=== PATIENT | male | born 1940 | race Caucasian/White ===

== ENCOUNTER → 2016-07-17 | Outpatient (CLI) | payer MEDICARE ==
[~2016-07-17] MED LIST: ALOG1TAB4 PO; AMLO10TA82 PO; ASPI-892 PO; ATEN100T88 PO; BETH25TA PO; CIPR500T78 PO; DOCU-143 PO; GLBR5T PO; GLIP10TA13 PO; INSU100I16 SQ; INSULIN; LEVO500T69 PO; LEVO500T80 PO; LINA1TAB3 PO; LISI10TA2 PO; LISI40TA PO; METF1000 PO; MTF500T PO; OMEG-12 PO; POLY17PO6 PO; SILO8CAP PO; SIMV20TA3 PO; SIMV40TA2 PO; TAMS0.4C2 PO; VIT C
--- NOTE | 2016-07-20 07:02 | ECHOCARDIOGRAPHY REPORT ---
DATE OF SERVICE: 07/17/2016 ORDERING PHYSICIAN: Mirtha Demarco APRN. PRIMARY CARE PHYSICIAN: Dr. Chavira. CLINICAL DIAGNOSES: Coronary artery disease, hyperlipidemia, hypertension, history of tobacco use. MEASUREMENTS: Left atrium 3.4. Aortic root 3.3. Left ventricular diameter diastolic 4.3 IVS thickness, diastolic 0.9. LVPW thickness 0.9. DESCRIPTION: Two-dimensional echocardiography shows normal global left ventricular systolic function with normal regional wall motion. Aortic, mitral and tricuspid valve leaflets show good leaflet excursion. There appears to be mild to moderate aortic valve sclerosis. Aortic valve leaflets are not very well visualized. There does not appear to be any significant pericardial effusion. Doppler imaging shows trivial mitral and tricuspid regurgitation. There is no Doppler evidence of any significant valvular stenosis. Mitral inflow is consistent with grade 1 diastolic dysfunction of the left ventricle. There is no evidence of any significant intracardiac shunt on this transthoracic echocardiographic study. Inferior vena cava is of normal size and is mostly collapsed during the study. Pulmonary artery systolic pressure is estimated at approximately 30 mmHg. CONCLUSIONS: 1. Normal global left ventricular systolic function with ejection fraction approximately 65%. 2. Trivial mitral and tricuspid regurgitation. 3. Aortic valve sclerosis without evidence of aortic stenosis. 4. Mild diastolic dysfunction, left ventricle. 5. Pulmonary artery systolic pressure is estimated to be approximately 30 mmHg. Job ID: [id number] DocumentID: [id number] Dictated Date: 07/19/2016 15:33:45 Retail Advertising Executive Date: 07/19/2016 20:15:54 Dictated By: IVY QUINTANA MD, MA, FACP, FACC,
== END ==
LOC: CARD 14:10
PROVIDERS: ATTEND Nurse Practitioner Family
DX: I25.10 Atherosclerotic heart disease of native coronary artery without angina pectoris (principal); I65.23 Occlusion and stenosis of bilateral carotid arteries; E78.4 Other hyperlipidemia; I10 Essential (primary) hypertension; Z72.0 Tobacco use
CPT/HCPCS: 93306

== ENCOUNTER → 2016-07-21 | Outpatient (CLI) | payer MEDICARE ==
[~2016-07-21] MED LIST changes: +CATHETER FLUSH 10 ML SYR IV PRN; +REGADENOSON 0.4 MG/5 ML SYR (LEXISCAN) IV ONE
[2016-07-21 14:42] VITALS: BP 179/77
--- NOTE | 2016-07-25 21:10 | STRESS TEST ---
DATE OF SERVICE: 07/21/2016 DATE OF SERVICE: 07/21/2016. ORDERING PHYSICIAN: Mirtha Demarco APRN. PRIMARY PHYSICIAN: Dr. Chavira OTHER PHYSICIAN: Dr. Quintana. CLINICAL DIAGNOSIS: Coronary artery disease, hypertension, tobacco use. Baseline images were carried out after injection of 10.91 mCi of technetium-99m Tetrofosmin. This was followed by 0.4 mg regadenoson and 30.9 mCi of technetium-99m Tetrofosmin for stress imaging. The electrocardiogram showed sinus rhythm during the study. There were a few isolated premature atrial contractions. The electrocardiogram did not change significantly with the regadenoson infusion. The patient tolerated the procedure well. Review of images at rest and following stress does not indicate any significant perfusion defects consistent with significant myocardial ischemia or infarction. Gated images show normal global left ventricular systolic function with normal regional wall motion. Left ventricular ejection fraction is calculated to be 65%. Left ventricular end-diastolic volume is 74 mL TID is absent (1.1). CONCLUSIONS: 1. No evidence of any significant myocardial ischemia or infarction on this study. 2. Normal regional wall motion. 3. Normal global left ventricular systolic function with a calculated ejection fraction of 65%. 4. Normal left ventricular cavity size. Job ID: [id number] DocumentID: [id number] Dictated Date: 07/25/2016 15:53:10 Power Tool Repairer Date: 07/25/2016 16:11:57 Dictated By: IVY QUINTANA MD, MA, FACP, FACC,
== END ==
LOC: CARD 13:28
PROVIDERS: ATTEND Nurse Practitioner Family
DX: I25.10 Atherosclerotic heart disease of native coronary artery without angina pectoris (principal); I65.23 Occlusion and stenosis of bilateral carotid arteries; E78.4 Other hyperlipidemia; I10 Essential (primary) hypertension; Z72.0 Tobacco use
CPT/HCPCS: 78452; 93017

== ENCOUNTER 2017-03-19 18:32 | Emergency (ER) | payer MEDICARE ==
[~2017-03-19] VITALS: Ht 172.7 cm; Wt 86.2 kg
[~2017-03-19 18:32] MED LIST changes: -CATHETER FLUSH 10 ML SYR IV PRN; -REGADENOSON 0.4 MG/5 ML SYR (LEXISCAN) IV ONE
--- OUTSIDE RECORDS SUMMARY | 2017-03-19 18:39 | XMS REPORT | Continuity of Care Document ---
Author Author [facility] Organization [facility] Address Unknown Phone Unavailable Allergies Active Description Code Type Severity Reaction Onset Reported/Identified Relationship to Patient Clinical Status Yes No Known Drug Allergies [id number] Drug Allergy Unknown N/A 09/15/2008 Medications There is no data. Problems Date Dx Coded Attending Type Code Diagnosis Diagnosed By 11/09/2009 Ot 185 11/09/2009 Ot 250.00 11/09/2009 Ot 596.54 11/09/2009 Ot 791.9 11/09/2009 Ot V58.69 12/22/2009 Ot 185 12/22/2009 Ot 250.00 12/22/2009 Ot 272.4 12/22/2009 Ot 401.9 12/22/2009 Ot 596.54 12/22/2009 Ot V44.50 12/22/2009 Ot V45.81 12/22/2009 Ot V58.66 12/22/2009 Ot V58.69 04/24/2010 Ot 185 04/24/2010 Ot 250.00 04/24/2010 Ot 272.4 04/24/2010 Ot 401.9 04/24/2010 Ot 596.54 04/24/2010 Ot V44.50 04/24/2010 Ot V45.81 04/24/2010 Ot V58.66 04/24/2010 Ot V58.69 07/21/2010 Ot 708.9 URTICARIA NOS 07/21/2010 Ot 782.1 NONSPECIF SKIN ERUPT NEC 08/28/2010 Ot 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 08/28/2010 Ot 250.00 DIAB ELEANOR WO COMPL, TYPE II OR UNSPEC TY 08/28/2010 Ot 272.4 HYPERLIPIDEMIA NEC/NOS 08/28/2010 Ot 401.9 HYPERTENSION NOS 08/28/2010 Ot 596.54 NEUROGENIC BLADDER, NOT OTHERWISE SPECIF 08/28/2010 Ot V44.50 CYSTOSTOMY STATUS, NOS 08/28/2010 Ot V45.81 AORTOCORONARY BYPASS 08/28/2010 Ot V58.66 LONG-TERM ( CURRENT) USE OF ASPIRIN 08/28/2010 Ot V58.69 OTH MED,LT, CURRENT USE 05/02/2011 Ot 595.9 CYSTITIS NOS 05/02/2011 Ot 599.70 HEMATURIA, UNSPECIFIED 08/15/2011 Ot 250.00 DIAB ELEANOR WO COMPL, TYPE II OR UNSPEC TY 08/15/2011 Ot 596.54 NEUROGENIC BLADDER, NOT OTHERWISE SPECIF 08/15/2011 Ot 788.20 RETENTION OF URINE NOS 03/10/2013 BERTA DELANEY GLOBAL PROGRAM DIRECTOR Ot V53.6 FITTING URINARY DEVICES 11/28/2013 BERTA DELANEY GLOBAL PROGRAM DIRECTOR Ot 599.0 URIN TRACT INFECTION NOS 11/28/2013 BERTA DELANEY GLOBAL PROGRAM DIRECTOR Ot 788.41 URINARY FREQUENCY 11/28/2013 BERTA DELANEY G[employer] PROGRAM DIRECTOR Ot 996.76 OTH COMP DUE TO GENITOURINARY DEVICE,IMP 03/20/2014 Ot 414.8 03/20/2014 Ot 185 03/20/2014 Ot V81.5 03/20/2014 Ot 185 03/20/2014 Ot 573.8 03/20/2014 Ot 591 03/20/2014 Ot V81.5 03/20/2014 Ot 185 03/20/2014 Ot 185 03/20/2014 Ot 788.30 03/20/2014 Ot V72.63 03/20/2014 Ot V72.81 03/20/2014 Ot V74.8 03/20/2014 Ot 185 03/20/2014 Ot 596.54 03/20/2014 Ot 788.30 03/20/2014 Ot 185 03/20/2014 Ot V72.63 03/20/2014 Ot V72.81 03/20/2014 Ot V74.8 03/20/2014 Ot 185 03/20/2014 Ot 250.00 03/20/2014 Ot 272.4 03/20/2014 Ot 401.9 03/20/2014 Ot 596.54 03/20/2014 Ot V44.50 03/20/2014 Ot V45.81 03/20/2014 Ot V58.66 03/20/2014 Ot V58.69 03/20/2014 Ot 433.10 03/20/2014 PARSAD TARIQ Ot 414.00 03/20/2014 PRASAD TARIQ Ot V45.81 03/23/2014 Ot 414.8 03/23/2014 Ot 185 03/23/2014 Ot V81.5 03/23/2014 Ot 185 03/23/2014 Ot 573.8 03/23/2014 Ot 591 03/23/2014 Ot V81.5 03/23/2014 Ot 185 03/23/2014 Ot 185 03/23/2014 Ot 788.30 03/23/2014 Ot V72.63 03/23/2014 Ot V72.81 03/23/2014 Ot V74.8 03/23/2014 Ot 185 03/23/2014 Ot 596.54 03/23/2014 Ot 788.30 03/23/2014 Ot 185 03/23/2014 Ot V72.63 03/23/2014 Ot V72.81 03/23/2014 Ot V74.8 03/23/2014 Ot 185 03/23/2014 Ot 250.00 03/23/2014 Ot 272.4 03/23/2014 Ot 401.9 03/23/2014 Ot 596.54 03/23/2014 Ot V44.50 03/23/2014 Ot V45.81 03/23/2014 Ot V58.66 03/23/2014 Ot V58.69 03/23/2014 Ot 433.10 03/23/2014 PRASAD TARIQ SLAT TWISTER Ot 414.00 03/23/2014 PRASAD TARIQ Ot V45.81 03/23/2014 Ot 414.8 03/23/2014 Ot 185 03/23/2014 Ot V81.5 03/23/2014 Ot 185 03/23/2014 Ot 573.8 03/23/2014 Ot 591 03/23/2014 Ot V81.5 03/23/2014 Ot 185 03/23/2014 Ot 185 03/23/2014 Ot 788.30 03/23/2014 Ot V72.63 03/23/2014 Ot V72.81 03/23/2014 Ot V74.8 03/23/2014 Ot 185 03/23/2014 Ot 596.54 03/23/2014 Ot 788.30 03/23/2014 Ot 185 03/23/2014 Ot V72.63 03/23/2014 Ot V72.81 03/23/2014 Ot V74.8 03/23/2014 Ot 185 03/23/2014 Ot 250.00 03/23/2014 Ot 272.4 03/23/2014 Ot 401.9 03/23/2014 Ot 596.54 03/23/2014 Ot V44.50 03/23/2014 Ot V45.81 03/23/2014 Ot V58.66 03/23/2014 Ot V58.69 03/23/2014 Ot 433.10 03/23/2014 PRASAD TARIQ SLAT TWISTER Ot 414.00 03/23/2014 PRASAD TARIQ SLAT TWISTER Ot V45.81 07/27/2014 Ot 414.8 07/27/2014 Ot 185 07/27/2014 Ot V81.5 07/27/2014 Ot 185 07/27/2014 Ot 573.8 07/27/2014 Ot 591 07/27/2014 Ot V81.5 07/27/2014 Ot 185 07/27/2014 Ot 185 07/27/2014 Ot 788.30 07/27/2014 Ot V72.63 07/27/2014 Ot V72.81 07/27/2014 Ot V74.8 07/27/2014 Ot 185 07/27/2014 Ot 596.54 07/27/2014 Ot 788.30 07/27/2014 Ot 185 07/27/2014 Ot V72.63 07/27/2014 Ot V72.81 07/27/2014 Ot V74.8 07/27/2014 Ot 185 07/27/2014 Ot 250.00 07/27/2014 Ot 272.4 07/27/2014 Ot 401.9 07/27/2014 Ot 596.54 07/27/2014 Ot V44.50 07/27/2014 Ot V45.81 07/27/2014 Ot V58.66 07/27/2014 Ot V58.69 07/27/2014 Ot 433.10 07/27/2014 PRASAD TARIQ SLAT TWISTER Ot 414.00 07/27/2014 PRASAD TARIQ SLAT TWISTER Ot V45.81 11/21/2015 Ot 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 11/21/2015 Ot 596.54 NEUROGENIC BLADDER, NOT OTHERWISE SPECIF 11/21/2015 Ot 788.30 UNSPECIFIED URINARY INCONTINENCE 11/21/2015 Ot 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 11/21/2015 Ot 250.00 DIAB ELEANOR WO COMPL, TYPE II OR UNSPEC TY 11/21/2015 Ot 272.4 HYPERLIPIDEMIA NEC/NOS 11/21/2015 Ot 401.9 HYPERTENSION NOS 11/21/2015 Ot 596.54 NEUROGENIC BLADDER, NOT OTHERWISE SPECIF 11/21/2015 Ot V44.50 CYSTOSTOMY STATUS, NOS 11/21/2015 Ot V45.81 AORTOCORONARY BYPASS 11/21/2015 Ot V58.66 LONG-TERM ( CURRENT) USE OF ASPIRIN 11/21/2015 Ot V58.69 OTH MED,LT, CURRENT USE 11/21/2015 Ot 433.10 CAROTID ARTERY OCCLUSION W O CEREBRAL IN 11/21/2015 PRASAD TARIQ L SLAT TWISTER Ot 414.00 CORON ATHEROSCLER NOS TYPE VESSEL, NATIV 11/21/2015 ZA TARIQHER L SLAT TWISTER Ot V45.81 AORTOCORONARY BYPASS 11/21/2015 Ot 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 11/21/2015 Ot 596.54 NEUROGENIC BLADDER, NOT OTHERWISE SPECIF 11/21/2015 Ot 788.30 UNSPECIFIED URINARY INCONTINENCE 11/21/2015 Ot 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 11/21/2015 Ot 250.00 DIAB ELEANOR WO COMPL, TYPE II OR UNSPEC TY 11/21/2015 Ot 272.4 HYPERLIPIDEMIA NEC/NOS 11/21/2015 Ot 401.9 HYPERTENSION NOS 11/21/2015 Ot 596.54 NEUROGENIC BLADDER, NOT OTHERWISE SPECIF 11/21/2015 Ot V44.50 CYSTOSTOMY STATUS, NOS 11/21/2015 Ot V45.81 AORTOCORONARY BYPASS 11/21/2015 Ot V58.66 LONG-TERM ( CURRENT) USE OF ASPIRIN 11/21/2015 Ot V58.69 OTH MED,LT, CURRENT USE 11/21/2015 Ot 433.10 CAROTID ARTERY OCCLUSION W O CEREBRAL IN 11/21/2015 PRASAD TARIQ SLAT TWISTER Ot 414.00 CORON ATHEROSCLER NOS TYPE VESSEL, NATIV 11/21/2015 PRASAD TARIQ SLAT TWISTER Ot V45.81 AORTOCORONARY BYPASS 11/24/2015 AIDEN BRITO, VIJAY R Ot A41.50 GRAM-NEGATIVE SEPSIS, UNSPECIFIED 11/24/2015 AIDEN BRITO, VIJAY R Ot A41.81 SEPSIS DUE TO ENTEROCOCCUS 11/24/2015 AIDEN BRITO, VIJAY Gamble Ot A41.89 OTHER SPECIFIED SEPSIS 11/24/2015 AIDEN BRITO, VIJAY Gamble Ot B96.4 PROTEUS (MIRABILIS) (MORGANII) CAUSING D 11/24/2015 VIJAY WOLFE MD Ot E11.9 TYPE 2 DIABETES MELLITUS WITHOUT COMPLIC 11/24/2015 VIJAY WOLFE MD Ot F17.210 NICOTINE DEPENDENCE, CIGARETTES, UNCOMPL 11/24/2015 VIJAY WOLFE MD Ot F17.290 NICOTINE DEPENDENCE, OTHER TOBACCO PRODU 11/24/2015 VIJAY WOLFE MD Ot H91.90 UNSPECIFIED HEARING LOSS, UNSPECIFIED EA 11/24/2015 VIJAY WOLFE MD Ot I10 ESSENTIAL (PRIMARY) HYPERTENSION 11/24/2015 VIJAY WOLFE MD, Ot I25.10 ATHSCL HEART DISEASE OF [place] CORONARY 11/24/2015 VIJAY WOLFE MD Ot N39.0 URINARY TRACT INFECTION, SITE NOT SPECIF 11/24/2015 VIJAY WOLFE MD Ot T83.51XA INFECT/INFLM REACTION DUE TO INDWELL URI 11/24/2015 VIJAY WOLFE MD Ot Z91.81 HISTORY OF FALLING 11/24/2015 VIJAY WOLFE MD Ot Z95.1 PRESENCE OF AORTOCORONARY BYPASS GRAFT 01/07/2016 Ot 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 01/07/2016 Ot 596.54 NEUROGENIC BLADDER, NOT OTHERWISE SPECIF 01/07/2016 Ot 788.30 UNSPECIFIED URINARY INCONTINENCE 01/07/2016 Ot 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 01/07/2016 Ot 250.00 DIAB ELEANOR WO COMPL, TYPE II OR UNSPEC TY 01/07/2016 Ot 272.4 HYPERLIPIDEMIA NEC/NOS 01/07/2016 Ot 401.9 HYPERTENSION NOS 01/07/2016 Ot 596.54 NEUROGENIC BLADDER, NOT OTHERWISE SPECIF 01/07/2016 Ot V44.50 CYSTOSTOMY STATUS, NOS 01/07/2016 Ot V45.81 AORTOCORONARY BYPASS 01/07/2016 Ot V58.66 LONG-TERM ( CURRENT) USE OF ASPIRIN 01/07/2016 Ot V58.69 OTH MED,LT, CURRENT USE 01/07/2016 Ot 433.10 CAROTID ARTERY OCCLUSION W O CEREBRAL IN 01/07/2016 PRASAD TARIQP Ot 414.00 CORON ATHEROSCLER NOS TYPE VESSEL, NATIV 01/07/2016 PRASAD TARIQP Ot V45.81 AORTOCORONARY BYPASS 07/06/2016 Ot 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 07/06/2016 Ot 596.54 NEUROGENIC BLADDER, NOT OTHERWISE SPECIF 07/06/2016 Ot 788.30 UNSPECIFIED URINARY INCONTINENCE 07/06/2016 BAIMA, PRASAD L SLAT TWISTER Ot 414.00 CORON ATHEROSCLER NOS TYPE VESSEL, NATIV 07/06/2016 BAIMA, PRASAD L SLAT TWISTER Ot V45.81 AORTOCORONARY BYPASS 07/11/2016 Ot 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 07/11/2016 Ot 596.54 NEUROGENIC BLADDER, NOT OTHERWISE SPECIF 07/11/2016 Ot 788.30 UNSPECIFIED URINARY INCONTINENCE 07/11/2016 BAIMA, PRASAD L SLAT TWISTER Ot 414.00 CORON ATHEROSCLER NOS TYPE VESSEL, NATIV 07/11/2016 BAIMA, PRASAD L SLAT TWISTER Ot V45.81 AORTOCORONARY BYPASS 07/12/2016 Ot 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 07/12/2016 Ot 596.54 NEUROGENIC BLADDER, NOT OTHERWISE SPECIF 07/12/2016 Ot 788.30 UNSPECIFIED URINARY INCONTINENCE 07/12/2016 BAIMA, PRASAD L SLAT TWISTER Ot 414.00 CORON ATHEROSCLER NOS TYPE VESSEL, NATIV 07/12/2016 BAIMA, PRASAD L SLAT TWISTER Ot V45.81 AORTOCORONARY BYPASS 07/17/2016 BAIMA, PRASAD L SLAT TWISTER Ot I25.10 ATHSCL HEART DISEASE OF [place] CORONARY 07/20/2016 BAIMA, PRASAD L SLAT TWISTER Ot I25.10 ATHSCL HEART DISEASE OF [place] CORONARY 07/24/2016 BAIMA, PRASAD L SLAT TWISTER Ot E78.4 OTHER HYPERLIPIDEMIA 07/24/2016 BAIMA, PRASAD L SLAT TWISTER Ot I10 ESSENTIAL (PRIMARY) HYPERTENSION 07/24/2016 BAIMA, PRASAD L SLAT TWISTER Ot I25.10 ATHSCL HEART DISEASE OF [place] CORONARY 07/24/2016 BAIMA, PRASAD L SLAT TWISTER Ot I65.23 OCCLUSION AND STENOSIS OF [place] 07/24/2016 BAIMA, PRASAD L SLAT TWISTER Ot Z72.0 TOBACCO USE 07/27/2016 BAIMA, PRASAD L SLAT TWISTER Ot E78.4 OTHER HYPERLIPIDEMIA 07/27/2016 BAIMA, PRASAD L SLAT TWISTER Ot I10 ESSENTIAL (PRIMARY) HYPERTENSION 07/27/2016 BAIMA, PRASAD L SLAT TWISTER Ot I25.10 ATHSCL HEART DISEASE OF [place] CORONARY 07/27/2016 BAIMA, PRASAD L SLAT TWISTER Ot I65.23 OCCLUSION AND STENOSIS OF [place] 07/27/2016 PRASAD TARIQ L SLAT TWISTER Ot Z72.0 TOBACCO USE 08/09/2016 BABAKMA PRASAD L SLAT TWISTER Ot E78.4 OTHER HYPERLIPIDEMIA 08/09/2016 BAIMA, PRASAD L SLAT TWISTER Ot I10 ESSENTIAL (PRIMARY) HYPERTENSION 08/09/2016 BABAKRYLAN PRASAD L SLAT TWISTER Ot I25.10 ATHSCL HEART DISEASE OF [place] CORONARY 08/09/2016 BAIMAZAPRASAD L SLAT TWISTER Ot I65.23 OCCLUSION AND STENOSIS OF [place] 08/09/2016 BAIMAPRASAD L SLAT TWISTER Ot Z72.0 TOBACCO USE 08/11/2016 BAIMAZAPRASAD L SLAT TWISTER Ot E78.4 OTHER HYPERLIPIDEMIA 08/11/2016 BAIMA, PRASAD L SLAT TWISTER Ot I10 ESSENTIAL (PRIMARY) HYPERTENSION 08/11/2016 BABAKMA PRASAD L SLAT TWISTER Ot I25.10 ATHSCL HEART DISEASE OF [place] CORONARY 08/11/2016 BABAKZA FAGANHER L SLAT TWISTER Ot I65.23 OCCLUSION AND STENOSIS OF [place] 08/11/2016 BABAKPRASAD FAGAN L SLAT TWISTER Ot Z72.0 TOBACCO USE 08/15/2016 Ot 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 08/15/2016 Ot 596.54 NEUROGENIC BLADDER, NOT OTHERWISE SPECIF 08/15/2016 Ot 788.30 UNSPECIFIED URINARY INCONTINENCE 08/15/2016 BABAKZA FAGANHER L SLAT TWISTER Ot 414.00 CORON ATHEROSCLER NOS TYPE VESSEL, NATIV 08/15/2016 BABAKPRASAD FAGAN L SLAT TWISTER Ot V45.81 AORTOCORONARY BYPASS 08/15/2016 BABAKZA FAGANHER L SLAT TWISTER Ot E78.4 OTHER HYPERLIPIDEMIA 08/15/2016 BABAKMA, PRASAD L SLAT TWISTER Ot I10 ESSENTIAL (PRIMARY) HYPERTENSION 08/15/2016 BABAKRYLAN PRASAD L SLAT TWISTER Ot I25.10 ATHSCL HEART DISEASE OF [place] CORONARY 08/15/2016 BABAKRYLAN PRASAD L SLAT TWISTER Ot I65.23 OCCLUSION AND STENOSIS OF [place] 08/15/2016 BABAKZA FAGANHER L SLAT TWISTER Ot Z72.0 TOBACCO USE 08/15/2016 BABAKMA PRASAD L SLAT TWISTER Ot E78.4 OTHER HYPERLIPIDEMIA 08/15/2016 BABAKMA, PRASAD L SLAT TWISTER Ot I10 ESSENTIAL (PRIMARY) HYPERTENSION 08/15/2016 PRASAD TARIQ Ot I25.10 ATHSCL HEART DISEASE OF [place] CORONARY 08/15/2016 PRASAD TARIQ Ot I65.23 OCCLUSION AND STENOSIS OF [place] 08/15/2016 PRASAD TARIQ Ot Z72.0 TOBACCO USE Procedures There is no data. Results Test Result Range Complete blood count (CBC) with automated white blood cell (WBC) differential - 11/21/15 09:12 Blood leukocytes automated count (number/volume) 14.2 10*3/uL 4.3-11.0 Blood erythrocytes automated count (number/volume) 5.33 10*6/uL 4.35-5.85 Venous blood hemoglobin measurement (mass/volume) 14.7 g/dL 13.3-17.7 Blood hematocrit (volume fraction) 44 % 40-54 Automated erythrocyte mean corpuscular volume 82 [foz_us] 80-99 Automated erythrocyte mean corpuscular hemoglobin (mass per erythrocyte) 28 pg 25-34 Automated erythrocyte mean corpuscular hemoglobin concentration measurement ( mass/volume) 34 g/dL 32-36 Automated erythrocyte distribution width ratio 14.4 % 10.0-14.5 Automated blood platelet count (count/volume) 148 10*3/uL 130-400 Automated blood platelet mean volume measurement 9.4 [foz_us] 7.4-10.4 Automated blood neutrophils/100 leukocytes 89 % 42-75 Automated blood lymphocytes/100 leukocytes 6 % 12-44 Blood monocytes/100 leukocytes 5 % 0-12 Automated blood eosinophils/100 leukocytes 0 % 0-10 Automated blood basophils/100 leukocytes 0 % 0-10 Blood neutrophils automated count (number/volume) 12.6 10*3 1.8-7.8 Blood lymphocytes automated count (number/volume) 0.9 10*3 1.0-4.0 Blood monocytes automated count (number/volume) 0.7 10*3 0.0-1.0 Automated eosinophil count 0.0 10*3/uL 0.0-0.3 Automated blood basophil count (count/volume) 0.1 10*3/uL 0.0-0.1 PT panel in platelet poor plasma by coagulation assay - 11/21/15 09:12 Prothrombin time (PT) in platelet poor plasma by coagulation assay 13.3 s 12.2-14.7 INR in platelet poor plasma or blood by coagulation assay 1.0 0.8-1.4 Activated partial thromboplastin time (aPTT) in platelet poor plasma bycoagulation assay - 11/21/15 09:12 Activated partial thromboplastin time (aPTT) in platelet poor plasma bycoagulation assay 21 s 24-35 Comprehensive metabolic panel - 11/21/15 09:12 Serum or plasma sodium measurement (moles/volume) 137 mmol/L 135-145 Serum or plasma potassium measurement (moles/volume) 4.3 mmol/L 3.6-5.0 Serum or plasma chloride measurement (moles/volume) 104 mmol/L 98-107 Carbon dioxide 20 mmol/L 21-32 Serum or plasma anion gap determination (moles/volume) 13 mmol/L 5-14 Serum or plasma urea nitrogen measurement (mass/volume) 14 mg/dL 7-18 Serum or plasma creatinine measurement (mass/volume) 1.46 mg/dL 0.60-1.30 Serum or plasma urea nitrogen/creatinine mass ratio 10 NRG Serum or plasma creatinine measurement with calculation of estimated glomerular filtration rate 47 NRG Serum or plasma glucose measurement (mass/volume) 192 mg/dL 70-105 Serum or plasma calcium measurement (mass/volume) 9.6 mg/dL 8.5-10.1 Serum or plasma total bilirubin measurement (mass/volume) 1.4 mg/dL 0.1-1.0 Serum or plasma alkaline phosphatase measurement (enzymatic activity/volume) 95 U/L 40-136 Serum or plasma aspartate aminotransferase measurement (enzymatic activity/ volume) 17 U/L 5-34 Serum or plasma alanine aminotransferase measurement (enzymatic activity/volume ) 20 U/L 0-55 Serum or plasma protein measurement (mass/volume) 7.1 g/dL 6.4-8.2 Serum or plasma albumin measurement (mass/volume) 3.9 g/dL 3.2-4.5 Serum or plasma troponin i.cardiac measurement (mass/volume) - 11/21/15 09:12 Serum or plasma troponin i.cardiac measurement (mass/volume) < ng/ mL <0.30 Blood manual differential performed detection - 11/21/15 09:12 Blood monocytes/100 leukocytes 8 % NRG Manual blood segmented neutrophils/100 leukocytes 79 % NRG Blood band neutrophils/100 leukocytes 2 % NRG Manual blood lymphocytes/100 leukocytes 11 % NRG Blood erythrocyte morphology finding identification NORMAL NRG Blood toxic granules detection by light microscopy 1+ NRG Serum or plasma C reactive protein measurement (mass/volume) - 11/21/15 09:12 Serum or plasma C reactive protein measurement (mass/volume) 11.22 mg/dL 0.00-0.50 Bacterial blood culture - 11/21/15 09:12 Bacterial blood culture NG NRG Influenza virus A and B antigen detection - 11/21/15 09:45 FLU RESULT NEGATIVE FOR INFLUENZA A AND B ANTIGENS BY IA NRG Blood lactic acid measurement (moles/volume) - 11/21/15 10:00 Blood lactic acid measurement (moles/volume) 1.6 mmol/L 0.5-2.0 Bacterial blood culture - 11/21/15 10:00 Bacterial blood culture NG NRG Complete urinalysis with reflex to culture - 11/21/15 11:10 Urine color determination YELLOW NRG Urine clarity determination SLIGHTLY CLOUDY NRG Urine pH measurement by test strip 8 5-9 Specific gravity of urine by test strip 1.010 1.016- 1.022 Urine protein assay by test strip, semi-quantitative 2+ NEGATIVE Urine glucose detection by automated test strip NEGATIVE NEGATIVE Erythrocytes detection in urine sediment by light microscopy 4+ NEGATIVE Urine ketones detection by automated test strip 2+ NEGATIVE Urine nitrite detection by test strip POSITIVE NEGATIVE Urine total bilirubin detection by test strip NEGATIVE NEGATIVE Urine urobilinogen measurement by automated test strip (mass/volume) 1 mg/dL NORMAL Urine leukocyte esterase detection by dipstick 3+ NEGATIVE Automated urine sediment erythrocyte count by microscopy (number/high power field) [HPF] NRG Automated urine sediment leukocyte count by microscopy (number/high power field ) [HPF] NRG Bacteria detection in urine sediment by light microscopy LARGE NRG Squamous epithelial cells detection in urine sediment by light microscopy NONE NRG Crystals detection in urine sediment by light microscopy PRESENT NRG Casts detection in urine sediment by light microscopy NONE NRG Mucus detection in urine sediment by light microscopy SMALL NRG Complete urinalysis with reflex to culture YES NRG Amorphous sediment detection in urine sediment by light microscopy MOD TAHIRA PHOSPHATE NRG Bacterial urine culture - 11/21/15 11:10 Bacterial urine culture [id number] NRG COLONY COUNT 10,000/ML - 100,000/ML NRG FTX;REPORTABLE SENSITIVITY REPORTED 11/23/15 8:00 NRG Bacterial susceptibility panel - 11/21/15 11:10 Gentamicin susceptibility test by minimum inhibitory concentration < = NRG Trimethoprim/sulfamethoxazole susceptibility test by minimum inhibitoryconcentration <= NRG Ampicillin susceptibility test by minimum inhibitory concentration R NRG Tobramycin susceptibility test by minimum inhibitory concentration < = NRG Cefazolin susceptibility test by minimum inhibitory concentration R NRG Ceftriaxone susceptibility test by minimum inhibitory concentration S NRG Ampicillin/sulbactam susceptibility test by minimum inhibitory concentration 8 NRG Piperacillin/tazobactam susceptibility test by minimum inhibitory concentration 64 NRG Ciprofloxacin susceptibility test by minimum inhibitory concentration <= NRG Meropenem susceptibility test by minimum inhibitory concentration 0.5 NRG Nitrofurantoin susceptibility test by minimum inhibitory concentration R NRG Aztreonam susceptibility test by minimum inhibitory concentration > = NRG Bacterial susceptibility panel - 11/21/15 11:10 Gentamicin susceptibility test by minimum inhibitory concentration S NRG Vancomycin susceptibility test by minimum inhibitory concentration 2 NRG Levofloxacin susceptibility test by minimum inhibitory concentration 1 NRG Tetracycline susceptibility test by minimum inhibitory concentration <= NRG Ampicillin susceptibility test by minimum inhibitory concentration < = NRG Nitrofurantoin susceptibility test by minimum inhibitory concentration <= NRG Linezolid susceptibility test by minimum inhibitory concentration 2 NRG Capillary blood glucose measurement by glucometer (mass/volume) - 11/21/15 16: 08 Capillary blood glucose measurement by glucometer (mass/volume) 180 mg/dL 70-110 Capillary blood glucose measurement by glucometer (mass/volume) - 11/21/15 21: 23 Capillary blood glucose measurement by glucometer (mass/volume) 123 mg/dL 70-110 Blood CBC with ordered manual differential panel - 11/22/15 05:05 Blood leukocytes automated count (number/volume) 9.8 10*3/uL 4.3-11.0 Blood erythrocytes automated count (number/volume) 5.06 10*6/uL 4.35-5.85 Venous blood hemoglobin measurement (mass/volume) 13.8 g/dL 13.3-17.7 Blood hematocrit (volume fraction) 42 % 40-54 Automated erythrocyte mean corpuscular volume 83 [foz_us] 80-99 Automated erythrocyte mean corpuscular hemoglobin (mass per erythrocyte) 27 pg 25-34 Automated erythrocyte mean corpuscular hemoglobin concentration measurement ( mass/volume) 33 g/dL 32-36 Automated erythrocyte distribution width ratio 14.6 % 10.0-14.5 Automated blood platelet count (count/volume) 122 10*3/uL 130-400 Automated blood platelet mean volume measurement 9.7 [foz_us] 7.4-10.4 Automated blood neutrophils/100 leukocytes 82 % 42-75 Automated blood lymphocytes/100 leukocytes 12 % 12-44 Blood monocytes/100 leukocytes 3 % NRG Automated blood eosinophils/100 leukocytes 0 % 0-10 Automated blood basophils/100 leukocytes 1 % 0-10 Blood neutrophils automated count (number/volume) 8.0 10*3 1.8-7.8 Blood lymphocytes automated count (number/volume) 1.2 10*3 1.0-4.0 Blood monocytes automated count (number/volume) 0.5 10*3 0.0-1.0 Automated eosinophil count 0.0 10*3/uL 0.0-0.3 Automated blood basophil count (count/volume) 0.1 10*3/uL 0.0-0.1 Manual blood segmented neutrophils/100 leukocytes 90 % NRG Blood band neutrophils/100 leukocytes 0 % NRG Manual blood lymphocytes/100 leukocytes 7 % NRG Manual eosinophils/100 leukocytes in nose 0 % NRG Manual blood basophils/100 leukocytes 0 % NRG Blood erythrocyte morphology finding identification NORMAL [facility] Comprehensive metabolic panel - 11/22/15 05:05 Serum or plasma sodium measurement (moles/volume) 139 mmol/L 135-145 Serum or plasma potassium measurement (moles/volume) 4.2 mmol/L 3.6-5.0 Serum or plasma chloride measurement (moles/volume) 106 mmol/L 98-107 Carbon dioxide 20 mmol/L 21-32 Serum or plasma anion gap determination (moles/volume) 13 mmol/L 5-14 Serum or plasma urea nitrogen measurement (mass/volume) 16 mg/dL 7-18 Serum or plasma creatinine measurement (mass/volume) 1.26 mg/dL 0.60-1.30 Serum or plasma urea nitrogen/creatinine mass ratio 13 NRG Serum or plasma creatinine measurement with calculation of estimated glomerular filtration rate 56 NRG Serum or plasma glucose measurement (mass/volume) 119 mg/dL 70-105 Serum or plasma calcium measurement (mass/volume) 9.0 mg/dL 8.5-10.1 Serum or plasma total bilirubin measurement (mass/volume) 1.1 mg/dL 0.1-1.0 Serum or plasma alkaline phosphatase measurement (enzymatic activity/volume) 84 U/L 40-136 Serum or plasma aspartate aminotransferase measurement (enzymatic activity/ volume) 24 U/L 5-34 Serum or plasma alanine aminotransferase measurement (enzymatic activity/volume ) 25 U/L 0-55 Serum or plasma protein measurement (mass/volume) 6.5 g/dL 6.4-8.2 Serum or plasma albumin measurement (mass/volume) 3.5 g/dL 3.2-4.5 Capillary blood glucose measurement by glucometer (mass/volume) - 11/22/15 10: 59 Capillary blood glucose measurement by glucometer (mass/volume) 109 mg/dL 70-110 Capillary blood glucose measurement by glucometer (mass/volume) - 11/22/15 16: 05 Capillary blood glucose measurement by glucometer (mass/volume) 93 mg/dL 70-110 Capillary blood glucose measurement by glucometer (mass/volume) - 11/22/15 20: 52 Capillary blood glucose measurement by glucometer (mass/volume) 130 mg/dL 70-110 Capillary blood glucose measurement by glucometer (mass/volume) - 11/23/15 05: 42 Capillary blood glucose measurement by glucometer (mass/volume) 95 mg/dL 70-110 Automated blood complete blood count (hemogram) panel - 11/23/15 05:47 Blood leukocytes automated count (number/volume) 6.3 10*3/uL 4.3-11.0 Blood erythrocytes automated count (number/volume) 4.54 10*6/uL 4.35-5.85 Venous blood hemoglobin measurement (mass/volume) 12.4 g/dL 13.3-17.7 Blood hematocrit (volume fraction) 37 % 40-54 Automated erythrocyte mean corpuscular volume 81 [foz_us] 80-99 Automated erythrocyte mean corpuscular hemoglobin (mass per erythrocyte) 27 pg 25-34 Automated erythrocyte mean corpuscular hemoglobin concentration measurement ( mass/volume) 34 g/dL 32-36 Automated erythrocyte distribution width ratio 14.4 % 10.0-14.5 Automated blood platelet count (count/volume) 110 10*3/uL 130-400 Automated blood platelet mean volume measurement 9.9 [foz_us] 7.4-10.4 Whole blood basic metabolic panel - 11/23/15 05:47 Serum or plasma sodium measurement (moles/volume) 137 mmol/L 135-145 Serum or plasma potassium measurement (moles/volume) 3.9 mmol/L 3.6-5.0 Serum or plasma chloride measurement (moles/volume) 110 mmol/L 98-107 Carbon dioxide 15 mmol/L 21-32 Serum or plasma anion gap determination (moles/volume) 12 mmol/L 5-14 Serum or plasma urea nitrogen measurement (mass/volume) 15 mg/dL 7-18 Serum or plasma creatinine measurement (mass/volume) 0.95 mg/dL 0.60-1.30 Serum or plasma urea nitrogen/creatinine mass ratio 16 NRG Serum or plasma creatinine measurement with calculation of estimated glomerular filtration rate > NRG Serum or plasma glucose measurement (mass/volume) 101 mg/dL 70-105 Serum or plasma calcium measurement (mass/volume) 8.7 mg/dL 8.5-10.1 Capillary blood glucose measurement by glucometer (mass/volume) - 11/23/15 10: 54 Capillary blood glucose measurement by glucometer (mass/volume) 141 mg/dL 70-110 Encounters ACCT No. Visit Date/Time Discharge Status Pt. Type Provider Facility Loc./Unit Complaint [id number] 07/21/2016 13:28:00 07/21/2016 23:59:59 CLS Outpatient PRASAD TARIQ SLAT TWISTER [facility] CARD I25.10, I65.23 [id number] 07/17/2016 14:10:00 07/17/2016 23:59:59 CLS Outpatient PRASAD TARIQ L SLAT TWISTER [facility] CARD I25.10,I65.23 [id number] 11/28/2013 16:31:00 11/28/2013 17:55:00 DIS Emergency BERTA DELANEY [employer] [facility] ER POSS UTI/CATHETER CONCERN [id number] 03/10/2013 20:22:00 03/10/2013 20:44:00 DIS Emergency BERTA DELANEY [employer] DIRECT[employer] [facility] ER CATHETER IS COMING OUT [id number] 11/14/2012 07:21:00 11/14/2012 23:59:59 CLS Outpatient ZA TARIQHER L SLAT TWISTER [facility] RAD CAD [id number] 11/21/2015 12:36:00 ACT Inpatient AIDEN BRITO, VIJAY Gamble [facility] 4TH SEPSIS,UTI,WEAKNESS [id number] 03/20/2014 20:58:00 Document Registration [id number] 03/20/2014 20:58:00 Document Registration [id number] 08/15/2011 07:42:00 Document Registration [id number] 05/02/2011 17:21:00 Document Registration [id number] 10/04/2010 14:29:00 Document Registration [id number] 08/29/2010 00:00:00 Document Registration [id number] 07/21/2010 11:07:00 Document Registration [id number] 05/30/2010 13:56:00 Document Registration [id number] 01/24/2010 12:24:00 Document Registration [id number] 12/20/2009 15:37:00 Document Registration [id number] 11/09/2009 05:45:00 Document Registration [id number] 11/03/2009 15:11:00 Document Registration [id number] 07/13/2009 05:42:00 Document Registration [id number] 07/06/2009 14:24:00 Document Registration [id number] 05/12/2009 12:13:00 Document Registration [id number] 04/26/2009 14:24:00 Document Registration [id number] 04/21/2009 14:34:00 Document Registration [id number] 02/24/2009 15:05:00 Document Registration
[2017-03-19] MEDS ORDERED: LACTATED RINGERS 1,000 ML IV ONE (18:40)
[2017-03-19] MEDS ORDERED: ACETAMINOPHEN 500 MG TAB (TYLENOL) PO PRN (18:45)
[2017-03-19] MEDS ORDERED: RT-ALBUTEROL/IPRATROPIUM 3 ML (DUONEB) VIAL INH ONE (18:45)
--- NOTE | 2017-03-19 18:47 | ED Respiratory ---
General Stated Complaint: COUGH,FEVER,WEAKNESS Source: patient, family Exam Limitations: no limitations History of Present Illness Time seen by provider: 18:35 Initial Comments Patient presents to ER by private conveyance with chief complaint that for past 2 days she's had a sore throat progressively into body aches, fevers, chills, weakness, cough, shortness of breath. He denies any nausea, vomiting, chest pain , wheezing, diarrhea. No recent travel or sick contacts. He does not wear oxygen at home. 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 Allergies and Home Medications Allergies Coded Allergies: No Known Drug Allergies (Verified , 09/15/08) Home Medications Alogliptin Yosef/Pioglitazone 1 Each Tablet, 1 TAB PO DAILY, (Reported) Amlodipine Besylate 10 Mg Tablet, 10 MG PO DAILY, (Reported) Aspirin 81 Mg Tablet.dr, 81 MG PO DAILY, (Reported) Bethanechol Chloride 25 Mg Tablet, 25 MG PO QID, (Reported) Docusate Sodium 100 Mg Capsule, 200 MG PO HS, (Reported) TAKES 2 (100MG) CAPSULES Glipizide 10 Mg Tablet, 10 MG PO DAILY, (Reported) Levofloxacin 500 Mg Tablet, 500 MG PO DAILY PRN, #7 Prescribed by: STEPHANIE CHAVIRA on 11/24/15 0719 Lisinopril 40 Mg Tablet, 40 MG PO DAILY, (Reported) Metformin HCl 1,000 Mg Tablet, 1,000 MG PO DAILY, (Reported) Norton-3/Dha/Epa/Fish Oil 1 Each Capsule.dr, 1,000 MG PO BID, (Reported) Polyethylene Glycol 3350 17 Gm Powd.pack, 17 GM PO DAILY PRN for CONSTIPATION, ( Reported) Simvastatin 40 Mg Tablet, 40 MG PO HS, (Reported) Tamsulosin Hcl 0.4 Mg Cap.sr.24h, 0.4 MG PO HS, (Reported) Constitutional: chills, fever, malaise EENTM: nose congestion, throat pain, No hearing loss, No ear pain, No eye pain Respiratory: cough, phlegm, short of breath, No wheezing Cardiovascular: No chest pain, No palpitations, No syncope Gastrointestinal: No abdominal pain, No constipation, No diarrhea, No nausea, No vomiting Genitourinary: No discharge, No dysuria Musculoskeletal: No back pain, No joint pain Skin: No pruritus, No rash Psychiatric/Neurological: Denies Headache, Denies Numbness, Denies Paresthesia Past Lvrdkhv-Jowtqw-Vxdazu Hx Patient Social History Alcohol Use: Denies Use Recreational Drug Use: No Smoking Status: Former Smoker Type Used: Cigars, Cigarettes Former Smoker, Quit: Apr 02, 2008 Recent Foreign Travel: No Contact w/Someone Who Travel: No Recent Hopitalizations: No Immunizations Up To Date Tetanus Booster (TDap): Unknown Seasonal Allergies Seasonal Allergies: No Surgeries Surgeries: Bladder Surgery, CABG Cardiovascular Cardiac Disorders: Coronary Artery Disease, Hypertension Reproductive System Hx Reproductive Disorders: No Sexually Transmitted Disease: No Genitourinary Genitourinary Disorders: Prostate Problems Endocrine Endocrine Disorders: Diabetes, Non-Insulin dep HEENT HEENT Disorders: Cataract Hearing Impairment: Hard of Hearing Cancer Cancer: Prostate Family Medical History Significant Family History: Cancer, Diabetes, Hypertension, Stroke Family Medial History: Diabetes mellitus 19 MOTHER FH: cataracts 19 MOTHER FH: stroke 19 MOTHER Oral cancer 19 FATHER Physical Exam Vital Signs Vital Sign - Last 12Hours 03/19/17 18:45 Temp 102.9 Pulse 102 Resp 20 B/P (MAP) 149/66 (93) Pulse Ox 94 O2 Delivery Nasal Cannula O2 Flow Rate 3.00 Capillary Refill : General Appearance: WD/WN, no apparent distress Eyes: Bilateral Eye Normal Inspection, Bilateral Eye PERRL, Bilateral Eye EOMI HEENT: PERRL/EOMI, normal ENT inspection, TMs normal, pharynx normal, other ( mild nasal congestion) Neck: non-tender, full range of motion, supple, normal inspection Respiratory: chest non-tender, no respiratory distress, no accessory muscle use , decreased breath sounds Cardiovascular: normal peripheral pulses, regular rate, rhythm, no edema Gastrointestinal: normal bowel sounds, non tender, soft Extremities: non-tender, normal inspection, no pedal edema, normal capillary refill Neurologic/Psychiatric: alert, normal mood/affect, oriented x 3 Skin: normal color, warm/dry Focused Exam Evaluation Lactate Level Laboratory Tests 03/19/17 18:45: Lactic Acid Level 1.37 Lactic Acid Level Laboratory Tests Test 03/19/17 18:45 Lactic Acid Level 1.37 MMOL/L (0.50-2.00) Progress/Results/Core Measures Suspected Sepsis SIRS Temperature: Pulse: Respiratory Rate: Laboratory Tests 03/19/17 18:45: White Blood Count 13.3H Blood Pressure / Mean: Laboratory Tests 03/19/17 18:45: Lactic Acid Level 1.37 Laboratory Tests 03/19/17 18:45: Creatinine 1.53H, INR Comment 1.0, Platelet Count 186, Total Bilirubin 0.7 Results/Orders Lab Results Laboratory Tests Test 03/19/17 18:45 Range/Units White Blood Count 13.3 H 4.3-11.0 10^3/uL Red Blood Count 5.60 4.35-5.85 10^6/uL Hemoglobin 14.9 13.3-17.7 G/DL Hematocrit 45 40-54 % Mean Corpuscular Volume 81 80-99 FL Mean Corpuscular Hemoglobin 27 25-34 PG Mean Corpuscular Hemoglobin Concent 33 32-36 G/DL Red Cell Distribution Width 14.4 10.0-14.5 % Platelet Count 186 130-400 10^3/uL Mean Platelet Volume 9.3 7.4-10.4 FL Neutrophils (%) (Auto) 85 H 42-75 % Lymphocytes (%) (Auto) 10 L 12-44 % Monocytes (%) (Auto) 4 0-12 % Eosinophils (%) (Auto) 1 0-10 % Basophils (%) (Auto) 0 0-10 % Neutrophils # (Auto) 11.4 H 1.8-7.8 X 10^3 Lymphocytes # (Auto) 1.3 1.0-4.0 X 10^3 Monocytes # (Auto) 0.5 0.0-1.0 X 10^3 Eosinophils # (Auto) 0.1 0.0-0.3 10^3/uL Basophils # (Auto) 0.1 0.0-0.1 10^3/uL Prothrombin Time 12.9 12.2-14.7 SEC INR Comment 1.0 0.8-1.4 Activated Partial Thromboplast Time 28 24-35 SEC Sodium Level 140 135-145 MMOL/L Potassium Level 4.5 3.6-5.0 MMOL/L Chloride Level 107 98-107 MMOL/L Carbon Dioxide Level 19 L 21-32 MMOL/L Anion Gap 14 5-14 MMOL/L Blood Urea Nitrogen 24 H 7-18 MG/DL Creatinine 1.53 H 0.60-1.30 MG/DL Estimat Glomerular Filtration Rate 45 BUN/Creatinine Ratio 16 Glucose Level 187 H 70-105 MG/DL Lactic Acid Level 1.37 0.50-2.00 MMOL/L Calcium Level 9.0 8.5-10.1 MG/DL Total Bilirubin 0.7 0.1-1.0 MG/DL Aspartate Amino Transf (AST/SGOT) 17 5-34 U/L Alanine Aminotransferase (ALT/SGPT) 20 0-55 U/L Alkaline Phosphatase 103 40-136 U/L C-Reactive Protein High Sensitivity 1.91 H 0.00-0.50 MG/DL Total Protein 7.4 6.4-8.2 GM/DL Albumin 3.9 3.2-4.5 GM/DL Micro Results Microbiology 03/19/17 Influenza Types A,B Antigen (AWILDA) - Final, Complete My Orders Orders - TIMOTHY BARNEY Cbc With Automated Diff (03/19/17 18:40) Comprehensive Metabolic Panel (03/19/17 18:40) Lactic Acid Analyzer (03/19/17 18:40) Blood Culture (03/19/17 18:40) Sputum Culture (03/19/17 18:40) Ua Culture If Indicated (03/19/17 18:40) Protime With Inr (03/19/17 18:40) Partial Thromboplastin Time (03/19/17 18:40) O2 (03/19/17 18:40) Acetaminophen Tablet (Tylenol Tablet) (03/19/17 18:45) Saline Lock/Iv-Start (03/19/17 18:40) Saline Lock/Iv-Start (03/19/17 18:40) Vital Signs Adult Sepsis Patie Q1H (03/19/17 18:40) Remove Rings In Anticipation O (03/19/17 18:40) Influenza A And B Antigens (03/19/17 18:40) Chest Pa/Lat (2 View) (03/19/17 18:40) Albuterol/Ipra Inhalation Soln (Duoneb I (03/19/17 18:45) Hs C Reactive Protein (03/19/17 18:40) Saline Lock/Iv-Start (03/19/17 18:40) Lactated Ringers (Lr 1000 Ml Iv Solution (03/19/17 18:40) Svn Sm Volume Nebulizer Rt-Rfs (03/19/17 18:40) Ceftriaxone Injection (Rocephin Injectio (03/19/17 19:00) Medications Given in ED Current Medications Medications Dose Ordered Sig/Melinda Route Start Time Stop Time Status Last Admin Dose Admin Acetaminophen 1,000 mg ONCE PRN PO 03/19/17 18:45 03/19/17 19:06 DC 03/19/17 19:06 1,000 MG Albuterol/ Ipratropium 3 ml ONCE ONCE INH 03/19/17 18:45 03/19/17 18:46 DC 03/19/17 19:13 3 ML Ceftriaxone Sodium 1000 mg/ Sodium Chloride 50 ml @ 100 mls/hr ONCE ONCE IV 03/19/17 19:00 03/19/17 19:29 DC 03/19/17 19:05 100 MLS/HR Lactated Ringer's 1,000 ml @ 0 mls/hr Q0M ONCE IV 03/19/17 18:40 03/19/17 18:43 DC 03/19/17 19:04 0 MLS/HR Vital Signs/I&O Vital Sign - Last 12Hours 03/19/17 03/19/17 03/19/17 03/19/17 18:45 18:45 18:45 19:14 Temp 102.9 Pulse 102 Resp 20 B/P (MAP) 149/66 (93) Pulse Ox 94 95 94 O2 Delivery Nasal Cannula Nasal Cannula Nasal Cannula Nasal Cannula O2 Flow Rate 3.00 3.00 3.00 3.00 Capillary Refill : Progress Note #1: Time: 18:45 Progress Note Fever 102.9 with some upper respiratory symptoms. Upper respiratory tract infection/bronchitis/pneumonia/Influenza versus less likely UTI. He is tachycardic and not maintaining his sats above 89% on room air so we will put him on some oxygen and get some x-rays do a sepsis workup. We'll start with Rocephin as this would cover both urine and community-acquired pneumonia. Progress Note #2: Time: 20:47 Progress Note Patient is septic with hypoxia and I have discussed admission for pneumonia treatment with IV antibiotics for at least a day but he is adamant that he does not want stay in the hospital. We discussed at length and he is not going to change his mind so we have come up with a fan be outpatient treatment plan to include Augmentin and azithromycin which she can case picker at the pharmacy tomorrow. I can't do anything for his hypoxia but he is at least assured me that he will stay indoors at the house under the care of his for the next week. I have also encouraged him to get an appointment Sunday, 2 days from now with his primary care physician Dr. Chavira and he says he will do that. I have also talked him about the warning signs that he would need to come back for and encouraged him strongly to get a thermometer. This is not a first choice for plan to treat a 76-year-old with pneumonia sepsis on the outpatient basis however since he is insistent we will give him the opportunity. His blood pressure is perfectly good now and his heart rate is back in the 80s. However soon as he goes off the oxygen he quickly drops from mid 90s down to 88-89% low with minimal effort. His temperature is 99.9 as of time of discharge. Diagnostic Imaging Diagonstic Imaging: Xray Plain Films/CT/US/NM/MRI: chest (2v) [facility] [place], [place] NAME: ELVA LEES Filiberto [facility] REC#: [id number] PT STATUS: REG ER : 1940 PHYSICIAN: TIMOTHY BARNEY MD ADMIT DATE: 03/19/17/ER Draft Date of Exam:03/19/17 CHEST PA/LAT (2 VIEW) INDICATION: Cough. COMPARISON: 11/21/2015. FINDINGS: Frontal and lateral views of the chest demonstrate new atelectasis and/or infiltrate in the left base. The right lung is clear. The heart is normal. There is no pneumothorax. Sternal wires are midline. IMPRESSION: New atelectasis and/or infiltrate in the left base Dictated on workstation # [id number] Dict: 03/19/172021 Trans: 03/19/172026 [facility] [id number] Interpreted by: TAN HICKMAN Electronically signed by: Reviewed: Reviewed by Me Departure Impression Impression: Primary Impression: Pneumonia Qualified Codes: J18.1 - Lobar pneumonia, unspecified organism Additional Impression: Sepsis due to pneumonia Disposition: HOME, SELF-CARE Condition: Improved Departure-Patient Inst. Decision time for Depature: 20:51 Referrals: VIJAY CHAVIRA MD (PCP/Family) Primary Care Physician Patient Instructions: Pneumonia, Adult (DC) Add. Discharge Instructions: Drink plenty of fluids stay in the house but keep moving around. Do not climb up on anything or do any kind of work where you're stressing your body or putting you're self at risk to pass out and fall. If you have fever above 100.3 take 1000 mg of Tylenol every 8 hours and or 800 mg of ibuprofen every 8 hours. If you're still having fevers after Sunday he should return to the ER for further evaluation and management. Tomorrow morning case picker your antibiotics and take the Augmentin twice a day with food as well as azithromycin 1 tablet daily until complete. Also tomorrow morning make an appointment with your primary care physician to be seen Sunday in 2 days. If you're feeling weak, tired or having new symptoms such as nausea vomiting or chest pain he should return to the ER immediately. Scripts Azithromycin (Azithromycin) 250 Mg Tablet 250 MG PO DAILY for 4 Days, #4 TAB 0 Refills Prov: TIMOTHY BARNEY 03/19/17 Amoxicillin/Potassium Clav (Augmentin 875-125 Tablet) 1 Each Tablet 1 EACH PO BID for 10 Days, #20 TAB 0 Refills Prov: TIMOTHY BARNEY 03/19/17 Copy Copies To 1: VIJAY CHAVIRA MD, TITUS J Mar 19, 2017 18:47
[2017-03-19] MEDS ORDERED: cefTRIAXone INJECTION 1,000 MG in NS (IVPB) 50 ML IV ONE (19:00)
[2017-03-19 19:01] LABS: BASOPHILS # (AUTO) 0.1 10^3/uL (0.0-0.1); BASOPHILS % (AUTO) 0 % (0-10); EOSINOPHILS # (AUTO) 0.1 10^3/uL (0.0-0.3); EOSINOPHILS % (AUTO) 1 % (0-10); HEMATOCRIT 45 % (40-54); HEMOGLOBIN 14.9 G/DL (13.3-17.7); LYMPHOCYTES # (AUTO) 1.3 X 10^3 (1.0-4.0); LYMPHOCYTES % (AUTO) 10 % (12-44); MEAN CORPUSCULAR HEMOGLOBIN 27 PG (25-34); MEAN CORPUSCULAR HGB CONC 33 G/DL (32-36); MEAN CORPUSCULAR VOLUME 81 FL (80-99); MEAN PLATELET VOLUME 9.3 FL (7.4-10.4); MONOCYTES # (AUTO) 0.5 X 10^3 (0.0-1.0); MONOCYTES % (AUTO) 4 % (0-12); NEUTROPHILS # (AUTO) 11.4 X 10^3 (1.8-7.8); NEUTROPHILS % (AUTO) 85 % (42-75); PLATELET COUNT 186 10^3/uL (130-400); RED CELL DISTRIBUTION WIDTH 14.4 % (10.0-14.5); WHITE BLOOD COUNT 13.3 10^3/uL (4.3-11.0)
[2017-03-19 19:09] LABS: PROTHROMBIN TIME PATIENT 12.9 SEC (12.2-14.7)
[2017-03-19 19:31] LABS: ALBUMIN 3.9 GM/DL (3.2-4.5); BILIRUBIN,TOTAL 0.7 MG/DL (0.1-1.0); CREATININE SERUM 1.53 MG/DL (0.60-1.30); POTASSIUM 4.5 MMOL/L (3.6-5.0); TOTAL PROTEIN 7.4 GM/DL (6.4-8.2)
--- NOTE | 2017-03-19 20:27 | Diagnostic Imaging Report ---
INDICATION: Cough. COMPARISON: 11/21/2015. FINDINGS: Frontal and lateral views of the chest demonstrate new atelectasis and/or infiltrate in the left base. The right lung is clear. The heart is normal. There is no pneumothorax. Sternal wires are midline. IMPRESSION: New atelectasis and/or infiltrate in the left base Dictated by: Dictated on workstation # [id number]
[2017-03-19] MEDS ORDERED: AMOX-358 PO (20:53)
[2017-03-19] MEDS ORDERED: AZIT250T12 PO (20:53)
[2017-03-19] MEDS ORDERED: AZITHROMYCIN 250 MG TAB (ZITHROMAX) PO ONE (21:00)
[2017-03-19 21:03] VITALS: BP 110/68
== END 2017-03-19 21:03 | disposition home or self-care (01) ==
LOC: EDUNIT# 18:32 → ER 18:33
DX: J18.9 Pneumonia, unspecified organism (principal); A40.3 Sepsis due to Streptococcus pneumoniae; I25.10 Atherosclerotic heart disease of native coronary artery without angina pectoris; I10 Essential (primary) hypertension; E11.9 Type 2 diabetes mellitus without complications; Z80.0 Family history of malignant neoplasm of digestive organs; Z79.82 Long term (current) use of aspirin; Z79.84 Long term (current) use of oral hypoglycemic drugs; Z87.891 Personal history of nicotine dependence; Z95.1 Presence of aortocoronary bypass graft
CPT/HCPCS: 36415; 71046; 80053; 83605; 85025; 85610; 85730; 86141; 87040; 87804; 94640

== ENCOUNTER 2017-03-31 05:18 | Inpatient (IN) | payer MEDICARE ==
[~2017-03-31] VITALS: Ht 172.7 cm; Wt 83.6 kg
[~2017-03-31 05:18] MED LIST changes: +AMOX-358 PO; +AZIT250T12 PO
--- OUTSIDE RECORDS SUMMARY | 2017-03-31 05:28 | XMS REPORT | Continuity of Care Document ---
Author Author [facility] Organization [facility] Address Unknown Phone Unavailable Allergies Active Description Code Type Severity Reaction Onset Reported/Identified Relationship to Patient Clinical Status Yes No Known Drug Allergies [id number] Drug Allergy Unknown N/A 09/15/2008 Medications There [...] RETENTION OF URINE NOS 03/10/2013 BERTA DELANEY ELECTRON BEAM WELDER Ot V53.6 FITTING URINARY DEVICES 11/28/2013 BERTA DELANEY ELECTRON BEAM WELDER Ot 599.0 URIN TRACT INFECTION NOS 11/28/2013 BERTA DELANEY ELECTRON BEAM WELDER Ot 788.41 URINARY FREQUENCY 11/28/2013 BERTA DELANEY ELECTRON BEAM WELDER Ot 996.76 OTH COMP DUE TO GENITOURINARY [...] 03/20/2014 Ot V58.69 03/20/2014 Ot 433.10 03/20/2014 PRASAD TARIQ Ot 414.00 03/20/2014 PRASAD TARIQ Ot [...] V58.69 03/23/2014 Ot 433.10 03/23/2014 PRASAD TARIQ GROUP TEACHER Ot 414.00 03/23/2014 PRASAD TARIQP Ot V45.81 03/23/2014 Ot 414.8 03/23/2014 Ot [...] V58.69 03/23/2014 Ot 433.10 03/23/2014 PRASAD TARIQ GROUP TEACHER Ot 414.00 03/23/2014 PRASAD TARIQ GROUP TEACHER Ot V45.81 07/27/2014 Ot 414.8 07/27/2014 Ot [...] V58.69 07/27/2014 Ot 433.10 07/27/2014 PRASAD TARIQ GROUP TEACHER Ot 414.00 07/27/2014 PRASAD TARIQ GROUP TEACHER Ot V45.81 11/21/2015 Ot 185 MALIGN NEOPL [...] O CEREBRAL IN 11/21/2015 PRASAD TARIQ L GROUP TEACHER Ot 414.00 CORON ATHEROSCLER NOS TYPE VESSEL, NATIV 11/21/2015 ZA TARIQHER L GROUP TEACHER Ot V45.81 AORTOCORONARY BYPASS 11/21/2015 Ot 185 [...] W O CEREBRAL IN 11/21/2015 PRASAD TARIQ GROUP TEACHER Ot 414.00 CORON ATHEROSCLER NOS TYPE VESSEL, NATIV 11/21/2015 PRASAD TARIQ GROUP TEACHER Ot V45.81 AORTOCORONARY BYPASS 11/24/2015 AIDEN BRITO, [...] MD, Ot I25.10 ATHSCL HEART DISEASE OF [place] CORONARY 11/24/2015 VIJAY WOLFE MD Ot N39.0 [...] UNSPECIFIED URINARY INCONTINENCE 07/06/2016 BAIMA, PRASAD L GROUP TEACHER Ot 414.00 CORON ATHEROSCLER NOS TYPE VESSEL, NATIV 07/06/2016 BAIMA, PRASAD L GROUP TEACHER Ot V45.81 AORTOCORONARY BYPASS 07/11/2016 Ot 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 07/11/2016 Ot 596.54 NEUROGENIC BLADDER, NOT OTHERWISE SPECIF 07/11/2016 Ot 788.30 UNSPECIFIED URINARY INCONTINENCE 07/11/2016 BAIMA, PRASAD L GROUP TEACHER Ot 414.00 CORON ATHEROSCLER NOS TYPE VESSEL, NATIV 07/11/2016 BAIMA, PRASAD L GROUP TEACHER Ot V45.81 AORTOCORONARY BYPASS 07/12/2016 Ot 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 07/12/2016 Ot 596.54 NEUROGENIC BLADDER, NOT OTHERWISE SPECIF 07/12/2016 Ot 788.30 UNSPECIFIED URINARY INCONTINENCE 07/12/2016 BAIMA, PRASAD L GROUP TEACHER Ot 414.00 CORON ATHEROSCLER NOS TYPE VESSEL, NATIV 07/12/2016 BAIMA, PRASAD L GROUP TEACHER Ot V45.81 AORTOCORONARY BYPASS 07/17/2016 BAIMA, PRASAD L GROUP TEACHER Ot I25.10 ATHSCL HEART DISEASE OF [place] CORONARY 07/20/2016 BAIMA, PRASAD L GROUP TEACHER Ot I25.10 ATHSCL HEART DISEASE OF [place] CORONARY 07/24/2016 BAIMA, PRASAD L GROUP TEACHER Ot E78.4 OTHER HYPERLIPIDEMIA 07/24/2016 BAIMA, PRASAD L GROUP TEACHER Ot I10 ESSENTIAL (PRIMARY) HYPERTENSION 07/24/2016 BAIMA, PRASAD L GROUP TEACHER Ot I25.10 ATHSCL HEART DISEASE OF [place] CORONARY 07/24/2016 BAIMA, PRASAD L GROUP TEACHER Ot I65.23 OCCLUSION AND STENOSIS OF [place] 07/24/2016 BAIMA, PRASAD L GROUP TEACHER Ot Z72.0 TOBACCO USE 07/27/2016 BAIMA, PRASAD L GROUP TEACHER Ot E78.4 OTHER HYPERLIPIDEMIA 07/27/2016 BAIMA, PRASAD L GROUP TEACHER Ot I10 ESSENTIAL (PRIMARY) HYPERTENSION 07/27/2016 BAIMA, PRASAD L GROUP TEACHER Ot I25.10 ATHSCL HEART DISEASE OF [place] CORONARY 07/27/2016 BAIMA, PRASAD L GROUP TEACHER Ot I65.23 OCCLUSION AND STENOSIS OF [place] 07/27/2016 PRASAD TARIQ L GROUP TEACHER Ot Z72.0 TOBACCO USE 08/09/2016 BAIMA PRASAD L GROUP TEACHER Ot E78.4 OTHER HYPERLIPIDEMIA 08/09/2016 BAIMA, PRASAD L GROUP TEACHER Ot I10 ESSENTIAL (PRIMARY) HYPERTENSION 08/09/2016 BAIMA, PRASAD L GROUP TEACHER Ot I25.10 ATHSCL HEART DISEASE OF [place] CORONARY 08/09/2016 BAIMAZAPRASAD L GROUP TEACHER Ot I65.23 OCCLUSION AND STENOSIS OF [place] 08/09/2016 BAIMAPRASAD L GROUP TEACHER Ot Z72.0 TOBACCO USE 08/11/2016 BAIMA PRASAD L GROUP TEACHER Ot E78.4 OTHER HYPERLIPIDEMIA 08/11/2016 BAIMA, PRASAD L GROUP TEACHER Ot I10 ESSENTIAL (PRIMARY) HYPERTENSION 08/11/2016 BAIMA, PRASAD L GROUP TEACHER Ot I25.10 ATHSCL HEART DISEASE OF [place] CORONARY 08/11/2016 BAIMAZAPRASAD L GROUP TEACHER Ot I65.23 OCCLUSION AND STENOSIS OF [place] 08/11/2016 BAIPRASAD FAGAN L GROUP TEACHER Ot Z72.0 TOBACCO USE 08/15/2016 Ot 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 08/15/2016 Ot 596.54 NEUROGENIC BLADDER, NOT OTHERWISE SPECIF 08/15/2016 Ot 788.30 UNSPECIFIED URINARY INCONTINENCE 08/15/2016 BABAKZA FAGANHER L GROUP TEACHER Ot 414.00 CORON ATHEROSCLER NOS TYPE VESSEL, NATIV 08/15/2016 BABAKZA FAGANHER L GROUP TEACHER Ot V45.81 AORTOCORONARY BYPASS 08/15/2016 BABAKZA FAGANHER L GROUP TEACHER Ot E78.4 OTHER HYPERLIPIDEMIA 08/15/2016 BAIMA, PRASAD L GROUP TEACHER Ot I10 ESSENTIAL (PRIMARY) HYPERTENSION 08/15/2016 BAIMA, PRASAD L GROUP TEACHER Ot I25.10 ATHSCL HEART DISEASE OF [place] CORONARY 08/15/2016 BABAKMA PRASAD L GROUP TEACHER Ot I65.23 OCCLUSION AND STENOSIS OF [place] 08/15/2016 BABAKMAZAPRASAD L GROUP TEACHER Ot Z72.0 TOBACCO USE 08/15/2016 BABAKMA, PRASAD L GROUP TEACHER Ot E78.4 OTHER HYPERLIPIDEMIA 08/15/2016 BABAKMA, PRASAD L GROUP TEACHER Ot I10 ESSENTIAL (PRIMARY) HYPERTENSION 08/15/2016 BAIPRASAD FAGAN L GROUP TEACHER Ot I25.10 ATHSCL HEART DISEASE OF [place] CORONARY 08/15/2016 BAIPRASAD FAGAN L GROUP TEACHER Ot I65.23 OCCLUSION AND STENOSIS OF [place] 08/15/2016 BAIMAPRASAD L GROUP TEACHER Ot Z72.0 TOBACCO USE 03/19/2017 Ot 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 03/19/2017 Ot 596.54 NEUROGENIC BLADDER, NOT OTHERWISE SPECIF 03/19/2017 Ot 788.30 UNSPECIFIED URINARY INCONTINENCE 03/19/2017 BABAKPRASAD FAGAN L GROUP TEACHER Ot 414.00 CORON ATHEROSCLER NOS TYPE VESSEL, NATIV 03/19/2017 BAIPRASAD FAGAN L GROUP TEACHER Ot V45.81 AORTOCORONARY BYPASS 03/19/2017 BAIZA FAGANHER L GROUP TEACHER Ot E78.4 OTHER HYPERLIPIDEMIA 03/19/2017 BAIMA, PRASAD L GROUP TEACHER Ot I10 ESSENTIAL (PRIMARY) HYPERTENSION 03/19/2017 BAIMAZAPRASAD L GROUP TEACHER Ot I25.10 ATHSCL HEART DISEASE OF [place] CORONARY 03/19/2017 BAIPRASAD FAGAN L GROUP TEACHER Ot I65.23 OCCLUSION AND STENOSIS OF [place] 03/19/2017 BAIMAPRASAD L GROUP TEACHER Ot Z72.0 TOBACCO USE 03/19/2017 BAIPRASAD FAGAN L GROUP TEACHER Ot E78.4 OTHER HYPERLIPIDEMIA 03/19/2017 BAIMA PRASAD L GROUP TEACHER Ot I10 ESSENTIAL (PRIMARY) HYPERTENSION 03/19/2017 PRASAD TARIQ L GROUP TEACHER Ot I25.10 ATHSCL HEART DISEASE OF [place] CORONARY 03/19/2017 BAIMAPRASAD L GROUP TEACHER Ot I65.23 OCCLUSION AND STENOSIS OF [place] 03/19/2017 BAIMAPRASAD L GROUP TEACHER Ot Z72.0 TOBACCO USE 03/28/2017 ECTOR BRITO, TIMOTHY De Los Santos Ot A40.3 SEPSIS DUE TO STREPTOCOCCUS PNEUMONIAE 03/28/2017 TIMOTHY ABRNEY MD Ot E11.9 TYPE 2 DIABETES MELLITUS WITHOUT COMPLIC 03/28/2017 TIMOTHY BARNEY MD Ot I10 ESSENTIAL (PRIMARY) HYPERTENSION 03/28/2017 TIMOTHY BARNEY MD Ot I25.10 ATHSCL HEART DISEASE OF [place] CORONARY 03/28/2017 TIMOTHY BARNEY MD Ot J02.9 ACUTE PHARYNGITIS, UNSPECIFIED 03/28/2017 TIMOTHY BARNEY MD, Ot J18.9 PNEUMONIA, UNSPECIFIED ORGANISM 03/28/2017 TIMOTHY BARNEY MD, Ot Z79.82 FDC (CURRENT) USE OF ASPIRIN 03/28/2017 TIMOTHY BARNEY MD, Ot 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 Results Test [...] culture - 11/21/15 11:10 Bacterial urine culture [id number] NRG COLONY COUNT 10,000/ML - 100,000/ML NRG [...] 40-54 Automated erythrocyte mean corpuscular volume 83 [[facility]] 80-99 Automated erythrocyte mean corpuscular hemoglobin (mass [...] NRG Blood erythrocyte morphology finding identification [facility] Comprehensive metabolic panel - 11/22/15 05:05 Serum [...] measurement by glucometer (mass/volume) 141 mg/dL 70-110 Complete blood count (CBC) with automated white blood cell (WBC) differential - 03/19/17 18:45 Blood leukocytes automated count (number/volume) 13.3 10*3/uL 4.3-11.0 Blood erythrocytes automated count (number/volume) 5.60 10*6/uL 4.35-5.85 Venous blood hemoglobin measurement (mass/volume) 14.9 g/dL 13.3-17.7 Blood hematocrit (volume fraction) 45 % 40-54 Automated erythrocyte mean corpuscular volume 81 [foz_us] 80-99 Automated erythrocyte mean corpuscular hemoglobin (mass per erythrocyte) 27 pg 25-34 Automated erythrocyte mean corpuscular hemoglobin concentration measurement ( mass/volume) 33 g/dL 32-36 Automated erythrocyte distribution width ratio 14.4 % 10.0-14.5 Automated blood platelet count (count/volume) 186 10*3/uL 130-400 Automated blood platelet mean volume measurement 9.3 [foz_us] 7.4-10.4 Automated blood neutrophils/100 leukocytes 85 % 42-75 Automated blood lymphocytes/100 leukocytes 10 % 12-44 Blood monocytes/100 leukocytes 4 % 0-12 Automated blood eosinophils/100 leukocytes 1 % 0-10 Automated blood basophils/100 leukocytes 0 % 0-10 Blood neutrophils automated count (number/volume) 11.4 10*3 1.8-7.8 Blood lymphocytes automated count (number/volume) 1.3 10*3 1.0-4.0 Blood monocytes automated count (number/volume) 0.5 10*3 0.0-1.0 Automated eosinophil count 0.1 10*3/uL 0.0-0.3 Automated blood basophil count (count/volume) 0.1 10*3/uL 0.0-0.1 PT panel in platelet poor plasma by coagulation assay - 03/19/17 18:45 Prothrombin time (PT) in platelet poor plasma by coagulation assay 12.9 s 12.2-14.7 INR in platelet poor plasma or blood by coagulation assay 1.0 0.8-1.4 Activated partial thromboplastin time (aPTT) in platelet poor plasma bycoagulation assay - 03/19/17 18:45 Activated partial thromboplastin time (aPTT) in platelet poor plasma bycoagulation assay 28 s 24-35 Blood lactic acid measurement (moles/volume) - 03/19/17 18:45 Blood lactic acid measurement (moles/volume) 1.37 mmol/L 0.50-2.00 Comprehensive metabolic panel - 03/19/17 18:45 Serum or plasma sodium measurement (moles/volume) 140 mmol/L 135-145 Serum or plasma potassium measurement (moles/volume) 4.5 mmol/L 3.6-5.0 Serum or plasma chloride measurement (moles/volume) 107 mmol/L 98-107 Carbon dioxide 19 mmol/L 21-32 Serum or plasma anion gap determination (moles/volume) 14 mmol/L 5-14 Serum or plasma urea nitrogen measurement (mass/volume) 24 mg/dL 7-18 Serum or plasma creatinine measurement (mass/volume) 1.53 mg/dL 0.60-1.30 Serum or plasma urea nitrogen/creatinine mass ratio 16 NRG Serum or plasma creatinine measurement with calculation of estimated glomerular filtration rate 45 NRG Serum or plasma glucose measurement (mass/volume) 187 mg/dL 70-105 Serum or plasma calcium measurement (mass/volume) 9.0 mg/dL 8.5-10.1 Serum or plasma total bilirubin measurement (mass/volume) 0.7 mg/dL 0.1-1.0 Serum or plasma alkaline phosphatase measurement (enzymatic activity/volume) 103 U/L 40-136 Serum or plasma aspartate aminotransferase measurement (enzymatic activity/ volume) 17 U/L 5-34 Serum or plasma alanine aminotransferase measurement (enzymatic activity/volume ) 20 U/L 0-55 Serum or plasma protein measurement (mass/volume) 7.4 g/dL 6.4-8.2 Serum or plasma albumin measurement (mass/volume) 3.9 g/dL 3.2-4.5 Serum or plasma C reactive protein measurement (mass/volume) - 03/19/17 18:45 Serum or plasma C reactive protein measurement (mass/volume) 1.91 mg /dL 0.00-0.50 Bacterial blood culture - 03/19/17 18:45 Bacterial blood culture NG NRG Influenza virus A and B antigen detection - 03/19/17 18:46 FLU RESULT NEGATIVE FOR INFLUENZA A AND B ANTIGENS BY IA NRG Bacterial blood culture - 03/19/17 19:16 Bacterial blood culture NG NRG Encounters ACCT No. Visit Date/Time Discharge Status Pt. Type Provider Facility Loc./Unit Complaint [id number] 03/19/2017 18:33:00 03/19/2017 21:03:00 DIS Outpatient TIMOTHY BARNEY MD [facility] ER COUGH,FEVER,WEAKNESS [id number] 07/21/2016 13:28:00 07/21/2016 23:59:59 CLS Outpatient PRASAD TARIQ [facility] CARD I25.10, I65.23 [id number] 07/17/2016 14:10:00 07/17/2016 23:59:59 CLS Outpatient PRASAD TARIQ [facility] CARD I25.10,I65.23 [id number] 11/28/2013 16:31:00 11/28/2013 17:55:00 DIS Emergency BERTA DELANEY APRN [facility] ER POSS UTI/CATHETER CONCERN [id number] 03/10/2013 20:22:00 03/10/2013 20:44:00 DIS Emergency DELANEYBERTA APRN [facility] ER CATHETER IS COMING OUT [id number] 11/14/2012 07:21:00 11/14/2012 23:59:59 CLS Outpatient PRASAD TARIQ GROUP TEACHER [facility] RAD CAD [id number] 03/31/2017 05:22:00 ACT Emergency DIVYA JASMINE DO [facility] ER CAN'T GET UP OR DOWN [id number] 11/21/2015 12:36:00 ACT Inpatient AIDEN BRITO, VIJAY Gamble [facility] 4TH SEPSIS,UTI,WEAKNESS [id number] 03/20/2014 20:58:00 Document Registration [id number] 03/20/2014 20:58:00 Document Registration [id number] 08/15/2011 07:42:00 Document Registration [id number] 05/02/2011 17:21:00 Document Registration [id number] 10/04/2010 14:29:00 Document Registration [id number] 08/29/2010 00:00:00 Document Registration [id number] 07/21/2010 11:07:00 Document Registration [id number] 05/30/2010 13:56:00 Document Registration [id number] 01/24/2010 12:24:00 Document Registration [id number] 12/20/2009 15:37:00 Document Registration [id number] 11/09/2009 05:45:00 Document Registration [id number] 11/03/2009 15:11:00 Document Registration [id number] 07/13/2009 05:42:00 Document Registration [id number] 07/06/2009 14:24:00 Document Registration [id number] 05/12/2009 12:13:00 Document Registration [id number] 04/26/2009 14:24:00 Document Registration [id number] 04/21/2009 14:34:00 Document Registration [id number] 02/24/2009 15:05:00 Document Registration
[2017-03-31 06:01] LABS: BASOPHILS # (AUTO) 0.1 10^3/uL (0.0-0.1); BASOPHILS % (AUTO) 1 % (0-10); EOSINOPHILS % (AUTO) 0 % (0-10); HEMATOCRIT 42 % (40-54); LYMPHOCYTES % (AUTO) 10 % (12-44); MEAN CORPUSCULAR HEMOGLOBIN 27 PG (25-34); MEAN CORPUSCULAR HGB CONC 33 G/DL (32-36); MEAN CORPUSCULAR VOLUME 81 FL (80-99); MEAN PLATELET VOLUME 9.2 FL (7.4-10.4); MONOCYTES # (AUTO) 0.5 X 10^3 (0.0-1.0); MONOCYTES % (AUTO) 5 % (0-12); NEUTROPHILS # (AUTO) 8.1 X 10^3 (1.8-7.8); NEUTROPHILS % (AUTO) 84 % (42-75); PLATELET COUNT 242 10^3/uL (130-400); RED CELL DISTRIBUTION WIDTH 14.1 % (10.0-14.5); WHITE BLOOD COUNT 9.6 10^3/uL (4.3-11.0)
[2017-03-31 06:18] LABS: ALBUMIN 3.6 GM/DL (3.2-4.5); BILIRUBIN,TOTAL 0.6 MG/DL (0.1-1.0); CREATININE SERUM 1.65 MG/DL (0.60-1.30); POTASSIUM 5.1 MMOL/L (3.6-5.0); TOTAL PROTEIN 7.3 GM/DL (6.4-8.2)
[2017-03-31 06:24] LABS: BILIRUBIN,URINE NEGATIVE (NEGATIVE); CLARITY,URINE SLIGHTLY CLOUDY; COLOR,URINE YELLOW; GLUCOSE, URINE (UA) 4+ (NEGATIVE); KETONES,URINE NEGATIVE (NEGATIVE); LEUKOCYTE ESTERASE ,URINE 3+ (NEGATIVE); NITRITE,URINE POSITIVE (NEGATIVE); PH,URINE 7 (5-9); PROTEIN,URINE 2+ (NEGATIVE); UROBILINOGEN,URINE NORMAL (NORMAL)
--- NOTE | 2017-03-31 06:30 | ED Cough/URI ---
General Chief Complaint: Fever-Adult/Adol Stated Complaint: CAN'T GET UP OR DOWN Nursing Triage Note: pt presents to er with complaint of weakness and confusion. family states that pt was in here x1 week and diagnosed with pneumonia, pt refused to be admitted and was sent home on antibiotics. Source: patient, old records, spouse Exam Limitations: other (PT AND ARE LIMITED HISTORIANS. ) History of Present Illness Time seen by provider: 05:35 Initial Comments PT ARRIVES VIA POV FROM HOME PT HAS HAD PRODUCTIVE COUGH WITH CLEAR SPUTUM FOR A COUPLE OF WEEKS PT HAS HAD FEVER UP TO 102--HAD TYLENOL AT 1900, NOTHING ELSE FOR FEVER PT SEEN HERE 03/19/17 WITH 2 DAY HISTORY OF COUGH, FEVER, BODY ACHES AND WAS DX WITH PNEUMONIA AND STARTED ON AUGMENTIN AND ZITHROMAX. PT WAS HYPOXIC AT THAT TIME AND DESPITE STRONG ADVISEMENT FROM ER PHYSICIAN, PT ADAMANTLY REFUSED ADMISSION PT STATES HE HAS NOT FOLLOWED UP WITH ANYONE SINCE ER VISIT. PT STATES HE WAS DOING BETTER UNTIL HE FINISHED HIS ANTIBIOTICS 2 DAYS AGO, AND THEN SYMPTOMS RETURNED. NO CHEST PAIN OR SHORTNESS OF BREATH DOES NOT WEAR HOME O2 AND DENIES HISTORY OF COPD, BUT IS FORMER SMOKER 1/2 PPD, QUIT 9 YEARS AGO C/O GENERALIZED WEAKNESS FAMILY REPORTS SOME CONFUSION PT DENIES PAIN ANYWHERE PCP:DR. WOLFE Allergies and Home Medications Allergies Coded Allergies: No Known Drug Allergies (Verified , 09/15/08) Home Medications Alogliptin Yosef/Pioglitazone 1 Each Tablet, 1 TAB PO DAILY, (Reported) Amlodipine Besylate 10 Mg Tablet, 10 MG PO DAILY, (Reported) Amoxicillin/Potassium Clav 1 Each Tablet, 1 EACH PO BID for 10 Days, #20 Ref 0 Prescribed by: TIMOTHY BARNEY on 03/19/172052 Aspirin 81 Mg Tablet.dr, 81 MG PO DAILY, (Reported) Azithromycin 250 Mg Tablet, 250 MG PO DAILY for 4 Days, #4 Ref 0 Prescribed by: TIMOTHY BARNEY on 03/19/172052 Bethanechol Chloride 25 Mg Tablet, 25 MG PO QID, (Reported) Docusate Sodium 100 Mg Capsule, 200 MG PO HS, (Reported) TAKES 2 (100MG) CAPSULES Glipizide 10 Mg Tablet, 10 MG PO DAILY, (Reported) Levofloxacin 500 Mg Tablet, 500 MG PO DAILY PRN, #7 Prescribed by: STEPHANIE WOLFE on 11/24/15 0719 Lisinopril 40 Mg Tablet, 40 MG PO DAILY, (Reported) Metformin HCl 1,000 Mg Tablet, 1,000 MG PO DAILY, (Reported) [place]-3/Dha/Epa/Fish Oil 1 Each Capsule.dr, 1,000 MG PO BID, (Reported) Polyethylene Glycol 3350 17 Gm Powd.pack, 17 GM PO DAILY PRN for CONSTIPATION, ( Reported) Simvastatin 40 Mg Tablet, 40 MG PO HS, (Reported) Tamsulosin Hcl 0.4 Mg Cap.sr.24h, 0.4 MG PO HS, (Reported) Constitutional: see HPI, fever, malaise, weakness EENTM: nose congestion Respiratory: see HPI, cough, phlegm, No short of breath, No wheezing Cardiovascular: no symptoms reported Gastrointestinal: no symptoms reported Genitourinary: no symptoms reported Musculoskeletal: no symptoms reported Skin: no symptoms reported Psychiatric/Neurological: See HPI Hematologic/Lymphatic: No Symptoms Reported Immunological/Allergic: no symptoms reported Past Vofpons-Umwykb-Ivudni Hx Patient Social History Alcohol Use: Denies Use Recreational Drug Use: No Smoking Status: Former Smoker (1/2 PPD, QUIT IN 2008) Type Used: Cigars, Cigarettes (/2 PPD) Former Smoker, Quit: Apr 02, 2008 Recent Foreign Travel: No Contact w/Someone Who Travel: No Recent Infectious Disease Expo: No Recent Hopitalizations: No Physical Abuse: No Sexual Abuse: No Immunizations Up To Date Tetanus Booster (TDap): Unknown Seasonal Allergies Seasonal Allergies: No Surgeries History of Surgeries: Yes (HERNIA REPAIR, TRIPLE BYPASS; SUPRAPUBIC CATHETER; C -SPINE FUSION) Surgeries: Bladder Surgery, Cardiac, CABG, Orthopedic Respiratory History of Respiratory Disorde: Yes (PNEUMONIA 03/19/17) Respiratory Disorders: Pneumonia Cardiovascular History of Cardiac Disorders: Yes (CABG) Cardiac Disorders: Coronary Artery Disease, Hypertension Neurological History of Neurological Disord: No Reproductive System Hx Reproductive Disorders: No Sexually Transmitted Disease: No Genitourinary History of Genitourinary Disor: Yes (SUPRAPUBIC CATHETER) Genitourinary Disorders: Prostate Problems, Neurogenic Bladder Gastrointestinal History of Gastrointestinal Di: No Musculoskeletal History of Musculoskeletal Dis: Yes (NECK PAIN--C-SPINE SURGERY) Endocrine History of Endocrine Disorders: Yes Endocrine Disorders: Diabetes, Non-Insulin dep HEENT History of HEENT Disorders: Yes HEENT Disorders: Cataract Hearing Impairment: Hard of Hearing Cancer History of Cancer: Yes Cancer: Prostate Did You Recieve Any Treatments: Yes Type of Tx Receive: Surgical Intervention Psychosocial History of Psychiatric Problem: No Suicide Risk Score: 0 Integumentary History of Skin or Integumenta: No Blood Transfusions History of Blood Disorders: No Family Medical History Significant Family History: Cancer, Diabetes, Hypertension, Stroke Family Medial History: Diabetes mellitus 19 MOTHER FH: cataracts 19 MOTHER FH: stroke 19 MOTHER Oral cancer 19 FATHER Physical Exam Vital Signs Vital Sign - Last 12Hours 03/31/17 05:34 Temp 102.3 Pulse 88 Resp 20 B/P (MAP) 139/67 (91) Pulse Ox 91 O2 Delivery Room Air Capillary Refill : Less Than 3 Seconds General Appearance: WD/WN, no apparent distress, other (PT REQUIRED ASSIST TO GET BACK INTO BED ON RETURN FROM XRAY) HEENT: PERRL/EOMI Neck: normal inspection Respiratory: normal breath sounds, no respiratory distress, no accessory muscle use Cardiovascular: regular rate, rhythm, no murmur Gastrointestinal: non tender, soft Extremities: normal inspection, no pedal edema, no calf tenderness, normal capillary refill Neurologic/Psychiatric: bearing maker II-XII nml as tested, no motor/sensory deficits, alert, oriented x 3, other (SLOW MENTATION) Skin: normal color, warm/dry Focused Exam Evaluation Lactate Level Laboratory Tests 03/31/17 05:49: Lactic Acid Level 1.06 Lactic Acid Level Laboratory Tests Test 03/31/17 05:49 Lactic Acid Level 1.06 MMOL/L (0.50-2.00) Progress/Results/Core Measures Suspected Sepsis Recent Fever Within 48 Hours: No Infection Criteria Present: None New/Unexplained Altered Menta: Yes Sepsis Screen: No Definite Risk Sepsis Diagnosis: SIRS Temperature:102.3 Pulse: 88 Respiratory Rate: 20 Laboratory Tests 03/31/17 05:49: White Blood Count 9.6 Blood Pressure 139 /67 Mean: 91 Laboratory Tests 03/31/17 05:49: Lactic Acid Level 1.06 Laboratory Tests 03/31/17 05:49: Creatinine 1.65H, Platelet Count 242, Total Bilirubin 0.6 Results/Orders Lab Results Laboratory Tests Test 03/31/17 05:49 03/31/17 06:07 Range/Units White Blood Count 9.6 4.3-11.0 10^3/uL Red Blood Count 5.20 4.35-5.85 10^6/uL Hemoglobin 14.0 13.3-17.7 G/DL Hematocrit 42 40-54 % Mean Corpuscular Volume 81 80-99 FL Mean Corpuscular Hemoglobin 27 25-34 PG Mean Corpuscular Hemoglobin Concent 33 32-36 G/DL Red Cell Distribution Width 14.1 10.0-14.5 % Platelet Count 242 130-400 10^3/uL Mean Platelet Volume 9.2 7.4-10.4 FL Neutrophils (%) (Auto) 84 H 42-75 % Lymphocytes (%) (Auto) 10 L 12-44 % Monocytes (%) (Auto) 5 0-12 % Eosinophils (%) (Auto) 0 0-10 % Basophils (%) (Auto) 1 0-10 % Neutrophils # (Auto) 8.1 H 1.8-7.8 X 10^3 Lymphocytes # (Auto) 1.0 1.0-4.0 X 10^3 Monocytes # (Auto) 0.5 0.0-1.0 X 10^3 Eosinophils # (Auto) 0.0 0.0-0.3 10^3/uL Basophils # (Auto) 0.1 0.0-0.1 10^3/uL Sodium Level 136 135-145 MMOL/L Potassium Level 5.1 H 3.6-5.0 MMOL/L Chloride Level 105 98-107 MMOL/L Carbon Dioxide Level 20 L 21-32 MMOL/L Anion Gap 11 5-14 MMOL/L Blood Urea Nitrogen 12 7-18 MG/DL Creatinine 1.65 H 0.60-1.30 MG/DL Estimat Glomerular Filtration Rate 41 BUN/Creatinine Ratio 7 Glucose Level 205 H 70-105 MG/DL Lactic Acid Level 1.06 0.50-2.00 MMOL/L Calcium Level 9.0 8.5-10.1 MG/DL Total Bilirubin 0.6 0.1-1.0 MG/DL Aspartate Amino Transf (AST/SGOT) 15 5-34 U/L Alanine Aminotransferase (ALT/SGPT) 14 0-55 U/L Alkaline Phosphatase 91 40-136 U/L Total Protein 7.3 6.4-8.2 GM/DL Albumin 3.6 3.2-4.5 GM/DL Urine Color YELLOW Urine Clarity SLIGHTLY CLOUDY Urine pH 7 5-9 Urine Specific [place] 1.010 L 1.016-1.022 Urine Protein 2+ H NEGATIVE Urine Glucose (UA) 4+ H NEGATIVE Urine Ketones NEGATIVE NEGATIVE Urine Nitrite POSITIVE H NEGATIVE Urine Bilirubin NEGATIVE NEGATIVE Urine Urobilinogen NORMAL NORMAL MG/DL Urine Leukocyte Esterase 3+ H NEGATIVE Urine RBC (Auto) 4+ H NEGATIVE Urine RBC 10-25 H /HPF Urine WBC 50-100 H /HPF Urine Crystals NONE /LPF Urine Bacteria FEW H /HPF Urine Casts NONE /LPF Urine Mucus MODERATE H /LPF Urine Culture Indicated YES Micro Results Microbiology 03/31/17 Influenza Types A,B Antigen (AWILDA) - Final, Complete My Orders Orders - DIVYA JASMINE DO Saline Lock/Iv-Start (03/31/17 05:35) Monitor-Rhythm Ecg Trace Only (03/31/17 05:35) Cbc With Automated Diff (03/31/17 05:35) Comprehensive Metabolic Panel (03/31/17 05:35) Lactic Acid Analyzer (03/31/17 05:35) Ua Culture If Indicated (03/31/17 05:35) Blood Culture (03/31/17 05:35) Influenza A And B Antigens (03/31/17 05:35) Chest Pa/Lat (2 View) (03/31/17 05:56) Urine Culture (03/31/17 06:07) Methylprednisolone Sod Succ (Solu-Medrol (03/31/17 06:45) Cefepime Injection (Maxipime Injection) (03/31/17 06:45) Oseltamivir 75 Mg (10's) Caps (Tamiflu 7 (03/31/17 09:00) Acetaminophen Tablet (Tylenol Tablet) (03/31/17 06:45) Ibuprofen Tablet (Motrin Tablet) (03/31/17 06:45) Rx-Oseltamivir Caps (Rx-Tamiflu Caps) (03/31/17 06:46) Vital Signs/I&O Vital Sign - Last 12Hours 03/31/17 05:34 Temp 102.3 Pulse 88 Resp 20 B/P (MAP) 139/67 (91) Pulse Ox 91 O2 Delivery Room Air Capillary Refill : Less Than 3 Seconds Blood Pressure Mean: 91 Progress Note : Progress Note O2 SATS UP TO 96% ON 2L/NC Diagnostic Imaging Comments CXR--RML AND RLL INFILTRATES, INCREASED FROM 03/19/17--PENDING RADIOLOGIST REVIEW Reviewed: Reviewed by Me Departure Communication (Admissions) Progress Notes [id number]--SPOKE WITH DR. MONTAÑO, ACCEPTS PT FOR ADMIT. ORDERS NOTED. Impression Impression: Primary Impression: Pneumonia Additional Impressions: Failure of outpatient treatment Hypoxia Influenza A Generalized weakness Mild dehydration Disposition: ADMITTED INPATIENT Condition: Improved Admissions Decision to Admit Reason: Admit from ER (General) Decision to Admit/Date: Mar 31, 2017 Time/Decision to Admit Time: 06:45 Departure-Patient Inst. Referrals: VIJAY WOLFE MD (PCP/Family) Primary Care Physician DIVYA JASMINE DO Mar 31, 2017 06:30
[2017-03-31 06:35] LABS: BACTERIA,URINE FEW /HPF; WBC,URINE 50-100 /HPF
[2017-03-31] MEDS ORDERED: methylPREDNISolone 125 MG (Solu-MEDROL) VIAL IVP ONE (06:45)
[2017-03-31] MEDS ORDERED: IBUPROFEN 800 MG (MOTRIN) TAB PO ONE (06:45)
[2017-03-31] MEDS ORDERED: CEFEPIME INJECTION 2,000 MG in NS (IVPB) 50 ML IV ONE (06:45)
[2017-03-31] MEDS ORDERED: ACETAMINOPHEN 500 MG TAB (TYLENOL) PO ONE (06:45)
[2017-03-31] MEDS ORDERED: RX-OSELTAMIVIR 75 MG (TAMIFLU) BOX OF 10 PO ONE (06:46)
--- OUTSIDE RECORDS SUMMARY | 2017-03-31 07:18 | XMS REPORT | Continuity of Care Document ---
Author Author [facility] Organization [facility] Address Unknown Phone Unavailable Allergies Active Description Code Type Severity Reaction Onset Reported/Identified Relationship to Patient Clinical Status Yes No Known Drug Allergies [id number] Drug Allergy Unknown N/A 09/15/2008 Medications There [...] RETENTION OF URINE NOS 03/10/2013 BERTA DELANEY SMOKING PIPE COATER Ot V53.6 FITTING URINARY DEVICES 11/28/2013 BERTA DELANEY SMOKING PIPE COATER Ot 599.0 URIN TRACT INFECTION NOS 11/28/2013 BERTA DELANEY SMOKING PIPE COATER Ot 788.41 URINARY FREQUENCY 11/28/2013 BERTA DELANEY SMOKING PIPE COATER Ot 996.76 OTH COMP DUE TO GENITOURINARY [...] V58.69 03/23/2014 Ot 433.10 03/23/2014 PRASAD TARIQ MYSQL DBA Ot 414.00 03/23/2014 PRASAD TARIQP Ot V45.81 [...] V58.69 03/23/2014 Ot 433.10 03/23/2014 PRASAD TARIQ MYSQL DBA Ot 414.00 03/23/2014 PRASAD TARIQ MYSQL DBA Ot V45.81 07/27/2014 Ot 414.8 07/27/2014 Ot [...] V58.69 07/27/2014 Ot 433.10 07/27/2014 PRASAD TARIQ MYSQL DBA Ot 414.00 07/27/2014 PRASAD TARIQ MYSQL DBA Ot V45.81 11/21/2015 Ot 185 MALIGN NEOPL [...] O CEREBRAL IN 11/21/2015 PRASAD TARIQ L MYSQL DBA Ot 414.00 CORON ATHEROSCLER NOS TYPE VESSEL, NATIV 11/21/2015 ZA TARIQHER L MYSQL DBA Ot V45.81 AORTOCORONARY BYPASS 11/21/2015 Ot 185 [...] W O CEREBRAL IN 11/21/2015 PRASAD TARIQ MYSQL DBA Ot 414.00 CORON ATHEROSCLER NOS TYPE VESSEL, NATIV 11/21/2015 PRASAD TARIQ MYSQL DBA Ot V45.81 AORTOCORONARY BYPASS 11/24/2015 AIDEN BRITO, [...] MD, Ot I25.10 ATHSCL HEART DISEASE OF [place] CORONARY 11/24/2015 VIJAY WOLFE MD Ot N39.0 [...] UNSPECIFIED URINARY INCONTINENCE 07/06/2016 BAIMA, PRASAD L MYSQL DBA Ot 414.00 CORON ATHEROSCLER NOS TYPE VESSEL, NATIV 07/06/2016 BAIMA, PRASAD L MYSQL DBA Ot V45.81 AORTOCORONARY BYPASS 07/11/2016 Ot 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 07/11/2016 Ot 596.54 NEUROGENIC BLADDER, NOT OTHERWISE SPECIF 07/11/2016 Ot 788.30 UNSPECIFIED URINARY INCONTINENCE 07/11/2016 BAIMA, PRASAD L MYSQL DBA Ot 414.00 CORON ATHEROSCLER NOS TYPE VESSEL, NATIV 07/11/2016 BAIMA, PRASAD L MYSQL DBA Ot V45.81 AORTOCORONARY BYPASS 07/12/2016 Ot 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 07/12/2016 Ot 596.54 NEUROGENIC BLADDER, NOT OTHERWISE SPECIF 07/12/2016 Ot 788.30 UNSPECIFIED URINARY INCONTINENCE 07/12/2016 BAIMA, PRASAD L MYSQL DBA Ot 414.00 CORON ATHEROSCLER NOS TYPE VESSEL, NATIV 07/12/2016 BAIMA, PRASAD L MYSQL DBA Ot V45.81 AORTOCORONARY BYPASS 07/17/2016 BAIMA, PRASAD L MYSQL DBA Ot I25.10 ATHSCL HEART DISEASE OF [place] CORONARY 07/20/2016 BAIMA, PRASAD L MYSQL DBA Ot I25.10 ATHSCL HEART DISEASE OF [place] CORONARY 07/24/2016 BAIMA, PRASAD L MYSQL DBA Ot E78.4 OTHER HYPERLIPIDEMIA 07/24/2016 BAIMA, PRASAD L MYSQL DBA Ot I10 ESSENTIAL (PRIMARY) HYPERTENSION 07/24/2016 BAIMA, PRASAD L MYSQL DBA Ot I25.10 ATHSCL HEART DISEASE OF [place] CORONARY 07/24/2016 BAIMA, PRASAD L MYSQL DBA Ot I65.23 OCCLUSION AND STENOSIS OF [place] 07/24/2016 BAIMA, PRASAD L MYSQL DBA Ot Z72.0 TOBACCO USE 07/27/2016 BAIMA, PRASAD L MYSQL DBA Ot E78.4 OTHER HYPERLIPIDEMIA 07/27/2016 BAIMA, PRASAD L MYSQL DBA Ot I10 ESSENTIAL (PRIMARY) HYPERTENSION 07/27/2016 BAIMA, PRASAD L MYSQL DBA Ot I25.10 ATHSCL HEART DISEASE OF [place] CORONARY 07/27/2016 BAIMA, PRASAD L MYSQL DBA Ot I65.23 OCCLUSION AND STENOSIS OF [place] 07/27/2016 PRASAD TARIQ L MYSQL DBA Ot Z72.0 TOBACCO USE 08/09/2016 BAIMA PRASAD L MYSQL DBA Ot E78.4 OTHER HYPERLIPIDEMIA 08/09/2016 BAIMA, PRASAD L MYSQL DBA Ot I10 ESSENTIAL (PRIMARY) HYPERTENSION 08/09/2016 BAIMA, PRASAD L MYSQL DBA Ot I25.10 ATHSCL HEART DISEASE OF [place] CORONARY 08/09/2016 BAIMAZAPRASAD L MYSQL DBA Ot I65.23 OCCLUSION AND STENOSIS OF [place] 08/09/2016 BAIMAPRASAD L MYSQL DBA Ot Z72.0 TOBACCO USE 08/11/2016 BAIMA PRASAD L MYSQL DBA Ot E78.4 OTHER HYPERLIPIDEMIA 08/11/2016 BAIMA, PRASAD L MYSQL DBA Ot I10 ESSENTIAL (PRIMARY) HYPERTENSION 08/11/2016 BAIMA, PRASAD L MYSQL DBA Ot I25.10 ATHSCL HEART DISEASE OF [place] CORONARY 08/11/2016 BAIMAZAPRASAD L MYSQL DBA Ot I65.23 OCCLUSION AND STENOSIS OF [place] 08/11/2016 BAIPRASAD FAGAN L MYSQL DBA Ot Z72.0 TOBACCO USE 08/15/2016 Ot 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 08/15/2016 Ot 596.54 NEUROGENIC BLADDER, NOT OTHERWISE SPECIF 08/15/2016 Ot 788.30 UNSPECIFIED URINARY INCONTINENCE 08/15/2016 BABAKZA FAGANHER L MYSQL DBA Ot 414.00 CORON ATHEROSCLER NOS TYPE VESSEL, NATIV 08/15/2016 BABAKZA FAGANHER L MYSQL DBA Ot V45.81 AORTOCORONARY BYPASS 08/15/2016 BABAKZA FAGANHER L MYSQL DBA Ot E78.4 OTHER HYPERLIPIDEMIA 08/15/2016 BAIMA, PRASAD L MYSQL DBA Ot I10 ESSENTIAL (PRIMARY) HYPERTENSION 08/15/2016 BAIMA, PRASAD L MYSQL DBA Ot I25.10 ATHSCL HEART DISEASE OF [place] CORONARY 08/15/2016 BABAKMA PRASAD L MYSQL DBA Ot I65.23 OCCLUSION AND STENOSIS OF [place] 08/15/2016 BABAKMAZAPRASAD L MYSQL DBA Ot Z72.0 TOBACCO USE 08/15/2016 BABAKMA, PRASAD L MYSQL DBA Ot E78.4 OTHER HYPERLIPIDEMIA 08/15/2016 BABAKMA, PRASAD L MYSQL DBA Ot I10 ESSENTIAL (PRIMARY) HYPERTENSION 08/15/2016 BAIPRASAD FAGAN L MYSQL DBA Ot I25.10 ATHSCL HEART DISEASE OF [place] CORONARY 08/15/2016 BAIPRASAD FAGAN L MYSQL DBA Ot I65.23 OCCLUSION AND STENOSIS OF [place] 08/15/2016 BAIMAPRASAD L MYSQL DBA Ot Z72.0 TOBACCO USE 03/19/2017 Ot 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 03/19/2017 Ot 596.54 NEUROGENIC BLADDER, NOT OTHERWISE SPECIF 03/19/2017 Ot 788.30 UNSPECIFIED URINARY INCONTINENCE 03/19/2017 BABAKPRASAD FAGAN L MYSQL DBA Ot 414.00 CORON ATHEROSCLER NOS TYPE VESSEL, NATIV 03/19/2017 BAIPRASAD FAGAN L MYSQL DBA Ot V45.81 AORTOCORONARY BYPASS 03/19/2017 BAIZA FAGANHER L MYSQL DBA Ot E78.4 OTHER HYPERLIPIDEMIA 03/19/2017 BAIMA, PRASAD L MYSQL DBA Ot I10 ESSENTIAL (PRIMARY) HYPERTENSION 03/19/2017 BAIMAZAPRASAD L MYSQL DBA Ot I25.10 ATHSCL HEART DISEASE OF [place] CORONARY 03/19/2017 BAIPRASAD FAGAN L MYSQL DBA Ot I65.23 OCCLUSION AND STENOSIS OF [place] 03/19/2017 BAIMAPRASAD L MYSQL DBA Ot Z72.0 TOBACCO USE 03/19/2017 BAIPRASAD FAGAN L MYSQL DBA Ot E78.4 OTHER HYPERLIPIDEMIA 03/19/2017 BAIMA PRASAD L MYSQL DBA Ot I10 ESSENTIAL (PRIMARY) HYPERTENSION 03/19/2017 PRASAD TARIQ L MYSQL DBA Ot I25.10 ATHSCL HEART DISEASE OF [place] CORONARY 03/19/2017 BAIMAPRASAD L MYSQL DBA Ot I65.23 OCCLUSION AND STENOSIS OF [place] 03/19/2017 BAIMAPRASAD L MYSQL DBA Ot Z72.0 TOBACCO USE 03/28/2017 ECTOR BRITO, TIMOTHY De Los Santos Ot A40.3 SEPSIS DUE TO STREPTOCOCCUS PNEUMONIAE 03/28/2017 TIMOTHY BARNEY MD Ot E11.9 TYPE 2 DIABETES MELLITUS WITHOUT COMPLIC 03/28/2017 TIMOTHY BARNEY MD Ot I10 ESSENTIAL (PRIMARY) HYPERTENSION 03/28/2017 TIMOTHY BARNEY MD Ot I25.10 ATHSCL HEART DISEASE OF [place] CORONARY 03/28/2017 TIMOTHY BARNEY MD Ot J02.9 ACUTE PHARYNGITIS, UNSPECIFIED 03/28/2017 TIMOTHY BARNEY MD, Ot J18.9 PNEUMONIA, UNSPECIFIED ORGANISM 03/28/2017 TIMOTHY BARNEY MD, Ot Z79.82 RETIREMENT (CURRENT) USE OF ASPIRIN 03/28/2017 TIMOTHY BARNEY MD, Ot Z79.84 COUNTER MANAGER (CURRENT) USE OF ORAL HYPOGLYC 03/28/2017 TIMOTHY [...] culture - 11/21/15 11:10 Bacterial urine culture [id number] NRG COLONY COUNT 10,000/ML - 100,000/ML NRG [...] 40-54 Automated erythrocyte mean corpuscular volume 83 [chi [facility]] 80-99 Automated erythrocyte mean corpuscular hemoglobin [...] NRG Blood erythrocyte morphology finding identification NORMAL [facility] Comprehensive metabolic panel - 11/22/15 [...] - 03/19/17 18:45 Bacterial blood culture NG [facility] Influenza virus A and B antigen detection - 03/19/17 18:46 FLU RESULT NEGATIVE FOR INFLUENZA A AND B ANTIGENS BY IA [facility] Bacterial blood culture - 03/19/17 19:16 Bacterial blood culture [facility] Complete blood count (CBC) with automated white blood cell (WBC) differential - 03/31/17 05:49 Blood leukocytes automated count (number/volume) 9.6 10*3/uL 4.3-11.0 Blood erythrocytes automated count (number/volume) 5.20 10*6/uL 4.35-5.85 Venous blood hemoglobin measurement (mass/volume) 14.0 g/dL 13.3-17.7 Blood hematocrit (volume fraction) 42 % 40-54 Automated erythrocyte mean corpuscular volume 81 [foz_us] 80-99 Automated erythrocyte mean corpuscular hemoglobin (mass per erythrocyte) 27 pg 25-34 Automated erythrocyte mean corpuscular hemoglobin concentration measurement ( mass/volume) 33 g/dL 32-36 Automated erythrocyte distribution width ratio 14.1 % 10.0-14.5 Automated blood platelet count (count/volume) 242 10*3/uL 130-400 Automated blood platelet mean volume measurement 9.2 [foz_us] 7.4-10.4 Automated blood neutrophils/100 leukocytes 84 % 42-75 Automated blood lymphocytes/100 leukocytes 10 % 12-44 Blood monocytes/100 leukocytes 5 % 0-12 Automated blood eosinophils/100 leukocytes 0 % 0-10 Automated blood basophils/100 leukocytes 1 % 0-10 Blood neutrophils automated count (number/volume) 8.1 10*3 1.8-7.8 Blood lymphocytes automated count (number/volume) 1.0 10*3 1.0-4.0 Blood monocytes automated count (number/volume) 0.5 10*3 0.0-1.0 Automated eosinophil count 0.0 10*3/uL 0.0-0.3 Automated blood basophil count (count/volume) 0.1 10*3/uL 0.0-0.1 Blood lactic acid measurement (moles/volume) - 03/31/17 05:49 Blood lactic acid measurement (moles/volume) 1.06 mmol/L 0.50-2.00 Influenza virus A and B antigen detection - 03/31/17 05:49 CALL POSITIVES (F1 HELP) CALLED TO FRANCIA IN ED@[phone] [facility] FLU RESULT POSITIVE FOR INFLUENZA A ANTIGEN, NEG FOR B ANTIGEN, BY [facility] Comprehensive metabolic panel - 03/31/17 05:49 Serum or plasma sodium measurement (moles/volume) 136 mmol/L 135-145 Serum or plasma potassium measurement (moles/volume) 5.1 mmol/L 3.6-5.0 Serum or plasma chloride measurement (moles/volume) 105 mmol/L 98-107 Carbon dioxide 20 mmol/L 21-32 Serum or plasma anion gap determination (moles/volume) 11 mmol/L 5-14 Serum or plasma urea nitrogen measurement (mass/volume) 12 mg/dL 7-18 Serum or plasma creatinine measurement (mass/volume) 1.65 mg/dL 0.60-1.30 Serum or plasma urea nitrogen/creatinine mass ratio 7 [facility] Serum or plasma creatinine measurement with calculation of estimated glomerular filtration rate 41 [facility] Serum or plasma glucose measurement (mass/volume) 205 mg/dL 70-105 Serum or plasma calcium measurement (mass/volume) 9.0 mg/dL 8.5-10.1 Serum or plasma total bilirubin measurement (mass/volume) 0.6 mg/dL 0.1-1.0 Serum or plasma alkaline phosphatase measurement (enzymatic activity/volume) 91 U/L 40-136 Serum or plasma aspartate aminotransferase measurement (enzymatic activity/ volume) 15 U/L 5-34 Serum or plasma alanine aminotransferase measurement (enzymatic activity/volume ) 14 U/L 0-55 Serum or plasma protein measurement (mass/volume) 7.3 g/dL 6.4-8.2 Serum or plasma albumin measurement (mass/volume) 3.6 g/dL 3.2-4.5 Complete urinalysis with reflex to culture - 03/31/17 06:07 Urine color determination YELLOW NRG Urine clarity determination SLIGHTLY CLOUDY NRG Urine pH measurement by test strip 7 5-9 Specific gravity of urine by test strip 1.010 1.016- 1.022 Urine protein assay by test strip, semi-quantitative 2+ NEGATIVE Urine glucose detection by automated test strip 4+ NEGATIVE Erythrocytes detection in urine sediment by light microscopy 4+ NEGATIVE Urine ketones detection by automated test strip NEGATIVE NEGATIVE Urine nitrite detection by test strip POSITIVE NEGATIVE Urine total bilirubin detection by test strip NEGATIVE NEGATIVE Urine urobilinogen measurement by automated test strip (mass/volume) NORMAL NORMAL Urine leukocyte esterase detection by dipstick 3+ NEGATIVE Automated urine sediment erythrocyte count by microscopy (number/high power field) [HPF] NRG Automated urine sediment leukocyte count by microscopy (number/high power field ) [HPF] NRG Bacteria detection in urine sediment by light microscopy FEW NRG Crystals detection in urine sediment by light microscopy NONE NRG Casts detection in urine sediment by light microscopy NONE NRG Mucus detection in urine sediment by light microscopy MODERATE NRG Complete urinalysis with reflex to culture YES NRG Encounters ACCT No. Visit Date/Time Discharge Status Pt. Type Provider Facility Loc./Unit Complaint [id number] 03/19/2017 18:33:00 03/19/2017 21:03:00 DIS Outpatient ECTOR BRITO, TIMOTHY De Los Santos [facility] ER COUGH,FEVER,WEAKNESS [id number] 07/21/2016 13:28:00 07/21/2016 23:59:59 CLS Outpatient PRASAD TARIQ [facility] CARD I25.10, I65.23 [id number] 07/17/2016 14:10:00 07/17/2016 23:59:59 CLS Outpatient PRASAD TARIQ [facility] CARD I25.10,I65.23 [id number] 11/28/2013 16:31:00 11/28/2013 17:55:00 DIS Emergency BERTA DELANEY SMOKING PIPE [employer]ATER [facility] ER POSS UTI/CATHETER CONCERN [id number] 03/10/2013 20:22:00 03/10/2013 20:44:00 DIS Emergency BERTA DELANEY SMOKING PIPE COATER [facility] ER CATHETER IS COMING OUT [id number] 11/14/2012 07:21:00 11/14/2012 23:59:59 CLS Outpatient BABAKRYLAN PRASADHER Asael FERGUSON [facility] RAD CAD [id number] 03/31/2017 07:12:00 ACT Inpatient VIJAY WOLFE MD [facility] 4TH PNUEMONIA-FAILURE TO OUTPUT THERAPY [id number] 11/21/2015 12:36:00 ACT Inpatient VIJAY WOLFE MD [facility] 4TH SEPSIS,UTI,WEAKNESS [id number] 03/20/2014 20:58:00 Document Registration [id number] 03/20/2014 20:58:00 Document Registration [id number] 08/15/2011 07:42:00 Document Registration [id number] 05/02/2011 17:21:00 Document Registration [id number] 10/04/2010 14:29:00 Document Registration [id number] 08/29/2010 00:00:00 Document Registration [id number] 07/21/2010 11:07:00 Document Registration [id number] 05/30/2010 13:56:00 Document Registration [id number] 01/24/2010 12:24:00 Document Registration [id number] 12/20/2009 15:37:00 Document Registration [id number] 11/09/2009 05:45:00 Document Registration [id number] 11/03/2009 15:11:00 Document Registration [id number] 07/13/2009 05:42:00 Document Registration [id number] 07/06/2009 14:24:00 Document Registration [id number] 05/12/2009 12:13:00 Document Registration [id number] 04/26/2009 14:24:00 Document Registration [id number] 04/21/2009 14:34:00 Document Registration [id number] 02/24/2009 15:05:00 Document Registration
[2017-03-31 07:40] VITALS: BP 137/63
[2017-03-31] MEDS ORDERED: 1/2 NS IV SOLUTION 1,000 ML IV ONE (07:59)
--- NOTE | 2017-03-31 08:20 | Diagnostic Imaging Report ---
INDICATION: Short of breath EXAMINATION: Two-view chest 03/31/2017 COMPARISON: 03/19/2017 FINDINGS: Density in the periphery of the left upper lobe stable likely calcified nodules. The remaining lungs demonstrate other chronic findings including bibasilar atelectasis or scar. No infiltrates or effusions. No pneumothorax. Mediastinal structures stable. Sternotomy wires and postoperative change cervical region unchanged. IMPRESSION: 1. Chronic change as noted above. No acute abnormality. Dictated by: Dictated on workstation # [id number]
[2017-03-31] MEDS ORDERED: ACETAMINOPHEN 500 MG TAB (TYLENOL) PO PRN (09:00)
[2017-03-31] MEDS ORDERED: OSELTAMIVIR 75 MG (TAMIFLU) BOX OF 10 PO SCH (09:00)
[2017-03-31] MEDS ORDERED: CATHETER FLUSH 10 ML SYR IV PRN (09:00)
[2017-03-31] MEDS ORDERED: IBUPROFEN 800 MG (MOTRIN) TAB PO PRN (09:00)
[2017-03-31] MEDS ORDERED: VANCOMYCIN 2000 MG/NS 500 ML IVPB IV NR ×2 (09:04)
[2017-03-31] MEDS: PANTOPRAZOLE 40 MG (PROTONIX) TAB PO SCH (11:04)
[2017-03-31] MEDS: 1/2 NS IV SOLUTION 1,000 ML IV SCH ×3 (11:05→22:23)
[2017-03-31] MEDS: inSUlin (REGULAR) HUMAN 1 UNIT/0.01 ML (CHARGE PER UNIT) SC SCH ×3 (11:06→21:26)
[2017-03-31] MEDS ORDERED: OMEG-33 PO (11:18)
[2017-03-31 12:00] VITALS: BP 142/65
[2017-03-31] MEDS: methylPREDNISolone 125 MG (Solu-MEDROL) VIAL IV SCH ×3 (13:28→23:26)
--- NOTE | 2017-03-31 14:00 | History & Physical-Hospitalist ---
HPI History of Present Illness: HPI/Chief Complaint The patient is a 76-year-old white male who reports that he is being in sick now for a couple of weeks. He was here at the emergency room on 03/19/17 with a complaint of cough, fever, body aches. He was diagnosed with pneumonia and started on Augmentin and Zithromax. He was noted to be hypoxic at that time. He was advised for admission however he declined. He reported that while he was taking the antibiotics he had gotten progressively better. He then stated that about 2 days ago after he been off antibiotics he began to feel worse again. He had a fever to 102 this morning. He attempted to get out of bed and could not stand. His insisted that he come to the emergency room again. 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 He presently has a suprapubic catheter as a result of neurogenic bladder Date Seen 03/31/17 Time Seen by Provider: 13:55 Attending Physician Marin Chavira MD PCP Marin Chavira MD Referring Physician Date of Admission Mar 31, 2017 at 07:12 Home Medications & Allergies Home Medications Reviewed patient Home Medication Reconciliation Form Allergies Allergies Coded Allergies No Known Drug Allergies (Verified09/15/08) Past Pancevk-Brmfyw-Dezqno Hx Patient Social History Alcohol Use: Denies Use Recreational Drug Use: No Smoking Status: Current Someday Smoker Former Smoker, Quit: Apr 02, 2008 Type Used: Cigars Physical Abuse Screen: No Sexual Abuse: No Recent Foreign Travel: No Contact w/other who traveled: No Recent Hopitalizations: No Recent Infectious Disease Expo: No Immunizations Up To Date Tetanus Booster (TDap): Unknown Seasonal Allergies Seasonal Allergies: No Surgeries Yes (HERNIA REPAIR, TRIPLE BYPASS; SUPRAPUBIC CATHETER; C-SPINE FUSION) Bladder Surgery, Cardiac, CABG, Orthopedic Respiratory Yes (PNEUMONIA 03/19/17) Currently Using CPAP: No Currently Using BIPAP: No Cardiovascular Yes (CABG) Coronary Artery Disease, Hypertension Neurological No Reproductive System Hx Reproductive Disorders: No Sexually Transmitted Disease: No Genitourinary Yes (SUPRAPUBIC CATHETER) Prostate Problems, Neurogenic Bladder Gastrointestinal No Musculoskeletal Yes (NECK PAIN--C-SPINE SURGERY) Endocrine History of Endocrine Disorders: Yes Endocrine Disorders: Diabetes, Non-Insulin dep Are Your Blood Sugars Over 250: No HEENT History of HEENT Disorders: Yes HEENT Disorders: Cataract Hearing Impairment: Hard of Hearing Cancer Yes Prostate Did You Recieve Any Treatments: Yes Type of Treatment: Surgical Intervention Psychosocial History of Psychiatric Problem: No Integumentary History of Skin or Integumenta: No Blood Transfusions History of Blood Disorders: No Family Medical History Significant Family History: Cancer, Diabetes, Hypertension, Stroke Family Hx: Diabetes mellitus 19 MOTHER FH: cataracts 19 MOTHER FH: stroke 19 MOTHER Oral cancer 19 FATHER Review of Systems Constitutional: see HPI EENTM: no symptoms reported Respiratory: cough, dyspnea on exertion, phlegm, short of breath Cardiovascular: no symptoms reported Gastrointestinal: diarrhea (diarrhea earlier in the illness) Genitourinary: see HPI Musculoskeletal: muscle pain Skin: no symptoms reported Psychiatric/Neurological: No Symptoms Reported Physical Exam Physical Exam Vital Signs Vital Sign - Last 12Hours 03/31/17 03/31/17 05:34 07:35 Temp 102.3 Pulse 88 Resp 20 B/P (MAP) 139/67 (91) Pulse Ox 91 O2 Delivery Room Air O2 Flow Rate 2.00 Capillary Refill : Less Than 3 Seconds General Appearance: Mild Distress Eyes: Bilateral Eye Normal Inspection HEENT: Normal ENT Inspection Neck: Normal Inspection Respiratory: Decreased Breath Sounds (distant but clear) Cardiovascular: Regular Rate, Rhythm, No Edema, No Gallop, No JVD, No Murmur, Normal Peripheral Pulses Gastrointestinal: Normal Bowel Sounds, No Organomegaly, No Pulsatile Mass, Non Tender, Soft, Other (suprapubic catheter) Back: Normal Inspection, No CVA Tenderness, No Vertebral Tenderness Extremity: Normal Capillary Refill, Normal Inspection, Normal Range of Motion, Non Tender, No Calf Tenderness, No Pedal Edema Neurologic/Psychiatric: Alert, Oriented x3, No Motor/Sensory Deficits, Normal Mood/Affect Skin: Normal Color, Warm/Dry Lymphatic: No Adenopathy Results Results/Procedures Lab Laboratory Tests 04/01/17 05:12 Assessment/Plan Admission Diagnosis 2+ week symptom complex suggesting the flu A that has been epidemic here. 2.urine suggestive of UTI. 3.underlying lung disease consistent with COPD. 4.past history of coronary artery disease and intervention. 5.diabetes mellitus type II mcl-yrnjopy-fhqcxsesy Clinical Quality Measures DVT/VTE Risk/Contraindication: Risk Factor Score Per Nursin RFS Level Per Nursing on Admit: 4+=Very High COLT CHING MD Mar 31, 2017 14:00
[2017-03-31] MEDS ORDERED: INFLUENZA TRIvalent 2017-2018 0.5 ML/45 MCG SYR IM ONE (15:30)
[2017-03-31 16:00] VITALS: BP 140/65
[2017-03-31] MEDS: BETHANECHOL 25 MG (URECHOLINE) TAB PO SCH ×2 (16:30→20:25)
[2017-03-31 20:00] VITALS: BP 139/63
[2017-03-31] MEDS: TAMSULOSIN 0.4 MG (FLOMAX) CAP PO SCH (20:25)
[2017-03-31] MEDS: OSELTAMIVIR 30 MG (TAMIFLU) BOX OF 10 PO SCH (20:25)
[2017-03-31] MEDS: SIMvastatin 40 MG (ZOCOR) TAB PO SCH (20:25)
[2017-03-31 23:27] VITALS: BP_SYST 139; BP_SYST 160; BP_DIAS 63; BP_DIAS 70
[2017-04-01] MEDS: 1/2 NS IV SOLUTION 1,000 ML IV SCH ×4 (00:45→22:56)
[2017-04-01 04:35] VITALS: BP 167/75
[2017-04-01 05:43] LABS: BASOPHILS % (AUTO) 0 % (0-10); EOSINOPHILS % (AUTO) 0 % (0-10); HEMATOCRIT 39 % (40-54); HEMOGLOBIN 13.2 G/DL (13.3-17.7); LYMPHOCYTES # (AUTO) 0.9 X 10^3 (1.0-4.0); LYMPHOCYTES % (AUTO) 8 % (12-44); MEAN CORPUSCULAR HEMOGLOBIN 27 PG (25-34); MEAN CORPUSCULAR HGB CONC 34 G/DL (32-36); MEAN CORPUSCULAR VOLUME 81 FL (80-99); MEAN PLATELET VOLUME 9.3 FL (7.4-10.4); MONOCYTES # (AUTO) 0.3 X 10^3 (0.0-1.0); MONOCYTES % (AUTO) 2 % (0-12); NEUTROPHILS % (AUTO) 90 % (42-75); PLATELET COUNT 192 10^3/uL (130-400); RED BLOOD COUNT 4.87 10^6/uL (4.35-5.85); RED CELL DISTRIBUTION WIDTH 13.9 % (10.0-14.5); WHITE BLOOD COUNT 12.3 10^3/uL (4.3-11.0)
[2017-04-01 06:11] LABS: BILIRUBIN,TOTAL 0.3 MG/DL (0.1-1.0); CALCIUM 8.7 MG/DL (8.5-10.1); CREATININE SERUM 1.28 MG/DL (0.60-1.30); POTASSIUM 4.5 MMOL/L (3.6-5.0); TOTAL PROTEIN 6.1 GM/DL (6.4-8.2)
[2017-04-01] MEDS: PANTOPRAZOLE 40 MG (PROTONIX) TAB PO SCH (06:21)
[2017-04-01] MEDS: methylPREDNISolone 125 MG (Solu-MEDROL) VIAL IV SCH ×4 (06:21→23:30)
[2017-04-01] MEDS: inSUlin (REGULAR) HUMAN 1 UNIT/0.01 ML (CHARGE PER UNIT) SC SCH ×4 (06:21→20:42)
[2017-04-01] MEDS: glipiZIDE 5 MG (GLUCOTROL) TAB PO SCH (06:21)
[2017-04-01] MEDS: BETHANECHOL 25 MG (URECHOLINE) TAB PO SCH ×4 (06:21→20:42)
[2017-04-01 08:00] VITALS: BP 148/66
[2017-04-01] MEDS ORDERED: VANCOMYCIN 1250 MG/NS 250 ML IVPB IV SCH ×2 (09:00)
[2017-04-01] MEDS: OSELTAMIVIR 30 MG (TAMIFLU) BOX OF 10 PO SCH ×2 (10:03→20:42)
[2017-04-01] MEDS: amLODIPine 10 MG (NORVASC) TAB PO SCH (10:03)
[2017-04-01] MEDS: ASPIRIN E.C. 81 MG (ECOTRIN) TAB PO SCH (10:03)
[2017-04-01] MEDS: CEFEPIME 2 GM/NS 50 ML IVPB IV SCH ×2 (11:08)
--- NOTE | 2017-04-01 11:29 | Progress Note-Hospitalist ---
Standard Progress Note Progress Notes/Assess & Plan Date Seen 04/01/17 Time Seen by Provider: 11:26 Diagnosis 2+ week symptom complex suggesting the flu A that has been epidemic here. 2.urine suggestive of UTI. 3.underlying lung disease consistent with COPD. 4.past history of coronary artery disease and intervention. Assess & Plan/Chief Complaint The patient reports he is feeling much better today. The last recorded fever was 101.0 on 03/31 at 07 40. Microbiology reports a preliminary ID of the urine culture as Pseudomonas. Based on our antibiogram the cefepime which she is receiving would be an 88 percent gas. As he is afebrile I will leave it at this and discontinue the vancomycin. Further adjustments will come when sensitivities are available. Physical exam: He is alert and interactive. Lungs are clear to auscultation. CV is regular without murmur. There is no pedal edema. Impression: Urinary tract infection, probably Pseudomonas. Plan: Continue cefepime. Discontinue vancomycin. Await sensitivities. Labs Laboratory Tests 03/31/17 05:49 04/01/17 05:12 COLT CHING MD Apr 01, 2017 11:29
[2017-04-01] MEDS ORDERED: TAMS0.4C2 PO (11:46)
[2017-04-01] MEDS ORDERED: SIMV40TA4 PO (11:46)
[2017-04-01] MEDS ORDERED: AMLO10TA2 PO (11:46)
[2017-04-01] MEDS ORDERED: BETH25TA PO (11:46)
[2017-04-01] MEDS ORDERED: GLIP10TA13 PO (11:47)
[2017-04-01 12:00] VITALS: BP 170/72
[2017-04-01] MEDS ORDERED: ASPI-983 PO (15:05)
[2017-04-01] MEDS ORDERED: OMEG-160 PO (15:05)
[2017-04-01 15:55] VITALS: BP 156/67
[2017-04-01 20:00] VITALS: BP 138/82
[2017-04-01] MEDS: SIMvastatin 40 MG (ZOCOR) TAB PO SCH (20:42)
[2017-04-01] MEDS: TAMSULOSIN 0.4 MG (FLOMAX) CAP PO SCH (20:42)
[2017-04-02] VITALS: BP 156/70
[2017-04-02 03:27] VITALS: BP 134/90
[2017-04-02] MEDS: 1/2 NS IV SOLUTION 1,000 ML IV SCH ×3 (05:37→19:50)
[2017-04-02] MEDS: methylPREDNISolone 125 MG (Solu-MEDROL) VIAL IV SCH ×4 (06:15→23:02)
[2017-04-02] MEDS: inSUlin (REGULAR) HUMAN 1 UNIT/0.01 ML (CHARGE PER UNIT) SC SCH ×4 (06:15→21:05)
[2017-04-02] MEDS: BETHANECHOL 25 MG (URECHOLINE) TAB PO SCH ×4 (06:15→20:23)
[2017-04-02] MEDS: PANTOPRAZOLE 40 MG (PROTONIX) TAB PO SCH (06:16)
[2017-04-02] MEDS: glipiZIDE 5 MG (GLUCOTROL) TAB PO SCH (06:16)
[2017-04-02 08:00] VITALS: BP_SYST 170; BP_DIAS 0; BP_DIAS 70
[2017-04-02] MEDS: OSELTAMIVIR 30 MG (TAMIFLU) BOX OF 10 PO SCH ×2 (08:23→20:23)
[2017-04-02] MEDS: ASPIRIN E.C. 81 MG (ECOTRIN) TAB PO SCH (08:23)
[2017-04-02] MEDS: amLODIPine 10 MG (NORVASC) TAB PO SCH (08:23)
[2017-04-02] MEDS: CEFEPIME 2 GM/NS 50 ML IVPB IV SCH ×2 (08:23)
[2017-04-02] MEDS: metFORMIN 500 MG (GLUCOPHAGE) TAB PO SCH (10:56)
[2017-04-02 12:00] VITALS: BP 165/64
--- NOTE | 2017-04-02 12:26 | Progress Note-Hospitalist ---
Standard Progress Note Progress Notes/Assess & Plan Date Seen 04/02/17 Time Seen by Provider: 12:25 Diagnosis 2+ week symptom complex suggesting the flu A that has been epidemic here. 2.urine suggestive of UTI. 3.underlying lung disease consistent with COPD. 4.past history of coronary artery disease and intervention. 5.diabetes mellitus type II tsv-eouavnu-yruahzuis Assess & Plan/Chief Complaint The patient reports that he continues to feel better by the day. He has been afebrile since admission. He denies any shortness of breath or sputum production. Vital signs are stable. Physical exam: Color is good. Lungs are clear to auscultation. CV is regular without murmur. Abdomen is soft. Urine in Russo bag is clear. There is no pedal edema. Impression: Pseudomonas urinary tract infection. Plan: Continue cefepime IV today. Will reassess in a.m. for the possibility of switched to oral medications. Labs Laboratory Tests 04/01/17 05:12 COLT CHING MD Apr 02, 2017 12:26
[2017-04-02] MEDS ORDERED: BETHANECHOL 25 MG (URECHOLINE) TAB PO SCH (13:00)
--- NOTE | 2017-04-02 13:37 | Physician Query Clarification ---
PQ-Conflicting Diagnosis Admission/Discharge Admission Date: Mar 31, 2017 at 07:12 Discharge Date: The medical record reflects the following clinical scenario: History/Risk Factors: Positive Influenza A Hypoxia Clinical Findings: Positive Influenza A Treatment: IV Solu Medrol, IV Cefepime HCI, IV Vancomycin HCI Question: Do you agree with the impression of Pneumonia per Dr. Nunez. Please document a response below. In responding to this query, please exercise your independent professional judgment. The purpose of this communication is to more accurately reflect the complexity of your patients condition. The fact that a question is asked does not imply that any particular answer is desired or expected. Thank you for your timely response to this clarification. Requestors name: Tanisha Hoffman [facility] Phone # ext [phone] or [phone] THIS PHYSICIAN QUERY FORM IS A PERMANENT PART OF THE MEDICAL RECORD TANISHA HOFFMAN Apr 02, 2017 13:37
[2017-04-02 15:58] VITALS: BP 138/63
[2017-04-02 19:42] VITALS: BP 126/60
[2017-04-02] MEDS: SIMvastatin 40 MG (ZOCOR) TAB PO SCH (20:23)
[2017-04-02] MEDS: TAMSULOSIN 0.4 MG (FLOMAX) CAP PO SCH (20:23)
[2017-04-02] MEDS ORDERED: TAMSULOSIN 0.4 MG (FLOMAX) CAP PO SCH (21:00)
[2017-04-02] MEDS ORDERED: SIMvastatin 40 MG (ZOCOR) TAB PO SCH (21:00)
[2017-04-02] MEDS ORDERED: DOCUSATE SODIUM 100 MG (COLACE) CAP PO SCH (21:00)
[2017-04-03] VITALS: BP_SYST 116; BP_SYST 163; BP_DIAS 58; BP_DIAS 74
[2017-04-03] MEDS: 1/2 NS IV SOLUTION 1,000 ML IV SCH ×2 (02:30→09:23)
[2017-04-03 04:00] VITALS: BP 152/72
[2017-04-03] MEDS: glipiZIDE 5 MG (GLUCOTROL) TAB PO SCH (06:04)
[2017-04-03] MEDS: methylPREDNISolone 125 MG (Solu-MEDROL) VIAL IV SCH ×2 (06:04→11:19)
[2017-04-03] MEDS: inSUlin (REGULAR) HUMAN 1 UNIT/0.01 ML (CHARGE PER UNIT) SC SCH ×2 (06:04→10:46)
[2017-04-03] MEDS: BETHANECHOL 25 MG (URECHOLINE) TAB PO SCH ×2 (06:04→10:46)
[2017-04-03] MEDS: PANTOPRAZOLE 40 MG (PROTONIX) TAB PO SCH (06:04)
[2017-04-03] MEDS: metFORMIN 500 MG (GLUCOPHAGE) TAB PO SCH (06:04)
[2017-04-03] MEDS: ASPIRIN E.C. 81 MG (ECOTRIN) TAB PO SCH (08:01)
[2017-04-03] MEDS: CEFEPIME 2 GM/NS 50 ML IVPB IV SCH ×2 (08:01)
[2017-04-03] MEDS: amLODIPine 10 MG (NORVASC) TAB PO SCH (08:01)
[2017-04-03] MEDS: OSELTAMIVIR 30 MG (TAMIFLU) BOX OF 10 PO SCH (08:02)
[2017-04-03 08:30] VITALS: BP 168/70
[2017-04-03] MEDS ORDERED: NON-FORMULARY MEDICATION 1 EA EA (Glipizide 10 MG) PO SCH (09:00)
[2017-04-03] MEDS ORDERED: amLODIPine 10 MG (NORVASC) TAB PO SCH (09:00)
[2017-04-03] MEDS ORDERED: NON-FORMULARY MEDICATION 1 EA EA (Lisinopril 40 MG) PO SCH (09:00)
[2017-04-03] MEDS ORDERED: ASPIRIN E.C. 81 MG (ECOTRIN) TAB PO SCH (09:00)
--- NOTE | 2017-04-03 11:40 | Progress Note-Hospitalist ---
Standard Progress Note Progress Notes/Assess & Plan Date Seen 04/03/17 Time Seen by Provider: 11:35 Diagnosis 2+ week symptom complex suggesting the flu A that has been epidemic here. 2.urine suggestive of UTI. 3.underlying lung disease consistent with COPD. 4.past history of coronary artery disease and intervention. 5.diabetes mellitus type II [id number] Assess & Plan/Chief Complaint The patient reports continued improvement. He will be discharged today. Today is the day that his suprapubic catheter is normally changed. He will need to call Dr. Xiao to coordinate that as he is to take one week of Cipro post discharge. Physical exam: He is alert and oriented and in a good mood. Lungs are clear to auscultation. CV is regular without murmur. Abdomen is soft without mass or tenderness. Extremities show no edema. Urine in is clear. Impression: Flu. 2.Pseudomonas aeruginosa urinary tract infection 3.neurogenic bladder. 4.diabetes mellitus type II [id number]. 4.COPD. 5.coronary atherosclerosis with previous intervention. Plan: Discharged today. COLT CHING MD Apr 03, 2017 11:40
[2017-04-03] MEDS ORDERED: CIPR-225 PO (11:41)
--- NOTE | 2017-04-03 11:44 | Discharge Instructions ---
Discharge Instructions Discharge Medications New, Converted or Re-Newed RX: Transmitted to Pharmacy Patient Instructions Goal/Follow Up Appt: Call Dr. Russo office today to clarify appointment for change of suprapubic catheter. Resume medications and activities as before. Acquire Cipro and begin taking twice daily until gone. First pillow should be taken this evening. Return to [facility] For: Decline in performance. Activity & Diet Discharge Diet: ADA Diet Activity as Tolerated: Yes COLT CHING MD Apr 03, 2017 11:44
[2017-04-03 12:32] VITALS: BP 142/75
--- NOTE | 2017-04-25 13:38 | Discharge Summary-Hospitalist ---
Diagnosis/Chief Complaint Date of Admission Mar 31, 2017 at 07:12 Date of Discharge Apr 03, 2017 at 12:40 Discharge Date: Apr 03, 2017 Discharge Time: 00:00 Admission Diagnosis 2+ week symptom complex suggesting the flu A that has been epidemic here. 2.urine suggestive of UTI. 3.underlying lung disease consistent with COPD. 4.past history of coronary artery disease and intervention. 5.diabetes mellitus type II [id number]-[id number] Discharge Diagnosis 1.Pseudomonas urinary tract infection. 2.two-week history compatible with influenza A. 3.COPD 4.past history of coronary artery disease with intervention. 5.diabetes mellitus type II [id number]. Discharge Summary Discharge Physical Examination Allergies: Coded Allergies: No Known Drug Allergies (Verified , 09/15/08) Hospital Course The patient's urine was cloudy and grew Pseudomonas. He had had a fever of 102 on the morning of admission and could not stand. He also has a suprapubic catheter and placed as a result of neurogenic bladder. He states that this was to undergo a trial of removal scheduled for the week following his admission. He improved greatly with fluids and IV antibiotics. The only medication useful by mouth for the pseudomonas was Cipro he was discharged on this. See discharge sequence for medications and routines. Labs (last 24 hrs) Microbiology 03/31/17 Blood Culture - Final, Complete No growth 03/31/17 Influenza Types A,B Antigen (AWILDA) - Final, Complete 03/31/17 Urine Culture - Final, Complete Pseudomonas Aeruginosa Discharge Home Medications: Active Scripts Active Cipro (Ciprofloxacin HCl) 500 Mg Tablet 500 Mg PO TTWICE A DAY Reported Fish Oil 1,000 mg Softgel (Crawford-3/Dha/Epa/Fish Oil) 1 Each Capsule 1,000 Mg PO BID Aspirin EC (Aspirin) 81 Mg Tablet.dr 81 Mg PO DAILY Glipizide 10 Mg Tablet 10 Mg PO DAILY Amlodipine Besylate 10 Mg Tablet 10 Mg PO DAILY Simvastatin 40 Mg Tablet 40 Mg PO HS Bethanechol Chloride 25 Mg Tablet 25 Mg PO QID Tamsulosin HCl 0.4 Mg Cap.er.24h 0.4 Mg PO HS Lisinopril 40 Mg Tablet 40 Mg PO DAILY Colace (Docusate Sodium) 100 Mg Capsule 200 Mg PO HS TAKES 2 (100MG) CAPSULES Metformin HCl 1,000 Mg Tablet 1,000 Mg PO DAILY Instructions to patient/family Please see electronic discharge instructions given to patient. Clinical Quality Measures DVT/VTE Risk/Contraindication: Risk Factor Score Per Nursin RFS Level Per Nursing on Admit: 4+=Very High Copy Copies To 1: VIJAY WOLFE MD, RODNEY K MD Apr 25, 2017 13:38
--- NOTE | 2017-04-26 13:47 | Physician Query Clarification ---
PQ-Link Infection to Dev/Proc Admission/Discharge Admission Date: Mar 31, 2017 at 07:12 Discharge Date: Apr 03, 2017 at 12:40 The medical record reflects the following clinical scenario: History/Risk Factors: UTI Neurogenic bladder with suprapubic catheter Clinical Findings: Urine culture showing >100,000/ML Pseudomonas Aeruginosa Treatment: IV Cefepime HCI, Vancomycin HCI 2,000mg/Sodium Chloride Question: Can you specify if the UTI is due to/associated with the suprapubic catheter? Please document a response below. In responding to this query, please exercise your independent professional judgment. The purpose of this communication is to more accurately reflect the complexity of your patients condition. The fact that a question is asked does not imply that any particular answer is desired or expected. Thank you for your timely response to this clarification. Requestors name: Tanisha Hoffman [facility] Phone # ext [phone] or [phone] THIS PHYSICIAN QUERY FORM IS A PERMANENT PART OF THE MEDICAL RECORD TANISHA HOFFMAN Apr 26, 2017 13:47
== END 2017-04-03 12:40 | disposition home or self-care (01) | DRG 699 ==
LOC: EDUNIT# 05:18 → ER 05:22 → 4TH 07:12
PROVIDERS: ADMIT Internal Medicine; ATTEND Family Medicine
DX: T83.510A Infection and inflammatory reaction due to cystostomy catheter, initial encounter (principal); N39.0 Urinary tract infection, site not specified; B96.5 Pseudomonas (aeruginosa) (mallei) (pseudomallei) as the cause of diseases classified elsewhere; J10.1 Influenza due to other identified influenza virus with other respiratory manifestations; R09.02 Hypoxemia; J44.9 Chronic obstructive pulmonary disease, unspecified; E86.0 Dehydration; R53.1 Weakness; I25.10 Atherosclerotic heart disease of native coronary artery without angina pectoris; I10 Essential (primary) hypertension; N31.9 Neuromuscular dysfunction of bladder, unspecified; E11.9 Type 2 diabetes mellitus without complications; F17.290 Nicotine dependence, other tobacco product, uncomplicated; H91.90 Unspecified hearing loss, unspecified ear; Z87.01 Personal history of pneumonia (recurrent); Z85.46 Personal history of malignant neoplasm of prostate; Z79.84 Long term (current) use of oral hypoglycemic drugs; Z95.1 Presence of aortocoronary bypass graft; Z98.1 Arthrodesis status
CPT/HCPCS: 36415; 71046; 80053; 81000; 82274; 82962; 83605; 83880; 85025; 87040; 87077; 87088; 87186; 87804; 93005; 93041; 93306; 96365; 96375

== ENCOUNTER 2017-11-28 14:04 | Emergency (ER) | payer MEDICARE ==
[~2017-11-28] VITALS: Ht 172.7 cm; Wt 84.8 kg
--- OUTSIDE RECORDS SUMMARY | 2017-11-28 14:16 | XMS REPORT | Continuity of Care Document ---
Author Author [facility] Organization [facility] Address Unknown Phone Unavailable Allergies Active Description Code Type Severity Reaction Onset Reported/Identified Relationship to Patient Clinical Status Yes No Known Drug Allergies [id number] Drug Allergy Unknown N/A 09/15/2008 Medications There [...] RETENTION OF URINE NOS 03/10/2013 BERTA DELANEY [employer] SAL[employer] SUPERVISOR Ot V53.6 FITTING URINARY DEVICES 11/28/2013 BERTA DELANEY [employer] SAL[employer] SUPERVISOR Ot 599.0 URIN TRACT INFECTION NOS 11/28/2013 BERTA DELANEY [employer] SALES SUPERVISOR Ot 788.41 URINARY FREQUENCY 11/28/2013 BERTA DELANEY MARK[employer] SALES SUPERVISOR Ot 996.76 OTH COMP DUE TO GENITOURINARY [...] V58.69 03/23/2014 Ot 433.10 03/23/2014 PRASAD TARIQ [employer] DEVELOPER Ot 414.00 03/23/2014 PRASAD TARIQP Ot V45.81 [...] V58.69 03/23/2014 Ot 433.10 03/23/2014 PRASAD TARIQ [employer] DEVELOPER Ot 414.00 03/23/2014 PRASAD TARIQ [employer] DEVELOPER Ot V45.81 07/27/2014 Ot 414.8 07/27/2014 Ot [...] V58.69 07/27/2014 Ot 433.10 07/27/2014 PRASAD TARIQ [employer] DEVELOPER Ot 414.00 07/27/2014 PRASAD TARIQ [employer] DEVELOPER Ot V45.81 11/21/2015 Ot 185 MALIGN NEOPL [...] O CEREBRAL IN 11/21/2015 PRASAD TARIQ L [employer] DEVELOPER Ot 414.00 CORON ATHEROSCLER NOS TYPE VESSEL, NATIV 11/21/2015 ZA TARIQHER L [employer] DEVELOPER Ot V45.81 AORTOCORONARY BYPASS 11/21/2015 Ot 185 [...] W O CEREBRAL IN 11/21/2015 PRASAD TARIQ [employer] DEVELOPER Ot 414.00 CORON ATHEROSCLER NOS TYPE VESSEL, NATIV 11/21/2015 PRASAD TARIQ [employer] DEVELOPER Ot V45.81 AORTOCORONARY BYPASS 11/24/2015 AIDEN BRITO, [...] MD, Ot I25.10 ATHSCL HEART DISEASE OF [place] CORONARY 11/24/2015 VIJAY WOLFE MD Ot N39.0 [...] Ot 788.30 UNSPECIFIED URINARY INCONTINENCE 07/06/2016 BAIMA, PRASDA L [employer] DEVELOPER Ot 414.00 CORON ATHEROSCLER NOS TYPE VESSEL, NATIV 07/06/2016 BAIMA, PRASAD L [employer] DEVELOPER Ot V45.81 AORTOCORONARY BYPASS 07/11/2016 Ot 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 07/11/2016 Ot 596.54 NEUROGENIC BLADDER, NOT OTHERWISE SPECIF 07/11/2016 Ot 788.30 UNSPECIFIED URINARY INCONTINENCE 07/11/2016 BAIMA, PRASAD L [employer] DEVELOPER Ot 414.00 CORON ATHEROSCLER NOS TYPE VESSEL, NATIV 07/11/2016 BAIMA, PRASAD L [employer] DEVELOPER Ot V45.81 AORTOCORONARY BYPASS 07/12/2016 Ot 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 07/12/2016 Ot 596.54 NEUROGENIC BLADDER, NOT OTHERWISE SPECIF 07/12/2016 Ot 788.30 UNSPECIFIED URINARY INCONTINENCE 07/12/2016 BAIMA, PRASAD L [employer] DEVELOPER Ot 414.00 CORON ATHEROSCLER NOS TYPE VESSEL, NATIV 07/12/2016 BAIMA, PRASAD L [employer] DEVELOPER Ot V45.81 AORTOCORONARY BYPASS 07/17/2016 BAIMA, PRASAD L [employer] DEVELOPER Ot I25.10 ATHSCL HEART DISEASE OF [place] CORONARY 07/20/2016 BAIMA, PRASAD L [employer] DEVELOPER Ot I25.10 ATHSCL HEART DISEASE OF [place] CORONARY 07/24/2016 BAIMA, PRASAD L [employer] DEVELOPER Ot E78.4 OTHER HYPERLIPIDEMIA 07/24/2016 BAIMA, PRASAD L [employer] DEVELOPER Ot I10 ESSENTIAL (PRIMARY) HYPERTENSION 07/24/2016 BAIMA, PRASAD L [employer] DEVELOPER Ot I25.10 ATHSCL HEART DISEASE OF [place] CORONARY 07/24/2016 BAIMA, PRASAD L [employer] DEVELOPER Ot I65.23 OCCLUSION AND STENOSIS OF BILATERAL JAMIL 07/24/2016 BAIMA, PRASAD L [employer] DEVELOPER Ot Z72.0 TOBACCO USE 07/27/2016 BAIMA, PRASAD L [employer] DEVELOPER Ot E78.4 OTHER HYPERLIPIDEMIA 07/27/2016 BAIMA, PRASAD L [employer] DEVELOPER Ot I10 ESSENTIAL (PRIMARY) HYPERTENSION 07/27/2016 BAIMA, PRASAD L [employer] DEVELOPER Ot I25.10 ATHSCL HEART DISEASE OF [place] CORONARY 07/27/2016 BAIMA, PRASAD L [employer] DEVELOPER Ot I65.23 OCCLUSION AND STENOSIS OF BILATERAL JAM[place] 07/27/2016 PRASAD TARIQ L [employer] DEVELOPER Ot Z72.0 TOBACCO USE 08/09/2016 BAIMA PRASAD L [employer] DEVELOPER Ot E78.4 OTHER HYPERLIPIDEMIA 08/09/2016 BAIMA, PRASAD L [employer] DEVELOPER Ot I10 ESSENTIAL (PRIMARY) HYPERTENSION 08/09/2016 BAIMA, PRASAD L [employer] DEVELOPER Ot I25.10 ATHSCL HEART DISEASE OF [place] CORONARY 08/09/2016 BAIMAZAPRASAD L [employer] DEVELOPER Ot I65.23 OCCLUSION AND STENOSIS OF [place]ATER[place] 08/09/2016 BAIMAPRASAD L [employer] DEVELOPER Ot Z72.0 TOBACCO USE 08/11/2016 BAIMA PRASAD L [employer]YNAM[employer] DEVELOPER Ot E78.4 OTHER HYPERLIPIDEMIA 08/11/2016 BAIMA, PRASAD L [employer] DEVELOPER Ot I10 ESSENTIAL (PRIMARY) HYPERTENSION 08/11/2016 BAIMA, PRASAD L [employer] DEVELOPER Ot I25.10 ATHSCL HEART DISEASE OF [place] CORONARY 08/11/2016 BAIMAZAPRASAD L [employer] DEVELOPER Ot I65.23 OCCLUSION AND STENOSIS OF [place]ATER[place] 08/11/2016 BAIPRASAD FAGAN L [employer] DEVELOPER Ot Z72.0 TOBACCO USE 08/15/2016 Ot 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 08/15/2016 Ot 596.54 NEUROGENIC BLADDER, NOT OTHERWISE SPECIF 08/15/2016 Ot 788.30 UNSPECIFIED URINARY INCONTINENCE 08/15/2016 BABAKZA FAGANHER L [employer] DEVELOPER Ot 414.00 CORON ATHEROSCLER NOS TYPE VESSEL, NATIV 08/15/2016 BABAKZA FAGANHER L [employer] DEVELOPER Ot V45.81 AORTOCORONARY BYPASS 08/15/2016 BABAKAZ FAGANHER L [employer] DEVELOPER Ot E78.4 OTHER HYPERLIPIDEMIA 08/15/2016 BAIMA, PRASAD L [employer] DEVELOPER Ot I10 ESSENTIAL (PRIMARY) HYPERTENSION 08/15/2016 BAIMA, PRASAD L [employer] DEVELOPER Ot I25.10 ATHSCL HEART DISEASE OF [place] CORONARY 08/15/2016 BABAKMA PRASAD L [employer] DEVELOPER Ot I65.23 OCCLUSION AND STENOSIS OF [place] 08/15/2016 BABAKMAZAPRASAD L [employer] DEVELOPER Ot Z72.0 TOBACCO USE 08/15/2016 BABAKMA, PRASAD L [employer] DEVELOPER Ot E78.4 OTHER HYPERLIPIDEMIA 08/15/2016 BABAKMA, PRASAD L [employer] DEVELOPER Ot I10 ESSENTIAL (PRIMARY) HYPERTENSION 08/15/2016 BAIPRASAD FAGAN L [employer] DEVELOPER Ot I25.10 ATHSCL HEART DISEASE OF [place] CORONARY 08/15/2016 BAIPRASAD FAGAN L [employer] DEVELOPER Ot I65.23 OCCLUSION AND STENOSIS OF [place] 08/15/2016 BAIMAPRASAD L [employer] DEVELOPER Ot Z72.0 TOBACCO USE 03/19/2017 Ot 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 03/19/2017 Ot 596.54 NEUROGENIC BLADDER, NOT OTHERWISE SPECIF 03/19/2017 Ot 788.30 UNSPECIFIED URINARY INCONTINENCE 03/19/2017 BABAKPRASAD FAGAN L [employer] DEVELOPER Ot 414.00 CORON ATHEROSCLER NOS TYPE VESSEL, NATIV 03/19/2017 BABAKPRASAD FAGAN L [employer] DEVELOPER Ot V45.81 AORTOCORONARY BYPASS 03/19/2017 BABAKPRASAD FAGAN L [employer] DEVELOPER Ot E78.4 OTHER HYPERLIPIDEMIA 03/19/2017 BAIMA, PRASAD L [employer] DEVELOPER Ot I10 ESSENTIAL (PRIMARY) HYPERTENSION 03/19/2017 BAIPRASAD FAGAN L [employer] DEVELOPER Ot I25.10 ATHSCL HEART DISEASE OF [place] CORONARY 03/19/2017 BAIPRASAD FAGAN L [employer] DEVELOPER Ot I65.23 OCCLUSION AND STENOSIS OF [place] 03/19/2017 BAIPRASAD FAGAN L [employer] DEVELOPER Ot Z72.0 TOBACCO USE 03/19/2017 BAIPRASAD FAGAN L [employer] DEVELOPER Ot E78.4 OTHER HYPERLIPIDEMIA 03/19/2017 BAIMA PRASAD L [employer] DEVELOPER Ot I10 ESSENTIAL (PRIMARY) HYPERTENSION 03/19/2017 PRASAD TARIQ L [employer] DEVELOPER Ot I25.10 ATHSCL HEART DISEASE OF [place] CORONARY 03/19/2017 BAIMAPRASAD L [employer] DEVELOPER Ot I65.23 OCCLUSION AND STENOSIS OF [place] 03/19/2017 BABAKMAPRASAD L [employer] DEVELOPER Ot Z72.0 TOBACCO USE 03/19/2017 ECTOR BRITO, TIMOTHY De Los Santos Ot A40.3 SEPSIS DUE TO STREPTOCOCCUS PNEUMONIAE 03/19/2017 TIMOTHY BARNEY MD Ot E11.9 TYPE 2 DIABETES MELLITUS WITHOUT COMPLIC 03/19/2017 TIMOTHY BARNEY MD Ot I10 ESSENTIAL (PRIMARY) HYPERTENSION 03/19/2017 TIMOTHY BARNEY MD Ot I25.10 ATHSCL HEART DISEASE OF [place] CORONARY 03/19/2017 TIMOTHY BARNEY MD Ot J02.9 ACUTE PHARYNGITIS, UNSPECIFIED 03/19/2017 TIMOTHY BARNEY MD Ot J18.9 PNEUMONIA, UNSPECIFIED ORGANISM 03/19/2017 TIMOTHY BARNEY MD Ot Z79.82 SENIOR LIVING (CURRENT) USE OF ASPIRIN 03/19/2017 TIMOTHY BARNEY MD Ot Z79.84 EIGHT SECTION BLOWER (CURRENT) USE OF ORAL HYPOGLYC 03/19/2017 TIMOTHY BARNEY MD Ot Z80.0 FAMILY HISTORY OF MALIGNANT NEOPLASM OF 03/19/2017 TIMOTHY BARNEY MD Ot Z87.891 PERSONAL HISTORY OF NICOTINE DEPENDENCE 03/19/2017 TIMOTHY BARNEY MD Ot Z95.1 PRESENCE OF AORTOCORONARY BYPASS GRAFT 03/28/2017 TIMOTHY BARNEY MD Ot A40.3 SEPSIS DUE TO STREPTOCOCCUS PNEUMONIAE 03/28/2017 TIMOTHY BARNEY MD Ot E11.9 TYPE 2 DIABETES MELLITUS WITHOUT COMPLIC 03/28/2017 TIMOTHY BARNEY MD Ot I10 ESSENTIAL (PRIMARY) HYPERTENSION 03/28/2017 TIMOTHY BARNEY MD Ot I25.10 ATHSCL HEART DISEASE OF [place] CORONARY 03/28/2017 TIMOTHY BARNEY MD Ot J02.9 ACUTE PHARYNGITIS, UNSPECIFIED 03/28/2017 TIMOTHY BARNEY MD Ot J18.9 PNEUMONIA, UNSPECIFIED ORGANISM 03/28/2017 TIMOTHY BARNEY MD Ot Z79.82 EIGHT SECTION BLOWER (CURRENT) USE OF ASPIRIN 03/28/2017 TIMOTHY BARNEY MD Ot Z79.84 SENIOR LIVING (CURRENT) USE OF ORAL HYPOGLYC 03/28/2017 TIMOTHY BARNEY MD Ot Z80.0 FAMILY HISTORY OF MALIGNANT NEOPLASM OF 03/28/2017 TIMOTHY BARNEY MD Ot Z87.891 PERSONAL HISTORY OF NICOTINE DEPENDENCE 03/28/2017 TIMOTHY BARNEY MD Ot Z95.1 PRESENCE OF AORTOCORONARY BYPASS GRAFT 04/03/2017 VIJAY WOLFE MD Ot B96.5 PSEUDOMONAS (MALLEI) CAUSING DISEASES CL 04/03/2017 VIJAY WOLFE MD Ot E11.9 TYPE 2 DIABETES MELLITUS WITHOUT COMPLIC 04/03/2017 VIJAY WOLFE MD Ot E86.0 DEHYDRATION 04/03/2017 VIJAY WOLFE MD Ot F17.290 NICOTINE DEPENDENCE, OTHER TOBACCO PRODU 04/03/2017 VIJAY WOLFE MD R Ot H91.90 UNSPECIFIED HEARING LOSS, UNSPECIFIED EA 04/03/2017 VIJAY WOLFE MD Ot I10 ESSENTIAL (PRIMARY) HYPERTENSION 04/03/2017 VIJAY WOLFE MD R Ot I25.10 ATHSCL HEART DISEASE OF [place] CORONARY 04/03/2017 VIJAY WOLFE MD R Ot J10.00 FLU DUE TO OTH IDENT FLU VIRUS W UNSP TY 04/03/2017 VIJAY WOLFE MD R Ot J44.0 CHRONIC OBSTRUCTIVE PULMON DISEASE W ACU 04/03/2017 VIJAY WOLFE MD Ot N31.9 NEUROMUSCULAR DYSFUNCTION OF BLADDER, UN 04/03/2017 VIJAY WOLFE MD Ot N39.0 URINARY TRACT INFECTION, SITE NOT SPECIF 04/03/2017 VIJAY WOLFE MD Ot Z79.84 SENIOR LIVING (CURRENT) USE OF ORAL HYPOGLYC 04/03/2017 VIJAY WOLFE MD R Ot Z85.46 PERSONAL HISTORY OF MALIGNANT NEOPLASM O 04/03/2017 VIJAY WOLFE MD Ot Z95.1 PRESENCE OF AORTOCORONARY BYPASS GRAFT 04/03/2017 VIJAY WOLFE MD Ot Z98.1 ARTHRODESIS STATUS 04/03/2017 VIJAY WOLFE MD Ot B96.5 PSEUDOMONAS (MALLEI) CAUSING DISEASES CL 04/03/2017 VIJAY WOLFE MD R Ot E11.9 TYPE 2 DIABETES MELLITUS WITHOUT COMPLIC 04/03/2017 VIJAY WOLFE MD Ot E86.0 DEHYDRATION 04/03/2017 VIJAY WOLFE MD R Ot F17.290 NICOTINE DEPENDENCE, OTHER TOBACCO PRODU 04/03/2017 VIJAY WOLFE MD R Ot H91.90 UNSPECIFIED HEARING LOSS, UNSPECIFIED EA 04/03/2017 VIJAY WOLFE MD Ot I10 ESSENTIAL (PRIMARY) HYPERTENSION 04/03/2017 VIJAY WOLFE MD R Ot I25.10 ATHSCL HEART DISEASE OF [place] CORONARY 04/03/2017 VIJAY WOLFE MD R Ot J10.00 FLU DUE TO OTH IDENT FLU VIRUS W UNSP TY 04/03/2017 VIJAY WOLFE MD R Ot J10.1 FLU DUE TO OTH IDENT INFLUENZA VIRUS W O 04/03/2017 VIJAY WOLFE MD, Ot J44.0 CHRONIC OBSTRUCTIVE PULMON DISEASE W ACU 04/03/2017 VIJAY WOLFE MD, Ot J44.9 CHRONIC OBSTRUCTIVE PULMONARY DISEASE, U 04/03/2017 VIJAY WOLFE MD, Ot N31.9 NEUROMUSCULAR DYSFUNCTION OF BLADDER, UN 04/03/2017 VIJAY WOLFE MD, Ot N39.0 URINARY TRACT INFECTION, SITE NOT SPECIF 04/03/2017 VIJAY WOLFE MD, Ot R09.02 HYPOXEMIA 04/03/2017 VIJAY WOLFE MD, Ot R53.1 WEAKNESS 04/03/2017 VIJAY WOLFE MD, Ot T83.510A I/I REACT D/T CYSTOSTOMY CATHETER, INITI 04/03/2017 VIJAY WOLFE MD, Ot Z79.84 SENIOR LIVING (CURRENT) USE OF ORAL HYPOGLYC 04/03/2017 VIJAY WOLFE MD, Ot Z85.46 PERSONAL HISTORY OF MALIGNANT NEOPLASM O 04/03/2017 VIJAY WOLFE MD, Ot Z87.01 PERSONAL HISTORY OF PNEUMONIA (RECURRENT 04/03/2017 VIJAY WOLFE MD, Ot Z95.1 PRESENCE OF AORTOCORONARY BYPASS GRAFT 04/03/2017 VIJAY WOLFE MD, Ot Z98.1 ARTHRODESIS STATUS Procedures There is no data. Results Test [...] - 11/21/15 10:00 Bacterial blood culture NG NR Complete urinalysis with reflex to culture - [...] culture - 11/21/15 11:10 Bacterial urine culture [id number] NRG COLONY COUNT 10,000/ML - 100,000/ML NRG [...] Blood erythrocyte morphology finding identification NORMAL NRG Comprehensive metabolic panel - 11/22/15 05:05 Serum [...] 1.37 mmol/L 0.50-2.00 Comprehensive metabolic panel - 01/01/18 18:45 Serum or plasma sodium measurement (moles/volume) [...] or plasma urea nitrogen/creatinine mass ratio 16 NR Serum or plasma creatinine measurement with calculation of estimated glomerular filtration rate 45 NR Serum or plasma glucose measurement (mass/volume) 187 [...] culture - 03/19/17 18:45 Bacterial blood culture [facility] Influenza virus A and B antigen detection - 03/19/17 18:46 FLU RESULT NEGATIVE FOR INFLUENZA A AND B ANTIGENS BY [facility] Bacterial blood culture - 03/19/17 19:16 Bacterial blood culture [facility] Complete blood count (CBC) with automated white [...] (F1 HELP) CALLED TO FRANCIA IN ED@[id number] [facility] FLU RESULT POSITIVE FOR INFLUENZA A ANTIGEN, NEG FOR B ANTIGEN, BY [facility] Comprehensive metabolic panel - 03/31/17 05:49 Serum [...] or plasma urea nitrogen/creatinine mass ratio 7 NRG Serum or plasma creatinine measurement with calculation of estimated glomerular filtration rate 41 NRG Serum or plasma glucose measurement (mass/volume) 205 [...] plasma albumin measurement (mass/volume) 3.6 g/dL 3.2-4.5 Bacterial blood culture - 03/31/17 05:49 Bacterial blood culture NG NRG Bacterial blood culture - 03/31/17 06:01 Bacterial blood culture NG NRG Complete urinalysis [...] urinalysis with reflex to culture YES NRG Bacterial urine culture - 03/31/17 06:07 Bacterial urine culture [id number] NRG COLONY COUNT >100,000/ML NRG FTX;REPORT[place] S[place]ITIVITY [place]ED AT 0801, 1-18 NRG Bacterial susceptibility panel - 03/31/17 06:07 Gentamicin susceptibility test by minimum inhibitory concentration < = NRG Tobramycin susceptibility test by minimum inhibitory concentration < = NRG Piperacillin/tazobactam susceptibility test by minimum inhibitory concentration S NRG Ciprofloxacin susceptibility test by minimum inhibitory concentration <= NRG Meropenem susceptibility test by minimum inhibitory concentration < = NRG Cefepime susceptibility test by minimum inhibitory concentration <= NRG Capillary blood glucose measurement by glucometer (mass/volume) - 03/31/17 10: 34 Capillary blood glucose measurement by glucometer (mass/volume) 266 mg/dL 70-110 Capillary blood glucose measurement by glucometer (mass/volume) - 03/31/17 16: 22 Capillary blood glucose measurement by glucometer (mass/volume) 373 mg/dL 70-110 Stool occult blood screen - 03/31/17 18:00 Stool gastrointestinal hemoglobin detection NEGATIVE NEGATIVE Capillary blood glucose measurement by glucometer (mass/volume) - 03/31/17 21: 16 Capillary blood glucose measurement by glucometer (mass/volume) 378 mg/dL 70-110 Complete blood count (CBC) with automated white blood cell (WBC) differential - 04/01/17 05:12 Blood leukocytes automated count (number/volume) 12.3 10*3/uL 4.3-11.0 Blood erythrocytes automated count (number/volume) 4.87 10*6/uL 4.35-5.85 Venous blood hemoglobin measurement (mass/volume) 13.2 g/dL 13.3-17.7 Blood hematocrit (volume fraction) 39 % 40-54 Automated erythrocyte mean corpuscular volume 81 [foz_us] 80-99 Automated erythrocyte mean corpuscular hemoglobin (mass per erythrocyte) 27 pg 25-34 Automated erythrocyte mean corpuscular hemoglobin concentration measurement ( mass/volume) 34 g/dL 32-36 Automated erythrocyte distribution width ratio 13.9 % 10.0-14.5 Automated blood platelet count (count/volume) 192 10*3/uL 130-400 Automated blood platelet mean volume measurement 9.3 [foz_us] 7.4-10.4 Automated blood neutrophils/100 leukocytes 90 % 42-75 Automated blood lymphocytes/100 leukocytes 8 % 12-44 Blood monocytes/100 leukocytes 2 % 0-12 Automated blood eosinophils/100 leukocytes 0 % 0-10 Automated blood basophils/100 leukocytes 0 % 0-10 Blood neutrophils automated count (number/volume) 11.0 10*3 1.8-7.8 Blood lymphocytes automated count (number/volume) 0.9 10*3 1.0-4.0 Blood monocytes automated count (number/volume) 0.3 10*3 0.0-1.0 Automated eosinophil count 0.0 10*3/uL 0.0-0.3 Automated blood basophil count (count/volume) 0.0 10*3/uL 0.0-0.1 Comprehensive metabolic panel - 04/01/17 05:12 Serum or plasma sodium measurement (moles/volume) 136 mmol/L 135-145 Serum or plasma potassium measurement (moles/volume) 4.5 mmol/L 3.6-5.0 Serum or plasma chloride measurement (moles/volume) 107 mmol/L 98-107 Carbon dioxide 18 mmol/L 21-32 Serum or plasma anion gap determination (moles/volume) 11 mmol/L 5-14 Serum or plasma urea nitrogen measurement (mass/volume) 23 mg/dL 7-18 Serum or plasma creatinine measurement (mass/volume) 1.28 mg/dL 0.60-1.30 Serum or plasma urea nitrogen/creatinine mass ratio 18 NRG Serum or plasma creatinine measurement with calculation of estimated glomerular filtration rate 55 NRG Serum or plasma glucose measurement (mass/volume) 270 mg/dL 70-105 Serum or plasma calcium measurement (mass/volume) 8.7 mg/dL 8.5-10.1 Serum or plasma total bilirubin measurement (mass/volume) 0.3 mg/dL 0.1-1.0 Serum or plasma alkaline phosphatase measurement (enzymatic activity/volume) 75 U/L 40-136 Serum or plasma aspartate aminotransferase measurement (enzymatic activity/ volume) 12 U/L 5-34 Serum or plasma alanine aminotransferase measurement (enzymatic activity/volume ) 11 U/L 0-55 Serum or plasma protein measurement (mass/volume) 6.1 g/dL 6.4-8.2 Serum or plasma albumin measurement (mass/volume) 3.0 g/dL 3.2-4.5 Serum or plasma lithium measurement (moles/volume) - 04/01/17 05:12 BNP level 167.3 pg/mL <100.0 Capillary blood glucose measurement by glucometer (mass/volume) - 04/01/17 06: 10 Capillary blood glucose measurement by glucometer (mass/volume) 220 mg/dL 70-110 Capillary blood glucose measurement by glucometer (mass/volume) - 04/01/17 11: 13 Capillary blood glucose measurement by glucometer (mass/volume) 286 mg/dL 70-110 Capillary blood glucose measurement by glucometer (mass/volume) - 04/01/17 15: 24 Capillary blood glucose measurement by glucometer (mass/volume) 302 mg/dL 70-110 Capillary blood glucose measurement by glucometer (mass/volume) - 04/01/17 20: 33 Capillary blood glucose measurement by glucometer (mass/volume) 359 mg/dL 70-110 Capillary blood glucose measurement by glucometer (mass/volume) - 04/02/17 05: 38 Capillary blood glucose measurement by glucometer (mass/volume) 207 mg/dL 70-110 Capillary blood glucose measurement by glucometer (mass/volume) - 04/02/17 10: 42 Capillary blood glucose measurement by glucometer (mass/volume) 299 mg/dL 70-110 Capillary blood glucose measurement by glucometer (mass/volume) - 04/02/17 15: 20 Capillary blood glucose measurement by glucometer (mass/volume) 282 mg/dL 70-110 Capillary blood glucose measurement by glucometer (mass/volume) - 04/02/17 20: 57 Capillary blood glucose measurement by glucometer (mass/volume) 289 mg/dL 70-110 Capillary blood glucose measurement by glucometer (mass/volume) - 04/03/17 05: 32 Capillary blood glucose measurement by glucometer (mass/volume) 261 mg/dL 70-110 Capillary blood glucose measurement by glucometer (mass/volume) - 04/03/17 10: 33 Capillary blood glucose measurement by glucometer (mass/volume) 298 mg/dL 70-110 Encounters ACCT No. Visit Date/Time Discharge Status Pt. Type Provider Facility Loc./Unit Complaint [id number] 03/31/2017 07:12:00 03/31/2017 23:59:59 CLS Inpatient AIDEN BRITOVIJAY [facility] 4TH PNUEMONIA-FAILURE TO OUTPUT THERAPY [id number] 03/19/2017 18:33:00 03/19/2017 21:03:00 DIS Emergency TIMOTHY BARNEY MD [facility] ER COUGH,FEVER,WEAKNESS [id number] 07/21/2016 13:28:00 07/21/2016 23:59:59 CLS Outpatient PRASAD TARIQ [employer] [facility] CARD I25.10, I65.23 [id number] 07/17/2016 14:10:00 07/17/2016 23:59:59 CLS Outpatient BAIPRASAD FAGAN L [employer] [facility] CARD I25.10,I65.23 [id number] 11/28/2013 16:31:00 11/28/2013 17:55:00 DIS Emergency BERTA DELANEY [employer]PERVIS[employer] [facility] ER POSS UTI/CATHETER CONCERN [id number] 03/10/2013 20:22:00 03/10/2013 20:44:00 DIS Emergency BERTA DELANEY [employer] SAL[employer] SUPERVISOR [facility] ER CATHETER IS COMING OUT [id number] 11/14/2012 07:21:00 11/14/2012 23:59:59 CLS Outpatient CHANDNIPRASAD Asael [employer] [facility] RAD CAD [id number] 11/28/2017 14:05:00 ACT Emergency TIMOTHY BARNEY MD [facility] ER R FOOT INFECTION [id number] 11/21/2015 12:36:00 ACT Inpatient VIJAY WOLFE MD [facility] 4TH SEPSIS,UTI,WEAKNESS [id number] 03/20/2014 20:58:00 Document Registration [id number] 03/20/2014 20:58:00 Document Registration [id number] 08/15/2011 07:42:00 Document Registration [id number] 05/02/2011 17:21:00 Document Registration [id number] 10/04/2010 14:29:00 Document Registration [id number] 08/29/2010 00:00:00 Document Registration [id number] 07/21/2010 11:07:00 Document Registration [id number] 05/30/2010 13:56:00 Document Registration [id number] 01/24/2010 12:24:00 Document Registration [id number] 12/20/2009 15:37:00 Document Registration [id number] 11/09/2009 05:45:00 Document Registration [id number] 11/03/2009 15:11:00 Document Registration [id number] 07/13/2009 05:42:00 Document Registration [id number] 07/06/2009 14:24:00 Document Registration [id number] 05/12/2009 12:13:00 Document Registration [id number] 04/26/2009 14:24:00 Document Registration [id number] 04/21/2009 14:34:00 Document Registration [id number] 02/24/2009 15:05:00 Document Registration [id number] 12/27/2015 14:20:52 12/27/2015 23:59:59 [facility] Outpatient
--- NOTE | 2017-11-28 14:37 | ED Integumentary General ---
General Chief Complaint: Skin/Wound Problems Stated Complaint: R FOOT INFECTION Nursing Triage Note: TWO WEEKS PT DEVELOPED A WOUND ON HIS R FOOT THAT IS REPORTED TO BE SEEPING AND NOT HEALING, WAS SEEN LAST SUNDAY AT PCP CLINIC, SYMPTOMS HAVE NOT IMPROVED Source: patient, spouse Exam Limitations: no limitations History of Present Illness Date Seen by Provider: Nov 28, 2017 Time Seen by Provider: 14:25 Initial Comments Patient presents to the ER by Private conveyance with chief complaint that he's had a wound on his right foot for the past 2 weeks. Last week he went to go see his primary care provider Dr. Chavira but he was out of town so he saw the practitioner. The practitioner prescribed an ointment and put a dressing on the wound. He's been using the ointment but he does know the name of it. He did not bring it with him. He says the wound is continued to deteriorate. He is not having pain. Does have a history of diabetes not on insulin as well as a triple bypass, no known history of peripheral vascular disease. He does not know what his A1c is. No nausea, fever, chills, drainage from the wound. Allergies and Home Medications Allergies Coded Allergies: No Known Drug Allergies (Verified , 09/15/08) Home Medications Amlodipine Besylate 10 Mg Tablet, 10 MG PO DAILY, (Reported) Aspirin 81 Mg Tablet.dr, 81 MG PO DAILY, (Reported) Bethanechol Chloride 25 Mg Tablet, 25 MG PO QID, (Reported) Ciprofloxacin HCl 500 Mg Tablet, 500 MG PO ttwice a day Prescribed by: COLT CHING on 04/03/17 1141 Docusate Sodium 100 Mg Capsule, 200 MG PO HS, (Reported) TAKES 2 (100MG) CAPSULES Glipizide 10 Mg Tablet, 10 MG PO DAILY, (Reported) Lisinopril 40 Mg Tablet, 40 MG PO DAILY, (Reported) Metformin HCl 1,000 Mg Tablet, 1,000 MG PO DAILY, (Reported) [place]-3/Dha/Epa/Fish Oil 1 Each Capsule, 1,000 MG PO BID, (Reported) Simvastatin 40 Mg Tablet, 40 MG PO HS, (Reported) Tamsulosin HCl 0.4 Mg Cap.er.24h, 0.4 MG PO HS, (Reported) Patient Home Medication List Home Medication List Reviewed: Yes Review of Systems Review of Systems Constitutional: No chills, No diaphoresis EENTM: No ear discharge, No ear pain Respiratory: No cough, No short of breath Cardiovascular: No chest pain, No edema Gastrointestinal: No abdominal pain, No constipation Past Srkcdhv-Zeedlt-Stykya Hx Patient Social History Alcohol Use: Denies Use Recreational Drug Use: No Smoking Status: Light Tobacco Smoker Type Used: Cigars Former Smoker, Quit: Apr 02, 2008 Recent Foreign Travel: No Contact w/Someone Who Travel: No Recent Infectious Disease Expo: No Recent Hopitalizations: No Immunizations Up To Date Tetanus Booster (TDap): Unknown Seasonal Allergies Seasonal Allergies: No Past Medical History Surgeries: Yes (HERNIA REPAIR, TRIPLE BYPASS; SUPRAPUBIC CATHETER; C-SPINE FUSION) Bladder Surgery, Cardiac, CABG, Orthopedic Respiratory: Yes (PNEUMONIA 03/19/17) Pneumonia Currently Using CPAP: No Currently Using BIPAP: No Cardiac: Yes (CABG) Coronary Artery Disease, Hypertension Neurological: No Reproductive Disorders: No Sexually Transmitted Disease: No Genitourinary: Yes (SUPRAPUBIC CATHETER) Prostate Problems, Neurogenic Bladder Gastrointestinal: No Musculoskeletal: Yes (NECK PAIN--C-SPINE SURGERY) Endocrine: Yes Diabetes, Non-Insulin dep HEENT: Yes Cataract Hearing Impairment: Hard of Hearing Cancer: Yes Prostate Did You Recieve Any Treatments: Yes What Type of Treatment Did You: Surgical Intervention Psychosocial: No Integumentary: No Blood Disorders: No Family Medical History Diabetes mellitus 19 MOTHER FH: cataracts 19 MOTHER FH: stroke 19 MOTHER Oral cancer 19 FATHER Cancer, Diabetes, Hypertension, Stroke Physical Exam Vital Signs Vital Signs - First Documented 11/28/17 14:14 Temp 97.3 Pulse 75 Resp 18 B/P (MAP) 161/64 (96) Pulse Ox 98 O2 Delivery Room Air Capillary Refill : Less Than 3 Seconds General Appearance: WD/WN, no apparent distress Cardiovascular: normal peripheral pulses, regular rate, rhythm, no edema Respiratory: no respiratory distress, no accessory muscle use Extremities: non-tender, normal capillary refill, other (right foot has macerated the epidermal layer especially on the great toe involving the second through fourth toes as well. And the ball of the foot. There is exposed dermis that is beefy red. His lower extremities are shiny without much hair on them.) Neurologic/Psychiatric: alert, normal mood/affect, oriented x 3, other ( decreased sensation bilateral lower externa days.) Progress/Results/Core Measures Results/Orders Vital Signs/I&O 11/28/17 14:14 Temp 97.3 Pulse 75 Resp 18 B/P (MAP) 161/64 (96) Pulse Ox 98 O2 Delivery Room Air Blood Pressure Mean: 96 Progress Progress Note : Time: 14:42 Progress Note Skin breakdown on the right foot. We will consult wound care. There is no further emergent workup necessary. Blood glucose 196. Consults : Consulting Physician: ANDREW LONGORIA MD Consults Notes Discussed the case with him and he says just and the patient over the clinic and he will see them. Departure Impression Primary Impression: Foot ulcer, right Qualified Codes: L97.519 - Non-pressure chronic ulcer of other part of right foot with unspecified severity Disposition: 01 HOME, SELF-CARE Condition: Stable Departure-Patient Inst. Decision time for Depature: 14:43 Referrals: ANDREW LONGORIA MD, FLOYD R MD (PCP/Family) Primary Care Physician Patient Instructions: Wound Care (DC) Add. Discharge Instructions: Go from the ER directly to wound care to be seen by Dr. Muhammad. Follow-up to primary care doctor in the next week. All discharge instructions reviewed with patient and/or family. Voiced understanding. Copy Copies To 1: VIJAY CHAVIRA MD, TITUS J Nov 28, 2017 14:37
[2017-11-28 15:00] VITALS: BP 171/73
== END 2017-11-28 15:00 | disposition home or self-care (01) ==
LOC: EDUNIT# 14:04 → ER 14:05
DX: E11.621 Type 2 diabetes mellitus with foot ulcer (principal); L97.518 Non-pressure chronic ulcer of other part of right foot with other specified severity; I25.10 Atherosclerotic heart disease of native coronary artery without angina pectoris; I10 Essential (primary) hypertension; Z85.46 Personal history of malignant neoplasm of prostate; Z80.0 Family history of malignant neoplasm of digestive organs; Z87.448 Personal history of other diseases of urinary system; Z95.1 Presence of aortocoronary bypass graft; Z87.891 Personal history of nicotine dependence; Z98.890 Other specified postprocedural states; Z87.01 Personal history of pneumonia (recurrent); Z98.1 Arthrodesis status; Z79.82 Long term (current) use of aspirin; Z79.84 Long term (current) use of oral hypoglycemic drugs
CPT/HCPCS: 82962; 99213

== ENCOUNTER → 2017-11-28 | Outpatient (CLI) | payer MEDICARE ==
[~2017-11-28] MED LIST changes: +AMLO10TA6 PO; +ASPI-983 PO; +CIPR-225 PO; +METF-399 PO; -METF1000 PO; +OMEG-160 PO; +OMEG-33 PO; +SIMV40TA4 PO
== END ==
LOC: WOUNDCARE 15:03
PROVIDERS: ATTEND Surgery
DX: E11.621 Type 2 diabetes mellitus with foot ulcer (principal); I70.235 Atherosclerosis of native arteries of right leg with ulceration of other part of foot; L97.511 Non-pressure chronic ulcer of other part of right foot limited to breakdown of skin; E11.42 Type 2 diabetes mellitus with diabetic polyneuropathy; T65.222A Toxic effect of tobacco cigarettes, intentional self-harm, initial encounter; B36.9 Superficial mycosis, unspecified
CPT/HCPCS: 99213

== ENCOUNTER → 2017-12-05 | Outpatient (CLI) | payer MEDICARE | LOC: WOUNDCARE 14:11 | PROVIDERS: ATTEND Surgery | DX: E11.621 Type 2 diabetes mellitus with foot ulcer (principal); I70.235 Atherosclerosis of native arteries of right leg with ulceration of other part of foot; L97.511 Non-pressure chronic ulcer of other part of right foot limited to breakdown of skin; E11.42 Type 2 diabetes mellitus with diabetic polyneuropathy; T65.222A Toxic effect of tobacco cigarettes, intentional self-harm, initial encounter; B36.9 Superficial mycosis, unspecified | CPT/HCPCS: 99212 ==

== ENCOUNTER → 2017-12-12 | Outpatient (CLI) | payer MEDICARE | LOC: WOUNDCARE 14:16 | PROVIDERS: ATTEND Surgery | DX: E11.621 Type 2 diabetes mellitus with foot ulcer (principal); I70.235 Atherosclerosis of native arteries of right leg with ulceration of other part of foot; L97.511 Non-pressure chronic ulcer of other part of right foot limited to breakdown of skin; E11.42 Type 2 diabetes mellitus with diabetic polyneuropathy; T65.222A Toxic effect of tobacco cigarettes, intentional self-harm, initial encounter; R36.9 Urethral discharge, unspecified | CPT/HCPCS: 99212 ==

== ENCOUNTER → 2017-12-24 | Outpatient (CLI) | payer MEDICARE | LOC: WOUNDCARE 14:13 | PROVIDERS: ATTEND Surgery | DX: E11.621 Type 2 diabetes mellitus with foot ulcer (principal); I70.235 Atherosclerosis of native arteries of right leg with ulceration of other part of foot; L97.511 Non-pressure chronic ulcer of other part of right foot limited to breakdown of skin; E11.42 Type 2 diabetes mellitus with diabetic polyneuropathy; T65.222A Toxic effect of tobacco cigarettes, intentional self-harm, initial encounter; B36.9 Superficial mycosis, unspecified | CPT/HCPCS: 99213 ==

== ENCOUNTER → 2017-12-31 | Outpatient (CLI) | payer MEDICARE | LOC: WOUNDCARE 14:15 | PROVIDERS: ATTEND Surgery | DX: B36.9 Superficial mycosis, unspecified (principal); I70.235 Atherosclerosis of native arteries of right leg with ulceration of other part of foot; B35.3 Tinea pedis; E11.42 Type 2 diabetes mellitus with diabetic polyneuropathy; T65.222A Toxic effect of tobacco cigarettes, intentional self-harm, initial encounter | CPT/HCPCS: 99212 ==

== ENCOUNTER → 2018-01-07 | Outpatient (CLI) | payer MEDICARE | LOC: WOUNDCARE 14:21 | PROVIDERS: ATTEND Surgery | DX: B36.9 Superficial mycosis, unspecified (principal); B35.3 Tinea pedis; E11.42 Type 2 diabetes mellitus with diabetic polyneuropathy; I70.235 Atherosclerosis of native arteries of right leg with ulceration of other part of foot; T65.222A Toxic effect of tobacco cigarettes, intentional self-harm, initial encounter | CPT/HCPCS: 99212 ==

== ENCOUNTER → 2018-01-14 | Outpatient (CLI) | payer MEDICARE | LOC: WOUNDCARE 13:56 | PROVIDERS: ATTEND Surgery | DX: B36.9 Superficial mycosis, unspecified (principal); B35.3 Tinea pedis; E11.42 Type 2 diabetes mellitus with diabetic polyneuropathy; I70.235 Atherosclerosis of native arteries of right leg with ulceration of other part of foot; T65.222A Toxic effect of tobacco cigarettes, intentional self-harm, initial encounter | CPT/HCPCS: 99212 ==

== ENCOUNTER → 2019-04-08 | Outpatient (CLI) | payer MEDICARE ==
[~2019-04-08] VITALS: Ht 172 cm; Wt 81.0 kg
[~2019-04-08] MED LIST changes: -AMLO10TA6 PO; +AMLO10TA7 PO; +REGADENOSON 0.4 MG/5 ML SYR (LEXISCAN) IV ONE; +SIMV40TA25 PO; -SIMV40TA4 PO
[2019-04-08] MEDS: CATHETER FLUSH 10 ML SYR IV PRN ×2 (07:54→09:17)
[2019-04-08 09:15] VITALS: BP 163/69
--- NOTE | 2019-04-08 15:10 | STRESS TEST ---
DATE OF SERVICE: 04/08/2019 RESTING AND POST REGADENOSON TECHNETIUM-99M TETROFOSMIN SPECT CT IMAGING ORDERING PHYSICIAN: Dr. Mccoy. PRIMARY PHYSICIAN: Dr. Chavira. CLINICAL DIAGNOSES: Coronary artery disease, hypertension, hyperlipidemia, tobacco use. Baseline images were carried out after injection of 10.93 mCi of technetium-99m Tetrofosmin. This was followed by 0.4 mg regadenoson and 32.9 mCi of technetium-99 Tetrofosmin for stress imaging. The electrocardiogram showed sinus rhythm at baseline. It did not change significantly with the regadenoson infusion. The patient tolerated the procedure well. Review of images at rest and following stress does not indicate significant perfusion defects consistent with myocardial ischemia or infarction. Gated images show normal global left ventricular systolic function with normal regional wall motion. Left ventricular ejection fraction is calculated to be 72%. Left ventricular end diastolic volume is 47 mL. TID is absent (0.82). CONCLUSIONS: 1. No evidence of any significant myocardial ischemia or infarction on this study. 2. Normal regional wall motion. 3. Normal global left ventricular systolic function with a calculated ejection fraction of 72%. Job ID: [id number] DocumentID: [id number] Dictated Date: 04/08/2019 12:51:42 Asphalt Paving Supervisor Date: 04/08/2019 15:09:37 Dictated By: IVY MCCOY MD, MA, FACP, FACC,
== END ==
LOC: CARD 07:35
PROVIDERS: ATTEND Internal Medicine Cardiovascular Disease
DX: I25.10 Atherosclerotic heart disease of native coronary artery without angina pectoris (principal); I77.89 Other specified disorders of arteries and arterioles; I10 Essential (primary) hypertension; E78.5 Hyperlipidemia, unspecified; Z72.0 Tobacco use
CPT/HCPCS: 78452; 93017

== ENCOUNTER 2019-10-07 05:43 | Outpatient (RCR) | payer MEDICARE ==
[~2019-10-07] VITALS: Ht 170.2 cm; Wt 84.1 kg
[~2019-10-07 05:43] MED LIST changes: -REGADENOSON 0.4 MG/5 ML SYR (LEXISCAN) IV ONE
[2019-10-07] MEDS ORDERED: SITA1TBM7 PO (10:57)
== END 2019-10-07 11:00 | disposition home or self-care (01) ==
LOC: PREOP 05:43
PROVIDERS: ATTEND Specialist
DX: Z01.812 Encounter for preprocedural laboratory examination (principal); H26.9 Unspecified cataract; Z20.828 Contact with and (suspected) exposure to other viral communicable diseases
CPT/HCPCS: 87635

== ENCOUNTER 2019-10-10 07:31 | Day surgery (SDC) | payer MEDICARE ==
[~2019-10-10] VITALS: Ht 170.2 cm; Wt 84.1 kg
[~2019-10-10 07:31] MED LIST changes: +SITA1TBM7 PO
--- OUTSIDE RECORDS SUMMARY | 2019-10-10 07:42 | XMS REPORT | CCD ---
Author Author Ahsan Hairston D.O. Organization [facility] Address [address] [place] [address] Phone Care Team Providers Care Director Women Name Role Phone PP Unavailable CCM Unavailable Summary Purpose Interface Exchange Insurance Providers Payer name Policy type / Coverage type Covered democrat ID Effective Begin Date Effective End Date [employer] Medicare Part B [id number] 2019 Unknown Family History Family History data not found Social History Social History Element Codes Description Effective Dates Marital status Unknown 06/09/2019 Number of children Unknown 3 06/09/2019 Employment Unknown Retired 06/09/[address]: 5434092 Former smoker quit 10-11 years ago 06/09/[address]: 669969700 Never drinks alcohol 2019 Has the patient ever used illegal drugs? Unknown Has nev er used illegal drugs 06/09/2019 Allergies, Adverse Reactions, Alerts Substance Reaction Codes Entered Date Inactivated Date Status * NO KNOWN FOOD ALLERGIES Unknown 06/09/2019 No Inactiv e Date Active * NO KNOWN ENVIRONMENTAL ALLERGIES Unknown 06/09/2019 N o Inactive Date Active * NO KNOWN DRUG ALLERGIES Unknown 06/09/2019 No Inactiv e Date Active Problems Condition Codes Effective Dates Condition Status Hypertension Unknown 06/09/2019 Active Diabetes mellitus type II, controlled ICD-9: 250.00 ICD-10: E11.9 06/09/2019 Active Essential hypertension ICD-9: 401.9 ICD-10: I10 06/09/2019 Active Medications Medication Codes Instructions Start Date Stop Date Status Fill Instructions glipizide 10 mg tablet RxNorm: 501705 TAKE ONE TABLET BY MOUTH HUGH Y 09/04/2019 No Stop Date Active amlodipine 10 mg tablet RxNorm: 710597 1 Tablet(s) Oral QD 06/17/19 20 12/14/2019 Active lisinopril 40 mg tablet RxNorm: 786711 1 Tablet(s) Oral QD 06/09/19 20 No Stop Date Active Janumet XR 100 mg-1,000 mg tablet,extended release RxNorm: 1 540609 1 Tablet(s) Oral QD 06/09/2019 09/07/2019 Active simvastatin 40 mg tablet RxNorm: 500393 1 Tablet(s) Oral QD 020 No Stop Date Active aspirin 81 mg tablet,delayed release RxNorm: 593022 1 Tablet(s) Oral QD 06/09/2019 No Stop Date Active Fish Oil 150 mg-217 mg-840 mg capsule,delayed release RxNorm : 1 Capsule(s) Oral QD 06/09/2019 No Stop Date Active Janumet XR 100 mg-1,000 mg tablet,extended release RxNorm: 1 152152 1 Tablet(s) Oral QD 06/09/2019 06/08/2019 Inactive glipizide 10 mg tablet RxNorm: 977776 1 Tablet(s) Oral QD 06/09/2019 06/09/2019 Inactive glipizide 10 mg tablet RxNorm: 724930 1 Tablet(s) Oral QD 06/09/2019 06/08/2019 Inactive amlodipine 10 mg tablet RxNorm: 913323 1 Tablet(s) Oral QD 06/09/19 20 06/16/2019 Inactive Medication Administered No Medication Administered data Immunizations No Immunization data Results No Results data Procedures No Procedures data Vital Signs No Vital signs data Functional Status No Functional Status data Reason For Visit Reason For Visit Effective Dates Notes ~generic 06/09/2019 New Patient--zaynab neil visit Encounters Encounter Performer Location Codes Date () OFFICE/OUTPATIENT VISIT NEW Diagnosis: Diabetes mellitus type II, controlled[ICD10: E11.9] Diagnosis: Essential hypertension[ICD10: I10] Dinora Hairston [facility] CPT-4: 60861 06/09/2019 Plan of Care Planned Activity Notes Codes Status Date Visit Diagnosis Plan: Diabetes mellitus type II, contr olled Discussion: Refilled Janumet and Glipizide Instructed to do accuchecks daily Will hopefully get lab done in 2-3mos then fwup but informed him that he should call with any concerns He is doing social distancing so does not want to get out to the lab ICD-9 : 250.00 ICD-10 : E11.9 06/09/2019 Appointment: [facility]irst[facility] [phone] [id number] [facility] 06/09/2019 Instructions No Instructions Medical Equipment No Medical Equipment data Health Concerns Section Health Concerns data not found Goals Section Goals data not found Interventions Section Interventions data not found Health Status Evaluations/Outcomes Section Health Status Evaluations/Outcomes data not found Advance Directives No Advance Directive data
--- OUTSIDE RECORDS SUMMARY | 2019-10-10 07:42 | XMS REPORT | CCD ---
Author Author Ahsan Hairston D.O. Organization [facility] DO [facility] Address [address] [place] [address] Phone Care Team Providers Care Director Of Content Marketing Name Role Phone PP Unavailable CCM Unavailable Summary Purpose Interface Exchange Insurance Providers Payer name Policy type / Coverage type Covered republican ID Effective Begin Date Effective End Date [employer] Medicare Part B [id number] 2019 Unknown Family History Family History data not found Social History Social History Element Codes Description Effective Dates Marital status Unknown 06/09/2019 Number of children Unknown 3 06/09/2019 Employment Unknown Retired 06/09/[address]: 2453958 Former smoker quit 10-11 years ago 06/09/[address]: 647369541 Never drinks alcohol 2019 Has the patient [...] Start Date Stop Date Status Fill Instructions amlodipine 10 mg tablet RxNorm: 483924 1 Tablet(s) Oral QD 06/17/19 20 12/14/2019 Active lisinopril 40 mg tablet RxNorm: 173797 1 Tablet(s) Oral QD 06/09/19 20 No Stop Date Active Janumet XR 100 mg-1,000 mg tablet,extended release RxNorm: 1 173280 1 Tablet(s) Oral QD 06/09/2019 09/07/2019 Active glipizide 10 mg tablet RxNorm: 843314 1 Tablet(s) Oral QD 06/09/2019 06/09/2019 Inactive simvastatin 40 mg tablet RxNorm: 181975 1 Tablet(s) Oral QD 020 No Stop Date Active aspirin 81 mg tablet,delayed release RxNorm: 882632 1 Tablet(s) Oral QD 06/09/2019 No Stop Date Active Fish Oil 150 mg-217 mg-840 mg capsule,delayed release RxNorm : 1 Capsule(s) Oral QD 06/09/2019 No Stop Date Active Janumet XR 100 mg-1,000 mg tablet,extended release RxNorm: 1 281309 1 Tablet(s) Oral QD 06/09/2019 06/08/2019 Inactive glipizide 10 mg tablet RxNorm: 936895 1 Tablet(s) Oral QD 06/09/2019 06/08/2019 Inactive amlodipine 10 mg tablet RxNorm: 542396 1 Tablet(s) Oral QD 06/09/19 20 06/16/2019 [...] II, controlled[ICD10: E11.9] Diagnosis: Essential hypertension[ICD10: I10] Tri Hairston [facility] CPT-4: 68173 06/09/2019 Plan of Care Planned Activity Notes [...] : 250.00 ICD-10 : E11.9 06/09/2019 Appointment: [facility] Hairston [facility]Ptel: [phone] [id number] [facility] 06/09/2019 Instructions No Instructions Medical Equipment No Medical Equipment data Health Concerns Section Health Concerns data not found Goals Section Goals data not found Interventions Section Interventions data not found Health Status Evaluations/Outcomes Section Health Status Evaluations/Outcomes data not found Advance Directives No Advance Directive data
--- OUTSIDE RECORDS SUMMARY | 2019-10-10 07:42 | XMS REPORT | CCD ---
Author Author Ahsan Hairston D.O. Organization [facility] Address [address] [place] [address] Phone Care Team Providers Care Wharf Operator Name Role Phone PP Unavailable CCM Unavailable Summary Purpose Interface Exchange Insurance Providers Payer name Policy type / Coverage type Covered republican ID Effective Begin Date Effective End Date [employer] [place]IC[place] Medicare Part B [id number] 2019 Unknown [employer] Medicare Part B [id number] 2019 Unknown Family History Family History data not found Social History Social History Element Codes Description Effective Dates Marital status Unknown 06/09/2019 Number of children Unknown 3 06/09/2019 Employment Unknown Retired 06/09/[address]: 4785326 Former smoker quit 10-11 years ago 06/09/[address]: 659771432 Never drinks alcohol 2019 Has the patient [...] Start Date Stop Date Status Fill Instructions lisinopril 40 mg tablet RxNorm: 609249 1 Tablet(s) Oral QD 06/09/19 20 No Stop Date Active Janumet XR 100 mg-1,000 mg tablet,extended release RxNorm: 1 164145 1 Tablet(s) Oral QD 06/09/2019 09/07/2019 Active glipizide 10 mg tablet RxNorm: 658001 1 Tablet(s) Oral QD 06/09/2019 06/09/2019 Inactive simvastatin 40 mg tablet RxNorm: 587233 1 Tablet(s) Oral QD 020 No Stop Date Active aspirin 81 mg tablet,delayed release RxNorm: 249638 1 Tablet(s) Oral QD 06/09/2019 No Stop Date Active Fish Oil 150 mg-217 mg-840 mg capsule,delayed release RxNorm : 1 Capsule(s) Oral QD 06/09/2019 No Stop Date Active amlodipine 10 mg tablet RxNorm: 443243 1 Tablet(s) Oral QD 06/09/19 20 No Stop Date Active Janumet XR 100 mg-1,000 mg tablet,extended release RxNorm: 1 862429 1 Tablet(s) Oral QD 06/09/2019 06/08/2019 Inactive glipizide 10 mg tablet RxNorm: 033324 1 Tablet(s) Oral QD 06/09/2019 06/08/2019 Inactive Medication Administered No Medication Administered data [...] E11.9] Diagnosis: Essential hypertension[ICD10: I10] Tri Hairston [facility] CPT-4: 19392 06/09/2019 Plan of Care Planned Activity Notes [...] ICD-9 : 250.00 ICD-10 : E11.9 06/09/2019 Instructions No Instructions Medical Equipment No Medical Equipment data Health Concerns Section Health Concerns data not found Goals Section Goals data not found Interventions Section Interventions data not found Health Status Evaluations/Outcomes Section Health Status Evaluations/Outcomes data not found Advance Directives No Advance Directive data
--- OUTSIDE RECORDS SUMMARY | 2019-10-10 07:42 | XMS REPORT | CCD ---
Author Author Ahsan Hairston D.O. Organization [facility] Address [address] [place] [address] Phone Care Team Providers Care Braille And Talking Books Clerk Name Role Phone PP Unavailable CCM Unavailable Summary Purpose Interface Exchange Insurance Providers Payer name Policy type / Coverage type Covered constitution party ID Effective Begin Date Effective End Date [employer] [place] Medicare Part B [id number] 2019 Unknown [employer] Medicare Part B [id number] 2019 Unknown Family History Family History data not found Social History Social History Element Codes Description Effective Dates Marital status Unknown 06/09/2019 Number of children Unknown 3 06/09/2019 Employment Unknown Retired 06/09/[address]: 1109724 Former smoker quit 10-11 years ago 06/09/[address]: 018675787 Never drinks alcohol 2019 Has the patient [...] Fill Instructions lisinopril 40 mg tablet RxNorm: 644094 1 Tablet(s) Oral QD 06/09/19 20 No Stop Date Active Janumet XR 100 mg-1,000 mg tablet,extended release RxNorm: 1 780800 1 Tablet(s) Oral QD 06/09/2019 09/07/2019 Active glipizide 10 mg tablet RxNorm: 349347 1 Tablet(s) Oral QD 06/09/2019 06/09/2019 Inactive simvastatin 40 mg tablet RxNorm: 124124 1 Tablet(s) Oral QD 020 No Stop Date Active aspirin 81 mg tablet,delayed release RxNorm: 362210 1 Tablet(s) Oral QD 06/09/2019 No Stop Date Active Fish Oil 150 mg-217 mg-840 mg capsule,delayed release RxNorm : 1 Capsule(s) Oral QD 06/09/2019 No Stop Date Active amlodipine 10 mg tablet RxNorm: 623863 1 Tablet(s) Oral QD 06/09/19 20 No Stop Date Active Janumet XR 100 mg-1,000 mg tablet,extended release RxNorm: 1 251702 1 Tablet(s) Oral QD 06/09/2019 06/08/2019 Inactive glipizide 10 mg tablet RxNorm: 125419 1 Tablet(s) Oral QD 06/09/2019 06/08/2019 Inactive [...] E11.9] Diagnosis: Essential hypertension[ICD10: I10] Tri Hairston [facility] CPT-4: 37984 06/09/2019 Plan of Care Planned Activity Notes [...]
--- OUTSIDE RECORDS SUMMARY | 2019-10-10 07:43 | XMS REPORT | Continuity of Care Document ---
Author Organization Unknown Address Unknown Phone Unavailable Allergies Active Description Code Type Severity Reaction Onset Reported/Identified Relationship to Patient Clinical Status Yes No Known Drug Allergies [id number] Drug Allergy Unknown N/A 09/15/2008 Medications There [...] V58.66 04/24/2010 Ot V58.69 07/21/2010 Ot 708.9 URTI CARIA NOS 07/21/2010 Ot 782.1 NONS PECIF SKIN ERUPT NEC 08/28/2010 Ot 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 08/28/2010 Ot 250.00 BRENDA B ELEANOR WO COMPL, TYPE II OR UNSPEC TY 08/28/2010 Ot 272.4 HYPE RLIPIDEMIA NEC/NOS 08/28/2010 Ot 401.9 HYPE RTENSION NOS 08/28/2010 Ot 596.54 AGATA ROGENIC BLADDER, NOT OTHERWISE SPECIF 08/28/2010 Ot V44.50 CYS TOSTOMY STATUS, NOS 08/28/2010 Ot V45.81 AOR TOCORONARY BYPASS 08/28/2010 Ot V58.66 KARY G-TERM (CURRENT) USE OF ASPIRIN 08/28/2010 Ot V58.69 OTH MED,LT,CURRENT USE 05/02/2011 Ot 595.9 CYST ITIS NOS 05/02/2011 Ot 599.70 HEM ATURIA, UNSPECIFIED 08/15/2011 Ot 250.00 BRENDA B ELEANOR WO COMPL, TYPE II OR UNSPEC TY 08/15/2011 Ot 596.54 AGATA ROGENIC BLADDER, NOT OTHERWISE SPECIF 08/15/2011 Ot 788.20 RET ENTION OF URINE NOS 03/10/2013 BERTA DELANEY GUITAR REPAIRER Ot V53 .6 FITTING URINARY DEVICES 11/28/2013 BERTA DELANEY GUITAR REPAIRER Ot 599 .0 URIN TRACT INFECTION NOS 11/28/2013 BERTA DELANEY GUITAR REPAIRER Ot 788.41 URINARY FREQUENCY 11/28/2013 BERTA DELANEY GUITAR REPAIRER Ot 996.76 OTH COMP DUE TO GENITOURINARY [...] Ot V58.69 03/23/2014 Ot 433.10 03/23/2014 PRASAD TARIQP Ot 414.00 03/23/2014 PRASAD TARIQP Ot V45.81 [...] Ot V58.69 03/23/2014 Ot 433.10 03/23/2014 PRASAD TARIQP Ot 414.00 03/23/2014 PRASAD TARIQP Ot V45.81 07/27/2014 Ot 414.8 07/27/2014 Ot [...] Ot V58.69 07/27/2014 Ot 433.10 07/27/2014 PRASAD TARIQP Ot 414.00 07/27/2014 PRASAD TARIQP Ot V45.81 11/21/2015 Ot 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 11/21/2015 Ot 596.54 AGATA ROGENIC BLADDER, NOT OTHERWISE SPECIF 11/21/2015 Ot 788.30 UNS PECIFIED URINARY INCONTINENCE 11/21/2015 Ot 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 11/21/2015 Ot 250.00 BRENDA B ELEANOR WO COMPL, TYPE II OR UNSPEC TY 11/21/2015 Ot 272.4 HYPE RLIPIDEMIA NEC/NOS 11/21/2015 Ot 401.9 HYPE RTENSION NOS 11/21/2015 Ot 596.54 AGATA ROGENIC BLADDER, NOT OTHERWISE SPECIF 11/21/2015 Ot V44.50 CYS TOSTOMY STATUS, NOS 11/21/2015 Ot V45.81 AOR TOCORONARY BYPASS 11/21/2015 Ot V58.66 KARY G-TERM (CURRENT) USE OF ASPIRIN 11/21/2015 Ot V58.69 OTH MED,LT,CURRENT USE 11/21/2015 Ot 433.10 CAR OTID ARTERY OCCLUSION W O CEREBRAL IN 11/21/2015 PRASAD TARIQ 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 Ot 414.00 CORON ATHEROSCLER NOS TYPE VESSEL, NATIV 11/21/2015 PRASAD TARIQ 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 Ot V45.81 AORTOCORONARY BYPASS 11/21/2015 Ot 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 11/21/2015 Ot 596.54 AGATA ROGENIC BLADDER, NOT OTHERWISE SPECIF 11/21/2015 Ot 788.30 UNS PECIFIED URINARY INCONTINENCE 11/21/2015 Ot 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 11/21/2015 Ot 250.00 BRENDA B ELEANOR WO COMPL, TYPE II OR UNSPEC TY 11/21/2015 Ot 272.4 HYPE RLIPIDEMIA NEC/NOS 11/21/2015 Ot 401.9 HYPE RTENSION NOS 11/21/2015 Ot 596.54 AGATA ROGENIC BLADDER, NOT OTHERWISE SPECIF 11/21/2015 Ot V44.50 CYS TOSTOMY STATUS, NOS 11/21/2015 Ot V45.81 AOR TOCORONARY BYPASS 11/21/2015 Ot V58.66 KARY G-TERM (CURRENT) USE OF ASPIRIN 11/21/2015 Ot V58.69 OTH MED,LT,CURRENT USE 11/21/2015 Ot 433.10 CAR OTID ARTERY OCCLUSION W O CEREBRAL IN 11/21/2015 PRASAD TARIQ 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 Ot 414.00 CORON ATHEROSCLER NOS TYPE VESSEL, NATIV 11/21/2015 PRASAD TARIQ 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 Ot V45.81 AORTOCORONARY BYPASS 11/24/2015 AIDEN BRITO, VIJAY R Ot A41. 50 GRAM-NEGATIVE SEPSIS, UNSPECIFIED 11/24/2015 VIJAY WOLFE MD Ot A41. 81 SEPSIS DUE TO ENTEROCOCCUS 11/24/2015 VIJAY WOLFE MD Ot A41. 89 OTHER SPECIFIED SEPSIS 11/24/2015 VIJAY WOLFE MD Ot B96. 4 PROTEUS (MIRABILIS) (MORGANII) CAUSING D 11/24/2015 VIJAY WOLFE MD Ot E11. 9 TYPE 2 DIABETES MELLITUS WITHOUT COMPLIC 11/24/2015 VIJAY WOLFE MD Ot F17.210 NICOTINE DEPENDENCE, CIGARETTES, UNCOMPL 11/24/2015 VIJAY WOLFE MD Ot F17.290 NICOTINE DEPENDENCE, OTHER TOBACCO PRODU 11/24/2015 VIJAY WOLFE MD Ot H91. 90 UNSPECIFIED HEARING LOSS, UNSPECIFIED EA 11/24/2015 VIJAY WOLFE MD Ot I10 ESSENTIAL (PRIMARY) HYPERTENSION 11/24/2015 VIJAY WOLFE MD Ot I25. 10 ATHSCL HEART DISEASE OF [place] CORONARY 11/24/2015 VIJAY WOLFE MD Ot N39. 0 URINARY TRACT INFECTION, SITE NOT SPECIF 11/24/2015 VIJAY WOLFE MD Ot T83.51XA INFECT/INFLM REACTION DUE TO INDWELL URI 11/24/2015 VIJAY WOLFE MD Ot Z91. 81 HISTORY OF FALLING 11/24/2015 VJIAY WOLFE MD Ot Z95. 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 01/07/2016 Ot 250.00 BRENDA B ELEANOR WO COMPL, TYPE II OR UNSPEC TY 01/07/2016 Ot 272.4 HYPE RLIPIDEMIA NEC/NOS 01/07/2016 Ot 401.9 HYPE RTENSION NOS 01/07/2016 Ot 596.54 AGATA ROGENIC BLADDER, NOT OTHERWISE SPECIF 01/07/2016 Ot V44.50 CYS TOSTOMY STATUS, NOS 01/07/2016 Ot V45.81 AOR TOCORONARY BYPASS 01/07/2016 Ot V58.66 KARY G-TERM (CURRENT) USE OF ASPIRIN 01/07/2016 Ot V58.69 OTH MED,LT,CURRENT USE 01/07/2016 Ot 433.10 CAR OTID ARTERY OCCLUSION W O CEREBRAL IN 01/07/2016 CHANDNI PRASAD L 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 Ot 414.00 CORON ATHEROSCLER NOS TYPE VESSEL, NATIV 01/07/2016 ZA TARIQHER L 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 Ot V45.81 AORTOCORONARY BYPASS 07/06/2016 Ot 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 07/06/2016 Ot 596.54 AGATA ROGENIC BLADDER, NOT OTHERWISE SPECIF 07/06/2016 Ot 788.30 UNS PECIFIED URINARY INCONTINENCE 07/06/2016 ZA TARIQHER L 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 Ot 414.00 CORON ATHEROSCLER NOS TYPE VESSEL, NATIV 07/06/2016 ZA TARIQHER L 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 Ot V45.81 AORTOCORONARY BYPASS 07/11/2016 Ot 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 07/11/2016 Ot 596.54 AGATA ROGENIC BLADDER, NOT OTHERWISE SPECIF 07/11/2016 Ot 788.30 UNS PECIFIED URINARY INCONTINENCE 07/11/2016 PRASAD TARIQ L 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 Ot 414.00 CORON ATHEROSCLER NOS TYPE VESSEL, NATIV 07/11/2016 ZA TARIQHER L 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 Ot V45.81 AORTOCORONARY BYPASS 07/12/2016 Ot 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 07/12/2016 Ot 596.54 AGATA ROGENIC BLADDER, NOT OTHERWISE SPECIF 07/12/2016 Ot 788.30 UNS PECIFIED URINARY INCONTINENCE 07/12/2016 PRASAD TARIQ L 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 Ot 414.00 CORON ATHEROSCLER NOS TYPE VESSEL, NATIV 07/12/2016 PRASAD TARIQ L 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 Ot V45.81 AORTOCORONARY BYPASS 07/17/2016 PRASAD TARIQ 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 Ot I25.10 ATHSCL HEART DISEASE OF [place] CORONARY 07/20/2016 PRASAD TARIQ L 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 Ot I25.10 ATHSCL HEART DISEASE OF [place] CORONARY 07/24/2016 PRASAD TARIQ L 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 Ot E78.4 OTHER HYPERLIPIDEMIA 07/24/2016 PRASAD TARIQ L 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 Ot I 10 ESSENTIAL (PRIMARY) HYPERTENSION 07/24/2016 PRASAD TARIQ L 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 Ot I25.10 ATHSCL HEART DISEASE OF [place] CORONARY 07/24/2016 PRASAD TARIQ L 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 Ot I65.23 OCCLUSION AND STENOSIS OF BILATERAL [place]AM[place] 07/24/2016 PRASAD TARIQ L 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 Ot Z72.0 TOBACCO USE 07/27/2016 BAIMA, PRASAD L 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 Ot E78.4 OTHER HYPERLIPIDEMIA 07/27/2016 BAIMA, PRASAD L 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 Ot I 10 ESSENTIAL (PRIMARY) HYPERTENSION 07/27/2016 BAIMA, PRASAD L 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 Ot I25.10 ATHSCL HEART DISEASE OF [place] CORONARY 07/27/2016 BAIMA, PRASAD L 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 Ot I65.23 OCCLUSION AND STENOSIS OF [place] 07/27/2016 BAIMA, PRASAD L 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 Ot Z72.0 TOBACCO USE 08/09/2016 BAIMA, PRASAD L 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 Ot E78.4 OTHER HYPERLIPIDEMIA 08/09/2016 BAIMA, PRASAD L 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 Ot I 10 ESSENTIAL (PRIMARY) HYPERTENSION 08/09/2016 BAIMA, PRASAD L 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 Ot I25.10 ATHSCL HEART DISEASE OF [place] CORONARY 08/09/2016 BAIMA, PRASAD L 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 Ot I65.23 OCCLUSION AND STENOSIS OF [place] 08/09/2016 BAIMA, PRASAD L 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 Ot Z72.0 TOBACCO USE 08/11/2016 BAIMA, PRASAD L 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 Ot E78.4 OTHER HYPERLIPIDEMIA 08/11/2016 BAIMA, PRASAD L 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 Ot I 10 ESSENTIAL (PRIMARY) HYPERTENSION 08/11/2016 BAIMA, PRASAD L 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 Ot I25.10 ATHSCL HEART DISEASE OF [place] CORONARY 08/11/2016 BAIMA, PRASAD L 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 Ot I65.23 OCCLUSION AND STENOSIS OF [place] 08/11/2016 BAIMA, PRASAD L 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 Ot Z72.0 TOBACCO USE 08/15/2016 Ot 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 08/15/2016 Ot 596.54 AGATA ROGENIC BLADDER, NOT OTHERWISE SPECIF 08/15/2016 Ot 788.30 UNS PECIFIED URINARY INCONTINENCE 08/15/2016 BABAKMA, PRASAD L 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 Ot 414.00 CORON ATHEROSCLER NOS TYPE VESSEL, NATIV 08/15/2016 BABAKMA, PRASAD L 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 Ot V45.81 AORTOCORONARY BYPASS 08/15/2016 BAIMA, PRASAD L 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 Ot E78.4 OTHER HYPERLIPIDEMIA 08/15/2016 BAIMA, PRASAD L 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 Ot I 10 ESSENTIAL (PRIMARY) HYPERTENSION 08/15/2016 BAIMA, PRASAD L 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 Ot I25.10 ATHSCL HEART DISEASE OF [place] CORONARY 08/15/2016 BAIMA, PRASAD L 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 Ot I65.23 OCCLUSION AND STENOSIS OF [place] 08/15/2016 PRASAD TARIQ 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 Ot Z72.0 TOBACCO USE 08/15/2016 BAIPRASAD FAGAN L 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 Ot E78.4 OTHER HYPERLIPIDEMIA 08/15/2016 BAIMAPRASAD L 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 Ot I 10 ESSENTIAL (PRIMARY) HYPERTENSION 08/15/2016 PRASAD TARIQ L 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 Ot I25.10 ATHSCL HEART DISEASE OF [place] CORONARY 08/15/2016 PRASAD TARIQ L 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 Ot I65.23 OCCLUSION AND STENOSIS OF [place] 08/15/2016 PRASAD TARIQ 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 Ot Z72.0 TOBACCO USE 03/19/2017 Ot 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 03/19/2017 Ot 596.54 AGATA ROGENIC BLADDER, NOT OTHERWISE SPECIF 03/19/2017 Ot 788.30 UNS PECIFIED URINARY INCONTINENCE 03/19/2017 PRASAD TARIQ L 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 Ot 414.00 CORON ATHEROSCLER NOS TYPE VESSEL, NATIV 03/19/2017 BABAKPRASAD FAGAN 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 Ot V45.81 AORTOCORONARY BYPASS 03/19/2017 PRASAD TARIQ L 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 Ot E78.4 OTHER HYPERLIPIDEMIA 03/19/2017 BAIPRASAD FAGAN L 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 Ot I 10 ESSENTIAL (PRIMARY) HYPERTENSION 03/19/2017 BAIPRASAD FAGAN L 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 Ot I25.10 ATHSCL HEART DISEASE OF [place] CORONARY 03/19/2017 PRASAD TARIQ L 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 Ot I65.23 OCCLUSION AND STENOSIS OF [place] 03/19/2017 PRASAD TARIQ L 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 Ot Z72.0 TOBACCO USE 03/19/2017 BABAKPRASAD FAGAN L 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 Ot E78.4 OTHER HYPERLIPIDEMIA 03/19/2017 PRASAD TARIQ L 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 Ot I 10 ESSENTIAL (PRIMARY) HYPERTENSION 03/19/2017 PRASAD TARIQ L 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 Ot I25.10 ATHSCL HEART DISEASE OF [place] CORONARY 03/19/2017 PRASAD TARIQ L 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 Ot I65.23 OCCLUSION AND STENOSIS OF [place]ATER[place] 03/19/2017 PRASAD TARIQ L 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 Ot Z72.0 TOBACCO USE 03/19/2017 ECTOR BRITO, TIMOTHY De Los Santos Ot A40. 3 SEPSIS DUE TO STREPTOCOCCUS PNEUMONIAE 03/19/2017 ECTOR BRITO, TIMOTHY De Los Santos Ot E11. 9 TYPE 2 DIABETES MELLITUS WITHOUT COMPLIC 03/19/2017 TIMOTHY BARNEY MD Ot I10 ESSENTIAL (PRIMARY) HYPERTENSION 03/19/2017 TIMOTHY BARNEY MD Ot I25. 10 ATHSCL HEART DISEASE OF [place] CORONARY 03/19/2017 TIMOTHY BARNEY MD Ot J02. 9 ACUTE PHARYNGITIS, UNSPECIFIED 03/19/2017 TIMOTHY BARNEY MD Ot J18. 9 PNEUMONIA, UNSPECIFIED ORGANISM 03/19/2017 TIMOTHY BARNEY MD Ot Z79. 82 ARNP (CURRENT) USE OF ASPIRIN 03/19/2017 TIMOTHY BARNEY MD Ot Z79. 84 ARNP (CURRENT) USE OF ORAL HYPOGLYC 03/19/2017 TIMOTHY BARNEY MD Ot Z80. 0 FAMILY HISTORY OF MALIGNANT NEOPLASM OF 03/19/2017 TIMOTHY BARNEY MD Ot Z87.891 PERSONAL HISTORY OF NICOTINE DEPENDENCE 03/19/2017 TIMOTHY BARNEY MD Ot Z95. 1 PRESENCE OF AORTOCORONARY BYPASS GRAFT 03/28/2017 TIMOTHY BARNEY MD Ot A40. 3 SEPSIS DUE TO STREPTOCOCCUS PNEUMONIAE 03/28/2017 TIMOTHY BARNEY MD Ot E11. 9 TYPE 2 DIABETES MELLITUS WITHOUT COMPLIC 03/28/2017 TIMOTHY BARNEY MD Ot I10 ESSENTIAL (PRIMARY) HYPERTENSION 03/28/2017 TIMOTHY BARNEY MD Ot I25. 10 ATHSCL HEART DISEASE OF [place] CORONARY 03/28/2017 TIMOTHY BARNEY MD Ot J02. 9 ACUTE PHARYNGITIS, UNSPECIFIED 03/28/2017 TIMOTHY BARNEY MD Ot J18. 9 PNEUMONIA, UNSPECIFIED ORGANISM 03/28/2017 TIMOTHY BARNEY MD Ot Z79. 82 PRISON (CURRENT) USE OF ASPIRIN 03/28/2017 TIMOTHY BARNEY MD Ot Z79. 84 ARNP (CURRENT) USE OF ORAL HYPOGLYC 03/28/2017 TIMOTHY BARNEY MD Ot Z80. 0 FAMILY HISTORY OF MALIGNANT NEOPLASM OF 03/28/2017 TIMOTHY BARNEY MD Ot Z87.891 PERSONAL HISTORY OF NICOTINE DEPENDENCE 03/28/2017 TIMOTHY BARNEY MD Ot Z95. 1 PRESENCE OF AORTOCORONARY BYPASS GRAFT 04/03/2017 AIDEN BRITO, VIJAY R Ot B96. 5 PSEUDOMONAS (MALLEI) CAUSING DISEASES CL 04/03/2017 VIJAY WOLFE MD Ot E11. 9 TYPE 2 DIABETES MELLITUS WITHOUT COMPLIC 04/03/2017 VIJAY WOLFE MD Ot E86. 0 DEHYDRATION 04/03/2017 VIJAY WOLFE MD R Ot F17.290 NICOTINE DEPENDENCE, OTHER TOBACCO PRODU 04/03/2017 VIJAY WOLFE MD Ot H91. 90 UNSPECIFIED HEARING LOSS, UNSPECIFIED EA 04/03/2017 VIJAY WOLFE MD R Ot I10 ESSENTIAL (PRIMARY) HYPERTENSION 04/03/2017 VIJAY WOLFE MD R Ot I25. 10 ATHSCL HEART DISEASE OF [place] CORONARY 04/03/2017 VIJAY WOLFE MD Ot J10. 00 FLU DUE TO OTH IDENT FLU VIRUS W UNSP TY 04/03/2017 VIJAY WOLFE MD Ot J44. 0 CHRONIC OBSTRUCTIVE PULMON DISEASE W ACU 04/03/2017 VIJAY WOLFE MD Ot N31. 9 NEUROMUSCULAR DYSFUNCTION OF BLADDER, UN 04/03/2017 VIJAY WOLFE MD Ot N39. 0 URINARY TRACT INFECTION, SITE NOT SPECIF 04/03/2017 VIJAY WOLFE MD Ot Z79. 84 PRISON (CURRENT) USE OF ORAL HYPOGLYC 04/03/2017 VIJAY WOLFE MD Ot Z85. 46 PERSONAL HISTORY OF MALIGNANT NEOPLASM O 04/03/2017 VIJAY WOLFE MD Ot Z95. 1 PRESENCE OF AORTOCORONARY BYPASS GRAFT 04/03/2017 VIJAY WOLFE MD Ot Z98. 1 ARTHRODESIS STATUS 04/03/2017 VIJAY WOLFE MD Ot B96. 5 PSEUDOMONAS (MALLEI) CAUSING DISEASES CL 04/03/2017 VIJAY WOLFE MD Ot E11. 9 TYPE 2 DIABETES MELLITUS WITHOUT COMPLIC 04/03/2017 VIJAY WOLFE MD Ot E86. 0 DEHYDRATION 04/03/2017 VIJAY WOLFE MD Ot F17.290 NICOTINE DEPENDENCE, OTHER TOBACCO PRODU 04/03/2017 VIJAY WOLFE MD Ot H91. 90 UNSPECIFIED HEARING LOSS, UNSPECIFIED EA 04/03/2017 VIJAY WOLFE MD Ot I10 ESSENTIAL (PRIMARY) HYPERTENSION 04/03/2017 VIJAY WOLFE MD R Ot I25. 10 ATHSCL HEART DISEASE OF [place] CORONARY 04/03/2017 VIJAY WOLFE MD, Ot J10. 00 FLU DUE TO OTH IDENT FLU VIRUS W UNSP TY 04/03/2017 VIJAY WOLFE MD, Ot J10. 1 FLU DUE TO OTH IDENT INFLUENZA VIRUS W O 04/03/2017 VIJAY WOLFE MD, Ot J44. 0 CHRONIC OBSTRUCTIVE PULMON DISEASE W ACU 04/03/2017 VIJAY WOLFE MD, Ot J44. 9 CHRONIC OBSTRUCTIVE PULMONARY DISEASE, U 04/03/2017 VIJAY WOLFE MD, Ot N31. 9 NEUROMUSCULAR DYSFUNCTION OF BLADDER, UN 04/03/2017 VIJAY WOLFE MD, Ot N39. 0 URINARY TRACT INFECTION, SITE NOT SPECIF 04/03/2017 VIJAY WOLFE MD, Ot R09. 02 HYPOXEMIA 04/03/2017 VIJAY WOLFE MD, Ot R53. 1 WEAKNESS 04/03/2017 VIJAY WOLFE MD, Ot T83.510A I/I REACT D/T CYSTOSTOMY CATHETER, INITI 04/03/2017 VIJAY WOLFE MD, Ot Z79. 84 PRISON (CURRENT) USE OF ORAL HYPOGLYC 04/03/2017 VIJAY WOLFE MD, Ot Z85. 46 PERSONAL HISTORY OF MALIGNANT NEOPLASM O 04/03/2017 VIJYA WOLFE MD, Ot Z87. 01 PERSONAL HISTORY OF PNEUMONIA (RECURRENT 04/03/2017 VIJAY WOLFE MD, Ot Z95. 1 PRESENCE OF AORTOCORONARY BYPASS GRAFT 04/03/2017 VIJAY WOLFE MD, Ot Z98. 1 ARTHRODESIS STATUS 11/28/2017 TIMOTHY BARNEY MD Ot E11.621 TYPE 2 DIABETES MELLITUS WITH FOOT ULCER 11/28/2017 TIMOTHY BARNEY MD Ot I10 ESSENTIAL (PRIMARY) HYPERTENSION 11/28/2017 TIMOTHY BARNEY MD Ot I25. 10 ATHSCL HEART DISEASE OF [place] CORONARY 11/28/2017 TIMOTHY BARNEY MD Ot L97.518 NON-PRS CHRONIC ULCER OTH PRT RIGHT FOOT 11/28/2017 TIMOTHY BARNEY MD Ot Z79. 82 ARNP (CURRENT) USE OF ASPIRIN 11/28/2017 TIMOTHY BARNEY MD Ot Z79. 84 PRISON (CURRENT) USE OF ORAL HYPOGLYC 11/28/2017 TIMOTHY BARNEY MD, Ot Z80. 0 FAMILY HISTORY OF MALIGNANT NEOPLASM OF 11/28/2017 TIMOTHY BARNEY MD, Ot Z85. 46 PERSONAL HISTORY OF MALIGNANT NEOPLASM O 11/28/2017 TIMOTHY BARNEY MD, Ot Z87. 01 PERSONAL HISTORY OF PNEUMONIA (RECURRENT 11/28/2017 TIMOTHY BARNEY MD, Ot Z87.448 PERSONAL HISTORY OF OTHER DISEASES OF [place] 11/28/2017 TIMOTHY BARNEY MD, Ot Z87.891 PERSONAL HISTORY OF NICOTINE DEPENDENCE 11/28/2017 TIMOTHY BARNEY MD, Ot Z95. 1 PRESENCE OF AORTOCORONARY BYPASS GRAFT 11/28/2017 TIMOTHY BARNEY MD, Ot Z98. 1 ARTHRODESIS STATUS 11/28/2017 TIMOTHY BARNEY MD, Ot Z98.890 OTHER SPECIFIED POSTPROCEDURAL STATES 11/29/2017 ANDREW LONGORIA MD, Ot B36 .9 SUPERFICIAL MYCOSIS, UNSPECIFIED 11/29/2017 ANDREW LONGORIA MD Ot E11.42 TYPE 2 DIABETES MELLITUS WITH DIABETIC P 11/29/2017 ANDREW LONGORIA MD, Ot E11.621 TYPE 2 DIABETES MELLITUS WITH FOOT ULCER 11/29/2017 ANDREW LONGORIA MD, Ot I70.235 ATHSCL [place] ARTERIES OF RIGHT LEG W UL 11/29/2017 ANDREW LONGORIA MD, Ot L97.511 NON-PRS CHRONIC ULCER OTH PRT R FOOT POZO 11/29/2017 ANDREW LONGORIA MD, Ot T65.222A TOXIC EFFECT OF TOBACCO CIGARETTES, SELF 11/30/2017 TIMOTHY BARNEY MD Ot E11.621 TYPE 2 DIABETES MELLITUS WITH FOOT ULCER 11/30/2017 TIMOTHY BARNEY MD Ot I10 ESSENTIAL (PRIMARY) HYPERTENSION 11/30/2017 TIMOTHY BARNEY MD Ot I25. 10 ATHSCL HEART DISEASE OF [place] CORONARY 11/30/2017 TIMOTHY BARNEY MD, Ot L97.518 NON-PRS CHRONIC ULCER OTH PRT RIGHT FOOT 11/30/2017 TIMOTHY BARNEY MD Ot Z79. 82 PRISON (CURRENT) USE OF ASPIRIN 11/30/2017 TIMOTHY BARNEY MD Ot Z79. 84 ARNP (CURRENT) USE OF ORAL HYPOGLYC 11/30/2017 TIMOTHY BARNEY MD Ot Z80. 0 FAMILY HISTORY OF MALIGNANT NEOPLASM OF 11/30/2017 TIMOTHY BARNEY MD Ot Z85. 46 PERSONAL HISTORY OF MALIGNANT NEOPLASM O 11/30/2017 TIMOTHY BARNEY MD Ot Z87. 01 PERSONAL HISTORY OF PNEUMONIA (RECURRENT 11/30/2017 TIMOTHY BARNEY MD Ot Z87.448 PERSONAL HISTORY OF OTHER DISEASES OF [place] 11/30/2017 TIMOTHY ABRNEY MD Ot Z87.891 PERSONAL HISTORY OF NICOTINE DEPENDENCE 11/30/2017 TIMOTHY BARNEY MD Ot Z95. 1 PRESENCE OF AORTOCORONARY BYPASS GRAFT 11/30/2017 TIMOTHY BARNEY MD Ot Z98. 1 ARTHRODESIS STATUS 11/30/2017 TIMOTHY BARNEY MD Ot Z98.890 OTHER SPECIFIED POSTPROCEDURAL STATES 12/04/2017 ANDREW LONGORIA MD, Ot B36 .9 SUPERFICIAL MYCOSIS, UNSPECIFIED 12/04/2017 ANDREW LONGORIA MD, Ot E11.42 TYPE 2 DIABETES MELLITUS WITH DIABETIC P 12/04/2017 ANDREW LONGORIA MD, Ot E11.621 TYPE 2 DIABETES MELLITUS WITH FOOT ULCER 12/04/2017 ANDREW LONGORIA MD, Ot I70.235 ATHSCL [place] ARTERIES OF RIGHT LEG W UL 12/04/2017 ANDREW LONGORIA MD, Ot L97.511 NON-PRS CHRONIC ULCER OTH PRT R FOOT POZO 12/04/2017 ANDREW LONGORIA MD, Ot T65.222A TOXIC EFFECT OF TOBACCO CIGARETTES, SELF 12/10/2017 ANDREW LONGORIA MD, Ot B36 .9 SUPERFICIAL MYCOSIS, UNSPECIFIED 12/10/2017 ANDREW LONGORIA MD, Ot E11.42 TYPE 2 DIABETES MELLITUS WITH DIABETIC P 12/10/2017 ANDREW LONGORIA MD, Ot E11.621 TYPE 2 DIABETES MELLITUS WITH FOOT ULCER 12/10/2017 ANDREW LONGORIA MD, Ot I70.235 ATHSCL [place] ARTERIES OF RIGHT LEG W UL 12/10/2017 ANDREW LONGORIA MD, Ot L97.511 NON-PRS CHRONIC ULCER OTH PRT R FOOT POZO 12/10/2017 ANDREW LONGORIA MD, Ot T65.222A TOXIC EFFECT OF TOBACCO CIGARETTES, SELF 12/14/2017 ANDREW LONGORIA MD, Ot E11.42 TYPE 2 DIABETES MELLITUS WITH DIABETIC P 12/14/2017 ANDREW LONGORIA MD, Ot E11.621 TYPE 2 DIABETES MELLITUS WITH FOOT ULCER 12/14/2017 ANDREW LONGORIA MD, Ot I70.235 ATHSCL [place] ARTERIES OF RIGHT LEG W UL 12/14/2017 ANDREW LONGORIA MD, Ot L97.511 NON-PRS CHRONIC ULCER OTH PRT R FOOT POZO 12/14/2017 ANDREW LONGORIA MD Ot R36 .9 URETHRAL DISCHARGE, UNSPECIFIED 12/14/2017 ANDREW LONGORIA MD, Ot T65.222A TOXIC EFFECT OF TOBACCO CIGARETTES, SELF 12/18/2017 ANDREW LONGORIA MD, Ot E11.42 TYPE 2 DIABETES MELLITUS WITH DIABETIC P 12/18/2017 ANDREW LONGORIA MD, Ot E11.621 TYPE 2 DIABETES MELLITUS WITH FOOT ULCER 12/18/2017 ANDREW LONGORIA MD, Ot I70.235 ATHSCL [place] ARTERIES OF RIGHT LEG W UL 12/18/2017 ANDREW LONGORIA MD, Ot L97.511 NON-PRS CHRONIC ULCER OTH PRT R FOOT POZO 12/18/2017 ANDREW LONGORIA MD, Ot R36 .9 URETHRAL DISCHARGE, UNSPECIFIED 12/18/2017 ANDREW LONGORIA MD, Ot T65.222A TOXIC EFFECT OF TOBACCO CIGARETTES, SELF 12/26/2017 ANDREW LONGORIA MD Ot B36 .9 SUPERFICIAL MYCOSIS, UNSPECIFIED 12/26/2017 ANDREW LONGORIA MD, Ot E11.42 TYPE 2 DIABETES MELLITUS WITH DIABETIC P 12/26/2017 ANDREW LONGORIA MD, Ot E11.621 TYPE 2 DIABETES MELLITUS WITH FOOT ULCER 12/26/2017 ANDREW LONGORIA MD Ot I70.235 ATHSCL [place] ARTERIES OF RIGHT LEG W UL 12/26/2017 ANDREW LONGORIA MD, Ot L97.511 NON-PRS CHRONIC ULCER OTH PRT R FOOT POZO 12/26/2017 ANDREW LONGORIA MD Ot T65.222A TOXIC EFFECT OF TOBACCO CIGARETTES, SELF 12/26/2017 ANDREW LONGORIA MD, Ot B36 .9 SUPERFICIAL MYCOSIS, UNSPECIFIED 12/26/2017 ANDREW LONGORIA MD, Ot E11.42 TYPE 2 DIABETES MELLITUS WITH DIABETIC P 12/26/2017 ANDREW LONGORIA MD, Ot E11.621 TYPE 2 DIABETES MELLITUS WITH FOOT ULCER 12/26/2017 ANDREW LONGORIA MD Ot I70.235 ATHSCL [place] ARTERIES OF RIGHT LEG W UL 12/26/2017 ANDREW LONGORIA MD, Ot L97.511 NON-PRS CHRONIC ULCER OTH PRT R FOOT POZO 12/26/2017 ANDREW LONGORIA MD, Ot T65.222A TOXIC EFFECT OF TOBACCO CIGARETTES, SELF 01/01/2018 ANDREW LONGORIA MD, Ot E11.42 TYPE 2 DIABETES MELLITUS WITH DIABETIC P 01/01/2018 ANDREW LONGORIA MD Ot E11.621 TYPE 2 DIABETES MELLITUS WITH FOOT ULCER 01/01/2018 ANDREW LONGORIA MD, Ot I70.235 ATHSCL [place] ARTERIES OF RIGHT LEG W UL 01/01/2018 ANDREW LONGORIA MD, Ot L97.511 NON-PRS CHRONIC ULCER OTH PRT R FOOT POZO 01/01/2018 ANDREW LONGORIA MD, Ot R36 .9 URETHRAL DISCHARGE, UNSPECIFIED 01/01/2018 ANDREW LONGORIA MD, Ot T65.222A TOXIC EFFECT OF TOBACCO CIGARETTES, SELF 01/03/2018 ANDREW LONGORIA MD, Ot B35 .3 TINEA PEDIS 01/03/2018 ANDREW LONGORIA MD, Ot B36 .9 SUPERFICIAL MYCOSIS, UNSPECIFIED 01/03/2018 ANDREW LONGORIA MD, Ot E11.42 TYPE 2 DIABETES MELLITUS WITH DIABETIC P 01/03/2018 ANDREW LONGORIA MD, Ot I70.235 ATHSCL [place] ARTERIES OF RIGHT LEG W UL 01/03/2018 ANDREW LONGORIA MD, Ot T65.222A TOXIC EFFECT OF TOBACCO CIGARETTES, SELF 01/07/2018 Ot 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 01/07/2018 Ot 596.54 AGATA ROGENIC BLADDER, NOT OTHERWISE SPECIF 01/07/2018 Ot 788.30 UNS PECIFIED URINARY INCONTINENCE 01/07/2018 PRASAD TARIQ 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 Ot 414.00 CORON ATHEROSCLER NOS TYPE VESSEL, NATIV 01/07/2018 PRASAD TARIQP Ot V45.81 AORTOCORONARY BYPASS 01/07/2018 PRASAD TARIQP Ot E78.4 OTHER HYPERLIPIDEMIA 01/07/2018 PRASAD TARIQ 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 Ot I 10 ESSENTIAL (PRIMARY) HYPERTENSION 01/07/2018 PRASAD TARIQP Ot I25.10 ATHSCL HEART DISEASE OF [place] CORONARY 01/07/2018 PRASAD TARIQ 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 Ot I65.23 OCCLUSION AND STENOSIS OF BILATERAL [place]AM[place] 01/07/2018 PRASAD TARIQ 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 Ot Z72.0 TOBACCO USE 01/07/2018 BABAKPRASAD FAGAN 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 Ot E78.4 OTHER HYPERLIPIDEMIA 01/07/2018 BABAKPRASAD FAGAN 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 Ot I 10 ESSENTIAL (PRIMARY) HYPERTENSION 01/07/2018 BABAKPRASAD FAGAN 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 Ot I25.10 ATHSCL HEART DISEASE OF [place] CORONARY 01/07/2018 BABAKPRASAD FAGAN 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 Ot I65.23 OCCLUSION AND STENOSIS OF BILATERAL [place] 01/07/2018 BABAKPRASAD FAGAN 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 Ot Z72.0 TOBACCO USE 01/07/2018 ANDREW LONGORIA MD, Ot B36 .9 SUPERFICIAL MYCOSIS, UNSPECIFIED 01/07/2018 ANDREW LONGORIA MD, Ot E11.42 TYPE 2 DIABETES MELLITUS WITH DIABETIC P 01/07/2018 ANDREW LONGORIA MD, Ot E11.621 TYPE 2 DIABETES MELLITUS WITH FOOT ULCER 01/07/2018 ANDREW LONGORIA MD, Ot I70.235 ATHSCL [place] ARTERIES OF RIGHT LEG W UL 01/07/2018 ANDREW LONOGRIA MD, Ot L97.511 NON-PRS CHRONIC ULCER OTH PRT R FOOT POZO 01/07/2018 ANDREW LONGORIA MD, Ot T65.222A TOXIC EFFECT OF TOBACCO CIGARETTES, SELF 01/07/2018 ANDREW LONGORIA MD, Ot B36 .9 SUPERFICIAL MYCOSIS, UNSPECIFIED 01/07/2018 ANDREW LONGORIA MD, Ot E11.42 TYPE 2 DIABETES MELLITUS WITH DIABETIC P 01/07/2018 ANDREW LONGORIA MD, Ot E11.621 TYPE 2 DIABETES MELLITUS WITH FOOT ULCER 01/07/2018 ANDREW LONGORIA MD, Ot I70.235 ATHSCL [place] ARTERIES OF RIGHT LEG W UL 01/07/2018 ANDREW LONGORIA MD, Ot L97.511 NON-PRS CHRONIC ULCER OTH PRT R FOOT POZO 01/07/2018 ANDREW LONGORIA MD, Ot T65.222A TOXIC EFFECT OF TOBACCO CIGARETTES, SELF 01/07/2018 ANDREW LONGORIA MD, Ot E11.42 TYPE 2 DIABETES MELLITUS WITH DIABETIC P 01/07/2018 ANDREW LONGORIA MD, Ot E11.621 TYPE 2 DIABETES MELLITUS WITH FOOT ULCER 01/07/2018 ANDREW LONGORIA MD Ot I70.235 ATHSCL [place] ARTERIES OF RIGHT LEG W UL 01/07/2018 ANDREW LONGORIA MD, Ot L97.511 NON-PRS CHRONIC ULCER OTH PRT R FOOT POZO 01/07/2018 ANDREW LONGORIA MD, Ot R36 .9 URETHRAL DISCHARGE, UNSPECIFIED 01/07/2018 ANDREW LONGORIA MD, Ot T65.222A TOXIC EFFECT OF TOBACCO CIGARETTES, SELF 01/07/2018 ANDREW LONGORIA MD, Ot B36 .9 SUPERFICIAL MYCOSIS, UNSPECIFIED 01/07/2018 ANDREW LONGORIA MD, Ot E11.42 TYPE 2 DIABETES MELLITUS WITH DIABETIC P 01/07/2018 ANDREW LONGORIA MD, Ot E11.621 TYPE 2 DIABETES MELLITUS WITH FOOT ULCER 01/07/2018 ANDREW LONGORIA MD, Ot I70.235 ATHSCL [place] ARTERIES OF RIGHT LEG W UL 01/07/2018 ANDREW LONGORIA MD, Ot L97.511 NON-PRS CHRONIC ULCER OTH PRT R FOOT POZO 01/07/2018 ANDREW LONGORIA MD, Ot T65.222A TOXIC EFFECT OF TOBACCO CIGARETTES, SELF 01/07/2018 ANDREW LONGORIA MD, Ot B35 .3 TINEA PEDIS 01/07/2018 ANDREW LONGORIA MD, Ot B36 .9 SUPERFICIAL MYCOSIS, UNSPECIFIED 01/07/2018 ANDREW LONGORIA MD, Ot E11.42 TYPE 2 DIABETES MELLITUS WITH DIABETIC P 01/07/2018 ANDREW LONGORIA MD, Ot I70.235 ATHSCL [place] ARTERIES OF RIGHT LEG W UL 01/07/2018 ANDREW LONGORIA MD, Ot T65.222A TOXIC EFFECT OF TOBACCO CIGARETTES, SELF 01/09/2018 ANDREW LONGORIA MD, Ot B35 .3 TINEA PEDIS 01/09/2018 ANDREW LONGORIA MD, Ot B36 .9 SUPERFICIAL MYCOSIS, UNSPECIFIED 01/09/2018 ANDREW LONGORIA MD, Ot E11.42 TYPE 2 DIABETES MELLITUS WITH DIABETIC P 01/09/2018 ANDREW LONGORIA MD, Ot I70.235 ATHSCL [place] ARTERIES OF RIGHT LEG W UL 01/09/2018 ANDREW LONGORIA MD, Ot T65.222A TOXIC EFFECT OF TOBACCO CIGARETTES, SELF 01/13/2018 ANDREW LONGORIA MD, Ot B35 .3 TINEA PEDIS 01/13/2018 ANDREW LONGORIA MD, Ot B36 .9 SUPERFICIAL MYCOSIS, UNSPECIFIED 01/13/2018 ANDREW LONGORIA MD, Ot E11.42 TYPE 2 DIABETES MELLITUS WITH DIABETIC P 01/13/2018 ANDREW LONGORIA MD, Ot I70.235 ATHSCL [place] ARTERIES OF RIGHT LEG W UL 01/13/2018 ANDREW LONGORIA MD, Ot T65.222A TOXIC EFFECT OF TOBACCO CIGARETTES, SELF 01/15/2018 ANDREW LONGORIA MD, Ot B36 .9 SUPERFICIAL MYCOSIS, UNSPECIFIED 01/15/2018 ANDREW LONGORIA MD, Ot E11.42 TYPE 2 DIABETES MELLITUS WITH DIABETIC P 01/15/2018 ANDREW LONGORIA MD, Ot E11.621 TYPE 2 DIABETES MELLITUS WITH FOOT ULCER 01/15/2018 ANDREW LONGORIA MD, Ot I70.235 ATHSCL [place] ARTERIES OF RIGHT LEG W UL 01/15/2018 ANDREW LONGORIA MD, Ot L97.511 NON-PRS CHRONIC ULCER OTH PRT R FOOT POZO 01/15/2018 ANDREW LONGORIA MD, Ot T65.222A TOXIC EFFECT OF TOBACCO CIGARETTES, SELF 01/15/2018 ANDREW LONGORIA MD, Ot B35 .3 TINEA PEDIS 01/15/2018 ANDREW LONGORIA MD, Ot B36 .9 SUPERFICIAL MYCOSIS, UNSPECIFIED 01/15/2018 ANDREW LONGORIA MD, Ot E11.42 TYPE 2 DIABETES MELLITUS WITH DIABETIC P 01/15/2018 ANDREW LONGORIA MD, Ot I70.235 ATHSCL [place] ARTERIES OF RIGHT LEG W UL 01/15/2018 ANDREW LONGORIA MD, Ot T65.222A TOXIC EFFECT OF TOBACCO CIGARETTES, SELF 01/25/2018 ANDREW LONGORIA MD, Ot B35 .3 TINEA PEDIS 01/25/2018 ANDREW LONGORIA MD, Ot B36 .9 SUPERFICIAL MYCOSIS, UNSPECIFIED 01/25/2018 ANDREW LONGORIA MD, Ot E11.42 TYPE 2 DIABETES MELLITUS WITH DIABETIC P 01/25/2018 ANDREW LONGORIA MD, Ot I70.235 ATHSCL [place] ARTERIES OF RIGHT LEG W UL 01/25/2018 ANDREW LONGORIA MD, Ot T65.222A TOXIC EFFECT OF TOBACCO CIGARETTES, SELF 02/06/2018 ANDREW LONGORIA MD, Ot B35 .3 TINEA PEDIS 02/06/2018 ANDREW LONGORIA MD, Ot B36 .9 SUPERFICIAL MYCOSIS, UNSPECIFIED 02/06/2018 ANDREW LONGORIA MD, Ot E11.42 TYPE 2 DIABETES MELLITUS WITH DIABETIC P 02/06/2018 ANDREW LONGORIA MD, Ot I70.235 ATHSCL [place] ARTERIES OF RIGHT LEG W UL 02/06/2018 ANDREW LONGORIA MD, Ot T65.222A TOXIC EFFECT OF TOBACCO CIGARETTES, SELF 04/08/2019 Ot 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 04/08/2019 Ot 596.54 AGATA ROGENIC BLADDER, NOT OTHERWISE SPECIF 04/08/2019 Ot 788.30 UNS PECIFIED URINARY INCONTINENCE 04/08/2019 BAIMA, PRASAD L 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 Ot E78.4 OTHER HYPERLIPIDEMIA 04/08/2019 BAIMA, PRASAD L 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 Ot I 10 ESSENTIAL (PRIMARY) HYPERTENSION 04/08/2019 BAIMA, PRASAD L 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 Ot I25.10 ATHSCL HEART DISEASE OF [place] CORONARY 04/08/2019 BAIMA, PRASAD L 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 Ot I65.23 OCCLUSION AND STENOSIS OF BILATERAL [place]AM[place] 04/08/2019 BAIMA, PRASAD L 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 Ot Z72.0 TOBACCO USE 04/08/2019 BAIMA, PRASAD L 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 Ot E78.4 OTHER HYPERLIPIDEMIA 04/08/2019 BAIMA, PRASAD L 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 Ot I 10 ESSENTIAL (PRIMARY) HYPERTENSION 04/08/2019 BAIMA, PRASAD L 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 Ot I25.10 ATHSCL HEART DISEASE OF [place] CORONARY 04/08/2019 BAIMA, PRASAD L 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 Ot I65.23 OCCLUSION AND STENOSIS OF [place]ILATERAL [place] 04/08/2019 BAIMA, PRASAD L 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 Ot Z72.0 TOBACCO USE 04/08/2019 ANDREW LONGORIA MD Ot B36 .9 SUPERFICIAL MYCOSIS, UNSPECIFIED 04/08/2019 ANDREW LONGORIA MD Ot E11.42 TYPE 2 DIABETES MELLITUS WITH DIABETIC P 04/08/2019 ANDREW LONGORIA MD, Ot E11.621 TYPE 2 DIABETES MELLITUS WITH FOOT ULCER 04/08/2019 ANDREW LONGORIA MD Ot I70.235 ATHSCL [place] ARTERIES OF RIGHT LEG W UL 04/08/2019 ANDREW LONGORIA MD Ot L97.511 NON-PRS CHRONIC ULCER OTH PRT R FOOT POZO 04/08/2019 ANDREW LONGORIA MD, Ot T65.222A TOXIC EFFECT OF TOBACCO CIGARETTES, SELF 04/08/2019 ANDREW LONGORIA MD, Ot B36 .9 SUPERFICIAL MYCOSIS, UNSPECIFIED 04/08/2019 ANDREW LONGORIA MD Ot E11.42 TYPE 2 DIABETES MELLITUS WITH DIABETIC P 04/08/2019 ANDREW LONGORIA MD, Ot E11.621 TYPE 2 DIABETES MELLITUS WITH FOOT ULCER 04/08/2019 ANDREW LONGORIA MD, Ot I70.235 ATHSCL [place] ARTERIES OF RIGHT LEG W UL 04/08/2019 ANDREW LONGORIA MD, Ot L97.511 NON-PRS CHRONIC ULCER OTH PRT R FOOT POZO 04/08/2019 ANDREW LONGORIA MD, Ot T65.222A TOXIC EFFECT OF TOBACCO CIGARETTES, SELF 04/08/2019 ANDREW LONGORIA MD Ot E11.42 TYPE 2 DIABETES MELLITUS WITH DIABETIC P 04/08/2019 ANDREW LONGORIA MD, Ot E11.621 TYPE 2 DIABETES MELLITUS WITH FOOT ULCER 04/08/2019 ANDREW LONGORIA MD, Ot I70.235 ATHSCL [place] ARTERIES OF RIGHT LEG W UL 04/08/2019 ANDREW LONGORIA MD, Ot L97.511 NON-PRS CHRONIC ULCER OTH PRT R FOOT POZO 04/08/2019 ANDREW LONGORIA MD Ot R36 .9 URETHRAL DISCHARGE, UNSPECIFIED 04/08/2019 ANDREW LONGORIA MD, Ot T65.222A TOXIC EFFECT OF TOBACCO CIGARETTES, SELF 04/08/2019 ANDREW LONGORIA MD Ot B36 .9 SUPERFICIAL MYCOSIS, UNSPECIFIED 04/08/2019 ANDREW LONGORIA MD, Ot E11.42 TYPE 2 DIABETES MELLITUS WITH DIABETIC P 04/08/2019 ANDREW LONGORIA MD, Ot E11.621 TYPE 2 DIABETES MELLITUS WITH FOOT ULCER 04/08/2019 ANDREW LONGORIA MD Ot I70.235 ATHSCL [place] ARTERIES OF RIGHT LEG W UL 04/08/2019 ANDREW LONGORIA MD, Ot L97.511 NON-PRS CHRONIC ULCER OTH PRT R FOOT POZO 04/08/2019 ANDREW LONGORIA MD, Ot T65.222A TOXIC EFFECT OF TOBACCO CIGARETTES, SELF 04/08/2019 ANDREW LONGORIA MD Ot B35 .3 TINEA PEDIS 04/08/2019 ANDREW LONGORIA MD, Ot B36 .9 SUPERFICIAL MYCOSIS, UNSPECIFIED 04/08/2019 ANDREW LONGORIA MD, Ot E11.42 TYPE 2 DIABETES MELLITUS WITH DIABETIC P 04/08/2019 ANDREW LONGORIA MD Ot I70.235 ATHSCL [place] ARTERIES OF RIGHT LEG W UL 04/08/2019 ANDREW LONGORIA MD, Ot T65.222A TOXIC EFFECT OF TOBACCO CIGARETTES, SELF 04/08/2019 ANDREW LONGORIA MD, Ot B35 .3 TINEA PEDIS 04/08/2019 ANDREW LONGORIA MD, Ot B36 .9 SUPERFICIAL MYCOSIS, UNSPECIFIED 04/08/2019 ANDREW LONGORIA MD, Ot E11.42 TYPE 2 DIABETES MELLITUS WITH DIABETIC P 04/08/2019 ANDREW LONGORIA MD Ot I70.235 ATHSCL [place] ARTERIES OF RIGHT LEG W UL 04/08/2019 ANDREW LONGORIA MD, Ot T65.222A TOXIC EFFECT OF TOBACCO CIGARETTES, SELF 04/08/2019 ANDREW LONGORIA MD, Ot B35 .3 TINEA PEDIS 04/08/2019 ANDREW LONGORIA MD, Ot B36 .9 SUPERFICIAL MYCOSIS, UNSPECIFIED 04/08/2019 ANDREW LONGORIA MD, Ot E11.42 TYPE 2 DIABETES MELLITUS WITH DIABETIC P 04/08/2019 ANDREW LONGORIA MD, Ot I70.235 ATHSCL [place] ARTERIES OF RIGHT LEG W UL 04/08/2019 ANDREW LONGORIA MD, Ot T65.222A TOXIC EFFECT OF TOBACCO CIGARETTES, SELF 04/10/2019 MARIANO ESPINALC, ALI FACP CCDS Ot E78.5 HYPERLIPIDEMIA, UNSPECIFIED 04/10/2019 MARIANO BRITO FACC, ALI FACP CCDS Ot I10 ESSENTIAL (PRIMARY) HYPERTENSION 04/10/2019 MARIANO BRITO FACC, ALI FACP CCDS Ot I25.10 ATHSCL HEART DISEASE OF [place] CORONARY 04/10/2019 MARIANO BRITO FACC, ALI FACP CCDS Ot I77.89 OTHER SPECIFIED DISORDERS OF ARTERIES AN 04/10/2019 MARIANO BRITO FACC, ALI FACP CCDS Ot Z72.0 TOBACCO USE 06/09/2019 W E11.9 Diab etes mellitus type II, controlled Orender, Tri S. 06/09/2019 W I10 Essent ial hypertension Orender, Tri S. 06/12/2019 MARIANO BRITO FACC, ALI FACP CCDS Ot E78.5 HYPERLIPIDEMIA, UNSPECIFIED 06/12/2019 MARIANO BRITO FACC, ALI FACP CCDS Ot I10 ESSENTIAL (PRIMARY) HYPERTENSION 06/12/2019 MARIANO BRITO FACC, ALI FACP CCDS Ot I25.10 ATHSCL HEART DISEASE OF [place] CORONARY 06/12/2019 MARIANO BRITO FACC, ALI FACP CCDS Ot I77.89 OTHER SPECIFIED DISORDERS OF ARTERIES AN 06/12/[address] [facility], [facility] FACP CCDS Ot Z72.0 TOBACCO USE 09/12/[address] [facility], [facility] FACP CCDS Ot E78.5 HYPERLIPIDEMIA, UNSPECIFIED 09/12/[address] [facility], ALI FACP CCDS Ot I10 ESSENTIAL (PRIMARY) HYPERTENSION 09/12/[address] [facility], ALI FACP CCDS Ot I25.10 ATHSCL HEART DISEASE OF [place] CORONARY 09/12/[address] [facility], [facility] CCDS Ot I77.89 OTHER SPECIFIED DISORDERS OF ARTERIES AN 09/12/[address] [facility] CCDS Ot Z72.0 TOBACCO USE Procedures There is no data. Results Test Result Range Complete blood count (CBC) with automate d white blood cell (WBC) differential - 11/21/15 09:12 Blood leukocytes automated count (number/volume) 14.2 10*3/uL 4.3-11.0 Blood erythrocytes automated count (number/volume) 5.33 10*6/uL 4.35-5.85 Venous blood hemoglobin measurement (mass/volume) 14.7 g/dL 13.3-17.7 Blood hematocrit (volume fraction) 44 % 40-54 Automated erythrocyte mean corpuscular volume 82 [ foz_us] 80-99 Automated erythrocyte mean corpuscular h emoglobin (mass per erythrocyte) 28 pg 25-34 Automated erythrocyte mean corpuscular h emoglobin concentration measurement (mass/volume) 34 g/dL 32-36 Automated erythrocyte distribution width ratio 14. 4 % 10.0- 14.5 Automated blood platelet count (count/volume) 148 10*3/uL [...] 10*3 1.0-4.0 Blood monocytes automated count (number/volume) 0. 7 10*3 0.0-1.0 Automated eosinophil count 0.0 10*3/uL 0 .0-0.3 Automated blood basophil count (count/volume) 0.1 10*3/uL 0.0-0.1 PT panel in platelet poor plasma by coag ulation assay - 11/21/15 09:12 Prothrombin time (PT) in platelet poor plasma by coagu lation assay 13.3 s 12.2-14.7 INR in platelet poor plasma or blood by coagulation as say 1.0 0.8-1.4 Activated partial thromboplastin time (a PTT) in platelet poor plasma bycoagulation assay - 11/21/15 09:12 Activated partial thromboplastin time (a PTT) in platelet poor plasma bycoagulation assay 21 s 24-35 Comprehensive metabolic panel - 11/21/15 09:12 Serum or plasma sodium measurement (moles/volume) 137 mmol/L 135-145 Serum or plasma potassium measurement (moles/volume) 4.3 mmol/L 3.6-5.0 Serum or plasma chloride measurement (moles/volume) 104 mmol/L 98-107 Carbon dioxide 20 mmol/L 21-32 Serum or plasma anion gap determination (moles/volume) 13 mmol/L 5-14 Serum or plasma urea nitrogen measurement (mass/volume ) 14 mg/dL 7-18 Serum or plasma creatinine measurement (mass/volume) 1.46 mg/dL 0.60-1.30 Serum or plasma urea nitrogen/creatinine mass ratio 10 NRG Serum or plasma creatinine measurement w ith calculation of estimated glomerular filtration rate 47 NRG Serum or plasma glucose measurement (mass/volume) 192 mg/dL 70-105 Serum or plasma calcium measurement (mass/volume) 9.6 mg/dL 8.5-10.1 Serum or plasma total bilirubin measurement (mass/volu me) 1.4 mg/dL 0.1-1.0 Serum or plasma alkaline phosphatase marsha surement (enzymatic activity/volume) 95 U/L 40-136 Serum or plasma aspartate aminotransfera se measurement (enzymatic activity/volume) 17 U/L 5-34 Serum or plasma alanine aminotransferase measurement (enzymatic activity/volume) 20 U/L 0-55 Serum or plasma protein measurement (mass/volume) 7.1 g/dL 6.4-8.2 Serum or plasma albumin measurement (mass/volume) 3.9 g/dL 3.2-4.5 Serum or plasma troponin i.cardiac measu rement (mass/volume) - 11/21/15 09:12 Serum or plasma troponin i.cardiac measurement (mass/v olume) < ng/mL <0.30 Blood manual differential performed dete ction - 11/21/15 09:12 Blood monocytes/100 leukocytes 8 % NRG Manual blood segmented neutrophils/100 leukocytes 79 % NRG Blood band neutrophils/100 leukocytes 2 % NRG Manual blood lymphocytes/100 leukocytes 11 % NRG Blood erythrocyte morphology finding identification NORMAL NRG Blood toxic granules detection by light microscopy 1+ NRG Serum or plasma C reactive protein measu rement (mass/volume) - 11/21/15 09:12 Serum or plasma C reactive protein measurement (mass/v olume) 11.22 mg/dL 0.00-0.50 Bacterial blood culture - 11/21/15 09:12 Bacterial blood culture NG NRG Influenza virus A and B antigen detectio n - 11/21/15 09:45 FLU RESULT NEGATIVE FOR INFLUENZA A AND B ANTIGENS BY IA NRG Blood lactic acid measurement (moles/vol ume) - 11/21/15 10:00 Blood lactic acid measurement (moles/volume) 1.6 m mol/L 0.5- 2.0 Bacterial blood culture - 11/21/15 10:00 Bacterial blood culture NG NRG Complete urinalysis with reflex to cultu re - 11/21/15 11:10 Urine color determination YELLOW NRG Urine clarity determination SLIGHTLY CLOUDY NRG Urine pH measurement by test strip 8 5-9 Specific gravity of urine by test strip 1.010 1.016-1.022 Urine protein assay by test strip, semi-quantitative 2+ NEGATIVE Urine glucose detection by automated test strip NE GATIVE NEGATIVE Erythrocytes detection in urine sediment by light micr oscopy 4+ NEGATIVE Urine ketones detection by automated test strip 2+ NEGATIVE Urine nitrite detection by test strip POSITIVE NEGATIVE Urine total bilirubin detection by test strip NEGA TIVE NEGATIVE Urine urobilinogen measurement by automated test strip (mass/volume) 1 mg/dL NORMAL Urine leukocyte esterase detection by dipstick 3+ NEGATIVE Automated urine sediment erythrocyte cou nt by microscopy (number/high power field) [HPF] NRG Automated urine sediment leukocyte count by microscopy (number/high power field) [HPF] NRG Bacteria detection in urine sediment by light microsco py LARGE NRG Squamous epithelial cells detection in u rine sediment by light microscopy NONE NRG Crystals detection in urine sediment by light microsco py PRESENT NRG Casts detection in urine sediment by light microscopy NONE NRG Mucus detection in urine sediment by light microscopy SMALL NRG Complete urinalysis with reflex to culture YES NRG Amorphous sediment detection in urine sediment by ligh t microscopy MOD TAHIRA PHOSPHATE NRG Bacterial urine culture - 11/21/15 11:10 Bacterial urine culture [id number] NRG COLONY COUNT 10,000/ML - 100,000/ML NRG FTX;REPORTABLE SENSITIVITY REPORTED 11/23/15 8:00 NRG Bacterial susceptibility panel - 6 11:10 Gentamicin susceptibility test by minimum inhibitory c oncentration <= NRG Trimethoprim/sulfamethoxazole susceptibi lity test by minimum inhibitoryconcentration <= NRG Ampicillin susceptibility test by minimum inhibitory c oncentration R NRG Tobramycin susceptibility test by minimum inhibitory c oncentration <= NRG Cefazolin susceptibility test by minimum inhibitory co ncentration R NRG Ceftriaxone susceptibility test by minimum inhibitory concentration S NRG Ampicillin/sulbactam susceptibility test by minimum inhibitory concentration 8 NRG Piperacillin/tazobactam susceptibility t est by minimum inhibitory concentration 64 NRG Ciprofloxacin susceptibility test by minimum inhibitor y concentration <= NRG Meropenem susceptibility test by minimum inhibitory co ncentration 0.5 NRG Nitrofurantoin susceptibility test by mi nimum inhibitory concentration R NRG Aztreonam susceptibility test by minimum inhibitory co ncentration >= NRG Bacterial susceptibility panel - 6 11:10 Gentamicin susceptibility test by minimum inhibitory c oncentration S NRG Vancomycin susceptibility test by minimum inhibitory c oncentration 2 NRG Levofloxacin susceptibility test by minimum inhibitory concentration 1 NRG Tetracycline susceptibility test by minimum inhibitory concentration <= NRG Ampicillin susceptibility test by minimum inhibitory c oncentration <= NRG Nitrofurantoin susceptibility test by mi nimum inhibitory concentration <= NRG Linezolid susceptibility test by minimum inhibitory co ncentration 2 NRG Capillary blood glucose measurement by g lucometer (mass/volume) - 11/21/15 16:08 Capillary blood glucose measurement by glucometer (mas s/volume) 180 mg/dL 70-110 Capillary blood glucose measurement by g lucometer (mass/volume) - 11/21/15 21:23 Capillary blood glucose measurement by glucometer (mas s/volume) 123 mg/dL 70-110 Blood CBC with ordered manual differenti al panel - 11/22/15 05:05 Blood leukocytes automated count (number/volume) 9.8 10*3/uL 4.3-11.0 Blood erythrocytes automated count (number/volume) 5.06 10*6/uL 4.35-5.85 Venous blood hemoglobin measurement (mass/volume) 13.8 g/dL 13.3-17.7 Blood hematocrit (volume fraction) 42 % 40-54 Automated erythrocyte mean corpuscular volume 83 [ foz_us] 80-99 Automated erythrocyte mean corpuscular h emoglobin (mass per erythrocyte) 27 pg 25-34 Automated erythrocyte mean corpuscular h emoglobin concentration measurement (mass/volume) 33 g/dL 32-36 Automated erythrocyte distribution width ratio 14. 6 % 10.0- 14.5 Automated blood platelet count (count/volume) 122 10*3/uL [...] 10*3 1.0-4.0 Blood monocytes automated count (number/volume) 0. 5 10*3 0.0-1.0 Automated eosinophil count 0.0 10*3/uL 0 .0-0.3 Automated blood basophil count (count/volume) 0.1 10*3/uL [...] 5-14 Serum or plasma urea nitrogen measurement (mass/volume ) 16 mg/dL 7-18 Serum or plasma creatinine measurement (mass/volume) 1.26 mg/dL 0.60-1.30 Serum or plasma urea nitrogen/creatinine mass ratio 13 NRG Serum or plasma creatinine measurement w ith calculation of estimated glomerular filtration rate 56 NRG Serum or plasma glucose measurement (mass/volume) 119 mg/dL 70-105 Serum or plasma calcium measurement (mass/volume) 9.0 mg/dL 8.5-10.1 Serum or plasma total bilirubin measurement (mass/volu me) 1.1 mg/dL 0.1-1.0 Serum or plasma alkaline phosphatase marsha surement (enzymatic activity/volume) 84 U/L 40-136 Serum or plasma aspartate aminotransfera se measurement (enzymatic activity/volume) 24 U/L 5-34 Serum or plasma alanine aminotransferase measurement (enzymatic activity/volume) 25 U/L 0-55 Serum or plasma protein measurement (mass/volume) 6.5 g/dL 6.4-8.2 Serum or plasma albumin measurement (mass/volume) 3.5 g/dL 3.2-4.5 Capillary blood glucose measurement by g lucometer (mass/volume) - 11/22/15 10:59 Capillary blood glucose measurement by glucometer (mas s/volume) 109 mg/dL 70-110 Capillary blood glucose measurement by g lucometer (mass/volume) - 11/22/15 16:05 Capillary blood glucose measurement by glucometer (mas s/volume) 93 mg/dL 70-110 Capillary blood glucose measurement by g lucometer (mass/volume) - 11/22/15 20:52 Capillary blood glucose measurement by glucometer (mas s/volume) 130 mg/dL 70-110 Capillary blood glucose measurement by g lucometer (mass/volume) - 11/23/15 05:42 Capillary blood glucose measurement by glucometer (mas s/volume) 95 mg/dL 70-110 Automated blood complete blood count (he mogram) panel - 11/23/15 05:47 Blood leukocytes automated count (number/volume) 6.3 10*3/uL 4.3-11.0 Blood erythrocytes automated count (number/volume) 4.54 10*6/uL 4.35-5.85 Venous blood hemoglobin measurement (mass/volume) 12.4 g/dL 13.3-17.7 Blood hematocrit (volume fraction) 37 % 40-54 Automated erythrocyte mean corpuscular volume 81 [ foz_us] 80-99 Automated erythrocyte mean corpuscular h emoglobin (mass per erythrocyte) 27 pg 25-34 Automated erythrocyte mean corpuscular h emoglobin concentration measurement (mass/volume) 34 g/dL 32-36 Automated erythrocyte distribution width ratio 14. 4 % 10.0- 14.5 Automated blood platelet count (count/volume) 110 10*3/uL 130-400 Automated blood platelet mean volume measurement 9.9 [foz_us] 7.4-10.4 Whole blood basic metabolic panel - 09/01 05:47 Serum or plasma sodium measurement (moles/volume) 137 mmol/L 135-145 Serum or plasma potassium measurement (moles/volume) 3.9 mmol/L 3.6-5.0 Serum or plasma chloride measurement (moles/volume) 110 mmol/L 98-107 Carbon dioxide 15 mmol/L 21-32 Serum or plasma anion gap determination (moles/volume) 12 mmol/L 5-14 Serum or plasma urea nitrogen measurement (mass/volume ) 15 mg/dL 7-18 Serum or plasma creatinine measurement (mass/volume) 0.95 mg/dL 0.60-1.30 Serum or plasma urea nitrogen/creatinine mass ratio 16 NRG Serum or plasma creatinine measurement w ith calculation of estimated glomerular filtration rate > NRG Serum or plasma glucose measurement (mass/volume) 101 mg/dL 70-105 Serum or plasma calcium measurement (mass/volume) 8.7 mg/dL 8.5-10.1 Capillary blood glucose measurement by g lucometer (mass/volume) - 11/23/15 10:54 Capillary blood glucose measurement by glucometer (mas s/volume) 141 mg/dL 70-110 Complete blood count (CBC) with automate d white blood cell (WBC) differential - 03/19/17 18:45 Blood leukocytes automated count (number/volume) 13.3 10*3/uL 4.3-11.0 Blood erythrocytes automated count (number/volume) 5.60 10*6/uL 4.35-5.85 Venous blood hemoglobin measurement (mass/volume) 14.9 g/dL 13.3-17.7 Blood hematocrit (volume fraction) 45 % 40-54 Automated erythrocyte mean corpuscular volume 81 [ foz_us] 80-99 Automated erythrocyte mean corpuscular h emoglobin (mass per erythrocyte) 27 pg 25-34 Automated erythrocyte mean corpuscular h emoglobin concentration measurement (mass/volume) 33 g/dL 32-36 Automated erythrocyte distribution width ratio 14. 4 % 10.0- 14.5 Automated blood platelet count (count/volume) 186 10*3/uL [...] 10*3 1.0-4.0 Blood monocytes automated count (number/volume) 0. 5 10*3 0.0-1.0 Automated eosinophil count 0.1 10*3/uL 0 .0-0.3 Automated blood basophil count (count/volume) 0.1 10*3/uL 0.0-0.1 PT panel in platelet poor plasma by coag ulation assay - 03/19/17 18:45 Prothrombin time (PT) in platelet poor plasma by coagu lation assay 12.9 s 12.2-14.7 INR in platelet poor plasma or blood by coagulation as say 1.0 0.8-1.4 Activated partial thromboplastin time (a PTT) in platelet poor plasma bycoagulation assay - 03/19/17 18:45 Activated partial thromboplastin time (a PTT) in platelet poor plasma bycoagulation assay 28 s 24-35 Blood lactic acid measurement (moles/vol ume) - 03/19/17 18:45 Blood lactic acid measurement [...] 5-14 Serum or plasma urea nitrogen measurement (mass/volume ) 24 mg/dL 7-18 Serum or plasma creatinine measurement (mass/volume) 1.53 mg/dL 0.60-1.30 Serum or plasma urea nitrogen/creatinine mass ratio 16 NRG Serum or plasma creatinine measurement w ith calculation of estimated glomerular filtration rate 45 NRG Serum or plasma glucose measurement (mass/volume) 187 mg/dL 70-105 Serum or plasma calcium measurement (mass/volume) 9.0 mg/dL 8.5-10.1 Serum or plasma total bilirubin measurement (mass/volu me) 0.7 mg/dL 0.1-1.0 Serum or plasma alkaline phosphatase marsha surement (enzymatic activity/volume) 103 U/L 40-136 Serum or plasma aspartate aminotransfera se measurement (enzymatic activity/volume) 17 U/L 5-34 Serum or plasma alanine aminotransferase measurement (enzymatic activity/volume) 20 U/L 0-55 Serum or plasma protein measurement (mass/volume) 7.4 g/dL 6.4-8.2 Serum or plasma albumin measurement (mass/volume) 3.9 g/dL 3.2-4.5 Serum or plasma C reactive protein measu rement (mass/volume) - 03/19/17 18:45 Serum or plasma C reactive protein measurement (mass/v olume) 1.91 mg/dL 0.00-0.50 Bacterial blood culture - 03/19/17 18:45 Bacterial blood culture [facility] Influenza virus A and B antigen detectio n - 03/19/17 18:46 FLU RESULT NEGATIVE FOR INFLUENZA A AND B ANTIGENS BY IA [facility] Bacterial blood culture - 03/19/17 19:16 Bacterial blood culture [facility] Complete blood count (CBC) with automate d white blood cell (WBC) differential - 03/31/17 05:49 Blood leukocytes automated count (number/volume) 9.6 10*3/uL 4.3-11.0 Blood erythrocytes automated count (number/volume) 5.20 10*6/uL 4.35-5.85 Venous blood hemoglobin measurement (mass/volume) 14.0 g/dL 13.3-17.7 Blood hematocrit (volume fraction) 42 % 40-54 Automated erythrocyte mean corpuscular volume 81 [ foz_us] 80-99 Automated erythrocyte mean corpuscular h emoglobin (mass per erythrocyte) 27 pg 25-34 Automated erythrocyte mean corpuscular h emoglobin concentration measurement (mass/volume) 33 g/dL 32-36 Automated erythrocyte distribution width ratio 14. 1 % 10.0- 14.5 Automated blood platelet count (count/volume) 242 10*3/uL [...] 10*3 1.0-4.0 Blood monocytes automated count (number/volume) 0. 5 10*3 0.0-1.0 Automated eosinophil count 0.0 10*3/uL 0 .0-0.3 Automated blood basophil count (count/volume) 0.1 10*3/uL 0.0-0.1 Blood lactic acid measurement (moles/vol ume) - 03/31/17 05:49 Blood lactic acid measurement (moles/volume) 1.06 mmol/L 0.50-2.00 Influenza virus A and B antigen detectio n - 03/31/17 05:49 CALL POSITIVES (F1 HELP) CALLED TO FRANCIA IN ED@09 03 [facility] FLU RESULT POSITIVE FOR INFLUENZA A ANT IGEN, NEG FOR B ANTIGEN, BY [facility] Comprehensive metabolic panel - 03/31/17 05:49 Serum or plasma sodium measurement (moles/volume) 136 mmol/L 135-145 Serum or plasma potassium measurement (moles/volume) 5.1 mmol/L 3.6-5.0 Serum or plasma chloride measurement (moles/volume) 105 mmol/L 98-107 Carbon dioxide 20 mmol/L 21-32 Serum or plasma anion gap determination (moles/volume) 11 mmol/L 5-14 Serum or plasma urea nitrogen measurement (mass/volume ) 12 mg/dL 7-18 Serum or plasma creatinine measurement (mass/volume) 1.65 mg/dL 0.60-1.30 Serum or plasma urea nitrogen/creatinine mass ratio 7 NRG Serum or plasma creatinine measurement w ith calculation of estimated glomerular filtration rate 41 NRG Serum or plasma glucose measurement (mass/volume) 205 mg/dL 70-105 Serum or plasma calcium measurement (mass/volume) 9.0 mg/dL 8.5-10.1 Serum or plasma total bilirubin measurement (mass/volu me) 0.6 mg/dL 0.1-1.0 Serum or plasma alkaline phosphatase marsha surement (enzymatic activity/volume) 91 U/L 40-136 Serum or plasma aspartate aminotransfera se measurement (enzymatic activity/volume) 15 U/L 5-34 Serum or plasma alanine aminotransferase measurement (enzymatic activity/volume) 14 U/L 0-55 Serum or plasma protein measurement (mass/volume) 7.3 g/dL 6.4-8.2 Serum or plasma albumin measurement (mass/volume) 3.6 g/dL 3.2-4.5 Bacterial blood culture - 03/31/17 05:49 Bacterial blood culture NG NR Bacterial blood culture - 03/31/17 06:01 Bacterial blood culture NG NRG Complete urinalysis with reflex to cultu re - 03/31/17 06:07 Urine color determination YELLOW NRG Urine clarity determination SLIGHTLY CLOUDY NRG Urine pH measurement by test strip 7 5-9 Specific gravity of urine by test strip 1.010 1.016-1.022 Urine protein assay by test strip, semi-quantitative 2+ NEGATIVE Urine glucose detection by automated test strip 4+ NEGATIVE Erythrocytes detection in urine sediment by light micr oscopy 4+ NEGATIVE Urine ketones detection by automated test strip NE GATIVE NEGATIVE Urine nitrite detection by test strip POSITIVE NEGATIVE Urine total bilirubin detection by test strip NEGA TIVE NEGATIVE Urine urobilinogen measurement by automated test strip (mass/volume) NORMAL NORMAL Urine leukocyte esterase detection by dipstick 3+ NEGATIVE Automated urine sediment erythrocyte cou nt by microscopy (number/high power field) [HPF] NRG Automated urine sediment leukocyte count by microscopy (number/high power field) [HPF] NRG Bacteria detection in urine sediment by light microsco py FEW NRG Crystals detection in urine sediment by light microsco py NONE NRG Casts detection in urine sediment by light microscopy NONE NRG Mucus detection in urine sediment by light microscopy MODERATE NRG Complete urinalysis with reflex to culture YES NRG Bacterial urine culture - 03/31/17 06:07 Bacterial urine culture [id number] NRG COLONY COUNT >100,000/ML NRG FTX;REPORTABLE SENSITIVITY REPORTED AT 08, NRG Bacterial susceptibility panel - 8 06:07 Gentamicin susceptibility test by minimum inhibitory c oncentration <= NRG Tobramycin susceptibility test by minimum inhibitory c oncentration <= NRG Piperacillin/tazobactam susceptibility t est by minimum inhibitory concentration S NRG Ciprofloxacin susceptibility test by minimum inhibitor y concentration <= NRG Meropenem susceptibility test by minimum inhibitory co ncentration <= NRG Cefepime susceptibility test by minimum inhibitory con centration <= NRG Capillary blood glucose measurement by g lucometer (mass/volume) - 03/31/17 10:34 Capillary blood glucose measurement by glucometer (mas s/volume) 266 mg/dL 70-110 Capillary blood glucose measurement by g lucometer (mass/volume) - 03/31/17 16:22 Capillary blood glucose measurement by glucometer (mas s/volume) 373 mg/dL 70-110 Stool occult blood screen - 03/31/17 18: 00 Stool gastrointestinal hemoglobin detection NEGATI VE NEGATIVE Capillary blood glucose measurement by g lucometer (mass/volume) - 03/31/17 21:16 Capillary blood glucose measurement by glucometer (mas s/volume) 378 mg/dL 70-110 Complete blood count (CBC) with automate d white blood cell (WBC) differential - 04/01/17 05:12 Blood leukocytes automated count (number/volume) 12.3 10*3/uL 4.3-11.0 Blood erythrocytes automated count (number/volume) 4.87 10*6/uL 4.35-5.85 Venous blood hemoglobin measurement (mass/volume) 13.2 g/dL 13.3-17.7 Blood hematocrit (volume fraction) 39 % 40-54 Automated erythrocyte mean corpuscular volume 81 [ foz_us] 80-99 Automated erythrocyte mean corpuscular h emoglobin (mass per erythrocyte) 27 pg 25-34 Automated erythrocyte mean corpuscular h emoglobin concentration measurement (mass/volume) 34 g/dL 32-36 Automated erythrocyte distribution width ratio 13. 9 % 10.0- 14.5 Automated blood platelet count (count/volume) 192 10*3/uL [...] 10*3 1.0-4.0 Blood monocytes automated count (number/volume) 0. 3 10*3 0.0-1.0 Automated eosinophil count 0.0 10*3/uL 0 .0-0.3 Automated blood basophil count (count/volume) 0.0 10*3/uL 0.0-0.1 Comprehensive metabolic panel - 04/01/17 05:12 Serum or plasma sodium measurement (moles/volume) 136 mmol/L 135-145 Serum or plasma potassium measurement (moles/volume) 4.5 mmol/L 3.6-5.0 Serum or plasma chloride measurement (moles/volume) 107 mmol/L 98-107 Carbon dioxide 18 mmol/L 21-32 Serum or plasma anion gap determination (moles/volume) 11 mmol/L 5-14 Serum or plasma urea nitrogen measurement (mass/volume ) 23 mg/dL 7-18 Serum or plasma creatinine measurement (mass/volume) 1.28 mg/dL 0.60-1.30 Serum or plasma urea nitrogen/creatinine mass ratio 18 NRG Serum or plasma creatinine measurement w ith calculation of estimated glomerular filtration rate 55 NRG Serum or plasma glucose measurement (mass/volume) 270 mg/dL 70-105 Serum or plasma calcium measurement (mass/volume) 8.7 mg/dL 8.5-10.1 Serum or plasma total bilirubin measurement (mass/volu me) 0.3 mg/dL 0.1-1.0 Serum or plasma alkaline phosphatase marsha surement (enzymatic activity/volume) 75 U/L 40-136 Serum or plasma aspartate aminotransfera se measurement (enzymatic activity/volume) 12 U/L 5-34 Serum or plasma alanine aminotransferase measurement (enzymatic activity/volume) 11 U/L 0-55 Serum or plasma protein measurement (mass/volume) 6.1 g/dL 6.4-8.2 Serum or plasma albumin measurement (mass/volume) 3.0 g/dL 3.2-4.5 Serum or plasma lithium measurement (mol es/volume) - 04/01/17 05:12 BNP level 167.3 pg/mL <100.0 Capillary blood glucose measurement by g lucometer (mass/volume) - 04/01/17 06:10 Capillary blood glucose measurement by glucometer (mas s/volume) 220 mg/dL 70-110 Capillary blood glucose measurement by g lucometer (mass/volume) - 04/01/17 11:13 Capillary blood glucose measurement by glucometer (mas s/volume) 286 mg/dL 70-110 Capillary blood glucose measurement by g lucometer (mass/volume) - 04/01/17 15:24 Capillary blood glucose measurement by glucometer (mas s/volume) 302 mg/dL 70-110 Capillary blood glucose measurement by g lucometer (mass/volume) - 04/01/17 20:33 Capillary blood glucose measurement by glucometer (mas s/volume) 359 mg/dL 70-110 Capillary blood glucose measurement by g lucometer (mass/volume) - 04/02/17 05:38 Capillary blood glucose measurement by glucometer (mas s/volume) 207 mg/dL 70-110 Capillary blood glucose measurement by g lucometer (mass/volume) - 04/02/17 10:42 Capillary blood glucose measurement by glucometer (mas s/volume) 299 mg/dL 70-110 Capillary blood glucose measurement by g lucometer (mass/volume) - 04/02/17 15:20 Capillary blood glucose measurement by glucometer (mas s/volume) 282 mg/dL 70-110 Capillary blood glucose measurement by g lucometer (mass/volume) - 04/02/17 20:57 Capillary blood glucose measurement by glucometer (mas s/volume) 289 mg/dL 70-110 Capillary blood glucose measurement by g lucometer (mass/volume) - 04/03/17 05:32 Capillary blood glucose measurement by glucometer (mas s/volume) 261 mg/dL 70-110 Capillary blood glucose measurement by g lucometer (mass/volume) - 04/03/17 10:33 Capillary blood glucose measurement by glucometer (mas s/volume) 298 mg/dL 70-110 Capillary blood glucose measurement by g lucometer (mass/volume) - 11/28/17 14:42 Capillary blood glucose measurement by glucometer (mas s/volume) 196 mg/dL 70-110 Encounters ACCT No. Visit Date/Time Discharge Status Pt. Type Provider Facility Loc./Unit Complaint [id number] 12/27/2015 14:20:52 12/27/2015 23:59:5 9 CLS Outpatient [id number] 06/05/2019 12:05:05 06/05/2019 23:59:5 9 CLS Outpatient [id number] 10/07/2019 05:43:00 020 11:00:00 DIS Outpatient MARSHA LAW MD [facility] PREOP CATARACT RIGHT EYE [id number] 04/08/2019 07:35:00 23:59:59 CLS Outpatient MARIANO BRITO FACC, IVY MARTINEZ CC DS [facility] CARD CAD,CAROTID ART DISEASE,HYPERTENSION [id number] 01/14/2018 13:56:00 018 23:59:59 CLS Outpatient ANDREW LONGORIA MD [facility] WOUNDCARE [id number] 01/07/2018 14:21:00 018 23:59:59 CLS Outpatient ANDREW LONGORIA MD [facility] WOUNDCARE [id number] 12/31/2017 14:15:00 018 23:59:59 CLS Outpatient ANDREW LONGORIA MD [facility] WOUNDCARE [id number] 12/24/2017 14:13:00 018 23:59:59 CLS Outpatient ANDREW LONGORIA MD [facility] WOUNDCARE [id number] 12/12/2017 14:16:00 09/26/2 018 23:59:59 CLS Outpatient ANDREW LONGORIA MD [facility] WOUNDCARE [id number] 12/05/2017 14:11:00 23:59:59 CLS Outpatient ANDREW LONGORIA MD [facility] WOUNDCARE [id number] 11/28/2017 15:03:00 018 23:59:59 CLS Outpatient ANDREW LONGORIA MD [facility] WOUNDCARE [id number] 11/28/2017 14:05:00 018 15:00:00 DIS Emergency ECTOR BRITO, TIMOTHY De Los Santos [facility] ER R FOOT INFECTION [id number] 03/31/2017 07:12:00 23:59:59 CLS Inpatient AIDEN BRITO, VIJAY R [facility] 4TH PNUEMONIA-FAILURE TO OU TPUT THERAPY [id number] 03/19/2017 18:33:00 018 21:03:00 DIS Emergency TIMOTHY BARNEY MD [facility] ER COUGH,FEVER,WEAKNESS [id number] 07/21/2016 13:28:00 017 23:59:59 CLS Outpatient PRASAD TARIQ [facility] CARD I25.10, I65.23 [id number] 07/17/2016 14:10:00 017 23:59:59 CLS Outpatient PRASAD 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 [facility] CARD I25.10,I65.23 [id number] 11/28/2013 16:31:00 014 17:55:00 DIS Emergency BERTA DELANEY GUITAR REPAIRER [facility] ER POSS UTI/CATHETER JAKE RN [id number] 03/10/2013 20:22:00 20:44:00 DIS Emergency BERTA DELANEY GUITAR REPAIRER [facility] ER CATHETER IS COMING OUT [id number] 11/14/2012 07:21:00 013 23:59:59 CLS Outpatient BAIPRASAD FAGAN 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 [facility] RAD CAD [id number] 10/10/2019 10:45:00 P EN Preadmit ANI BRITO, MARSHA Vyas [facility] SDC CATARACT RIGHT EYE [id number] 11/21/2015 12:36:[address] Inpatient VIJAY WOLFE MD [facility] 4TH SEPSIS,UTI,WEAKNESS [id number] 03/20/2014 20:58:00 Document Registration [id number] 03/20/2014 20:58:00 Document Registration [id number] 08/15/2011 07:42:00 Document Registration [id number] 05/02/2011 17:21:00 Document Registration [id number] 10/04/2010 14:29:00 Document Registration [id number] 08/29/2010 00:00:00 Document Registration [id number] 07/21/2010 11:07:00 Document Registration [id number] 05/30/2010 13:56:00 Document Registration [id number] 01/24/2010 12:24:00 Document Registration [id number] 12/20/2009 15:37:00 Document Registration [id number] 11/09/2009 05:45:00 Document Registration [id number] 11/03/2009 15:11:00 Document Registration [id number] 07/13/2009 05:42:00 Document Registration [id number] 07/06/2009 14:24:00 Document Registration [id number] 05/12/2009 12:13:00 Document Registration [id number] 04/26/2009 14:24:00 Document Registration [id number] 04/21/2009 14:34:00 Document Registration [id number] 02/24/2009 15:05:00 Document Registration
[2019-10-10] MEDS: TETRACAINE 0.5% OPHTH SOLN 4 ML BTL (SINGLE DOSE ONLY) OU PRN ×4 (08:44→09:11)
[2019-10-10] MEDS ORDERED: LIDOCAINE PF 1% 2 ML VIAL IR PRN (08:45)
[2019-10-10] MEDS ORDERED: MOXIFLOXACIN OPHTH SOLN 5 MG/ML 0.3 ML SYRINGE OP ONE (08:45)
[2019-10-10] MEDS ORDERED: TIMOLOL MALEATE 0.5% 5 ML (TIMOPTIC) BTL OU PRN (08:45)
[2019-10-10] MEDS ORDERED: POVIDONE (BETADINE) OPHTH SOLN 5% 30 ML OP ONE (08:45)
[2019-10-10 09:00] VITALS: BP 176/63
[2019-10-10] MEDS: PHENYLEPHRINE 10% OPHTH (NEO-SYN) 5 ML BTL OU SCH ×3 (09:00→09:11)
[2019-10-10] MEDS: CYCLOPENTOLATE 1% (CYCLOGYL) 2 ML DROPS OP SCH ×3 (09:00→09:11)
--- NOTE | 2019-10-10 09:16 | Ophthalmologist Pre-Op Note ---
Pre-Operative Progress Note H&P Reviewed The H&P was reviewed, patient examined and no changes noted. Date H&P Reviewed: Oct 10, 2019 Time H&P Reviewed: 09:16 Pre-Op Dx Cataract, Right Eye MARSHA LAW MD Oct 10, 2019 09:16
[2019-10-10] MEDS ORDERED: MIDAZOLAM 2 MG/2 ML (VERSED) VIAL ONE (09:46)
--- NOTE | 2019-10-10 10:15 | Ophthalmology Operative Report ---
Cataract removal/placement IOL PREOPERATIVE DIAGNOSIS: Cataract Right Eye POSTOPERATIVE DIAGNOSIS: Cataract Right Eye PROCEDURE: Cataract removal and placement of posterior chamber implant, right eye SURGEON: Slava Law ANESTHESIA: Topical with sedation COMPLICATIONS: None ESTIMATED BLOOD LOSS: Minimal DESCRIPTION OF PROCEDURE: After proper informed consent was obtained, the patient, a 79 male, was taken to the Operating Room and the right eye was anesthetized with tetracaine. The right eye was then prepped and draped in the usual manner. A wire lid speculum was placed. A paracentesis was made at the left hand position. Preservative free lidocaine was injected into the anterior chamber followed by viscoelastic. A clear corneal incision was made in the temporal position. A capsulorrhexis was preformed and the central nuclear and cortical material were removed. The posterior capsule was polished and Adan 21.0 AU00T0 IOL was placed into the capsular bag. The residual viscoelastic was aspirated and balanced saline solution was injected into the anterior chamber. Moxifloxacin was injected into the anterior chamber. The wound was checked and found to be water tight. The patient tolerated the procedure well without complications. SLAVA LAW MD Oct 10, 2019 10:14
[2019-10-10 10:25] VITALS: BP 144/61
[2019-10-10] MEDS ORDERED: acetaZOLAMIDE ER 500 MG CAP (DIAMOX SEQUELS) PO ONE (10:30)
--- NOTE | 2019-10-10 12:27 | Anesthesia-General Post-Op ---
MAC Patient Condition Mental Status/LOC: Same as Preop Cardiovascular: Satisfactory Nausea/Vomiting: Absent Respiratory: Satisfactory Pain: Controlled Complications: Absent Post Op Complications Complications None Follow Up Care/Instructions Patient Instructions None needed. Anesthesiology Discharge Order Discharge Order Patient is doing well, no complaints, stable vital signs, no apparent adverse anesthesia problems. No complications reported per nursing. GEORGIA MONTERROSO CRNA Oct 10, 2019 12:27
== END 2019-10-10 10:25 | disposition home or self-care (01) ==
LOC: SDC 07:31
PROVIDERS: ATTEND Specialist
DX: H25.11 Age-related nuclear cataract, right eye (principal); E11.36 Type 2 diabetes mellitus with diabetic cataract; I10 Essential (primary) hypertension; I25.10 Atherosclerotic heart disease of native coronary artery without angina pectoris; F17.210 Nicotine dependence, cigarettes, uncomplicated; Z79.84 Long term (current) use of oral hypoglycemic drugs; Z79.899 Other long term (current) drug therapy; Z95.1 Presence of aortocoronary bypass graft; Z80.42 Family history of malignant neoplasm of prostate

== ENCOUNTER 2020-06-07 07:12 | Emergency (ER) | payer MEDICARE ==
[~2020-06-07] VITALS: Ht 172.7 cm; Wt 81.8 kg
[~2020-06-07 07:12] MED LIST changes: +AMLO-251 PO; -AMLO10TA7 PO; +ASPI-1238 PO; -ASPI-983 PO; -LISI40TA PO; +LISI40TA9 PO
[2020-06-07 07:16] VITALS: BP 193/73
--- NOTE | 2020-06-07 07:33 | ED GU-Male ---
General Chief Complaint: - Urinary Stated Complaint: REINSERT CATHETER Source: patient Exam Limitations: no limitations History of Present Illness Date Seen by Provider: Jun 07, 2020 Time Seen by Provider: 07:25 Initial Comments Patient is a 79-year-old male who presents to the emergency department today with a chief complaint of suprapubic catheter displacement. Patient states it came out during the night. Patient states he has had this catheter for about 10 years secondary to diabetes and issues with his bladder. Patient reports no symptoms of fevers, chills, body aches. Patient states that he is having some abdominal cramping secondary to having the urge to urinate. He denies any problems with bowel issues. He states "if I could just get some lube I could slip it in myself". All other review of systems reviewed and negative except as stated. Timing/Duration: this morning Severity/Quality: moderate Location: suprapubic Radiation: suprapubic Activities at Onset: none Prior Genitourinary Problems: similar symptoms Associated Symptoms: abdominal pain Allergies and Home Medications Allergies Coded Allergies: No Known Drug Allergies (Verified , 09/15/08) Home Medications Amlodipine Besylate 10 Mg Tablet, 10 MG PO DAILY, (Reported) Aspirin 81 Mg Tablet.dr, 81 MG PO DAILY, (Reported) Glipizide 10 Mg Tablet, 10 MG PO DAILY, (Reported) Lisinopril 40 Mg Tablet, 40 MG PO DAILY, (Reported) Geraldine-3/Dha/Epa/Fish Oil 1 Each Capsule, 1,000 MG PO BID, (Reported) Simvastatin 40 Mg Tablet, 40 MG PO HS, (Reported) Sitagliptin Phos/Metformin HCl 1 Each Tbmp.24hr, 1 EACH PO DAILY, (Reported) Patient Home Medication List Home Medication List Reviewed: Yes Review of Systems Review of Systems Constitutional: see HPI Respiratory: no symptoms reported Cardiovascular: no symptoms reported Gastrointestinal: abdominal pain Genitourinary: urgency Musculoskeletal: no symptoms reported Skin: no symptoms reported All Other Systemes Reviewed Negative Unless Noted: Yes Past Vujypfs-Pnhapb-Wszbrw Hx Patient Social History Type Used: Cigars Former Smoker, Quit: Apr 02, 2008 Recent Hopitalizations: No Immunizations Up To Date Tetanus Booster (TDap): Unknown Seasonal Allergies Seasonal Allergies: No Past Medical History Surgeries: Yes (HERNIA REPAIR, TRIPLE BYPASS; SUPRAPUBIC CATHETER; C-SPINE FUSION) Bladder Surgery, Cardiac, CABG, Orthopedic Respiratory: Yes (PNEUMONIA 03/19/17) Pneumonia Currently Using CPAP: No Currently Using BIPAP: No Cardiac: Yes (CABG) Coronary Artery Disease, Hypertension Neurological: No Reproductive Disorders: No Sexually Transmitted Disease: No Genitourinary: Yes (SUPRAPUBIC CATHETER) Prostate Problems, Neurogenic Bladder Gastrointestinal: No Musculoskeletal: Yes (NECK PAIN--C-SPINE SURGERY) Endocrine: Yes Diabetes, Non-Insulin dep HEENT: Yes Cataract Hearing Impairment: Hard of Hearing Cancer: Yes Prostate Did You Recieve Any Treatments: Yes What Type of Treatment Did You: Surgical Intervention Psychosocial: No Integumentary: No Blood Disorders: No Family Medical History Diabetes mellitus 19 MOTHER FH: cataracts 19 MOTHER FH: stroke 19 MOTHER Oral cancer 19 FATHER Cancer, Diabetes, Hypertension, Stroke Physical Exam Vital Signs Capillary Refill : Height, Weight, BMI Height: 5'8.00" Weight: 187lbs. 4.0oz. 84.795023hb; 27.37 BMI Method:Stated General Appearance: WD/WN, no apparent distress Cardiovascular: regular rate, rhythm, tachycardia Respiratory: lungs clear, normal breath sounds, no respiratory distress, no accessory muscle use Extremities: normal inspection Neurologic/Psychiatric: alert, normal mood/affect, oriented x 3 Skin: normal color, warm/dry Progress/Results/Core Measures Suspected Sepsis SIRS Temperature: Pulse: Respiratory Rate: Blood Pressure / Mean: Results/Orders Vital Signs/I&O Capillary Refill : Departure Impression Primary Impression: Suprapubic catheter dysfunction Qualified Codes: T83.010A - Breakdown (mechanical) of cystostomy catheter, initial encounter Disposition: HOME, SELF-CARE Condition: Stable Departure-Patient Inst. Decision time for Depature: 07:32 Referrals: DINORA HAIRSTON DO (PCP/Family) Primary Care Physician YAN BRITO MD Patient Instructions: How to Care for Your Suprapubic Urinary Catheter Add. Discharge Instructions: Please follow-up with as scheduled for follow-up. Return to the emergency room for any fever, foul urine smell, abdominal pain or any other emergent concerning symptoms. ANNIE JOHNSON MD Jun 07, 2020 07:33
== END 2020-06-07 07:43 | disposition home or self-care (01) ==
LOC: EDUNIT# 07:12 → ER 07:14
DX: T83.098A Other mechanical complication of other urinary catheter, initial encounter (principal); I25.10 Atherosclerotic heart disease of native coronary artery without angina pectoris; I10 Essential (primary) hypertension; E11.9 Type 2 diabetes mellitus without complications; Z87.891 Personal history of nicotine dependence; Z85.46 Personal history of malignant neoplasm of prostate; Z95.1 Presence of aortocoronary bypass graft; Z80.8 Family history of malignant neoplasm of other organs or systems; Z79.82 Long term (current) use of aspirin
CPT/HCPCS: 51702

== ENCOUNTER 2020-10-20 09:12 | Emergency (ER) | payer MEDICARE ==
[~2020-10-20] VITALS: Ht 172.2 cm; Wt 81.6 kg
--- NOTE | 2020-10-20 09:52 | ED Fall/Injury ---
General Chief Complaint: Neurological Problems Stated Complaint: FALL;R ELBOW/ARM/KNEE PAIN Nursing Triage Note: Pt ambulatory to ED. Pt poor historian. Pt reports falling Sunday over a gas pump and c/o R wrist, elbow, anf buttock pain. Pt c/o increased weakness and shakiness. reports pt unable to get out of bed this morning. Source: patient, family Exam Limitations: no limitations (ALL VARELA STUDENT) History of Present Illness Date Seen by Provider: Oct 20, 2020 Time Seen by Provider: 09:35 Initial Comments Pt presents to ED with at bedside via private conveyance s/p fall. He states that 3 days ago on Sunday, he tripped over a gas line and hit his R arm/ wrist/elbow and R hip. He complains of 2/10 pain, denies radiation. They state that this morning he was weaker than usual and he had trouble getting out of bed, which led to them presenting to the ED. He is ambulatory without assistance. Denies chest pain, SOB, nausea, vomiting. Occurred: other (3 days ago) Severity: mild Injuries/Pain Location: upper extremity (R), lower extremity (R hip) Context: tripped Loss of Consciousness: no loss of consciousness Modifying Factors: Improves With Movement Associated Symptoms (Fall): No Abdominal Pain, No Chest Pain, No Dizziness, No Headache, No Lightheadedness, No Nausea/Vomiting, No Vision Changes (ALL VARELA STUDENT) Initial Comments Patient had a fall tripping over a gas line while getting gas at the gas station 2 days ago and has had no subsequent falls or weakness other than needing some assistance to get out of bed today. He is able to ambulate in with no difficulty. He is not having saddle anesthesia, further falls caused by weakness, numbness tingling etc. He just has pain on his right paraspinal lumbar region over the L5-S1 facet joint. He does not think he has a fractured back and does not want any x-rays. His fall was greater than 2 days ago and is not on blood thinners. He is alert and oriented. (TIMOTHY BARNEY) Allergies and Home Medications Allergies Coded Allergies: No Known Drug Allergies (Verified , 09/15/08) Home Medications Amlodipine Besylate 10 Mg Tablet, 10 MG PO DAILY, (Reported) Aspirin 81 Mg Tablet.dr, 81 MG PO DAILY, (Reported) Glipizide 10 Mg Tablet, 10 MG PO DAILY, (Reported) Lisinopril 40 Mg Tablet, 40 MG PO DAILY, (Reported) Odin-3/Dha/Epa/Fish Oil 1 Each Capsule, 1,000 MG PO BID, (Reported) Simvastatin 40 Mg Tablet, 40 MG PO HS, (Reported) Sitagliptin Phos/Metformin HCl 1 Each Tbmp.24hr, 1 EACH PO DAILY, (Reported) Patient Home Medication List Home Medication List Reviewed: Yes (ALL VARELA) Home Medication List Reviewed: Yes (TIMOTHY BARNEY) Review of Systems Review of Systems Constitutional: No chills, No fever; weakness (per , difficulty getting out of bed this AM) Eyes: Denies Blurred Vision, Denies Pain, Denies Vision Changes Ears, Nose, Mouth, Throat: denies ear pain Respiratory: No cough, No short of breath Cardiovascular: No chest pain, No edema Gastrointestinal: No abdominal pain, No constipation, No diarrhea Genitourinary: No dysuria, No frequency, No hematuria Musculoskeletal: No back pain; joint pain (2/10 pain to R wrist, elbow, hip); No joint swelling Skin: No change in hair/nails; other (1x1cm area of ecchymosis to R wrist) (ALL VARELA) All Other Systems Reviewed Negative Unless Noted: Yes (ALL VARELA) Past Zbrbtlx-Ebibao-Kltcgc Hx Patient Social History Tobacco Use?: Yes Smokeless Tobacco Frequency: Current Everyday User Substance use?: No Alcohol Use?: No Pt feels they are or have been: No (ALL VARELA) Tobacco Use?: No Use of E-Cig and/or Vaping dev: No Substance use?: No (TIMOTHY BARNEY) Immunizations Up To Date Tetanus Booster (TDap): Unknown (ALL VARELA) Seasonal Allergies Seasonal Allergies: No (ALL VARELA) Past Medical History Surgeries: Yes (HERNIA REPAIR, TRIPLE BYPASS; SUPRAPUBIC CATHETER; C-SPINE FUSION) Bladder Surgery, Cardiac, CABG, Orthopedic Respiratory: No (PNEUMONIA 03/19/17) Pneumonia Currently Using CPAP: No Currently Using BIPAP: No Cardiac: Yes (CABG) Coronary Artery Disease, Hypertension Neurological: No Reproductive Disorders: No Sexually Transmitted Disease: No Genitourinary: Yes (SUPRAPUBIC CATHETER) Prostate Problems, Neurogenic Bladder Gastrointestinal: No Musculoskeletal: Yes (NECK PAIN--C-SPINE SURGERY) Endocrine: Yes Diabetes, Non-Insulin dep HEENT: Yes Cataract Hearing Impairment: Hard of Hearing Cancer: Yes Prostate Did You Recieve Any Treatments: Yes What Type of Treatment Did You: Surgical Intervention Psychosocial: No Integumentary: No Blood Disorders: No (ALL VARELA STUDENT) Family Medical History Diabetes mellitus 19 MOTHER FH: cataracts 19 MOTHER FH: stroke 19 MOTHER Oral cancer 19 FATHER Cancer, Diabetes, Hypertension, Stroke (ALL VARELA) Physical Exam Vital Signs Vital Signs - First Documented 10/20/20 09:18 Temp 36.6 Pulse 82 Resp 22 B/P (MAP) 134/66 (88) Pulse Ox 95 O2 Delivery Room Air (TIMOTHY BARNEY) Vital Signs Capillary Refill : Less Than 3 Seconds (ALL VARELA) Height, Weight, BMI Height: 5'8.00" Weight: 187lbs. 4.0oz. 84.760774sh; 27.00 BMI Method:Stated General Appearance: WD/WN, no apparent distress HEENT: PERRL/EOMI, normal ENT inspection, pharynx normal Neck: non-tender, full range of motion, supple, normal inspection Cardiovascular: normal peripheral pulses, regular rate, rhythm, no edema, no murmur Respiratory: chest non-tender, lungs clear, normal breath sounds, no respiratory distress, no accessory muscle use Peripheral Pulses: 2+ Dorsalis Pedis (R), 2+ Left Dors-Pedis (L), 2+ Radial Pulses (R), 2+ Radial Pulses (L) Gastrointestinal: normal bowel sounds, non tender, soft Rectal: deferred Back: normal inspection, no CVA tenderness, no vertebral tenderness Extremities: normal range of motion, normal inspection, no pedal edema, no calf tenderness, normal capillary refill, pelvis stable, other (mild tenderness to R wrist and hip) Neurologic/Psychiatric: no motor/sensory deficits, alert, normal mood/affect, oriented x 3 Skin: warm/dry, ecchymosis (R wrist 1x1) Lymphatic: no adenopathy (ALL VARELA STUDENT) Mary Coma Score Best Eye Response: (4) Open Spontaneously Best Verbal Response: (5) Oriented Best Motor Response: (6) Obeys Commands (ALL VARELA STUDENT) Progress/Results/Core Measures Results/Orders Vital Signs/I&O 10/20/20 09:18 Temp 36.6 Pulse 82 Resp 22 B/P (MAP) 134/66 (88) Pulse Ox 95 O2 Delivery Room Air (TIMOTHY BARNEY) Blood Pressure Mean: 88 Progress Progress Note : Time: 10:23 Progress Note We did offer imaging which the patient declined. He has an appointment tomorrow with his doctor for routine checkup and agrees to follow-up with him. We discussed return precautions. We discussed pain management which he declined. I attest that I saw this patient alongside the medical student and agree with his documented history, physical exam and review of systems except as otherwise noted. (TIMOTHY BARNEY) Departure Impression Primary Impression: Fall Qualified Codes: W19.XXXA - Unspecified fall, initial encounter Additional Impression: Lumbago Qualified Codes: M54.5 - Low back pain Disposition: 01 HOME, SELF-CARE Condition: Stable Departure-Patient Inst. Decision time for Depature: 10:26 (TIMOTHY BARNEY) Referrals: DINORA HAIRSTON DO (PCP/Family) Primary Care Physician Patient Instructions: Low Back Pain ED Add. Discharge Instructions: Topical creams such as icy hot or Biofreeze can be used for your elbow and back. Tylenol 1000 mg every 8 hours as necessary for pain. Keep your follow-up appointment tomorrow with your doctor and if not seeing improvement in 1 to 2 weeks make another appointment. Return to the ER if you are having difficulty urinating, loss of control of your bowel and/or bladder, saddle numbness, further weakness causing falls or other worrisome symptoms. All discharge instructions reviewed with patient and/or family. Voiced understanding. Copy Copies To 1: DINORA HAIRSTON JOHNNY MED STUDENT Oct 20, 2020 09:52 TIMOTHY BARNEY Oct 20, 2020 10:27
[2020-10-20 10:30] VITALS: BP 134/66
== END 2020-10-20 10:30 | disposition home or self-care (01) ==
LOC: EDUNIT# 09:12 → ER 09:14
DX: S60.211A Contusion of right wrist, initial encounter (principal); M54.5 Low back pain; I10 Essential (primary) hypertension; E11.9 Type 2 diabetes mellitus without complications; I25.10 Atherosclerotic heart disease of native coronary artery without angina pectoris; F17.200 Nicotine dependence, unspecified, uncomplicated; Z79.82 Long term (current) use of aspirin; Z79.899 Other long term (current) drug therapy; W01.0XXA Fall on same level from slipping, tripping and stumbling without subsequent striking against object, initial encounter
CPT/HCPCS: 99283

== ENCOUNTER 2021-09-26 02:05 | Emergency (ER) | payer MEDICARE ==
[~2021-09-26 02:05] MED LIST changes: +BETH25TA2 PO; -LEVO500T80 PO; +LEVO500T81 PO
--- NOTE | 2021-09-26 03:46 | ED GI ---
General Chief Complaint: Abdominal/GI Problems Stated Complaint: CONSTIPATED Nursing Triage Note: TO ED VIA POV AND AMBULATORY TO ROOM 5. PT STATES HE IS "HAVING TROUBLE POOPING". LAST BM YESTERDAY 09/25/21. PT STATES HE TOOK LAXATIVES AND A SUPPOSITORY LAST NIGHT AT 2300 WITHOUT RESULTS. DENIES ABD PAIN. STATES HE HAS HAD THIS PROBLEM FOR OVER 3 MONTHS, BUT HAS NOT BEEN TO PCP FOR ISSUE. Source of Information: Patient History of Present Illness Date Seen by Provider: Sep 26, 2021 Time Seen by Provider: 02:54 Initial Comments PT ARRIVES VIA POV FROM HOME C/O CONSTIPATION THIS IS A CHRONIC PROBLEM FOR PATIENT AND HAS BEEN HAVING WORSE PROBLEMS OVER THE LAST 3-4 MONTHS TOOK UNKNOWN LAXATIVE AND SUPPOSITORY AROUND 2300 LAST NIGHT WITHOUT RESULTS. STATES HE HAD A BM AT 0900 YESTERDAY MORNING NO ABDOMINAL PAIN NO NAUSEA/VOMITING HAS NOT SOUGHT CARE WITH HIS PCP FOR THIS --SAW HER A COUPLE OF WEEKS AGO FOR ROUTINE APPOINTMENT BUT NEVER MENTIONED THIS PROBLEM TO HER PCP: DR. HAIRSTON Allergies and Home Medications Allergies Coded Allergies: No Known Drug Allergies (Verified , 09/15/08) Patient Home Medication List Home Medication List Reviewed: Yes Amlodipine Besylate (Amlodipine Besylate) 10 Mg Tablet, 10 MG PO DAILY, (R eported) Entered as Reported by: ODETTE GREY on 04/01/17 1146 Aspirin (Aspirin EC) 81 Mg Tablet.dr, 81 MG PO DAILY, (Reported) Entered as Reported by: ODETTE GREY on 04/01/17 1505 Glipizide (Glipizide) 10 Mg Tablet, 10 MG PO DAILY, (Reported) Entered as Reported by: ODETTE GREY on 04/01/17 1147 Lisinopril (Lisinopril) 40 Mg Tablet, 40 MG PO DAILY, (Reported) Entered as Reported by: ROSHAN EASTON on 11/23/15 1302 Deal-3/Dha/Epa/Fish Oil (Fish Oil 1,000 mg Softgel) 1 Each Capsule, 1,000 MG PO BID, (Reported) Entered as Reported by: ODETTE GREY on 04/01/17 1505 Simvastatin (Simvastatin) 40 Mg Tablet, 40 MG PO HS, (Reported) Entered as Reported by: ODETTE GREY on 04/01/17 1146 Sitagliptin Phos/Metformin HCl (Janumet Xr 100-1,000 mg Tablet) 1 Each Tbmp.24hr, 1 EACH PO DAILY, (Reported) Entered as Reported by: FLOYD MIRANDA on 10/07/19 1057 Review of Systems Review of Systems Constitutional: no symptoms reported Gastrointestinal: See HPI Genitourinary: No Symptoms Reported Past Tzywzie-Kqlelj-Aximnp Hx Patient Social History Tobacco Use?: No Substance use?: No Alcohol Use?: No Immunizations Up To Date Tetanus Booster (TDap): Unknown COVID19 Vaccine Conference Manager: MODERNA X2 VACCINES Seasonal Allergies Seasonal Allergies: No Past Medical History Surgeries: Yes (HERNIA REPAIR, TRIPLE BYPASS; SUPRAPUBIC CATHETER; C-SPINE FUSION) Bladder Surgery, Cardiac, CABG, Orthopedic Respiratory: No (PNEUMONIA 03/19/17) Pneumonia Currently Using CPAP: No Currently Using BIPAP: No Cardiac: Yes (CABG) Coronary Artery Disease, Hypertension Neurological: No Reproductive Disorders: No Sexually Transmitted Disease: No Genitourinary: Yes (SUPRAPUBIC CATHETER) Prostate Problems, Neurogenic Bladder Gastrointestinal: No Musculoskeletal: Yes (NECK PAIN--C-SPINE SURGERY) Endocrine: Yes Diabetes, Non-Insulin dep HEENT: Yes Cataract Hearing Impairment: Hard of Hearing Cancer: Yes Prostate Did You Recieve Any Treatments: Yes What Type of Treatment Did You: Surgical Intervention Psychosocial: No Integumentary: No Blood Disorders: No Family Medical History Diabetes mellitus 19 MOTHER FH: cataracts 19 MOTHER FH: stroke 19 MOTHER Oral cancer 19 FATHER Cancer, Diabetes, Hypertension, Stroke Physical Exam Vital Signs Vital Signs - First Documented 09/26/21 02:45 Temp 36.1 Pulse 87 Resp 18 B/P (MAP) 147/71 (96) Pulse Ox 96 O2 Delivery Room Air Capillary Refill : Less Than 3 Seconds Height/Weight/BMI Height: 5'8.00" Weight: 187lbs. 4.0oz. 84.809553db; 27.00 BMI Method:Stated General Appearance: WD/WN, no apparent distress Respiratory: normal breath sounds Cardiovascular: regular rate, rhythm Gastrointestinal: normal bowel sounds, non tender, soft Back: no CVA tenderness Neurologic/Psychiatric: no motor/sensory deficits, alert, normal mood/affect, oriented x 3 Skin: normal color, warm/dry Progress/Results/Core Measures Results/Orders My Orders Orders - DIVYA JASMINE DO Abdomen, Flat & Upright/Decub (09/26/21 02:53) Vital Signs/I&O 09/26/21 09/26/21 02:45 04:05 Temp 36.1 36.1 Pulse 87 82 Resp 18 16 B/P (MAP) 147/71 (96) 138/70 Pulse Ox 96 96 O2 Delivery Room Air Room Air Blood Pressure Mean: 96 Diagnostic Imaging Comments ABDOMEN XRAYS--CONSTIPATION, NO OBSTRUCTION OR IMPACTION. PENDING RADIOLOGIST REVIEW Reviewed: Reviewed by Me Departure Impression Primary Impression: Constipation Disposition: 01 HOME, SELF-CARE Condition: Stable Departure-Patient Inst. Decision time for Depature: 03:46 Referrals: DINORA HAIRSTON DO (PCP/Family) Primary Care Physician Patient Instructions: Constipation, Adult (DC) Add. Discharge Instructions: USE MIRALAX--1 CAPFUL IN 8 OZ WATER--TAKE EVERY 1-2 HOURS UNTIL YOUR BOWELS HAVE MOVED, THEN START TAKING IT ONCE A DAY EVERY DAY YOU MAY ALSO USE FLEET'S ENEMAS AND DULCOLAX SUPPOSITORIES RECTALLY FOR BOWEL MO VEMENT FOLLOW UP WITH DR. HAIRSTON IF SYMPTOMS PERSIST All discharge instructions reviewed with patient and/or family. Voiced u nderstanding. DIVYA JASMINE DO Sep 26, 2021 03:46
[2021-09-26 04:05] VITALS: BP 138/70
--- NOTE | 2021-09-26 07:43 | Diagnostic Imaging Report ---
INDICATION: Pain. FINDINGS: Mild constipation present. No obstruction, however no focal impaction. No suspicious calcifications. IMPRESSION: Borderline elevated fecal load otherwise negative. Dictated by: Dictated on workstation # [id number]
== END 2021-09-26 04:05 | disposition home or self-care (01) ==
LOC: EDUNIT# 02:05 → ER 02:10
DX: K59.00 Constipation, unspecified (principal); Z90.49 Acquired absence of other specified parts of digestive tract
CPT/HCPCS: 74019

== ENCOUNTER 2021-10-01 17:53 | Emergency (ER) | payer MEDICARE ==
[~2021-10-01] VITALS: Ht 172 cm; Wt 79.0 kg
[2021-10-01] MEDS ORDERED: LACTATED RINGERS 1,000 ML IV ONE (18:00)
[2021-10-01] MEDS ORDERED: IBUPROFEN 800 MG (MOTRIN) TAB PO ONE (18:00)
[2021-10-01] MEDS ORDERED: ACETAMINOPHEN 500 MG TAB (TYLENOL) PO PRN (18:00)
--- NOTE | 2021-10-01 18:09 | ED General ---
General Stated Complaint: FEVER Source of Information: Patient, EMS, Old Records History of Present Illness Date Seen by Provider: Oct 01, 2021 Time Seen by Provider: 17:58 Initial Comments PT ARRIVES VIA EMS FROM HOME PT HAS HAD FEVER AND CHILLS SINCE 0400--TEMP WAS 102 FOR EMS PT STATES HE HAS A SORE THROAT PT HAS NOT TAKEN ANYTHING AT ALL FOR HIS SYMPTOMS PT DENIES COUGH OR URI SYMPTOMS DENIES SHORTNESS OF BREATH DENIES NAUSEA/VOMITING/DIARRHEA DENIES HEADACHE DENIES BODY ACHES STATES HE HAS NOT HAD ANYTHING TO EAT OR DRINK TODAY BECAUSE HIS THROAT HURTS. TESTED + FOR COVID A COUPLE OF DAYS AGO--PT STATES SHE HAS BEEN SICK FOR "A COUPLE OF DAYS" AND WENT TO [facility] AND TESTED + PT STATES SHE DID NOT RECEIVE ANY TREATMENT FOR IT EMS REPORT THAT SON HAS BEEN CALLING THEM ALL DAY FOR THIS PROBLEM AND PT HAS REPEATEDLY REFUSED TO COME TO HOSPITAL, BUT SON "FORCED" HIM TO COME TONIGHT PT HAS HAD COVID-19 VACCINE X 3--LAST ONE WAS "ABOUT A YEAR AGO" PER PT PT WAS HERE 09/26/21 FOR CHRONIC CONSTIPATION, AND REPORTED AT THAT TIME THAT HE ONLY HAD 2 COVID VACCINES PCP: DR. HAIRSTON Allergies and Home Medications Allergies Coded Allergies: No Known Drug Allergies (Verified , 09/15/08) Patient Home Medication List Home Medication List Reviewed: Yes Amlodipine Besylate (Amlodipine Besylate) 10 Mg Tablet, 10 MG PO DAILY, (Reported) Entered as Reported by: ODETTE GREY on 04/01/17 1146 Aspirin (Aspirin EC) 81 Mg Tablet.dr, 81 MG PO DAILY, (Reported) Entered as Reported by: ODETTE GREY on 04/01/17 1505 Ciprofloxacin HCl (Ciprofloxacin HCl) 500 Mg Tablet, 500 MG PO BID Prescribed by: DIVYA JASMINE on 10/01/21 1933 Glipizide (Glipizide) 10 Mg Tablet, 10 MG PO DAILY, (Reported) Entered as Reported by: ODETTE GREY on 04/01/17 1147 Lisinopril (Lisinopril) 40 Mg Tablet, 40 MG PO DAILY, (Reported) Entered as Reported by: ROSHAN EASTON on 11/23/15 1302 [place]-3/Dha/Epa/Fish Oil (Fish Oil 1,000 mg Softgel) 1 Each Capsule, 1,000 MG PO BID, (Reported) Entered as Reported by: ODETTE GREY on 04/01/17 1505 Simvastatin (Simvastatin) 40 Mg Tablet, 40 MG PO HS, (Reported) Entered as Reported by: ODETTE GREY on 04/01/17 1146 Sitagliptin Phos/Metformin HCl (Janumet Xr 100-1,000 mg Tablet) 1 Each Tbmp.24hr, 1 EACH PO DAILY, (Reported) Entered as Reported by: FLOYD MIRANDA on 10/07/19 1057 Review of Systems Review of Systems Constitutional: see HPI, chills, fever, malaise, weakness EENTM: see HPI, throat pain; No nose congestion Respiratory: no symptoms reported; No cough, No short of breath Cardiovascular: no symptoms reported; No chest pain Gastrointestinal: see HPI; No abdominal pain, No diarrhea; loss of appetite; No nausea, No vomiting Genitourinary: no symptoms reported Musculoskeletal: no symptoms reported; No muscle pain Skin: no symptoms reported Psychiatric/Neurological: No Symptoms Reported; Denies Headache Hematologic/Lymphatic: No Symptoms Reported Immunological/Allergic: no symptoms reported Past Ouvavcq-Qdorab-Dcsrku Hx Patient Social History Tobacco Use?: No Substance use?: No Alcohol Use?: No Immunizations Up To Date Tetanus Booster (TDap): Unknown Seasonal Allergies Seasonal Allergies: No Past Medical History Surgeries: Yes (HERNIA REPAIR, TRIPLE BYPASS; SUPRAPUBIC CATHETER; C-SPINE FUSION) Bladder Surgery, Cardiac, CABG, Orthopedic Respiratory: Yes (PNEUMONIA 2018) Pneumonia Currently Using CPAP: No Currently Using BIPAP: No Cardiac: Yes (CABG) Coronary Artery Disease, Hypertension Neurological: Yes Parkinson's Disease (DOES NOT TAKE MEDS FOR PARKINSON'S) Reproductive Disorders: No Sexually Transmitted Disease: No Genitourinary: Yes (SUPRAPUBIC CATHETER) Prostate Problems, Neurogenic Bladder Gastrointestinal: Yes Chronic Constipation Musculoskeletal: Yes (NECK PAIN--C-SPINE SURGERY) Endocrine: Yes Diabetes, Non-Insulin dep HEENT: Yes Cataract Hearing Impairment: Hard of Hearing Cancer: Yes Prostate Did You Recieve Any Treatments: Yes What Type of Treatment Did You: Surgical Intervention Psychosocial: No Integumentary: No Blood Disorders: No Family Medical History Diabetes mellitus 19 MOTHER FH: cataracts 19 MOTHER FH: stroke 19 MOTHER Oral cancer 19 FATHER Cancer, Diabetes, Hypertension, Stroke Physical Exam Vital Signs Vital Signs - First Documented 10/01/21 10/01/21 17:57 18:06 Temp 38.0 Pulse 100 Resp 20 B/P (MAP) 190/79 (116) Pulse Ox 92 O2 Delivery Room Air O2 Flow Rate 2.00 Capillary Refill : Height, Weight, BMI Height: 5'8.00" Weight: 187lbs. 4.0oz. 84.566351xz; 27.00 BMI Method:Stated General Appearance: No Apparent Distress, WD/WN HEENT: PERRL/EOMI, TMs Normal, Normal ENT Inspection, Pharynx Normal, Moist Mucous Membranes Neck: Normal Inspection Respiratory: Normal Breath Sounds, No Accessory Muscle Use, No Respiratory Distress Cardiovascular: Regular Rate, Rhythm, No Edema, No JVD, No Murmur, Normal Pe ripheral Pulses Gastrointestinal: Normal Bowel Sounds, No Organomegaly, Non Tender, Soft Back: No CVA Tenderness, No Vertebral Tenderness Extremity: Normal Capillary Refill, Normal Inspection, Normal Range of Motion, Non Tender, No Calf Tenderness, No Pedal Edema Neurologic/Psychiatric: Alert, Oriented x3, No Motor/Sensory Deficits, hand shaper II- XII Norm as Tested, Other (RESTING TREMOR OF HANDS AND FEET. SOMEWHAT FLAT AFFECT. ) Focused Exam Sepsis Stage: Ruled Out Reason for ruling out sepsis: DOES NOT MEET CRITERIA Lactate Level 10/01/21 18:04: Lactic Acid Level 1.57 Time of Focused Exam: 18:55 Respiratory: Normal Breath Sounds, No Accessory Muscle Use, No Respiratory Distress Cardiovascular: Regular Rate, Rhythm, No Edema, No JVD, No Murmur, Normal Peripheral Pulses Capillary Refill: Less Than 3 Seconds Skin: normal color, warm/dry Lactic Acid Level Laboratory Tests Test 10/01/21 18:04 Lactic Acid Level 1.57 MMOL/L (0.50-2.00) Within 3hrs of presentation: Admin fluids, Blood cultures prior to ABX's, Focus exam, Lactate level, Other (PT HAS COVID-ANTIBIOTICS NOT INDICATED) Progress/Results/Core Measures Suspected Sepsis SIRS Temperature: Pulse: Respiratory Rate: Laboratory Tests 10/01/21 18:04: White Blood Count 7.2 Blood Pressure / Mean: 10/01/21 18:04: Lactic Acid Level 1.57 Laboratory Tests 10/01/21 18:04: Creatinine 1.09, INR Comment 1.0, Platelet Count 190, Total Bilirubin 0.7 Results/Orders Lab Results Laboratory Tests Test 10/01/21 18:04 10/01/21 18:07 10/01/21 19:12 Range/Units White Blood Count 7.2 4.3-11.0 10^3/uL Red Blood Count 5.39 4.30-5.52 10^6/uL Hemoglobin 14.0 13.3-17.7 g/dL Hematocrit 44 40-54 % Mean Corpuscular Volume 81 80-99 fL Mean Corpuscular Hemoglobin 26 25-34 pg Mean Corpuscular Hemoglobin Concent 32 32-36 g/dL Red Cell Distribution Width 15.6 H 10.0-14.5 % Platelet Count 190 130-400 10^3/uL Mean Platelet Volume 9.2 9.0-12.2 fL Immature Granulocyte % (Auto) 0 % Neutrophils (%) (Auto) 58 42-75 % Lymphocytes (%) (Auto) 31 12-44 % Monocytes (%) (Auto) 9 0-12 % Eosinophils (%) (Auto) 2 0-10 % Basophils (%) (Auto) 1 0-10 % Neutrophils # (Auto) 4.2 1.8-7.8 10^3/uL Lymphocytes # (Auto) 2.2 1.0-4.0 10^3/uL Monocytes # (Auto) 0.7 0.0-1.0 10^3/uL Eosinophils # (Auto) 0.1 0.0-0.3 10^3/uL Basophils # (Auto) 0.1 0.0-0.1 10^3/uL Immature Granulocyte # (Auto) 0.0 0.0-0.1 10^3/uL Prothrombin Time 13.4 12.2-14.7 SEC INR Comment 1.0 0.8-1.4 Activated Partial Thromboplast Time 29 24-35 SEC Sodium Level 138 135-145 MMOL/L Potassium Level 4.5 3.6-5.0 MMOL/L Chloride Level 103 98-107 MMOL/L Carbon Dioxide Level 21 21-32 MMOL/L Anion Gap 14 5-14 MMOL/L Blood Urea Nitrogen 13 7-18 MG/DL Creatinine 1.09 0.60-1.30 MG/DL Estimat Glomerular Filtration Rate 69 BUN/Creatinine Ratio 12 Glucose Level 124 H 70-105 MG/DL Lactic Acid Level 1.57 0.50-2.00 MMOL/L Calcium Level 9.4 8.5-10.1 MG/DL Corrected Calcium 9.2 8.5-10.1 MG/DL Total Bilirubin 0.7 0.1-1.0 MG/DL Aspartate Amino Transf (AST/SGOT) 23 5-34 U/L Alanine Aminotransferase (ALT/SGPT) 14 0-55 U/L Alkaline Phosphatase 107 40-136 U/L Total Protein 7.6 6.4-8.2 GM/DL Albumin 4.2 3.2-4.5 GM/DL Procalcitonin 0.05 <0.10 NG/ML Influenza Type A (RT-PCR) Not Detected Not Detecte Influenza Type B (RT-PCR) Not Detected Not Detecte SARS-CoV-2 RNA (RT-PCR) Detected H Not Detecte Group A Streptococcus Screen NEGATIVE NEGATIVE Urine Color YELLOW Urine Clarity CLEAR Urine pH 7.5 5-9 Urine Specific [place] 1.015 L 1.016-1.022 Urine Protein TRACE H NEGATIVE Urine Glucose (UA) NEGATIVE NEGATIVE Urine Ketones NEGATIVE NEGATIVE Urine Nitrite POSITIVE H NEGATIVE Urine Bilirubin NEGATIVE NEGATIVE Urine Urobilinogen 0.2 < = 1.0 MG/DL Urine Leukocyte Esterase TRACE H NEGATIVE Urine RBC (Auto) 2+ H NEGATIVE Urine RBC 10-25 H /HPF Urine WBC 10-25 H /HPF Urine Squamous Epithelial Cells RARE /HPF Urine Crystals NONE /LPF Urine Bacteria LARGE H /HPF Urine Casts NONE /LPF Urine Mucus NEGATIVE /LPF Urine Culture Indicated YES My Orders Orders - DIVYA JASMINE DO Ed Iv/Invasive Line Start (10/01/21 17:59) O2 (10/01/21 17:59) Monitor-Rhythm Ecg Trace Only (10/01/21 17:59) Procalcitonin (Pct) (10/01/21 17:59) Chest 1 View, Ap/Pa Only (10/01/21 17:59) Ed Iv/Invasive Line Start (10/01/21 17:59) Lactated Ringers (Lr 1000 Ml Iv Solution (10/01/21 18:00) Covid 19 Inhouse Test (10/01/21 17:59) Cbc With Automated Diff (10/01/21 17:59) Comprehensive Metabolic Panel (10/01/21 17:59) Blood Culture (10/01/21 17:59) Urinalysis (10/01/21 17:59) Urine Culture (10/01/21 17:59) Protime With Inr (10/01/21 17:59) Partial Thromboplastin Time (10/01/21 17:59) Acetaminophen Tablet (Tylenol Tablet) (10/01/21 18:00) Ed Iv/Invasive Line Start (10/01/21 17:59) Ed Iv/Invasive Line Start (10/01/21 17:59) Vital Signs Adult Sepsis Patie Q15M (10/01/21 17:59) Remove Rings In Anticipation O (10/01/21 17:59) Lactic Acid Analyzer (10/01/21 17:59) Influenza A And B By Pcr (10/01/21 17:59) Isolation Central Supply Req (10/01/21 17:59) Ibuprofen Tablet (Motrin Tablet) (10/01/21 18:00) Rapid Strep A Screen (10/01/21 18:09) Bebtelovimab (Bebtelovimab) (10/01/21 19:15) Nursing Communication (Order) (10/01/21 19:04) Ed Iv/Invasive Line Start (10/01/21 19:05) Ns Iv 1000 Ml (Sodium Chloride 0.9%) (10/01/21 19:15) Medications Given in ED Current Medications Medications Dose Ordered Sig/Melinda Route Start Time Stop Time Status Last Admin Dose Admin Acetaminophen 1,000 mg ONCE PRN PO 10/01/21 18:00 10/01/21 18:11 DC 10/01/21 18:11 1,000 MG Bebtelovimab 175 mg ONCE ONCE IV 10/01/21 19:15 10/01/21 19:16 DC 10/01/21 19:26 175 MG Ibuprofen 800 mg ONCE ONCE PO 10/01/21 18:00 10/01/21 18:04 DC 10/01/21 18:11 800 MG Lactated Ringer's 1,000 ml @ 0 mls/hr Q0M ONCE IV 10/01/21 18:00 10/01/21 18:03 DC 10/01/21 18:11 0 MLS/HR Vital Signs/I&O 10/01/21 10/01/21 10/01/21 17:57 18:06 20:29 Temp 38.0 Pulse 100 91 Resp 20 20 B/P (MAP) 190/79 (116) 159/77 Pulse Ox 92 95 O2 Delivery Room Air Nasal Cannula Room Air O2 Flow Rate 2.00 2.00 Capillary Refill : Progress Note : Progress Note PLACED IN ISOLATION ROOM PPE WORN AT ALL TIMES COVID, FLU AND STREP TESTING DONE SEPSIS PROTOCOL INITIATED. GIVEN: -IV FLUIDS -TYLENOL AND MOTRIN TEMP DOWN AND THROAT PAIN IMPROVED ESSENTIALLY SYMPTOM-FREE AT DISMISSAL NO COUGH NO DYSPNEA NO HYPOXIA DUE TO MULTIPLE MEDICATIONS THAT PT IS CURRENTLY ON, AND POTENTIAL DRUG INTERACTIONS WITH PAXLOVID, OFFERED MONOCLONAL ANTIBODY INFUSION TO PATIENT AND HE AGREES TO THE INFUSION NO ADVERSE EFFECTS FROM THE INFUSION DURING ER STAY PT NOTED TO HAVE A UTI ON UA\\ REVIEWED PRIOR URINE CULTURE THAT GREW OUT PSEUDOMONAS AERUGINOSA, SENSITIVE TO CIPRO Diagnostic Imaging Comments CXR--PER RADIOLOGIST REPORT AT 1925 FINDINGS: The lung volumes are normal. No focal consolidation is seen. Small amount of left basilar opacities are seen. No large pleural effusion or pneumothorax is seen. The cardiomediastinal silhouette is normal in size with post-CABG changes noted. No acute osseous abnormality is seen. IMPRESSION: Small amount of left basilar opacities, likely representing atelectasis. Reviewed: Reviewed by Me Departure Impression Primary Impression: COVID-19 virus infection Additional Impression: Urinary tract infection Disposition: 01 HOME, SELF-CARE Condition: Stable Departure-Patient Inst. Decision time for Depature: 19:08 Referrals: DINORA HAIRSTON DO (PCP/Family) Primary Care Physician Patient Instructions: Bebtelovimab FDA Fact Sheet, COVID-19 (DC), Preventing the Spread of an Infectious Disease, Urinary Tract Infection, Adult (DC) Add. Discharge Instructions: LOTS OF CLEAR LIQUIDS--WATER, BROTH, JELLO, GATORADE DIET TOLERATED TAKE TYLENOL 1 GRAM + MOTRIN 800 MG EVERY 6 HOURS NEEDED FOR PAIN OR FEVER SALT WATER GARGLES NEEDED FOR SORE THROAT YOU MAY ALSO USE OVER THE COUNTER THROAT LOZENGES NEEDED FOR THROAT PAIN YOU MAY TAKE OVER THE COUNTER MEDICATION SUCH MUCINEX DM IF YOU DEVELOP A COUGH OR CONGESTION QUARANTINE FOR 10 DAYS RETURN TO ER IF SYMPTOMS WORSEN Scripts Ciprofloxacin HCl (Ciprofloxacin HCl) 500 Mg Tablet 500 MG PO BID, #14 TAB Prov: DIVYA JASMINE DO 10/01/21 DIVYA JASMINE DO Oct 01, 2021 18:09
[2021-10-01 18:21] LABS: BASOPHILS # (AUTO) 0.1 10^3/uL (0.0-0.1); BASOPHILS % (AUTO) 1 % (0-10); EOSINOPHILS # (AUTO) 0.1 10^3/uL (0.0-0.3); EOSINOPHILS % (AUTO) 2 % (0-10); HEMATOCRIT 44 % (40-54); LYMPHOCYTES # (AUTO) 2.2 10^3/uL (1.0-4.0); LYMPHOCYTES % (AUTO) 31 % (12-44); MEAN CORPUSCULAR HEMOGLOBIN 26 pg (25-34); MEAN CORPUSCULAR HGB CONC 32 g/dL (32-36); MEAN CORPUSCULAR VOLUME 81 fL (80-99); MEAN PLATELET VOLUME 9.2 fL (9.0-12.2); MONOCYTES # (AUTO) 0.7 10^3/uL (0.0-1.0); MONOCYTES % (AUTO) 9 % (0-12); NEUTROPHILS # (AUTO) 4.2 10^3/uL (1.8-7.8); NEUTROPHILS % (AUTO) 58 % (42-75); PLATELET COUNT 190 10^3/uL (130-400); WHITE BLOOD COUNT 7.2 10^3/uL (4.3-11.0)
[2021-10-01 18:30] LABS: ALBUMIN 4.2 GM/DL (3.2-4.5); POTASSIUM 4.5 MMOL/L (3.6-5.0)
[2021-10-01 18:31] LABS: CALCIUM 9.4 MG/DL (8.5-10.1)
[2021-10-01 18:32] LABS: PROTHROMBIN TIME PATIENT 13.4 SEC (12.2-14.7)
[2021-10-01 18:33] LABS: TOTAL PROTEIN 7.6 GM/DL (6.4-8.2)
[2021-10-01 18:34] LABS: BILIRUBIN,TOTAL 0.7 MG/DL (0.1-1.0)
[2021-10-01 18:36] LABS: CREATININE SERUM 1.09 MG/DL (0.60-1.30)
[2021-10-01] MEDS ORDERED: BEBTELOVIMAB 175 MG/2 ML VIAL IV ONE (19:15)
[2021-10-01] MEDS ORDERED: NS IV 1000 ML 1,000 ML IV SCH (19:15)
[2021-10-01 19:18] LABS: BILIRUBIN,URINE NEGATIVE (NEGATIVE); CLARITY,URINE CLEAR; COLOR,URINE YELLOW; GLUCOSE, URINE (UA) NEGATIVE (NEGATIVE); KETONES,URINE NEGATIVE (NEGATIVE); LEUKOCYTE ESTERASE ,URINE TRACE (NEGATIVE); NITRITE,URINE POSITIVE (NEGATIVE); PH,URINE 7.5 (5-9); PROTEIN,URINE TRACE (NEGATIVE)
--- NOTE | 2021-10-01 19:21 | Diagnostic Imaging Report ---
EXAMINATION: Chest 1 view. HISTORY: Fever. COMPARISON: 11/21/2015. FINDINGS: The lung volumes are normal. No focal consolidation is seen. Small amount of left basilar opacities are seen. No large pleural effusion or pneumothorax is seen. The cardiomediastinal silhouette is normal in size with post-CABG changes noted. No acute osseous abnormality is seen. IMPRESSION: Small amount of left basilar opacities, likely representing atelectasis. Dictated by: Dictated on workstation # [id number]
[2021-10-01 19:28] LABS: BACTERIA,URINE LARGE /HPF; SQUAMOUS EPITHELIAL CELL,UR RARE /HPF
[2021-10-01] MEDS ORDERED: CIPR500T5 PO (19:33)
[2021-10-01 20:29] VITALS: BP 159/77
== END 2021-10-01 20:31 | disposition home or self-care (01) ==
LOC: EDUNIT# 17:53 → ER 17:54
DX: U07.1 COVID-19 (principal); N39.0 Urinary tract infection, site not specified
CPT/HCPCS: 36415; 71045; 80053; 81000; 83605; 84145; 85025; 85610; 85730; 87040; 87077; 87088; 87430; 87636; 93041

== ENCOUNTER 2022-06-16 01:56 | Emergency (ER) | payer MEDICARE ==
[~2022-06-16] VITALS: Ht 172.7 cm; Wt 68.2 kg
[~2022-06-16 01:56] MED LIST changes: +CIPR500T5 PO; +LEVO-55 PO; -LEVO500T81 PO
--- NOTE | 2022-06-16 02:21 | ED GI ---
General Chief Complaint: Abdominal/GI Problems Stated Complaint: CONSTIPATION FOR 5 DAYS Source of Information: Patient Exam Limitations: No Limitations History of Present Illness Date Seen by Provider: Jun 16, 2022 Time Seen by Provider: 02:08 Initial Comments Patient is an 82-year-old male who presents to the emergency room with a chief complaint of concern for constipation. Patient states he has not had a "good" bowel movement in the last 5 days. He is only passing little mesfin of stool. He has no abdominal pain, no nausea, no vomiting. No fevers or chills. Normal urination. He states that he is really been having to "strain" in order to get little mesfin of stool out. No persistent blood in his stool. No fevers or chills. No URI symptoms. Has not contacted his primary care physician's office about this problem. History of diabetes and hypertension. No prior abdominal surgeries. He does not know what has caused his constipation. He states he drinks 1 cup of water daily. He has tried oral Dulcolax without any relief. He is asking for an enema here in the emergency ro om. Patient seems surprised to know that you could buy fleets enemas [id number]. He has not tried any mag citrate or milk of magnesia. Timing/Duration: 1 Week Associated Symptoms: Denies Symptoms Allergies and Home Medications Allergies Coded Allergies: No Known Drug Allergies (Verified , 09/15/08) Patient Home Medication List Home Medication List Reviewed: Yes Amlodipine Besylate (Amlodipine Besylate) 10 Mg Tablet, 10 MG PO DAILY, (Reported) Entered as Reported by: ODETTE GREY on 04/01/17 1146 Aspirin (Aspirin EC) 81 Mg Tablet.dr, 81 MG PO DAILY, (Reported) Entered as Reported by: ODETTE GREY on 04/01/17 1505 Ciprofloxacin HCl (Ciprofloxacin HCl) 500 Mg Tablet, 500 MG PO BID Prescribed by: DIVYA JASMINE on 10/01/21 193 Glipizide (Glipizide) 10 Mg Tablet, 10 MG PO DAILY, (Reported) Entered as Reported by: ODETTE GREY on 04/01/17 1147 Lisinopril (Lisinopril) 40 Mg Tablet, 40 MG PO DAILY, (Reported) Entered as Reported by: ROSHAN EASTON on 11/23/15 1302 [place]-3/Dha/Epa/Fish Oil (Fish Oil 1,000 mg Softgel) 1 Each Capsule, 1,000 MG PO BID, (Reported) Entered as Reported by: ODETTE GREY on 04/01/17 1505 Simvastatin (Simvastatin) 40 Mg Tablet, 40 MG PO HS, (Reported) Entered as Reported by: ODETTE GREY on 04/01/17 1146 Sitagliptin Phos/Metformin HCl (Janumet Xr 100-1,000 mg Tablet) 1 Each Tbmp.24hr, 1 EACH PO DAILY, (Reported) Entered as Reported by: FLOYD MIRANDA on 10/07/19 1057 Review of Systems Review of Systems Constitutional: see HPI Gastrointestinal: Constipated Genitourinary: No Symptoms Reported Past Qawikyh-Xkwrhk-Uvlhsm Hx Patient Social History Tobacco Use?: No Alcohol Use?: Yes Alcohol type: Beer Alcohol Frequency: Couple times a week Immunizations Up To Date Tetanus Booster (TDap): Unknown Influenza Vaccine Up-to-Date: No; Not Current COVID19 Vaccine Rn Transitional Care: STATES HE HAD COVID VACCINES LAST YEAR Seasonal Allergies Seasonal Allergies: No Past Medical History Surgery/Hospitalization HX: PARKINSONS Surgeries: Yes (HERNIA REPAIR, TRIPLE BYPASS; SUPRAPUBIC CATHETER; C-SPINE FUSION) Bladder Surgery, Cardiac, CABG, Orthopedic Respiratory: Yes (PNEUMONIA 2018) Pneumonia Currently Using CPAP: No Currently Using BIPAP: No Cardiac: Yes (CABG) Coronary Artery Disease, Hypertension Neurological: Yes Parkinson's Disease Reproductive Disorders: No Sexually Transmitted Disease: No Genitourinary: Yes (SUPRAPUBIC CATHETER) Prostate Problems, Neurogenic Bladder Gastrointestinal: Yes Chronic Constipation Musculoskeletal: Yes (NECK PAIN--C-SPINE SURGERY) Endocrine: Yes Diabetes, Non-Insulin dep HEENT: Yes Cataract Hearing Impairment: Hard of Hearing Cancer: Yes Prostate Did You Recieve Any Treatments: Yes What Type of Treatment Did You: Surgical Intervention Psychosocial: No Integumentary: No Blood Disorders: No Family Medical History Diabetes mellitus 19 MOTHER FH: cataracts 19 MOTHER FH: stroke 19 MOTHER Oral cancer 19 FATHER Cancer, Diabetes, Hypertension, Stroke Physical Exam Vital Signs Vital Signs - First Documented 06/16/22 02:06 Temp 37.0 Pulse 101 Resp 16 B/P (MAP) 165/93 (117) Pulse Ox 98 O2 Delivery Room Air Capillary Refill : Height/Weight/BMI Height: 5'8.00" Weight: 187lbs. 4.0oz. 84.714568hp; 26.00 BMI Method:Stated General Appearance: WD/WN, no apparent distress, thin HEENT: PERRL/EOMI Respiratory: lungs clear, normal breath sounds, no respiratory distress, no accessory muscle use Cardiovascular: regular rate, rhythm Gastrointestinal: soft; No distended, No guarding, No rebound; tenderness (mild discomfort with palpation of the LLQ; slightly hyoeractive blowel sounds) Extremities: normal range of motion, normal inspection Neurologic/Psychiatric: alert, oriented x 3 Skin: normal color, warm/dry Progress/Results/Core Measures Results/Orders Vital Signs/I&O 06/16/22 02:06 Temp 37.0 Pulse 101 Resp 16 B/P (MAP) 165/93 (117) Pulse Ox 98 O2 Delivery Room Air Departure Impression Primary Impression: Constipation Qualified Codes: K59.00 - Constipation, unspecified Disposition: 01 HOME, SELF-CARE Condition: Stable Departure-Patient Inst. Decision time for Depature: 02:19 Referrals: DINORA HAIRSTON DO (PCP/Family) Primary Care Physician Patient Instructions: Constipation, Adult (DC) Add. Discharge Instructions: Increase your water drinking to 6 or seven 8 ounce glasses a day. Take a daily stool softener such as Colace. Fleets enemas are available at your local pharmacy. You can try 1 of these later today as needed for constipation. We have given you a dose of milk of magnesia here in the emergency department. This should help get your stool moving. You can buy this over the counter as well. This or Magnesium Citrate - please follow packaging instructions. Return to the emergency department for any new, concerning or emergent complaints. Copy Copies To 1: DINORA HAIRSTON KATHRYN M MD Jun 16, 2022 02:21
[2022-06-16] MEDS ORDERED: MILK OF MAGNESIA 400 MG/5 ML 30 ML UDC PO ONE (02:30)
[2022-06-16 02:32] VITALS: BP 128/88
== END 2022-06-16 02:32 | disposition home or self-care (01) ==
LOC: EDUNIT# 01:56 → ER 01:59
DX: K59.00 Constipation, unspecified (principal)
CPT/HCPCS: 99283

== ENCOUNTER 2022-07-20 19:27 | Inpatient (IN) | payer MEDICARE ==
[~2022-07-20] VITALS: Ht 175 cm; Wt 66.0 kg
--- NOTE | 2022-07-20 19:33 | ED General ---
General Chief Complaint: Fever-Adult/Adol Stated Complaint: WEAKNESS Source of Information: Patient Exam Limitations: No Limitations History of Present Illness Date Seen by Provider: July 20, 2022 Time Seen by Provider: 19:33 Initial Comments Patient is an 82-year-old male with a history of Parkinson's disease who presents to the emergency room with a chief complaint of generalized weakness. Patient was brought to the emergency department by ambulance after his states that his legs were weak at home, he was unable to get out of a chair and he was unable to ambulate. She states that he has been with "cold" all day and she has been trying to cover him with blankets to keep the chill off. He has longstanding suprapubic catheter. It was recently changed by the urology nurse. History of frequent urinary tract infections. Notified at triage of the patient being febrile. Patient himself is oriented x3. He is currently denying any complaints. He does not recall whether or not he took any Tylenol or ibuprofen today. He states that he has no chest pain or productive cough. He is not short of breath. He denies abdominal pain. No diarrhea. No headache. He states the only reason he is here today is because his made him come. Timing/Duration: 4-6 Hours Severity: Moderate Associated Systoms: Denies Symptoms Allergies and Home Medications Allergies Coded Allergies: No Known Drug Allergies (Verified , 09/15/08) Patient Home Medication List Home Medication List Reviewed: Yes Amlodipine Besylate (Amlodipine Besylate) 10 Mg Tablet, 10 MG PO DAILY, (Reported) Entered as Reported by: ODETTE GREY on 04/01/17 1146 Aspirin (Aspirin EC) 81 Mg Tablet.dr, 81 MG PO DAILY, (Reported) Entered as Reported by: ODETTE GREY on 04/01/17 1505 Ciprofloxacin HCl (Ciprofloxacin HCl) 500 Mg Tablet, 500 MG PO BID Prescribed by: DIVYA JASMINE on 10/01/21 193 Glipizide (Glipizide) 10 Mg Tablet, 10 MG PO DAILY, (Reported) Entered as Reported by: ODETTE GREY on 04/01/17 1147 Lisinopril (Lisinopril) 40 Mg Tablet, 40 MG PO DAILY, (Reported) Entered as Reported by: ROSHAN EASTON on 11/23/15 1302 [place]-3/Dha/Epa/Fish Oil (Fish Oil 1,000 mg Softgel) 1 Each Capsule, 1,000 MG PO BID, (Reported) Entered as Reported by: ODETTE GREY on 04/01/17 1505 Simvastatin (Simvastatin) 40 Mg Tablet, 40 MG PO HS, (Reported) Entered as Reported by: ODETTE GREY on 04/01/17 1146 Sitagliptin Phos/Metformin HCl (Janumet Xr 100-1,000 mg Tablet) 1 Each Tbmp.24hr, 1 EACH PO DAILY, (Reported) Entered as Reported by: FLOYD MIRANDA on 10/07/19 1057 Review of Systems Review of Systems Constitutional: see HPI EENTM: no symptoms reported Respiratory: no symptoms reported Cardiovascular: no symptoms reported Gastrointestinal: no symptoms reported Genitourinary: no symptoms reported Musculoskeletal: no symptoms reported Skin: no symptoms reported Past Pmkngjd-Zqnvvv-Pmydei Hx Immunizations Up To Date Tetanus Booster (TDap): Unknown Seasonal Allergies Seasonal Allergies: No Past Medical History Surgery/Hospitalization HX: PARKINSONS Surgeries: Yes (HERNIA REPAIR, TRIPLE BYPASS; SUPRAPUBIC CATHETER; C-SPINE FUSION) Bladder Surgery, Cardiac, CABG, Orthopedic Respiratory: Yes (PNEUMONIA 2018) Pneumonia Currently Using CPAP: No Currently Using BIPAP: No Cardiac: Yes (CABG) Coronary Artery Disease, Hypertension Neurological: Yes Parkinson's Disease Reproductive Disorders: No Sexually Transmitted Disease: No Genitourinary: Yes (SUPRAPUBIC CATHETER) Prostate Problems, Neurogenic Bladder Gastrointestinal: Yes Chronic Constipation Musculoskeletal: Yes (NECK PAIN--C-SPINE SURGERY) Endocrine: Yes Diabetes, Non-Insulin dep HEENT: Yes Cataract Hearing Impairment: Hard of Hearing Cancer: Yes Prostate Did You Recieve Any Treatments: Yes What Type of Treatment Did You: Surgical Intervention Psychosocial: No Integumentary: No Blood Disorders: No Family Medical History Diabetes mellitus 19 MOTHER FH: cataracts 19 MOTHER FH: stroke 19 MOTHER Oral cancer 19 FATHER Cancer, Diabetes, Hypertension, Stroke Physical Exam Vital Signs Vital Signs - First Documented 07/20/22 19:27 Temp 38.1 Pulse 97 Resp 16 B/P (MAP) 187/91 (123) Pulse Ox 97 O2 Delivery Room Air Capillary Refill : Height, Weight, BMI Height: 5'8.00" Weight: 187lbs. 4.0oz. 84.395920ub; 22.00 BMI Method:Stated General Appearance: No Apparent Distress, WD/WN Eyes: Bilateral Eye Normal Inspection, Bilateral Eye PERRL, Bilateral Eye EOMI HEENT: PERRL/EOMI, Other (Dry oral mucosa) Neck: Normal Inspection Respiratory: Lungs Clear, Normal Breath Sounds, No Accessory Muscle Use, No Respiratory Distress Cardiovascular: Regular Rate, Rhythm, Normal Peripheral Pulses (2+ radial pulses bilaterally) Gastrointestinal: Normal Bowel Sounds, Non Tender, Soft Extremity: Normal Inspection, Normal Range of Motion, Other (Resting tremor bilateral upper extremities) Neurologic/Psychiatric: Alert, Oriented x3, No Motor/Sensory Deficits, Other (Flat affect) Skin: Normal Color, Warm/Dry Focused Exam Lactate Level 07/20/22 19:33: Lactic Acid Level 3.13*H Time of Focused Exam: 20:55 Cardiovascular: Regular Rate, Rhythm (85), Normal Peripheral Pulses Capillary Refill: Less Than 3 Seconds Peripheral Pulses: 2+ Radial Pulses (R), 2+ Radial Pulses (L) Skin: normal color, warm/dry, other ((petechial rash to RUE - suspect from BP cuff)) Lactic Acid Level Laboratory Tests Test 07/20/22 19:33 Lactic Acid Level 3.13 MMOL/L (0.50-2.00) *H Within 3hrs of presentation: Admin fluids, Admin ABX, Blood cultures prior to ABX's, Focus exam, Lactate level Progress/Results/Core Measures Suspected Sepsis Recent Fever Within 48 Hours: Yes Infection Criteria Present: Suspected New Infection New/Unexplained Altered Menta: No Within 3hrs of presentation: Admin fluids, Admin ABX, Blood cultures prior to ABX's, Focus exam, Lactate level SIRS Temperature: Pulse: Respiratory Rate: Laboratory Tests 07/20/22 19:33: White Blood Count 10.7 Blood Pressure / Mean: 07/20/22 19:33: Lactic Acid Level 3.13*H Laboratory Tests 07/20/22 19:33: Creatinine 0.98, INR Comment 1.1, Platelet Count 172, Total Bilirubin 0.8 Results/Orders Lab Results Laboratory Tests Test 07/20/22 19:33 07/20/22 19:46 Range/Units White Blood Count 10.7 4.3-11.0 10^3/uL Red Blood Count 4.67 4.30-5.52 10^6/uL Hemoglobin 12.7 L 13.3-17.7 g/dL Hematocrit 39 L 40-54 % Mean Corpuscular Volume 84 80-99 fL Mean Corpuscular Hemoglobin 27 25-34 pg Mean Corpuscular Hemoglobin Concent 32 32-36 g/dL Red Cell Distribution Width 15.2 H 10.0-14.5 % Platelet Count 172 130-400 10^3/uL Mean Platelet Volume 10.2 9.0-12.2 fL Immature Granulocyte % (Auto) 0 % Neutrophils (%) (Auto) 86 H 42-75 % Lymphocytes (%) (Auto) 8 L 12-44 % Monocytes (%) (Auto) 5 0-12 % Eosinophils (%) (Auto) 1 0-10 % Basophils (%) (Auto) 1 0-10 % Neutrophils # (Auto) 9.2 H 1.8-7.8 10^3/uL Lymphocytes # (Auto) 0.9 L 1.0-4.0 10^3/uL Monocytes # (Auto) 0.5 0.0-1.0 10^3/uL Eosinophils # (Auto) 0.1 0.0-0.3 10^3/uL Basophils # (Auto) 0.1 0.0-0.1 10^3/uL Immature Granulocyte # (Auto) 0.0 0.0-0.1 10^3/uL Prothrombin Time 14.3 12.2-14.7 SEC INR Comment 1.1 0.8-1.4 Activated Partial Thromboplast Time 28 24-35 SEC Sodium Level 136 135-145 MMOL/L Potassium Level 4.5 3.6-5.0 MMOL/L Chloride Level 102 98-107 MMOL/L Carbon Dioxide Level 24 21-32 MMOL/L Anion Gap 10 5-14 MMOL/L Blood Urea Nitrogen 12 7-18 MG/DL Creatinine 0.98 0.60-1.30 MG/DL Estimat Glomerular Filtration Rate 78 BUN/Creatinine Ratio 12 Glucose Level 261 H 70-105 MG/DL Lactic Acid Level 3.13 *H 0.50-2.00 MMOL/L Calcium Level 8.7 8.5-10.1 MG/DL Corrected Calcium 8.9 8.5-10.1 MG/DL Total Bilirubin 0.8 0.1-1.0 MG/DL Aspartate Amino Transf (AST/SGOT) 10 5-34 U/L Alanine Aminotransferase (ALT/SGPT) < 6 0-55 U/L Alkaline Phosphatase 91 40-136 U/L Total Protein 6.4 6.4-8.2 GM/DL Albumin 3.8 3.2-4.5 GM/DL Urine Color YELLOW Urine Clarity SL CLOUDY Urine pH 7.5 5-9 Urine Specific [place] 1.015 L 1.016-1.022 Urine Protein NEGATIVE NEGATIVE Urine Glucose (UA) 1+ H NEGATIVE Urine Ketones NEGATIVE NEGATIVE Urine Nitrite POSITIVE H NEGATIVE Urine Bilirubin NEGATIVE NEGATIVE Urine Urobilinogen 0.2 < = 1.0 MG/DL Urine Leukocyte Esterase 1+ H NEGATIVE Urine RBC (Auto) TRACE-I H NEGATIVE Urine RBC 5-10 H /HPF Urine WBC 5-10 H /HPF Urine Squamous Epithelial Cells 0-2 /HPF Urine Crystals NONE /LPF Urine Bacteria LARGE H /HPF Urine Casts NONE /LPF Urine Mucus SMALL H /LPF Urine Culture Indicated YES My Orders Orders - ANNIE JOHNSON MD Ed Iv/Invasive Line Start (07/20/22 19:37) Cbc With Automated Diff (07/20/22 19:37) Comprehensive Metabolic Panel (07/20/22 19:37) Ua Culture If Indicated (07/20/22 19:37) Blood Culture (07/20/22 19:49) Sputum Culture (07/20/22 19:49) Protime With Inr (07/20/22 19:49) Partial Thromboplastin Time (07/20/22 19:49) Chest 1 View, Ap/Pa Only (07/20/22 19:49) Ed Iv/Invasive Line Start (07/20/22 19:49) Ed Iv/Invasive Line Start (07/20/22 19:49) O2 (07/20/22 19:49) Remove Rings In Anticipation O (07/20/22 19:49) Lactic Acid Analyzer (07/20/22 19:49) Acetaminophen Tablet/Caplet (Tylenol T (07/20/22 20:15) Urine Culture (07/20/22 19:46) Nitrofurantoin Capsule,Macro (Macrobid C (07/20/22 20:45) Ceftriaxone Iv/Im (Rocephin Iv/Im) (07/20/22 21:00) Code/Resuscitation (07/20/22 21:06) Medications Given in ED Current Medications Medications Dose Ordered Sig/Melinda Route Start Time Stop Time Status Last Admin Dose Admin Acetaminophen 650 mg ONCE ONCE PO 07/20/22 20:15 07/20/22 20:16 DC 07/20/22 20:13 650 MG Ceftriaxone Sodium 1000 mg/ Sodium Chloride 50 ml @ 100 mls/hr ONCE ONCE IV 07/20/22 21:00 07/20/22 21:29 DC 07/20/22 20:58 100 MLS/HR Nitrofurantoin Macrocrystals 100 mg ONCE ONCE PO 07/20/22 20:45 07/20/22 20:46 DC 07/20/22 20:42 100 MG Vital Signs/I&O 07/20/22 07/20/22 19:27 20:13 Temp 38.1 38.1 Pulse 97 Resp 16 B/P (MAP) 187/91 (123) Pulse Ox 97 O2 Delivery Room Air 07/21/22 00:00 Intake Total 500 ml Balance 500 ml Capillary Refill : Progress Note : Time: 20:53 Progress Note Patient seen and evaluated by me. Evaluation today includes physical exam, "sepsis" work-up. CBC, blood cultures, lactic acid, Chem-12, coag profile, urinalysis, chest x-ray. Pertinent physical exam findings elderly appearing male, no acute distress. Febrile at presentation slightly tachycardic. Good blood pressure. Normal oxygenation. HEENT exam pertinent only for dry mucous membranes. Heart is regular/tachycardic. Lungs are clear. Abdomen is soft. Suprapubic catheter present. Coarse resting tremor consistent with history of Parkinson's. Patient is oriented to self, location and year. Poor memory. Differential diagnosis based on history and physical, urinary tract infection, sepsis, pneumonia. Independent interpretation of labs and imaging by me. Chest x-ray shows no discrete infiltrate, radiologist read hazy opacity in the right lower lobe. CBC shows a white count of 10.7 with hemoglobin and hematocrit of 12.7 and 39. 172 platelets. 86% segs. Chemistry is normal except for glucose of 261. Lactic acid is 3.13. Coags are negative. Urinalysis shows a specific gravity of 1.015 with 1+ glucose. Nitrite positive. 5-10 red blood cells, 5-10 white blood cells and large bacteria. Patient is treated in the emergency department with I V fluids and initially given a dose of nitrofurantoin however after lactic acid was identified at 3.13 Case was discussed with Dr. Ortega the patient's primary care physician. Will admit for IV antibiotics and fluids as the patient meets sepsis criteria. He will be admitted to the medical floor. Patient wishes to be a full code. Patient is given a dose of IV Rocephin 1 g. He was also given Tylenol for fever. Diagnostic Imaging Diagonstic Imaging: Xray Plain Films/CT/US/NM/MRI: chest Comments [facility] [place], [place] NAME: ELVA LEES [facility] REC#: [id number] PT STATUS: REG ER : 1940 PHYSICIAN: ANNIE JOHNSON MD ADMIT DATE: 07/20/22/ER Signed Date of Exam:07/20/22 CHEST 1 VIEW, AP/PA ONLY CHEST 1 VIEW, AP/PA ONLY INDICATION: fever, AMS. COMPARISON: Chest radiograph on 10/01/2021. FINDINGS: Lungs: Normal lung volume. Airspace opacity in the right lower lobe. Stable pulmonary vasculature. Calcified nodule in the left upper lobe. Pleura: No pleural effusion or pneumothorax. Heart and Mediastinum: Cardiomediastinal silhouette and great vessels of the thorax are stable. Post sternotomy changes. Osseous Structures and Soft Tissues: No acute osseous abnormality. Normal soft tissues. IMPRESSION: Airspace opacity in the right lower lobe may represent infection or atelectasis. Dictated by: Dictated on workstation # [id number] Dict: 07/20/222037 Trans: 07/20/222037 [facility] [id number] Interpreted by: GENO FERNANDES DO Electronically signed by: GENO FERNANDES DO 07/20/222037 Departure Communication (Admissions) Time/Spoke to Admitting Phy: 20:[address] Ortega (patient;s PCP) admit IP to medical floor Impression Primary Impression: Urinary tract infection Qualified Codes: T83.510A - Infection and inflammatory reaction due to cystostomy catheter, initial encounter; N39.0 - Urinary tract infection, site not specified Additional Impressions: Pneumonia Qualified Codes: J18.9 - Pneumonia, unspecified organism Sepsis Qualified Codes: A41.9 - Sepsis, unspecified organism Disposition: ADMITTED INPATIENT Condition: Stable Admissions Decision to Admit Reason: Admit from ER (General) Decision to Admit/Date: July 20, 2022 Time/Decision to Admit Time: 20:53 Departure-Patient Inst. Referrals: DINORA ORTEGA DO (PCP/Family) Primary Care Physician ANNIE JOHNSON MD July 20, 2022 19:33
[2022-07-20 19:43] LABS: BASOPHILS # (AUTO) 0.1 10^3/uL (0.0-0.1); BASOPHILS % (AUTO) 1 % (0-10); EOSINOPHILS # (AUTO) 0.1 10^3/uL (0.0-0.3); EOSINOPHILS % (AUTO) 1 % (0-10); HEMATOCRIT 39 % (40-54); HEMOGLOBIN 12.7 g/dL (13.3-17.7); LYMPHOCYTES # (AUTO) 0.9 10^3/uL (1.0-4.0); LYMPHOCYTES % (AUTO) 8 % (12-44); MEAN CORPUSCULAR HEMOGLOBIN 27 pg (25-34); MEAN CORPUSCULAR HGB CONC 32 g/dL (32-36); MEAN CORPUSCULAR VOLUME 84 fL (80-99); MEAN PLATELET VOLUME 10.2 fL (9.0-12.2); MONOCYTES # (AUTO) 0.5 10^3/uL (0.0-1.0); MONOCYTES % (AUTO) 5 % (0-12); NEUTROPHILS # (AUTO) 9.2 10^3/uL (1.8-7.8); NEUTROPHILS % (AUTO) 86 % (42-75); PLATELET COUNT 172 10^3/uL (130-400); WHITE BLOOD COUNT 10.7 10^3/uL (4.3-11.0)
[2022-07-20 19:57] LABS: BILIRUBIN,URINE NEGATIVE (NEGATIVE); CLARITY,URINE SL CLOUDY; COLOR,URINE YELLOW; GLUCOSE, URINE (UA) 1+ (NEGATIVE); KETONES,URINE NEGATIVE (NEGATIVE); LEUKOCYTE ESTERASE ,URINE 1+ (NEGATIVE); NITRITE,URINE POSITIVE (NEGATIVE); PH,URINE 7.5 (5-9); PROTEIN,URINE NEGATIVE (NEGATIVE)
[2022-07-20 20:04] LABS: ALANINE AMINOTRANSFERASE < 6 U/L (0-55); ALBUMIN 3.8 GM/DL (3.2-4.5); ALKALINE PHOSPHATASE 91 U/L (40-136); BILIRUBIN,TOTAL 0.8 MG/DL (0.1-1.0); BUN/CREATININE RATIO 12; CALCIUM 8.7 MG/DL (8.5-10.1); CARBON DIOXIDE 24 MMOL/L (21-32); CHLORIDE 102 MMOL/L (98-107); CREATININE SERUM 0.98 MG/DL (0.60-1.30); GFR ESTIMATED 78; GLUCOSE 261 MG/DL (70-105); POTASSIUM 4.5 MMOL/L (3.6-5.0); SODIUM 136 MMOL/L (135-145); TOTAL PROTEIN 6.4 GM/DL (6.4-8.2)
[2022-07-20 20:07] LABS: INR 1.1 (0.8-1.4); PROTHROMBIN TIME PATIENT 14.3 SEC (12.2-14.7)
[2022-07-20 20:14] LABS: BACTERIA,URINE LARGE /HPF; SQUAMOUS EPITHELIAL CELL,UR 0-2 /HPF
[2022-07-20] MEDS ORDERED: ACETAMINOPHEN 325 MG TABLET PO ONE (20:15)
--- NOTE | 2022-07-20 20:40 | Diagnostic Imaging Report ---
CHEST 1 VIEW, AP/PA ONLY INDICATION: fever, AMS. COMPARISON: Chest radiograph on 10/01/2021. FINDINGS: Lungs: Normal lung volume. Airspace opacity in the right lower lobe. Stable pulmonary vasculature. Calcified nodule in the left upper lobe. Pleura: No pleural effusion or pneumothorax. Heart and Mediastinum: Cardiomediastinal silhouette and great vessels of the thorax are stable. Post sternotomy changes. Osseous Structures and Soft Tissues: No acute osseous abnormality. Normal soft tissues. IMPRESSION: Airspace opacity in the right lower lobe may represent infection or atelectasis. Dictated by: Dictated on workstation # [id number]
[2022-07-20] MEDS ORDERED: NITROFURANTOIN 100 MG (MACROBID) CAPSULE PO ONE (20:45)
[2022-07-20] MEDS ORDERED: cefTRIAXone IV/IM 1,000 MG in NS (IVPB) 50 ML IV ONE (21:00)
[2022-07-20 21:23] VITALS: BP 160/85
[2022-07-20] MEDS ORDERED: NS IV 1000 ML 1,000 ML ONE (22:02)
[2022-07-20] MEDS ORDERED: RT-ALBUTEROL/IPRATROPIUM 3 ML (DUONEB) VIAL INH PRN (22:30)
[2022-07-20] MEDS: NS IV 1000 ML 1,000 ML IV SCH (22:47)
[2022-07-21] VITALS (7 sets, daily range): BP systolic 144–192; BP diastolic 56–73
[2022-07-21] MEDS: RT-ALBUTEROL/IPRATROPIUM 3 ML (DUONEB) VIAL INH SCH ×4 (06:59→18:30)
[2022-07-21] MEDS: ASPIRIN E.C. 81 MG (ECOTRIN) TAB PO SCH (08:51)
[2022-07-21] MEDS: lisINopril 20 MG (PRINIVIL) TABLET PO SCH (08:51)
[2022-07-21] MEDS: SINEMET 25/100 (CARBIDOPA/LEVODOPA) TAB PO SCH ×3 (08:51→20:29)
[2022-07-21] MEDS: amLODIPine 2.5MG (NORVASC) TAB PO SCH (08:54)
[2022-07-21] MEDS: NS IV 1000 ML 1,000 ML IV SCH ×3 (11:46→20:27)
--- NOTE | 2022-07-21 14:11 | History & Physical ---
History of Present Illness History of Present Illness Reason for visit/HPI This is a 82 year old male with a history of Parkinson's with dementia, Diabetes, Hypertension and chronic indwelling miguel catheter who was brought to the emergency room via EMS due to weakness and chills at home. He has a history of recurrent UTIs and was found to have a UTI with sepsis. He is a poor historian due to his dementia from Parkinson's. He denies any cough but was noted to possibly have a right sided infiltrate on CXR. He was admitted for IV rocephin and IVFs as well as further evaluation. This morning he wants to go home. Date of Admission July 20, 2022 at 21:07 Date Seen by a Provider: July 21, 2022 Time Seen by a Provider: 09:00 I consulted on this patient on 07/21/22 14:04 Attending Physician Dinora Ortega DO Admitting Physician Admitting Physician: Dinora Ortega DO Attending Physician: Dinora Ortega DO Consult Allergies and Home Medications Allergies Coded Allergies: No Known Drug Allergies (Verified , 09/15/08) Patient Home Medication List Home Medication List Reviewed: Yes Amlodipine Besylate (Amlodipine Besylate) 10 Mg Tablet, 10 MG PO DAILY, (Reported) Entered as Reported by: ODETTE GREY on 04/01/17 1146 Aspirin (Aspirin EC) 81 Mg Tablet.dr, 81 MG PO DAILY, (Reported) Entered as Reported by: ODETTE GREY on 04/01/17 1505 Ciprofloxacin HCl (Ciprofloxacin HCl) 500 Mg Tablet, 500 MG PO BID Prescribed by: DIVYA JASMINE on 10/01/21 193 Glipizide (Glipizide) 10 Mg Tablet, 10 MG PO DAILY, (Reported) Entered as Reported by: ODETTE GREY on 04/01/17 1147 Lisinopril (Lisinopril) 40 Mg Tablet, 40 MG PO DAILY, (Reported) Entered as Reported by: ROSHAN EASTON on 11/23/15 1302 [place]-3/Dha/Epa/Fish Oil (Fish Oil 1,000 mg Softgel) 1 Each Capsule, 1,000 MG PO BID, (Reported) Entered as Reported by: ODETTE GREY on 04/01/17 1505 Simvastatin (Simvastatin) 40 Mg Tablet, 40 MG PO HS, (Reported) Entered as Reported by: ODETTE GREY on 04/01/17 1146 Sitagliptin Phos/Metformin HCl (Janumet Xr 100-1,000 mg Tablet) 1 Each Tbmp.24hr, 1 EACH PO DAILY, (Reported) Entered as Reported by: FLOYD MIRANDA on 10/07/19 1057 Past Brvqber-Phvpyf-Zyrngo Hx Patient Social History Marrital Status: Tobacco Use?: No Smoking Status: Never a Smoker Smokeless Tobacco Frequency: Never a User Use of E-Cig and/or Vaping dev: No Substance use?: No Alcohol Use?: No Alcohol type: Beer Alcohol Frequency: Once in a while Pt feels they are or have been: No Immunizations Up To Date First/Initial COVID19 Vaccinat: x2 Tetanus Booster (TDap): Unknown Seasonal Allergies Seasonal Allergies: No Current Status Advance Directives: No Advance Directive Location: Unable to obtain copy Communicates: Verbally Primary Language: Nicaraguan Preferred Spoken Language: Nicaraguan Is interpretation needed?: No Sensory deficits: Hearing impairment Implanted or Applied Medical D: None Past Medical History Surgeries: Bladder Surgery, Cardiac, CABG, Orthopedic Pneumonia Currently Using CPAP: No Currently Using BIPAP: No Coronary Artery Disease, Hypertension Parkinson's Disease Sexually Transmitted Disease: No Prostate Problems, Neurogenic Bladder Chronic Constipation Diabetes, Non-Insulin dep Cataract Hearing Impairment: Hard of Hearing Prostate Did You Recieve Any Treatments: Yes What Type of Treatment Did You: Surgical Intervention Blood Disorders: No Family Medical History Diabetes mellitus 19 MOTHER FH: cataracts 19 MOTHER FH: stroke 19 MOTHER Oral cancer 19 FATHER Cancer, Diabetes, Hypertension, Stroke Review of Systems Constitutional: chills EENTM: No see HPI, No no symptoms reported, No ear discharge, No hearing loss, No ear pain, No blurred vision, No double vision, No eye pain, No tearing, No vision loss, No dental problems, No hoarseness, No mouth pain, No mouth swel ling, No epistaxis, No nose congestion, No nose pain, No throat pain, No throat swelling, No other Respiratory: cough Cardiovascular: No no symptoms reported, No see HPI, No chest pain, No edema, No Hx of Intervention, No palpitations, No syncope, No vascular heart diseas, No other Gastrointestinal: other (history of chronic indwelling miguel catheter with recurrent UTIs) Musculoskeletal: muscle weakness Skin: No no symptoms reported, No see HPI, No change in color, No change in hair/nails, No dryness, No hx of skin cancer, No lesions, No lumps, No pruritus, No rash, No other Psychiatric/Neurological: Tremors, Weakness, Other (confusion) Physical Exam Vital Signs Vital Signs - First Documented 07/20/22 07/20/22 19:27 22:15 Temp 38.1 Pulse 97 Resp 16 B/P (MAP) 187/91 (123) Pulse Ox 97 O2 Delivery Room Air FiO2 21 Capillary Refill : Less Than 3 Seconds Height, Weight, BMI Height: 5'8.00" Weight: 187lbs. 4.0oz. 84.595739fk; 21.55 BMI Method:Stated General Appearance: No Apparent Distress Neck: Supple Respiratory: Crackles, Decreased Breath Sounds Cardiovascular: Regular Rate, Rhythm Gastrointestinal: Normal Bowel Sounds, Non Tender, Soft Back: No CVA Tenderness Extremity: Non Tender, No Calf Tenderness, No Pedal Edema Neurologic/Psychiatric: Alert Skin: Warm/Dry Comments Laboratory Tests 07/21/22 06:09: Glucometer 141H 07/21/22 12:06: Glucometer 219H Assessment/Plan Assessment and Plan 1. Acute UTI with Sepsis--will give IV rocephin and IVFs and await urine cultures 2. Parkinson's with Dementia--resume carbi-dopa/levo-dopa 3. DMII--start accuchecks with SSI 4. Hypertension--resume lisinopril and give amlodopine 5. Right Arm Swelling-will check venous doppler Admission Diagnosis Admission Status: Inpatient Order (span 2 midnights) Reason for Inpatient Admission: Will need at least 48hrs of IV abx DINORA ORTEGA DO July 21, 2022 14:11
--- NOTE | 2022-07-21 14:41 | Diagnostic Imaging Report ---
INDICATION: Right arm swelling COMPARISON: None TECHNIQUE: Duplex, byrne-scale and color-flow imaging of the right upper extremity venous system was performed. FINDINGS: Right jugular and subclavian veins show no evidence of intraluminal thrombosis. The axillary, brachial, basilic and cephalic veins are patent. These vessels show normal compressibility, color flow and Doppler augmentation. IMPRESSION: Negative venous Doppler of right upper extremity. Dictated by: Dictated on workstation # [id number]
[2022-07-21] MEDS ORDERED: AMLO-251 PO (14:51)
[2022-07-21] MEDS ORDERED: CARB1TAB32 PO (14:51)
[2022-07-21] MEDS: inSUlin ASPART (NovoLOG) 1 UNIT/0.01 ML (CHARGE PER UNIT) SC SCH ×2 (16:31→20:40)
[2022-07-21] MEDS ORDERED: cefTRIAXone IV/IM 1,000 MG in NS (IVPB) 50 ML IV SCH (21:00)
[2022-07-22 04:00] VITALS: BP 158/67
[2022-07-22 06:01] LABS: HEMATOCRIT 37 % (40-54); MEAN CORPUSCULAR HEMOGLOBIN 27 pg (25-34); MEAN CORPUSCULAR HGB CONC 32 g/dL (32-36); MEAN CORPUSCULAR VOLUME 83 fL (80-99); MEAN PLATELET VOLUME 10.4 fL (9.0-12.2); PLATELET COUNT 160 10^3/uL (130-400); WHITE BLOOD COUNT 10.5 10^3/uL (4.3-11.0)
[2022-07-22 06:17] LABS: POTASSIUM 4.3 MMOL/L (3.6-5.0)
[2022-07-22 06:18] LABS: CALCIUM 9.1 MG/DL (8.5-10.1)
[2022-07-22 06:22] LABS: CREATININE SERUM 0.83 MG/DL (0.60-1.30)
[2022-07-22] MEDS: inSUlin ASPART (NovoLOG) 1 UNIT/0.01 ML (CHARGE PER UNIT) SC SCH ×2 (06:22→11:30)
[2022-07-22] MEDS: NS IV 1000 ML 1,000 ML IV SCH (06:44)
[2022-07-22] MEDS: RT-ALBUTEROL/IPRATROPIUM 3 ML (DUONEB) VIAL INH SCH ×3 (07:11→14:48)
[2022-07-22 07:53] VITALS: BP 139/59
[2022-07-22] MEDS: lisINopril 20 MG (PRINIVIL) TABLET PO SCH (08:22)
[2022-07-22] MEDS: ASPIRIN E.C. 81 MG (ECOTRIN) TAB PO SCH (08:22)
[2022-07-22] MEDS: amLODIPine 2.5MG (NORVASC) TAB PO SCH (08:22)
[2022-07-22] MEDS: SINEMET 25/100 (CARBIDOPA/LEVODOPA) TAB PO SCH ×2 (08:22→13:12)
[2022-07-22 12:17] VITALS: BP 129/68
[2022-07-22] MEDS ORDERED: CATHETER FLUSH 10 ML SYR IVP SCH (14:00)
[2022-07-22] MEDS ORDERED: cefTRIAXone IV/IM 1,000 MG in NS (IVPB) 50 ML IV ONE (14:15)
[2022-07-22] MEDS ORDERED: CIPR-225 PO (15:07)
--- NOTE | 2022-07-22 15:37 | Discharge Summary ---
Diagnosis/Chief Complaint Date of Admission July 20, 2022 at 21:07 Date of Discharge Discharge Date: July 22, 2022 Discharge Diagnosis 1. UTI with Sepsis--Morganelli Morganii--sensitive to rocephin 2. Parkinson's with Dementia 3. Hypertension 4. Diabetes mellitus II 5. Chronic indwelling miguel catheter--suprapubic 6. Right Arm Swelling--improved Reason Hospital Visit This is a 82 year old male with a history of Parkinson's with dementia, Diabetes, Hypertension and chronic indwelling miguel catheter who was brought to the emergency room via EMS due to weakness and chills at home. He has a history of recurrent UTIs and was found to have a UTI with sepsis. He is a poor historian due to his dementia from Parkinson's. He denies any cough but was noted to possibly have a right sided infiltrate on CXR. He was admitted for IV rocephin and IVFs as well as further evaluation. This morning he wants to go home. Discharge Summary Hospital Course Was the Problem List Reviewed?: Yes Hospital Course This is a 82 year old male with a history of Parkinson's with dementia, Diabetes, Hypertension and chronic indwelling miguel catheter who was brought to the emergency room via EMS due to weakness and chills at home. He has a history of recurrent UTIs and was found to have a UTI with sepsis. He is a poor historian due to his dementia from Parkinson's. He denies any cough but was noted to possibly have a right sided infiltrate on CXR. He was admitted for IV rocephin and IVFs as well as further evaluation. By the following day, he felt much better and wanted to go home. I told him due to his sepsis that he needed at least another day of IV antibiotics and we needed culture results for discharge. He was noted to have a swollen right arm so a venous doppler was done which revealed no blood clot. He was resumed on his home meds including carbi-dopa/levo-dopa. By the day of discharge he had no complaints, he was afebrile and denied cough. His urine culture was back growing out Morganella morganii which was sensitive to the rocephin. It was also sensitive to cipro and levaquin so he will be given cipro to start on discharge. He will fwup with me in my office in 10 days. Labs Laboratory Tests 07/20/22 19:33: Hemoglobin 12.7L, Hematocrit 39L, Red Cell Distribution Width 15.2H, Neutrophils (%) (Auto) 86H, Lymphocytes (%) (Auto) 8L, Neutrophils # (Auto) 9.2H, Lymphocytes # (Auto) 0.9L, Glucose Level 261H, Lactic Acid Level 3.13*H 07/20/22 19:46: Urine Specific [place] 1.015L, Urine Glucose (UA) 1+H, Urine Nitrite POSITIVEH, Urine Leukocyte Esterase 1+H, Urine RBC (Auto) TRACE-IH, Urine RBC 5-10H, Urine WBC 5-10H, Urine Bacteria LARGEH, Urine Mucus SMALLH 07/20/22 22:00: Lactic Acid Level 2.24*H 07/20/22 23:49: 07/21/22 06:09: Glucometer 141H 07/21/22 12:06: Glucometer 219H 07/21/22 15:41: Glucometer 194H 07/21/22 20:18: Glucometer 230H 07/22/22 05:41: Hemoglobin 12.0L, Hematocrit 37L, Red Cell Distribution Width 15.4H, Glucose Level 167H 07/22/22 11:02: Glucometer 263H Procedures None. Discharge Physical Examination Allergies: Coded Allergies: No Known Drug Allergies (Verified , 09/15/08) Vitals & I&Os Vital Signs Date Time Temp Pulse Resp B/P (MAP) Pulse Ox O2 Delivery O2 Flow Rate FiO2 07/22/22 14:48 99 Room Air 0.00 07/22/22 12:39 57 07/22/22 12:17 37.0 16 129/68 (88) 07/20/22 22:15 21 General Appearance: Alert Respiratory: Clear to Auscultation Cardiovascular: Regular Rate Abdominal: Normal Bowel Sounds, Soft, No Tenderness Extremities: No Clubbing, No Cyanosis, No Edema Psych/Mental Status: Mental Status NL Discharge Home Medications Reviewed and agree with Discharge Medication list on patient's Discharge Instruction sheet Instructions to Patient/Family Please see electronic discharge instructions given to patient. DINORA HAIRSTON DO July 22, 2022 15:37
[2022-07-22 15:49] VITALS: BP 149/71
[2022-07-22 16:05] VITALS: BP 149/71
--- NOTE | 2022-07-24 17:41 | Physician Query Clarification ---
Physician Query-General Query to Physician: The medical record reflects the following clinical scenario: The patient, in the setting of History/Risk factors, Longstanding suprapubic catheter, Parkinson's with dementia, Hx of frequent UTI's, DM Clinical Findings Catheter recently changed, Urine culture with Morganella, morganii, and enterococcus faecalis, Treatment IV ABX, Monitoring of cath site and urine output, Lab monitoring Question: Can you specify if the UTI is due to/associated with indwelling urinary suprapubic catheter? Yes - UTI is due to/associated with Indwelling suprapubic urinary catheter No - UTI is not due to/associated with Indwelling suprapubic urinary catheter Other, with explanation of the clinical findings Clinically undetermined, no explanation for the clinical findings Please clarify and document your clinical opinion in the Progress Notes and Discharge Summary including the definitive and/or presumptive diagnosis, (suspected or probable), related to the above clinical findings. Please include clinical findings supporting your diagnosis. In responding to this query, please exercise your independent professional judgment. The purpose of this communication is to more accurately reflect the complexity of your patients condition. The fact that a question is asked does not imply that any particular answer is desired or expected. Thank you for timely response to this clarification. Judy Omer, MSN, RN Clinical Entry Level Chemist [phone] [email or web address] PHYSICIAN RESPONSE: Based on the clinical findings in the record, please respond to the query above on this document as an addendum. Physician Response: Physician Response Yes, catheter associated If you have questions please contact: Clinical Pharmacy Specialist: Ext: Thank you for your time and cooperation. Clinical Entry Level Chemist/Clinical Pharmacy Specialist This is a permanent part of the medical record JUDY OMER July 24, 2022 17:41 DINORA HAIRSTON DO July 25, 2022 18:05
--- NOTE | 2022-07-25 06:29 | Physician Query Clarification ---
PQ-Link Infection to Dev/Proc Admission/Discharge Admission Date: July 20, 2022 at 21:07 Discharge Date: July 22, 2022 at 16:05 The medical record reflects the following clinical scenario: History/Risk Factors: 82 y/o male patient has chronic longstanding suprapubic catheter admitted for UTI with sepsis. Clinical Findings: Catheter recently changed, Urine culture with Morganella, morganii, and enterococcus faecalis. Treatment: IV antibiotics, Monitoring of cath site and urine output, Lab monitoring. Question: Can you specify if the UTI is due to/associated with suprapubic catheter? Please document a response in Progress Note or Discharge Summary. 1. Yes - UTI is due to/associated with suprapubic catheter. 2. No - UTI is not due to/associated with suprapubic catheter. 3. Other, with explanation of the clinical findings. 4. Clinically undetermined, no explanation for the clinical findings. PHYSICIAN RESPONSE Specify if infection: 1 In responding to this query, please exercise your independent professional judgment. The purpose of this communication is to more accurately reflect the complexity of your patients condition. The fact that a question is asked does not imply that any particular answer is desired or expected. Thank you for your timely response to this clarification. Requestors name: [ ] Phone # [ ] THIS PHYSICIAN QUERY FORM IS A PERMANENT PART OF THE MEDICAL RECORD MACK CALIXTO July 25, 2022 06:29 DINORA HAIRSTON DO July 26, 2022 12:53
== END 2022-07-22 16:05 | disposition home or self-care (01) | DRG 698 ==
LOC: ER 19:27 → EDUNIT# 19:27 → 4TH 21:07
PROVIDERS: ADMIT Family Medicine; ATTEND Family Medicine
DX: T83.518A Infection and inflammatory reaction due to other urinary catheter, initial encounter (principal); A41.89 Other specified sepsis; J18.9 Pneumonia, unspecified organism; N39.0 Urinary tract infection, site not specified; G20 Parkinson's disease; F02.80 Dementia in other diseases classified elsewhere, unspecified severity, without behavioral disturbance, psychotic disturbance, mood disturbance, and anxiety; I10 Essential (primary) hypertension; E11.9 Type 2 diabetes mellitus without complications; M79.89 Other specified soft tissue disorders; Z79.82 Long term (current) use of aspirin; Z79.899 Other long term (current) drug therapy; Z95.1 Presence of aortocoronary bypass graft; I25.10 Atherosclerotic heart disease of native coronary artery without angina pectoris; N31.9 Neuromuscular dysfunction of bladder, unspecified; Z85.46 Personal history of malignant neoplasm of prostate
CPT/HCPCS: 36415; 71045; 80048; 80053; 81000; 82947; 83605; 85025; 85027; 85610; 85730; 87040; 87077; 87088; 87186; 94640; 94664; 94760

== ENCOUNTER 2022-10-14 17:21 | Observation (INO) | payer MEDICARE ==
[2022-10-14] VITALS (13 sets, daily range): BP systolic 119–192; BP diastolic 55–76
[~2022-10-14] VITALS: Ht 172.7 cm; Wt 66.0 kg
[~2022-10-14 17:21] MED LIST changes: +CARB1TAB32 PO
[2022-10-14] MEDS ORDERED: NS IV 1000 ML 1,000 ML IV SCH ×2 (17:30→18:00)
[2022-10-14 17:39] LABS: BASOPHILS # (AUTO) 0.1 10^3/uL (0.0-0.1); BASOPHILS % (AUTO) 1 % (0-10); EOSINOPHILS % (AUTO) 0 % (0-10); HEMATOCRIT 41 % (40-54); HEMOGLOBIN 13.1 g/dL (13.3-17.7); LYMPHOCYTES % (AUTO) 20 % (12-44); MEAN CORPUSCULAR HEMOGLOBIN 27 pg (25-34); MEAN CORPUSCULAR HGB CONC 32 g/dL (32-36); MEAN CORPUSCULAR VOLUME 84 fL (80-99); MEAN PLATELET VOLUME 9.5 fL (9.0-12.2); MONOCYTES # (AUTO) 0.4 10^3/uL (0.0-1.0); MONOCYTES % (AUTO) 7 % (0-12); NEUTROPHILS # (AUTO) 3.7 10^3/uL (1.8-7.8); NEUTROPHILS % (AUTO) 71 % (42-75); PLATELET COUNT 170 10^3/uL (130-400); WHITE BLOOD COUNT 5.2 10^3/uL (4.3-11.0)
[2022-10-14 17:44] LABS: BILIRUBIN,URINE NEGATIVE (NEGATIVE); CLARITY,URINE SL CLOUDY; COLOR,URINE YELLOW; GLUCOSE, URINE (UA) NEGATIVE (NEGATIVE); KETONES,URINE NEGATIVE (NEGATIVE); LEUKOCYTE ESTERASE ,URINE 2+ (NEGATIVE); NITRITE,URINE POSITIVE (NEGATIVE); PROTEIN,URINE NEGATIVE (NEGATIVE)
--- NOTE | 2022-10-14 17:44 | ED General ---
General Chief Complaint: General Problems/Pain Stated Complaint: WEAKNESS/CONFUSSION Source of Information: Patient, EMS, Family History of Present Illness Date Seen by Provider: Oct 14, 2022 Time Seen by Provider: 17:22 Initial Comments 82-year-old male presents to the ER via EMS for confusion and weakness. Family called EMS tonight because patient walked into the incorrect room and urinated in a trash can. Patient has lived in the same house for several years and is well aware of where the bathroom is located. Patient's reports that he has become weaker over the last couple of days, reports difficulty getting up from his chair, but states that patient was able to walk through the house tonight. He has a history of Parkinson's, still has chronic weakness, but states it has been worse over the last couple days. He has an indwelling suprapubic catheter due to a history of prostate cancer. Family reports that patient had a low- grade temperature at home of 99.7. Patient denies any complaints, denies any pain. He is alert to self and place, disoriented to time. He is able to move all 4 extremities equally. Allergies and Home Medications Allergies Coded Allergies: No Known Drug Allergies (Verified , 09/15/08) Patient Home Medication List Home Medication List Reviewed: Yes Amlodipine Besylate (Amlodipine Besylate) 10 Mg Tablet, 5 MG PO DAILY Prescribed by: DINORA HAIRSTON on 07/21/22 1451 Aspirin (Aspirin EC) 81 Mg Tablet.dr, 81 MG PO DAILY, (Reported) Entered as Reported by: ODETTE GREY on 04/01/17 1505 Carbidopa/Levodopa (Carbidopa-Levodopa 25-100 Tab) 25 Mg-100 Mg Tablet, 2 EA PO TID Prescribed by: DINORA HAIRSTON on 07/21/22 1451 Ciprofloxacin HCl (Cipro) 500 Mg Tablet, 500 MG PO BID Prescribed by: DINORA HAIRSTON on 07/22/22 1507 Glipizide (Glipizide) 10 Mg Tablet, 10 MG PO DAILY, (Reported) Entered as Reported by: ODETTE GREY on 04/01/17 1147 Lisinopril (Lisinopril) 40 Mg Tablet, 40 MG PO DAILY, (Reported) Entered as Reported by: ROSHAN EASTON on 11/23/15 1302 [place]-3/Dha/Epa/Fish Oil (Fish Oil 1,000 mg Softgel) 1 Each Capsule, 1,000 MG PO BID, (Reported) Entered as Reported by: ODETTE GREY on 04/01/17 1505 Simvastatin (Simvastatin) 40 Mg Tablet, 40 MG PO HS, (Reported) Entered as Reported by: ODETTE GREY on 04/01/17 1146 Sitagliptin Phos/Metformin HCl (Janumet Xr 100-1,000 mg Tablet) 1 Each Tbmp.24hr, 1 EACH PO DAILY, (Reported) Entered as Reported by: FLOYD MIRANDA on 10/07/19 1057 Review of Systems Review of Systems Constitutional: see HPI Past Yreihzd-Navupk-Rlbjjt Hx Immunizations Up To Date Tetanus Booster (TDap): Unknown First/Initial COVID19 Vaccinat: x2 Seasonal Allergies Seasonal Allergies: No Past Medical History Surgery/Hospitalization HX: PARKINSONS, FREQUENT UTI, PNEUMONIA, CAD, HTN, NEUROGENIC BLADDER, CONSTIPATION, HERNIA REPAIR, CABG X3, SUPRAPUBIC CATHETER, C-SPINE, Surgeries: Yes (HERNIA REPAIR, TRIPLE BYPASS; SUPRAPUBIC CATHETER; C-SPINE FUSION) Bladder Surgery, Cardiac, CABG, Orthopedic Respiratory: Yes (PNEUMONIA 2018) Pneumonia Currently Using CPAP: No Currently Using BIPAP: No Cardiac: Yes (CABG) Coronary Artery Disease, Hypertension Neurological: Yes Parkinson's Disease Reproductive Disorders: No Sexually Transmitted Disease: No Genitourinary: Yes (SUPRAPUBIC CATHETER) Prostate Problems, Neurogenic Bladder Gastrointestinal: Yes Chronic Constipation Musculoskeletal: Yes (NECK PAIN--C-SPINE SURGERY) Endocrine: Yes Diabetes, Non-Insulin dep HEENT: Yes Cataract Hearing Impairment: Hard of Hearing Cancer: Yes Prostate Did You Recieve Any Treatments: Yes What Type of Treatment Did You: Surgical Intervention Psychosocial: No Integumentary: No Blood Disorders: No Family Medical History Diabetes mellitus 19 MOTHER FH: cataracts 19 MOTHER FH: stroke 19 MOTHER Oral cancer 19 FATHER Cancer, Diabetes, Hypertension, Stroke Physical Exam-Suspected Sepsis Physical Exam Vital Signs Vital Signs - First Documented 10/14/22 10/14/22 17:22 20:42 Temp 38.7 Pulse 105 Resp 14 B/P (MAP) 189/76 (113) Pulse Ox 95 O2 Delivery Room Air Capillary Refill : Height, Weight, BMI Height: 5'8.00" Weight: 187lbs. 4.0oz. 84.685412jn; 21.55 BMI Method:Stated General Appearance: No Apparent Distress, WD/WN, Other (Resting tremor) Neck: Normal Inspection, Supple Respiratory: Lungs Clear, Normal Breath Sounds, No Accessory Muscle Use, No Respiratory Distress Cardiovascular: Regular Rate, Rhythm Gastrointestinal: Normal Bowel Sounds, Non Tender, Soft Extremity: Normal Inspection, Normal Range of Motion Neurologic/Psychiatric: Alert, No Motor/Sensory Deficits, Normal Mood/Affect, warhead maintenance specialist II-XII Norm as Tested, Disoriented (to time) Skin: normal color, warm/dry Focused Exam Lactate Level 10/14/22 17:25: Lactic Acid Level 3.19*H 10/14/22 20:05: Lactic Acid Level 2.84*H Lactic Acid Level Laboratory Tests Test 10/14/22 17:25 10/14/22 20:05 Lactic Acid Level 3.19 MMOL/L (0.50-2.00) *H 2.84 MMOL/L (0.50-2.00) *H Progress/Results/Core Measures Suspected Sepsis SIRS Temperature: Pulse: Respiratory Rate: Laboratory Tests 10/14/22 17:25: White Blood Count 5.2 Blood Pressure / Mean: 10/14/22 17:25: Lactic Acid Level 3.19*H 10/14/22 20:05: Lactic Acid Level 2.84*H Laboratory Tests 10/14/22 17:25: Creatinine 0.84, INR Comment 1.0, Platelet Count 170, Total Bilirubin 0.9 Results/Orders Lab Results Laboratory Tests Test 10/14/22 17:25 10/14/22 17:28 10/14/22 20:05 Range/Units White Blood Count 5.2 4.3-11.0 10^3/uL Red Blood Count 4.82 4.30-5.52 10^6/uL Hemoglobin 13.1 L 13.3-17.7 g/dL Hematocrit 41 40-54 % Mean Corpuscular Volume 84 80-99 fL Mean Corpuscular Hemoglobin 27 25-34 pg Mean Corpuscular Hemoglobin Concent 32 32-36 g/dL Red Cell Distribution Width 15.5 H 10.0-14.5 % Platelet Count 170 130-400 10^3/uL Mean Platelet Volume 9.5 9.0-12.2 fL Immature Granulocyte % (Auto) 0 % Neutrophils (%) (Auto) 71 42-75 % Lymphocytes (%) (Auto) 20 12-44 % Monocytes (%) (Auto) 7 0-12 % Eosinophils (%) (Auto) 0 0-10 % Basophils (%) (Auto) 1 0-10 % Neutrophils # (Auto) 3.7 1.8-7.8 10^3/uL Lymphocytes # (Auto) 1.0 1.0-4.0 10^3/uL Monocytes # (Auto) 0.4 0.0-1.0 10^3/uL Eosinophils # (Auto) 0.0 0.0-0.3 10^3/uL Basophils # (Auto) 0.1 0.0-0.1 10^3/uL Immature Granulocyte # (Auto) 0.0 0.0-0.1 10^3/uL Prothrombin Time 13.1 12.2-14.7 SEC INR Comment 1.0 0.8-1.4 Activated Partial Thromboplast Time 28 24-35 SEC Sodium Level 135 135-145 MMOL/L Potassium Level 4.3 3.6-5.0 MMOL/L Chloride Level 99 98-107 MMOL/L Carbon Dioxide Level 23 21-32 MMOL/L Anion Gap 13 5-14 MMOL/L Blood Urea Nitrogen 13 7-18 MG/DL Creatinine 0.84 0.60-1.30 MG/DL Estimat Glomerular Filtration Rate 88 BUN/Creatinine Ratio 15 Glucose Level 117 H 70-105 MG/DL Lactic Acid Level 3.19 *H 2.84 *H 0.50-2.00 MMOL/L Calcium Level 9.2 8.5-10.1 MG/DL Corrected Calcium 9.4 8.5-10.1 MG/DL Total Bilirubin 0.9 0.1-1.0 MG/DL Aspartate Amino Transf (AST/SGOT) 21 5-34 U/L Alanine Aminotransferase (ALT/SGPT) < 6 0-55 U/L Alkaline Phosphatase 92 40-136 U/L Total Protein 6.7 6.4-8.2 GM/DL Albumin 3.7 3.2-4.5 GM/DL Urine Color YELLOW Urine Clarity SL CLOUDY Urine pH 7.0 5-9 Urine Specific [place] 1.015 L 1.016-1.022 Urine Protein NEGATIVE NEGATIVE Urine Glucose (UA) NEGATIVE NEGATIVE Urine Ketones NEGATIVE NEGATIVE Urine Nitrite POSITIVE H NEGATIVE Urine Bilirubin NEGATIVE NEGATIVE Urine Urobilinogen 0.2 < = 1.0 MG/DL Urine Leukocyte Esterase 2+ H NEGATIVE Urine RBC (Auto) 1+ H NEGATIVE Urine RBC 2-5 H /HPF Urine WBC 50-100 H /HPF Urine Crystals NONE /LPF Urine Bacteria LARGE H /HPF Urine Casts NONE /LPF Urine Mucus NEGATIVE /LPF Urine Culture Indicated CULTURE PENDING My Orders Orders - ANNA RODRÍGUEZ APRN Cbc With Automated Diff (10/14/22 17:30) Comprehensive Metabolic Panel (10/14/22 17:30) Blood Culture (10/14/22 17:30) Sputum Culture (10/14/22 17:30) Urinalysis (10/14/22 17:30) Urine Culture (10/14/22 17:30) Protime With Inr (10/14/22 17:30) Partial Thromboplastin Time (10/14/22 17:30) Chest 1 View, Ap/Pa Only (10/14/22 17:30) Ed Iv/Invasive Line Start (10/14/22 17:30) Vital Signs Adult Sepsis Patie Q15M (10/14/22 17:30) O2 (10/14/22 17:30) Remove Rings In Anticipation O (10/14/22 17:30) Lactic Acid Analyzer (10/14/22 17:30) Ns Iv 1000 Ml (Sodium Chloride 0.9%) (10/14/22 17:30) Ns Iv 1000 Ml (Sodium Chloride 0.9%) (10/14/22 18:00) Ceftriaxone Iv/Im (Ceftriaxone Iv/Im) (10/14/22 18:00) Acetaminophen Tablet (Acetaminophen Ta (10/14/22 18:15) Code/Resuscitation (10/14/22 18:27) Ed Admission (Communication) (10/14/22 18:27) Medications Given in ED Current Medications Medications Dose Ordered Sig/Melinda Route Start Time Stop Time Status Last Admin Dose Admin Acetaminophen 1,000 mg ONCE ONCE PO 10/14/22 18:15 10/14/22 18:16 DC 10/14/22 18:19 1,000 MG Ceftriaxone Sodium 1000 mg/ Sodium Chloride 50 ml @ 100 mls/hr ONCE ONCE IV 10/14/22 18:00 10/14/22 18:29 DC 10/14/22 18:20 100 MLS/HR Vital Signs/I&O 10/14/22 10/14/22 10/14/22 17:22 20:32 20:42 Temp 38.7 Pulse 105 72 Resp 14 B/P (MAP) 189/76 (113) Pulse Ox 95 O2 Delivery Room Air Capillary Refill : Progress Note : Progress Note Patient seen and evaluated, resting comfortably in bed, no acute distress, found to be febrile and mildly tachycardic on arrival. Based on exam and symptoms, septic work-up initiated including CBC, CMP, coags, urinalysis, lactic acid, blood cultures x2, chest x-ray, sputum culture. Septic bolus of IV fluids ordered. Source is likely urinary. Patient has no unilateral weakness, no concern for CVA. Patient has a resting tremor, due to history of Parkinson's. 1808 Labs reviewed. CBC grossly normal. CMP grossly normal, glucose 117. Lactic acid critically elevated at 3.19. Coags normal. Urinalysis shows positive nitrates, 2+ leukocytes, 1+ RBCs, 50-100 WBCs, large bacteria. Rocephin ordered for urinary tract infection, patient was susceptible to Rocephin on previous urine culture. Waiting for chest x-ray result. Patient's blood pressure is elevated, he denies headache, dizziness, blurred vision. 1821 Chest x-ray reviewed. No acute pulmonary abnormality. Results discussed with patient and family. I spoke with Dr. Ibarra, hospitalist, for admission. She would like patient admitted observation to cardiac stepdown. Family and patient would like patient to be a full code. Family is agreeable to admission. Dr. Ibarra will place admission orders. Diagnostic Imaging Diagonstic Imaging: Xray Plain Films/CT/US/NM/MRI: chest Comments [facility] [place], [place] NAME: JAMESELVA WAYNE REC#: [id number] PT STATUS: REG ER : 1940 PHYSICIAN: ANNA RODRÍGUEZ APRN ADMIT DATE: 10/14/22/ER Signed Date of Exam:10/14/22 CHEST 1 VIEW, AP/PA ONLY HISTORY: Systemic inflammatory response syndrome. COMPARISON: 07/20/2022. TECHNIQUE: Frontal view of the chest. FINDINGS: Lung volumes are normal. There is mild scarring in the lung bases. There is no pleural effusion or pneumothorax. There is a line along the peripheral right lung, which appears to be a skinfold as pulmonary markings extend beyond the line. The heart is normal in size. Sternotomy wires and post-CABG changes are seen. IMPRESSION: 1. No acute pulmonary abnormality. Dictated by: Dictated on workstation # [id number] Dict: 10/14/22 1800 Trans: 10/14/22 [id number] Interpreted by: LAVELLE DICKINSON MD Electronically signed by: LAVELLE DICKINSON MD 10/14/221820 Departure Communication (Admissions) Time/Spoke to Admitting Phy: 18:22 Dr. Ibarra, hospitalist, see progress note. Impression Primary Impression: Urinary tract infection Qualified Codes: T83.511A - Infection and inflammatory reaction due to indwelling urethral catheter, initial encounter; N39.0 - Urinary tract infection, site not specified Additional Impressions: SIRS (systemic inflammatory response syndrome) Confusion Disposition: ADMITTED INPATIENT Condition: Stable Admissions Decision to Admit Reason: Admit from ER (General) Decision to Admit/Date: Oct 14, 2022 Time/Decision to Admit Time: 18:22 Departure-Patient Inst. Referrals: DINORA HAIRSTON DO (PCP/Family) Primary Care Physician ANNA RODRÍGUEZ APRN Oct 14, 2022 17:44
[2022-10-14 17:52] LABS: ALBUMIN 3.7 GM/DL (3.2-4.5)
[2022-10-14 17:53] LABS: CHLORIDE 99 MMOL/L (98-107); POTASSIUM 4.3 MMOL/L (3.6-5.0); SODIUM 135 MMOL/L (135-145)
[2022-10-14 17:54] LABS: BACTERIA,URINE LARGE /HPF; WBC,URINE 50-100 /HPF
[2022-10-14 17:54] LABS: CALCIUM 9.2 MG/DL (8.5-10.1)
[2022-10-14 17:55] LABS: GLUCOSE 117 MG/DL (70-105); TOTAL PROTEIN 6.7 GM/DL (6.4-8.2)
[2022-10-14 17:56] LABS: CARBON DIOXIDE 23 MMOL/L (21-32); PROTHROMBIN TIME PATIENT 13.1 SEC (12.2-14.7)
[2022-10-14 17:57] LABS: BILIRUBIN,TOTAL 0.9 MG/DL (0.1-1.0)
[2022-10-14 17:58] LABS: ALKALINE PHOSPHATASE 92 U/L (40-136); CREATININE SERUM 0.84 MG/DL (0.60-1.30); GFR ESTIMATED 88
[2022-10-14 18:00] LABS: BUN/CREATININE RATIO 15
[2022-10-14] MEDS ORDERED: cefTRIAXone IV/IM 1,000 MG in NS (IVPB) 50 ML 50 ML IV ONE (18:00)
[2022-10-14 18:01] LABS: ALANINE AMINOTRANSFERASE < 6 U/L (0-55)
--- NOTE | 2022-10-14 18:14 | Diagnostic Imaging Report ---
HISTORY: Systemic inflammatory response syndrome. COMPARISON: 07/20/2022. TECHNIQUE: Frontal view of the chest. FINDINGS: Lung volumes are normal. There is mild scarring in the lung bases. There is no pleural effusion or pneumothorax. There is a line along the peripheral right lung, which appears to be a skinfold as pulmonary markings extend beyond the line. The heart is normal in size. Sternotomy wires and post-CABG changes are seen. IMPRESSION: 1. No acute pulmonary abnormality. Dictated by: Dictated on workstation # [id number]
[2022-10-14] MEDS ORDERED: ACETAMINOPHEN 500 MG TABLET PO ONE (18:15)
[2022-10-14] MEDS ORDERED: cloNIDine 0.1 MG TABLET PO PRN (20:15)
[2022-10-14] MEDS ORDERED: MELATONIN 3 MG TABLET PO PRN (20:15)
[2022-10-14] MEDS ORDERED: polyethylene glycoL POWDER 17 GM (MIRALAX) PACK PO PRN (20:15)
[2022-10-14] MEDS ORDERED: ACETAMINOPHEN 325 MG TABLET PO PRN (20:15)
[2022-10-14] MEDS ORDERED: diphenhydrAMINE INJ 50 MG/ML VIAL IVP PRN (20:15)
[2022-10-14] MEDS ORDERED: LACTULOSE SYRUP 10GM/15ML (ENULOSE) 30ML UDC PO PRN (20:15)
[2022-10-14] MEDS ORDERED: diphenhydrAMINE 25 MG TABLET PO PRN (20:15)
[2022-10-14] MEDS ORDERED: BISACODYL 10 MG SUPPOSITORY PR PRN (20:15)
[2022-10-14] MEDS ORDERED: ONDANSETRON 4 MG (ZOFRAN) ORAL DISSOLVE TAB PO PRN (20:15)
[2022-10-14] MEDS ORDERED: ANTACID SUSP 30 ML UDC (MYLANTA) PO PRN (20:15)
[2022-10-14] MEDS ORDERED: HYDROmorphone 2 MG/ML VIAL (DILAUDID) IV PRN (20:15)
[2022-10-14] MEDS ORDERED: MILK OF MAGNESIA 400 MG/5 ML 30 ML UDC PO PRN (20:15)
[2022-10-14] MEDS ORDERED: ONDANSETRON 4 MG/2 ML (SDV) Z0FRAN IV PRN (20:15)
[2022-10-14] MEDS ORDERED: CALCIUM CARBONATE 500 MG CHEW TABLET PO PRN (20:15)
[2022-10-14] MEDS ORDERED: RT-ALBUTEROL SULF 2.5 MG/3 ML PRE-MIX VIAL INH PRN (21:00)
[2022-10-14] MEDS: SENNOSIDES 8.6 MG (SENOKOT) TAB PO SCH (21:09)
[2022-10-14] MEDS: DOCUSATE SODIUM 100 MG CAPSULE PO SCH (21:09)
[2022-10-14] MEDS: ENOXAPARIN 40 MG/0.4 ML (LOVENOX) SYR SC SCH (21:10)
[2022-10-14] MEDS: NS IV 1000 ML 1,000 ML IV SCH (21:11)
[2022-10-14] MEDS: inSUlin ASPART (NovoLOG) 1 UNIT/0.01 ML (CHARGE PER UNIT) SC SCH (21:25)
[2022-10-15] VITALS (22 sets, daily range): BP systolic 97–232; BP diastolic 49–222
[2022-10-15] MEDS: hydrALAZINE (APESOLINE) 20 MG/ML VIAL IV PRN ×2 (01:10→22:29)
[2022-10-15] MEDS ORDERED: amLODIPine 5 MG TABLET ONE ×2 (02:26→20:42)
[2022-10-15] MEDS ORDERED: amLODIPine 5 MG TABLET PO ONE ×2 (02:30→20:15)
[2022-10-15] MEDS: NS IV 1000 ML 1,000 ML IV SCH ×2 (04:47→11:46)
[2022-10-15 05:03] LABS: BASOPHILS % (AUTO) 1 % (0-10); EOSINOPHILS % (AUTO) 0 % (0-10); HEMATOCRIT 34 % (40-54); HEMOGLOBIN 11.2 g/dL (13.3-17.7); LYMPHOCYTES # (AUTO) 0.7 10^3/uL (1.0-4.0); LYMPHOCYTES % (AUTO) 19 % (12-44); MEAN CORPUSCULAR HEMOGLOBIN 27 pg (25-34); MEAN CORPUSCULAR HGB CONC 33 g/dL (32-36); MEAN CORPUSCULAR VOLUME 82 fL (80-99); MEAN PLATELET VOLUME 9.5 fL (9.0-12.2); MONOCYTES # (AUTO) 0.4 10^3/uL (0.0-1.0); MONOCYTES % (AUTO) 9 % (0-12); NEUTROPHILS # (AUTO) 2.8 10^3/uL (1.8-7.8); NEUTROPHILS % (AUTO) 71 % (42-75); PLATELET COUNT 137 10^3/uL (130-400); WHITE BLOOD COUNT 3.9 10^3/uL (4.3-11.0)
[2022-10-15 05:43] LABS: ALANINE AMINOTRANSFERASE < 6 U/L (0-55); ALBUMIN 3.1 GM/DL (3.2-4.5); ALKALINE PHOSPHATASE 83 U/L (40-136); BILIRUBIN,TOTAL 0.6 MG/DL (0.1-1.0); BUN/CREATININE RATIO 17; CALCIUM 8.4 MG/DL (8.5-10.1); CARBON DIOXIDE 22 MMOL/L (21-32); CHLORIDE 106 MMOL/L (98-107); CREATININE SERUM 0.77 MG/DL (0.60-1.30); GFR ESTIMATED 91; GLUCOSE 133 MG/DL (70-105); POTASSIUM 3.9 MMOL/L (3.6-5.0); SODIUM 137 MMOL/L (135-145); TOTAL PROTEIN 5.8 GM/DL (6.4-8.2)
[2022-10-15] MEDS: inSUlin ASPART (NovoLOG) 1 UNIT/0.01 ML (CHARGE PER UNIT) SC SCH ×4 (05:56→20:08)
--- NOTE | 2022-10-15 06:52 | History & Physical ---
History of Present Illness HPI/Chief Complaint Chief complaint: Sepsis from UTI HPI: This is an 82-year-old male who presented to the ER with altered mental status and patient was found to have a UTI. Suprapubic catheter maintain due to prostate cancer history. Patient does have Parkinson's. Currently he is sleeping and does not want to be disturbed. He was placed in the ICU due to variable blood pressure and that is much improved so we will be moving down to 4 floor. Source: patient Exam Limitations: no limitations Date Seen 10/15/22 Time Seen by a Provider: 11:00 Attending Physician Tri Ortega DO PCP Admitting Physician: Trinidad Ibarra DO Attending Physician: Trinidad Ibarra DO Referring Physician Date of Admission Oct 14, 2022 at 19:55 Home Medications & Allergies Home Medications Reviewed patient Home Medication Reconciliation performed by pharmacy medication reconciliations biodiesel processing technician and/or nursing. Patients Allergies have been reviewed. Allergies Allergies Coded Allergies No Known Drug Allergies (Verified09/15/08) Past Pkqhhnr-Kxrcpm-Ygqvgh Hx Past Med/Social Hx: Reviewed Nursing Past Med/Soc Hx, Reviewed and Corrections made Patient Social History Marrital Status: Employed/Student: retired Smoking Status: Former Smoker Former Smoker, Quit: Apr 02, 2008 Type Used: Cigars Recent Hopitalizations: No Immunizations Up To Date Tetanus Booster (TDap): Unknown Seasonal Allergies Seasonal Allergies: No Past Medical History Surgeries: Bladder Surgery, Cardiac, CABG, Orthopedic Currently Using CPAP: No Currently Using BIPAP: No Cardiac: Coronary Artery Disease, Hypertension Neurological: Parkinson's Disease Reproductive: No Sexually Transmitted Disease: No Genitourinary: Prostate Problems, Neurogenic Bladder Gastrointestinal: Chronic Constipation Endocrine: Diabetes, Non-Insulin dep HEENT: Cataract Hearing Impairment: Hard of Hearing Cancer: Prostate Did You Recieve Any Treatments: Yes What Type of Treatment Did You: Surgical Intervention History of Blood Disorders: No Family History Diabetes mellitus 19 MOTHER FH: cataracts 19 MOTHER FH: stroke 19 MOTHER Oral cancer 19 FATHER Cancer, Diabetes, Hypertension, Stroke Review of Systems Constitutional: see HPI, dizziness, malaise, weakness Psychiatric/Neurological: Other (Confusion) Physical Exam Physical Exam Vital Signs Vital Signs - First Documented 10/14/22 10/14/22 10/15/22 17:22 20:01 07:01 Temp 38.7 Pulse 105 Resp 14 B/P (MAP) 189/76 (113) Pulse Ox 95 O2 Delivery Room Air O2 Flow Rate 0.00 Capillary Refill : Height, Weight, BMI Height: 5'8.00" Weight: 187lbs. 4.0oz. 84.830059lw; 22.12 BMI Method:Stated General Appearance: No Apparent Distress, WD/WN, Chronically ill, Other (Resting tremor) Neck: Normal Inspection, Supple Respiratory: Lungs Clear, Normal Breath Sounds, No Accessory Muscle Use, No Respiratory Distress Cardiovascular: Regular Rate, Rhythm Gastrointestinal: Normal Bowel Sounds, Non Tender, Soft Extremity: Normal Inspection, Normal Range of Motion Neurologic/Psychiatric: Alert, No Motor/Sensory Deficits, Normal Mood/Affect, sweat box attendant II-XII Norm as Tested, Disoriented (to time) Results Results/Procedures Labs Laboratory Tests 10/14/22 17:25 10/15/22 05:00 Patient resulted labs reviewed. Assessment/Plan Admission Diagnosis Assessment: Sepsis UTI Parkinson's Malignant hypertension Fall risk Plan: Move to fourth floor Supportive care Admission Status: Observation TRINIDAD IBARRA DO Oct 15, 2022 06:52
[2022-10-15] MEDS: DOCUSATE SODIUM 100 MG CAPSULE PO SCH ×2 (09:14→20:43)
[2022-10-15] MEDS: SENNOSIDES 8.6 MG (SENOKOT) TAB PO SCH ×2 (09:14→20:43)
[2022-10-15] MEDS ORDERED: cefTRIAXone IV/IM 1,000 MG in NS (IVPB) 50 ML 50 ML IV SCH (18:30)
[2022-10-15] MEDS: ENOXAPARIN 40 MG/0.4 ML (LOVENOX) SYR SC SCH (20:43)
[2022-10-16 03:24] VITALS: BP 154/68
[2022-10-16] MEDS: NS IV 1000 ML 1,000 ML IV SCH (04:12)
[2022-10-16 05:41] LABS: BASOPHILS # (AUTO) 0.1 10^3/uL (0.0-0.1); BASOPHILS % (AUTO) 1 % (0-10); EOSINOPHILS # (AUTO) 0.1 10^3/uL (0.0-0.3); EOSINOPHILS % (AUTO) 2 % (0-10); HEMATOCRIT 34 % (40-54); HEMOGLOBIN 10.8 g/dL (13.3-17.7); LYMPHOCYTES # (AUTO) 1.3 10^3/uL (1.0-4.0); LYMPHOCYTES % (AUTO) 33 % (12-44); MEAN CORPUSCULAR HEMOGLOBIN 27 pg (25-34); MEAN CORPUSCULAR HGB CONC 32 g/dL (32-36); MEAN CORPUSCULAR VOLUME 83 fL (80-99); MEAN PLATELET VOLUME 9.6 fL (9.0-12.2); MONOCYTES # (AUTO) 0.4 10^3/uL (0.0-1.0); MONOCYTES % (AUTO) 11 % (0-12); NEUTROPHILS # (AUTO) 2.1 10^3/uL (1.8-7.8); NEUTROPHILS % (AUTO) 53 % (42-75); PLATELET COUNT 138 10^3/uL (130-400)
[2022-10-16 05:52] LABS: POTASSIUM 3.8 MMOL/L (3.6-5.0)
[2022-10-16 05:53] LABS: CALCIUM 8.6 MG/DL (8.5-10.1)
[2022-10-16 05:54] LABS: TOTAL PROTEIN 5.3 GM/DL (6.4-8.2)
[2022-10-16 05:56] LABS: BILIRUBIN,TOTAL 0.4 MG/DL (0.1-1.0)
[2022-10-16 05:58] LABS: CREATININE SERUM 0.82 MG/DL (0.60-1.30)
[2022-10-16] MEDS: inSUlin ASPART (NovoLOG) 1 UNIT/0.01 ML (CHARGE PER UNIT) SC SCH (05:58)
[2022-10-16 07:46] VITALS: BP 148/68
[2022-10-16] MEDS: SENNOSIDES 8.6 MG (SENOKOT) TAB PO SCH (08:47)
[2022-10-16] MEDS: DOCUSATE SODIUM 100 MG CAPSULE PO SCH (08:47)
--- NOTE | 2022-10-16 08:49 | Physical Therapy Evaluation ---
PT Evaluation-General Medical Diagnosis Admission Date Oct 14, 2022 at 19:55 Medical Diagnosis: confusion/UTI Onset Date: Oct 14, 2022 Therapy Diagnosis Therapy Diagnosis: impaired mobility Height/Weight Height (Feet): 5 Height (Inches): 8.00 Weight (Pounds): 187 Weight (Ounces): 4.0 Precautions Precautions/Isolations: Fall Prevention, Standard Precautions Referral Physician: Stacey Reason for Referral: Evaluation/Treatment Medical History Pertinent Medical History: CAD, DM, HTN, Parkinson's, Prostate CA (suprapubic catheter) Current History EMS secondary to confusion/weakness Reviewed History: Yes Social History Home: Single Level Current Living Status: Spouse Prior Prior Level of Function SCALE: Activities may be completed with or without assistive devices. 3-Poluazemrl-icvihfi completes the activity by him/herself with no assistance from a helper. 5-Set-up or Clean-up Assistance-helper sets up or cleans up; patient completes activity. [place] assists only prior to or following the activity. 4-Supervision or Touching Assistance-helper provides verbal cues and/or touching/steadying and/or contact guard assistance as patient completes activity. Assistance may be provided throughout the activity or intermittently. 3-Partial/Moderate Assistance-helper does LESS THAN HALF the effort. [place] lifts, holds or supports trunk or limbs, but provides less than half the effort. 2-Substantial/Maximal Assistance-helper does MORE THAN HALF the effort. [place] lifts or holds trunk or limbs and provides more than half the effort. 7-Gzejyymsd-gyzjcf does ALL the effort. Patient does none of the effort to complete the activity. Or, the assistance of 2 or more helpers is required for the patient to complete the activity. If activity was not attempted, code reason: 7-Patient Refused. 9-Not Applicable-not attempted and the patient did not perform the activity before the current illness, exacerbation or injury. 10-Not Attempted due to Environmental Limitations-(lack of equipment, weather restraints, etc.). 88-Not Attempted due to Medical Conditions or Safety Concerns. Bed Mobility: 6 Transfers (B,C,W/C): 6 Gait: 6 Indoor Mobility (Ambulation): Independent Prior Devices Use: None (per patient) PT Evaluation-Current Subjective Patient agrees to PT. Objective Patient Orientation: Person ROM/Strength ROM Lower Extremities bilateral LE WFL Strength Lower Extremities 3+/5 grossly bilateral LE all planes Integumentary/Posture Bowel Incontinence: No Posture kyphotic Neuromuscular (Tone, Coordination, Reflexes) grossly intact with noted Parkinson's with noted festinating gait Sensory Vision: Functional Hearing: Functional Transfers Sit to Stand (QC): 4 Gait Mode of Locomotion: Walk Anticipated Mode of Locomotion: Walk Walk 10 feet (QC): 4 Walk 50 ft with 2 Turns(QC): 4 Walk 150 ft (QC): 4 Distance: 200' Gait Assistive Device: None Comments/Gait Description festinating gait sequence/patient refused to use FWW stating he does not use one at home/CGA for safety Balance Sitting Static: Normal Sitting Dynamic: Normal Standing Static: Fair Standing Dynamic: Fair Assessment/Needs Patient will benefit from short term skilled PT to address functional strength and mobility to improve current LOF to safely return to home with spouse at maximum LOF. Rehab Potential: Fair PT Government Affairs Fellow Goals Government Affairs Fellow Goals PT Government Affairs Fellow Goals Time Frame: Oct 28, 2022 Roll Left & Right (QC): 6 Sit to Lying (QC): 6 Lying-Sitting on Side/Bed(QC): 6 Sit to Stand (QC): 6 Chair/Egi-bt-Fqxjl Xfer(QC): 6 Toilet Transfer (QC): 6 Walk 10 feet (QC): 6 Walk 50ft with 2 Turns (QC): 6 Walk 150 ft (QC): 6 PT Plan Problem List Problem List: Activity Tolerance, Functional Strength, Safety, Balance, Gait, Transfer Treatment/Plan Treatment Plan: Continue Plan of Care Treatment Plan: Education, Functional Activity Gisselle, Functional Strength, Gait, Safety, Therapeutic Exercise, Transfers Treatment Duration: Oct 28, 2022 Frequency: 5 times per week Estimated Hrs Per Day: .25 hour per day Time Time In: 812 Time Out: 822 DATE: Oct 16, 2022 Total Billed Treatment Time: 10 Total Billed Treatment 1 visit EVMod 10 min MICHAELA VALLADARES PT Oct 16, 2022 08:49
[2022-10-16] MEDS ORDERED: amLODIPine 5 MG TABLET PO SCH (09:00)
[2022-10-16] MEDS ORDERED: LISI40TA9 PO (09:41)
[2022-10-16] MEDS ORDERED: CEFD300C3 PO (09:41)
[2022-10-16] MEDS ORDERED: AMLO-251 PO (09:41)
[2022-10-16] MEDS ORDERED: ASPI-1238 PO (09:41)
[2022-10-16] MEDS ORDERED: GLIP10TA13 PO (09:41)
[2022-10-16] MEDS ORDERED: SIMV40TA25 PO (09:41)
[2022-10-16] MEDS ORDERED: SITA1TBM7 PO (09:41)
[2022-10-16] MEDS ORDERED: CARB1TAB32 PO (09:41)
--- NOTE | 2022-10-16 09:43 | D/C HH Face to Face Order ---
D/C HH Face to Face Orders Reconcile Patient Problems Problems Reviewed?: Yes Instructions for Patient HH Patient Instructions/FollowUp: Dr Ibarra Physician to follow Patient: Stacey Discharge Diet for Home: ADA Diet Patient Problems: Parkinson's DM HTN Patient Data-Allergies,Ht & Wt Patient Allergies: Coded Allergies: No Known Drug Allergies (Verified , 09/15/08) Height (Feet): 5 Height (Inches): 8.00 Weight (Pounds): 187 Weight (Ounces): 4.0 Home Health Need/Face to Face Date of Face to Face: Oct 16, 2022 Clinical Findings: Generalized weakness and fatigue, Instability, Muscle weakness, Unsteady gait I have seen Pt [id number]: Yes Discharged To: Home Diagnosis/Conditions: Parkinson's Patient is Homebound due to: Muscle weakness Homebound Status Due to the above stated illness, injury or surgical procedure (medical condition or diagnosis) and associated clinical findings, the patient is homebound because of his/her inability to leave home except with aid of a supportive device and/or person AND leaving the home requires a considerable and taxing effort or is medically contraindicated. Pt req the following assistanc: Walker Home Health Nursing Orders Home Health Services Order: Nursing Services, Sign Fabricator-Evaluate & Treat, Physical Therapy-Evaluate & Treat Home Health Infusion Therapy Line Start Date: Oct 14, 2022 Certify Stmt I certify that this patient is under my care and that I, a nurse practitioner or a physician; a religious assistant working with me, had a face to face encounter that - meets the physician face to face encounter requirements with this patient as dated. ROBE IBARRA DO Oct 16, 2022 09:43
--- NOTE | 2022-10-16 09:44 | Discharge Summary ---
Diagnosis/Chief Complaint Date of Admission Oct 14, 2022 at 19:55 Date of Discharge Discharge Date: Oct 16, 2022 Discharge Diagnosis Encephalopathy UTI Parkinson's Falls Discharge Summary Discharge Physical Examination Allergies: Coded Allergies: No Known Drug Allergies (Verified , 09/15/08) Vitals & I&Os Vital Signs Date Time Temp Pulse Resp B/P (MAP) Pulse Ox O2 Delivery O2 Flow Rate FiO2 10/16/22 10:18 37.6 74 18 148/68 100 Room Air 0.00 General Appearance: Alert, Oriented X3, Cooperative Respiratory: Clear to Auscultation Cardiovascular: Regular Rate Psych/Mental Status: Mental Status NL Hospital Course Was the Problem List Reviewed?: Yes Uneventful course after he was admitted for AMS from UTI. SP catheter maintained due to neurogenic bladder following prostate cancer treatment. Rocephin initiated empirically. Omnicef PO sent to pharmacy and he will have close outpatient f/u Labs (last 24 hrs) Laboratory Tests 10/14/22 17:25: White Blood Count 5.2, Red Blood Count 4.82, Hemoglobin 13.1L, Hematocrit 41, Mean Corpuscular Volume 84, Mean Corpuscular Hemoglobin 27, Mean Corpuscular Hemoglobin Concent 32, Red Cell Distribution Width 15.5H, Platelet Count 170, Mean Platelet Volume 9.5, Immature Granulocyte % (Auto) 0, Neutrophils (%) (Auto) 71, Lymphocytes (%) (Auto) 20, Monocytes (%) (Auto) 7, Eosinophils (%) (Auto) 0, Basophils (%) (Auto) 1, Neutrophils # (Auto) 3.7, Lymphocytes # (Auto) 1.0, Monocytes # (Auto) 0.4, Eosinophils # (Auto) 0.0, Basophils # (Auto) 0.1, Immature Granulocyte # (Auto) 0.0, Prothrombin Time 13.1, INR Comment 1.0, Activated Partial Thromboplast Time 28, Sodium Level 135, Potassium Level 4.3, Chloride Level 99, Carbon Dioxide Level 23, Anion Gap 13, Blood Urea Nitrogen 13, Creatinine 0.84, Estimat Glomerular Filtration Rate 88, BUN/Creatinine Ratio 15, Glucose Level 117H, Lactic Acid Level 3.19*H, Calcium Level 9.2, Corrected Calcium 9.4, Total Bilirubin 0.9, Aspartate Amino Transf (AST/SGOT) 21, Alanine Aminotransferase (ALT/SGPT) < 6, Alkaline Phosphatase 92, Total Protein 6.7, Albumin 3.7 10/14/22 17:28: Urine Color YELLOW, Urine Clarity SL CLOUDY, Urine pH 7.0, Urine Specific Dexter 1.015L, Urine Protein NEGATIVE, Urine Glucose (UA) NEGATIVE, Urine Ketones NEGATIVE, Urine Nitrite POSITIVEH, Urine Bilirubin NEGATIVE, Urine Urobilinogen 0.2, Urine Leukocyte Esterase 2+H, Urine RBC (Auto) 1+H, Urine RBC 2-5H, Urine WBC 50-100H, Urine Crystals NONE, Urine Bacteria LARGEH, Urine Casts NONE, Urine Mucus NEGATIVE, Urine Culture Indicated CULTURE PENDING 10/14/22 20:05: Lactic Acid Level 2.84*H 10/14/22 21:20: Glucometer 199H 10/15/22 05:00: White Blood Count 3.9L, Red Blood Count 4.16L, Hemoglobin 11.2L, Hematocrit 34L, Mean Corpuscular Volume 82, Mean Corpuscular Hemoglobin 27, Mean Corpuscular Hemoglobin Concent 33, Red Cell Distribution Width 15.3H, Platelet Count 137, Mean Platelet Volume 9.5, Immature Granulocyte % (Auto) 1, Neutrophils (%) (Auto) 71, Lymphocytes (%) (Auto) 19, Monocytes (%) (Auto) 9, Eosinophils (%) (Auto) 0, Basophils (%) (Auto) 1, Neutrophils # (Auto) 2.8, Lymphocytes # (Auto) 0.7L, Monocytes # (Auto) 0.4, Eosinophils # (Auto) 0.0, Basophils # (Auto) 0.0, Immature Granulocyte # (Auto) 0.0, Sodium Level 137, Potassium Level 3.9, Chloride Level 106, Carbon Dioxide Level 22, Anion Gap 9, Blood Urea Nitrogen 13, Creatinine 0.77, Estimat Glomerular Filtration Rate 91, BUN/Creatinine Ratio 17, Glucose Level 133H, Calcium Level 8.4L, Corrected Calcium 9.1, Total Bilir ubin 0.6, Aspartate Amino Transf (AST/SGOT) 19, Alanine Aminotransferase (ALT/SGPT) < 6, Alkaline Phosphatase 83, Total Protein 5.8L, Albumin 3.1L 10/15/22 10:40: Glucometer 135H 10/15/22 15:24: Glucometer 117H 10/15/22 20:02: Glucometer 143H 10/16/22 05:32: White Blood Count 4.0L, Red Blood Count 4.04L, Hemoglobin 10.8L, Hematocrit 34L, Mean Corpuscular Volume 83, Mean Corpuscular Hemoglobin 27, Mean Corpuscular Hemoglobin Concent 32, Red Cell Distribution Width 15.6H, Platelet Count 138, Mean Platelet Volume 9.6, Immature Granulocyte % (Auto) 1, Neutrophils (%) (Auto) 53, Lymphocytes (%) (Auto) 33, Monocytes (%) (Auto) 11, Eosinophils (%) (Auto) 2, Basophils (%) (Auto) 1, Neutrophils # (Auto) 2.1, Lymphocytes # (Auto) 1.3, Monocytes # (Auto) 0.4, Eosinophils # (Auto) 0.1, Basophils # (Auto) 0.1, Immature Granulocyte # (Auto) 0.0, Sodium Level 139, Potassium Level 3.8, Chloride Level 107, Carbon Dioxide Level 24, Anion Gap 8, Blood Urea Nitrogen 15, Creatinine 0.82, Estimat Glomerular Filtration Rate 89, BUN/Creatinine Ratio 18, Glucose Level 125H, Calcium Level 8.6, Corrected Calcium 9.4, Total Bilirubin 0.4, Aspartate Amino Transf (AST/SGOT) 17, Alanine Aminotransferase (ALT/SGPT) 13, Alkaline Phosphatase 83, Total Protein 5.3L, Albumin 3.0L 10/16/22 06:02: Glucometer 122H Microbiology 10/14/22 Blood Culture - Preliminary, Resulted No growth 10/14/22 Urine Culture - Preliminary, Resulted Klebsiella pneumoniae Mixed Bacterial Sherie See Comments Pending Labs Microbiology Date/Time Source Procedure Growth Status 10/14/22 18:17 Peripheral Rt Ac Blood Culture - Preliminary No growth Resulted 10/14/22 17:28 Urine Clean Catch Urine Culture - Preliminary Klebsiella pneumoniae Mixed Bacterial Sherie See Comments Resulted 10/14/22 17:25 Peripheral Left Wrist Blood Culture - Preliminary No growth Resulted Laboratory Tests 10/14/22 17:25: White Blood Count 5.2, Red Blood Count 4.82, Hemoglobin 13.1, Hematocrit 41, Mean Corpuscular Volume 84, Mean Corpuscular Hemoglobin 27, Mean Corpuscular Hemoglobin Concent 32, Red Cell Distribution Width 15.5, Platelet Count 170, Mean Platelet Volume 9.5, Immature Granulocyte % (Auto) 0, Neutrophils (%) (Auto) 71, Lymphocytes (%) (Auto) 20, Monocytes (%) (Auto) 7, Eosinophils (%) (Auto) 0, Basophils (%) (Auto) 1, Neutrophils # (Auto) 3.7, Lymphocytes # (Auto) 1.0, Monocytes # (Auto) 0.4, Eosinophils # (Auto) 0.0, Basophils # (Auto) 0.1, Immature Granulocyte # (Auto) 0.0, Prothrombin Time 13.1, INR Comment 1.0, Activated Partial Thromboplast Time 28, Sodium Level 135, Potassium Level 4.3, Chloride Level 99, Carbon Dioxide Level 23, Anion Gap 13, Blood Urea Nitrogen 13, Creatinine 0.84, Estimat Glomerular Filtration Rate 88, BUN/Creatinine Ratio 15, Glucose Level 117, Lactic Acid Level 3.19, Calcium Level 9.2, Corrected Calcium 9.4, Total Bilirubin 0.9, Aspartate Amino Transf (AST/SGOT) 21, Alanine Aminotransferase (ALT/SGPT) < 6, Alkaline Phosphatase 92, Total Protein 6.7, Albumin 3.7 10/14/22 17:28: Urine Color YELLOW, Urine Clarity SL CLOUDY, Urine pH 7.0, Urine Specific Dexter 1.015, Urine Protein NEGATIVE, Urine Glucose (UA) NEGATIVE, Urine Ketones NEGATIVE, Urine Nitrite POSITIVE, Urine Bilirubin NEGATIVE, Urine Urobilinogen 0.2, Urine Leukocyte Esterase 2+, Urine RBC (Auto) 1+, Urine RBC 2- 5, Urine WBC 50-100, Urine Crystals NONE, Urine Bacteria LARGE, Urine Casts NONE, Urine Mucus NEGATIVE, Urine Culture Indicated CULTURE PENDING 10/14/22 20:05: Lactic Acid Level 2.84 10/14/22 21:20: Glucometer 199 10/15/22 05:00: White Blood Count 3.9, Red Blood Count 4.16, Hemoglobin 11.2, Hematocrit 34, Mean Corpuscular Volume 82, Mean Corpuscular Hemoglobin 27, Mean Corpuscular Hemoglobin Concent 33, Red Cell Distribution Width 15.3, Platelet Count 137, Mean Platelet Volume 9.5, Immature Granulocyte % (Auto) 1, Neutrophils (%) (Aut o) 71, Lymphocytes (%) (Auto) 19, Monocytes (%) (Auto) 9, Eosinophils (%) (Auto) 0, Basophils (%) (Auto) 1, Neutrophils # (Auto) 2.8, Lymphocytes # (Auto) 0.7, Monocytes # (Auto) 0.4, Eosinophils # (Auto) 0.0, Basophils # (Auto) 0.0, Immature Granulocyte # (Auto) 0.0, Sodium Level 137, Potassium Level 3.9, Chloride Level 106, Carbon Dioxide Level 22, Anion Gap 9, Blood Urea Nitrogen 13, Creatinine 0.77, Estimat Glomerular Filtration Rate 91, BUN/Creatinine Ratio 17, Glucose Level 133, Calcium Level 8.4, Corrected Calcium 9.1, Total Bilirubin 0.6, Aspartate Amino Transf (AST/SGOT) 19, Alanine Aminotransferase (ALT/SGPT) < 6, Alkaline Phosphatase 83, Total Protein 5.8, Albumin 3.1 10/15/22 10:40: Glucometer 135 10/15/22 15:24: Glucometer 117 10/15/22 20:02: Glucometer 143 10/16/22 05:32: White Blood Count 4.0, Red Blood Count 4.04, Hemoglobin 10.8, Hematocrit 34, Mean Corpuscular Volume 83, Mean Corpuscular Hemoglobin 27, Mean Corpuscular Hemoglobin Concent 32, Red Cell Distribution Width 15.6, Platelet Count 138, Mean Platelet Volume 9.6, Immature Granulocyte % (Auto) 1, Neutrophils (%) (Auto) 53, Lymphocytes (%) (Auto) 33, Monocytes (%) (Auto) 11, Eosinophils (%) (Auto) 2, Basophils (%) (Auto) 1, Neutrophils # (Auto) 2.1, Lymphocytes # (Auto) 1.3, Monocytes # (Auto) 0.4, Eosinophils # (Auto) 0.1, Basophils # (Auto) 0.1, Immature Granulocyte # (Auto) 0.0, Sodium Level 139, Potassium Level 3.8, Chloride Level 107, Carbon Dioxide Level 24, Anion Gap 8, Blood Urea Nitrogen 15, Creatinine 0.82, Estimat Glomerular Filtration Rate 89, BUN/Creatinine Ratio 18, Glucose Level 125, Calcium Level 8.6, Corrected Calcium 9.4, Total Bilirubin 0.4, Aspartate Amino Transf (AST/SGOT) 17, Alanine Aminotransferase (ALT/SGPT) 13, Alkaline Phosphatase 83, Total Protein 5.3, Albumin 3.0 10/16/22 06:02: Glucometer 122 Discharge Home Medications: Active Scripts Active Cefdinir 300 Mg Capsule 300 Mg PO BID Carbidopa-Levodopa 25-100 Tab (Carbidopa/Levodopa) 25 Mg-100 Mg Tablet 2 Ea PO TID Amlodipine Besylate 10 Mg Tablet 5 Mg PO DAILY Janumet Xr 100-1,000 mg Tablet (Sitagliptin Phos/Metformin HCl) 100 Mg-1,000 Mg Tbmp.24hr 1 Each PO DAILY Aspirin EC (Aspirin) 81 Mg Tablet.dr 81 Mg PO DAILY Glipizide 10 Mg Tablet 10 Mg PO DAILY Simvastatin 40 Mg Tablet 40 Mg PO HS Lisinopril 40 Mg Tablet 40 Mg PO DAILY Reported Fish Oil 1,000 mg Softgel ([place]-3/Dha/Epa/Fish Oil) 1 Each Capsule 1,000 Mg PO BID Instructions to patient/family Please see electronic discharge instructions given to patient. ROBE MONTAÑO DO Oct 16, 2022 09:43
[2022-10-16 10:18] VITALS: BP 148/68
== END 2022-10-16 10:20 | disposition home health service (06) ==
LOC: EDUNIT# 17:21 → ER 17:22 → ICU 19:55 → 4TH 10-15 14:05
PROVIDERS: ADMIT Internal Medicine; ATTEND Internal Medicine
DX: G93.40 Encephalopathy, unspecified (principal); N39.0 Urinary tract infection, site not specified; G20 Parkinson's disease; A41.9 Sepsis, unspecified organism; R65.10 Systemic inflammatory response syndrome (SIRS) of non-infectious origin without acute organ dysfunction; N31.8 Other neuromuscular dysfunction of bladder; R41.82 Altered mental status, unspecified; I10 Essential (primary) hypertension; Z87.891 Personal history of nicotine dependence; Z85.46 Personal history of malignant neoplasm of prostate
CPT/HCPCS: 36415; 71045; 80053; 81000; 82947; 83605; 85025; 85610; 85730; 87040; 87077; 87088; 87186; 96361; 96372; 96375; 96376; G0378